=== PATIENT | female | born 1980 | race Caucasian/White ===

== ENCOUNTER 2016-05-09 15:53 | Emergency (ER) | payer SELFPAY ==
[2016-05-09 16:21] VITALS: BP 124/87
--- NOTE | 2016-05-09 16:39 | ER Document Report ---
ED Medical Screen (RME) - General Stated Complaint: SORE THROAT/DIFFICULTY SWALLOWING Notes: thursday throat pain that has progressed to hurting her right ear and neck. Able tolerate by mouth. Denies any fevers, chills, nausea, vomiting. I have greeted and performed a rapid initial assessment of this patient. A comprehensive ED assessment and evaluation of the patient, analysis of test results and completion of the medical decision making process will be conducted by additional ED providers. TRAVEL OUTSIDE OF THE [place] IN LAST 30 DAYS: No - Related Data Allergies/Adverse Reactions: No Known Allergies Allergy (Verified 03/16/16 09:58) Past Medical History Pulmonary Medical History: Reports: Hx Asthma Renal/ Medical History: Reports: Hx Ovarian Cysts Skin Medical History: Reports Hx MRSA Psychiatric Medical History: Reports: Hx Anxiety, Hx Attention Deficit Hyperactivity Disorder, Hx Bipolar Disorder, Hx Depression Past Surgical History: Reports: Hx Section, Hx Gynecologic Surgery - tubal - Immunizations Immunizations up to date: Yes Hx Diphtheria, Pertussis, Tetanus Vaccination: Yes Physical Exam - Vital signs Vitals: Temp Pulse Resp BP Pulse Ox 98.0 F 74 18 124/87 H 97 05/09/16 16:19 05/09/16 16:19 05/09/16 16:19 05/09/16 16:19 05/09/16 16:19 Course - Vital Signs Vital signs: Temp Pulse Resp BP Pulse Ox 98.0 F 74 18 124/87 H 97 05/09/16 16:19 05/09/16 16:19 05/09/16 16:19 05/09/16 16:19 05/09/16 16:19
--- NOTE | 2016-05-09 16:57 | ER Document Report ---
HPI - HPI Patient complains to provider of: sore throat Onset: Other - 2days Onset/Duration: Persistent Quality of pain: Burning Severity: Severe Pain Level: 5 Context: Patient presents to the emergency department with complaints of sore throat hurts to swallow and right ear pain for the past 2 days. She denies fever vomiting reports a little bit of diarrhea. She reports no exposure to strep although she has 2 sons that attend school. Patient reports she's been unable to sleep due to the pain. She reports Tylenol Motrin do not help the pain. Associated Symptoms: None Exacerbated by: Other - hurts to swallow Relieved by: Denies Similar symptoms previously: No Recently seen / treated by doctor: No - REPRODUCTIVE Reproductive: DENIES: : - DERM Skin Color: Normal Past Medical History - General Information source: Patient Last Menstrual Period: 05/05/16 - Social History Smoking Status: Current Every Day Smoker Cigarette use (# per day): Yes Chew tobacco use (# tins/day): No Frequency of alcohol use: None Drug Abuse: None Lives with: Family Family History: Reviewed & Not Pertinent Patient has suicidal ideation: No Patient has homicidal ideation: No Pulmonary Medical History: Reports: Hx Asthma Renal/ Medical History: Reports: Hx Ovarian Cysts. Denies: Hx Peritoneal Dialysis Skin Medical History: Reports Hx MRSA Psychiatric Medical History: Reports: Hx Anxiety, Hx Attention Deficit Hyperactivity Disorder, Hx Bipolar Disorder, Hx Depression Past Surgical History: Reports: Hx Section, Hx Gynecologic Surgery - tubal - Immunizations Immunizations up to date: Yes Hx Diphtheria, Pertussis, Tetanus Vaccination: Yes Vertical Provider Document - CONSTITUTIONAL Agree With Documented VS: Yes Exam Limitations: No Limitations General Appearance: WD/WN, No Apparent Distress - nontoxic looking - INFECTION CONTROL TRAVEL OUTSIDE OF THE [place] IN LAST 30 DAYS: No - HEENT HEENT: Atraumatic, Normocephalic. negative: Pharyngeal Exudate, Pharyngeal Erythema - No peritonsillar abscess good clear voice no trismus opens mouth wide , Tympanic Membrane Red, Tympanic Membrane Bulging - NECK Neck: Normal Inspection, Supple. negative: Lymphadenopathy-Left, Lymphadenopathy-Right - RESPIRATORY Respiratory: Breath Sounds Normal, No Respiratory Distress O2 Sat by Pulse Oximetry: 97 - CARDIOVASCULAR Cardiovascular: Regular Rate, Regular Rhythm - GI/ABDOMEN Gastrointestinal: Abdomen Soft, Abdomen Non-Tender - MUSCULOSKELETAL/EXTREMETIES Musculoskeletal/Extremeties: MAEW, FROM - NEURO Level of Consciousness: Awake, Alert, Appropriate Motor/Sensory: No Motor Deficit - DERM Integumentary: Warm, Dry Course - Re-evaluation Re-evalutation: 05/09/16 17:37 Pt declined motrin/tylenol, reports it doesn't help, requested ultram, reports she did not drive here. - Vital Signs Vital signs: Temp Pulse Resp BP Pulse Ox 98.0 F 74 18 124/87 H 97 05/09/16 16:19 05/09/16 16:19 05/09/16 16:19 05/09/16 16:19 05/09/16 16:19 Discharge - Discharge Clinical Impression: Sore throat, Elevated blood pressure reading Condition: Stable Disposition: HOME, SELF-CARE Instructions: Sore Throat ([facility]) Additional Instructions: *You have been evaluated for a sore throat *The strep test was negative for strep. A Throat culture is pending. This usually takes 2-3 days. You will be contacted should you need antibiotics. *Take tylenol or motrin as indicated for pain *Warm salt water gargles and throat lozenges for comfort *Do not let anyone drink/eat after you *Good hand washing *Follow-up with a primary care provider within one week for recheck *Monitor your blood pressure. Your blood pressure was elevated today. This may be because you were anxious, in pain or because you need medication. It is important to follow up with your primary care provider for full evaluation. *Return to ED for worsening condition change, needs, difficulty swallowing Forms: Elevated Blood Pressure
== END 2016-05-09 18:03 | disposition home or self-care (01) ==
LOC: ER 15:53
DX: J02.9 Acute pharyngitis, unspecified (principal); H92.01 Otalgia, right ear; R19.7 Diarrhea, unspecified; R03.0 Elevated blood-pressure reading, without diagnosis of hypertension; J45.909 Unspecified asthma, uncomplicated; F17.210 Nicotine dependence, cigarettes, uncomplicated; Z86.14 Personal history of Methicillin resistant Staphylococcus aureus infection
CPT/HCPCS: 87070; 87880; 99283

== ENCOUNTER 2016-05-12 11:27 | Emergency (ER) | payer SELFPAY ==
[2016-05-12] MEDS ORDERED: DIPH/PERTUSS(ACELL)/TETANUS VAC/PF 0.5 ML SYR (>=10YO) IM ONE (12:14)
[2016-05-12] MEDS ORDERED: ACETAMINOPHEN 325 MG TABLET PO ONE (12:15)
[2016-05-12] MEDS ORDERED: IBUPROFEN 600 MG TABLET PO ONE (12:17)
--- NOTE | 2016-05-12 12:17 | ER Document Report ---
ED Medical Screen (RME) - General Stated Complaint: FACIAL INJURY Time seen by provider: 12:16 Mode of Arrival: Ambulatory Information source: Patient Notes: 35-year-old female tripped over a baby toy and hit her face on a carpeted floor this morning. She has an abrasion to her forehead and nose. She did have a nosebleed. No headache or neck pain. C-spine is nontender. I have greeted and performed a rapid initial assessment of this patient. A comprehensive ED assessment, evaluation of the patient, analysis of test results , and completion of the medical decision making process will be contacted by additional ED providers. I have consulted with the supervisory physician per [facility] Guidelines., dr byrd for ct order. TRAVEL OUTSIDE OF THE [place] IN LAST 30 DAYS: No - Related Data Allergies/Adverse Reactions: No Known Allergies Allergy (Verified 05/12/16 12:13) Past Medical History Pulmonary Medical History: Reports: Hx Asthma Renal/ Medical History: Reports: Hx Ovarian Cysts. Denies: Hx Peritoneal Dialysis Skin Medical History: Reports Hx MRSA Psychiatric Medical History: Reports: Hx Anxiety, Hx Attention Deficit Hyperactivity Disorder, Hx Bipolar Disorder, Hx Depression Past Surgical History: Reports: Hx Section, Hx Gynecologic Surgery - tubal - Immunizations Immunizations up to date: Yes Hx Diphtheria, Pertussis, Tetanus Vaccination: Yes Physical Exam - Vital signs Vitals: Temp Pulse Resp BP Pulse Ox 98.4 F 84 14 130/78 H 98 05/12/16 11:38 05/12/16 11:38 05/12/16 11:38 05/12/16 11:38 05/12/16 11:38 Course - Vital Signs Vital signs: Temp Pulse Resp BP Pulse Ox 98.4 F 84 14 130/78 H 98 05/12/16 11:38 05/12/16 11:38 05/12/16 11:38 05/12/16 11:38 05/12/16 11:38
--- NOTE | 2016-05-12 14:17 | ER Document Report ---
ED Head/Face/Scalp Injury - General Chief Complaint: Facial Injury Stated Complaint: FACIAL INJURY Time seen by provider: 14:13 Mode of Arrival: Ambulatory Information source: Patient Notes: 35-year-old female presents to ED for pain to her nose and forehead after she tripped over the baby's toy and landed on her face on the carpeted floor this morning. She has abrasion to forehead and nose. TRAVEL OUTSIDE OF THE [place] IN LAST 30 DAYS: No - HPI Patient complains to provider of: Contusion, Injury, Other - Abrasion Injury to: Forehead, Nose Location of problem: Forehead, Nose Occurred: This morning Where: Home, Indoors Timing: Still present Context: Fell Loss consciousness: No loss of consciousness Remembers: Injury, Coming to hospital - Related Data Allergies/Adverse Reactions: No Known Allergies Allergy (Verified 05/12/16 12:13) Past Medical History - General Information source: Patient - Social History Smoking Status: Current Every Day Smoker Cigarette use (# per day): Yes - half pack a day Chew tobacco use (# tins/day): Yes Smoking Education Provided: Yes - acetaminophen Frequency of alcohol use: None Drug Abuse: None Occupation: none Lives with: Spouse/Significant other Family History: Thyroid Disfunction. denies: Arthritis, CAD, COPD, CVA, DM, Hyperlipidemia, Hypertension, Malignancy Patient has suicidal ideation: No Patient has homicidal ideation: No - Past Medical History Cardiac Medical History: Reports: None Pulmonary Medical History: Reports: Hx Asthma EENT Medical History: Reports: None Neurological Medical History: Reports: None Endocrine Medical History: Reports: None Renal/ Medical History: Reports: Hx Ectopic , Hx Ovarian Cysts Malignancy Medical History: Reports: None GI Medical History: Reports: None Musculoskeltal Medical History: Reports None Skin Medical History: Reports Hx MRSA Psychiatric Medical History: Reports: Hx Anxiety, Hx Attention Deficit Hyperactivity Disorder, Hx Bipolar Disorder, Hx Depression Traumatic Medical History: Reports: None Infectious Medical History: Reports: Hx MRSA Past Surgical History: Reports: Hx Section, Hx Gynecologic Surgery - tubal - Immunizations Immunizations up to date: Yes Hx Diphtheria, Pertussis, Tetanus Vaccination: Yes Review of Systems - Review of Systems Constitutional: No symptoms reported EENT: No symptoms reported Cardiovascular: No symptoms reported Respiratory: No symptoms reported Gastrointestinal: No symptoms reported Genitourinary: No symptoms reported Female Genitourinary: No symptoms reported Musculoskeletal: No symptoms reported Skin: Other - Abrasion to forehead and nose, contusion to forehead and nose Hematologic/Lymphatic: No symptoms reported Neurological/Psychological: No symptoms reported -: Yes All other systems reviewed and negative Physical Exam - Vital signs Vitals: Temp Pulse Resp BP Pulse Ox 98.4 F 84 14 130/78 H 98 05/12/16 11:38 05/12/16 11:38 05/12/16 11:38 05/12/16 11:38 05/12/16 11:38 Interpretation: Normal - General General appearance: Appears well, Alert - HEENT Head: Abrasions, Ecchymosis, Tenderness Eyes: Normal Pupils: PERRL Ears: Normal External canal: Normal Tympanic membrane: Normal Sinus: Normal Nasal: Ecchymosis, Swelling, Clear rhinorrhea. No: Bloody discharge, Connor deformity, Epistaxis, Purulent discharge, Septal hematoma Mouth/Lips: Normal Mucous membranes: Normal Pharynx: Normal Neck: Normal - Respiratory Respiratory status: No respiratory distress Chest status: Nontender Breath sounds: Normal Chest palpation: Normal - Cardiovascular Rhythm: Regular Heart sounds: Normal auscultation Murmur: No - Abdominal Inspection: Normal Distension: No distension Bowel sounds: Normal Tenderness: Nontender Organomegaly: No organomegaly - Back Back: Normal, Nontender - Extremities General upper extremity: Normal inspection, Nontender, Normal color, Normal ROM , Normal temperature General lower extremity: Normal inspection, Nontender, Normal color, Normal ROM , Normal temperature, Normal weight bearing. No: Marcos's sign - Neurological Neuro grossly intact: Yes Cognition: Normal Orientation: AAOx4 Ananth Coma Scale Eye Opening: Spontaneous Ananth Coma Scale Verbal: Oriented [place] Coma Scale Motor: Obeys Commands [place] Coma Scale Total: 15 Speech: Normal Motor strength normal: LUE, RUE, LLE, RLE Sensory: Normal - Psychological Associated symptoms: Normal affect, Normal mood - Skin Skin Temperature: Warm Skin Moisture: Dry Skin Color: Normal Location of irregularity: Face - Abrasion and contusion to forehead and nose Course - Re-evaluation Re-evalutation: 05/12/16 14:[address] with patient and family written report given to patient patient discharged home with a prescription for hydrocodone - Vital Signs Vital signs: Temp Pulse Resp BP Pulse Ox 98.0 F 80 16 130/75 H 100 05/12/16 14:26 05/12/16 14:26 05/12/16 14:26 05/12/16 14:26 05/12/16 14:26 - Diagnostic Test Radiology reviewed: Image reviewed, Reports reviewed Discharge - Discharge Clinical Impression: patient abrasions Facial contusion Qualifiers: Encounter type: initial encounter Qualified Code(s): S00.83XA - Contusion of other part of head, initial encounter Condition: Good Disposition: HOME, SELF-CARE Instructions: Family Physicians / Practices Additional Instructions: CONTUSION: Your injury has resulted in a contusion -- a crushing of the deep tissues. No injury to important structures was detected during the physician's exam. Contusions vary in the amount of pain they cause, and in the length of time required for healing. Typically, the area will become bruised, and will remain painful to touch for two or three weeks. However, most patients are back to working and playing within a few days. After the initial period of rest and cold-packs, your symptoms (together with the doctor's recommendations) will determine how rapidly you can get back to full activity. Usually this means "do what feels okay, but don't do things that hurt." If re-examination was recommended, it's important to follow up as instructed. Call the doctor or return any time if pain increases, if swelling becomes severe, if you develop numbness or weakness in an injured extremity, or if any other alarming symptoms occur. ABRASIONS: An abrasion is a scraping injury of the skin. Some scarring may result. The seriousness of an abrasion is not always obvious at first. Hidden tissue damage may be present and infection may occur despite proper care. Complete healing may take from ten days to as long as a month. The healing time depends on the depth of the abrasion, and on the amount of crushing of underlying tissues from the injury. Keep the wound and dressing clean. Do not shower or bathe the area until okayed by the doctor. If the dressing gets wet, remove it and blot the wound dry, then reapply a clean dressing. Dressings should be changed every day. Sunscreen should be used for six months after the skin is healed. If any signs of infection occur (swelling, redness, increasing tenderness, red streaks, profuse purulent drainage from the abrasion, tender lumps in the armpit or groin above the abrasion, or fever), see the doctor immediately. Soap Cleansing Gently wash the wound daily using a mild soap (like Ivory, Phisoderm, Neutrogena). Use warm water, rubbing gently until all debris, ooze, and crusting have been washed from the wound. Allow to dry briefly (about 10 minutes) after cleaning. Repeat this cleansing at least three times a day for the first two days and then once or twice a day. Antibiotic Ointment Protection Your wounds are such that dressing them is not practical or optional. After cleansing, you should apply a thin coating of antibiotic ointment ( Bacitracin, not Neosporin) to the wounds at least three times daily. This lessens infection risk, and may decrease the amount of scarring. Use a q-tip or dull butter knife, not your finger, to apply this ointment. Any debris or ooze which builds up in the ointment should be gently rubbed off with a sterile gauze pad. Harder crusting may need to be gently scrubbed off with a clean wash cloth with soap and warm water, perhaps applying a warm, wet wash cloth to the wound for ten minutes first. Development of redness, severe itching, or blistering may mean allergy to the ointment. See the doctor. Ibuprofen Ibuprofen is an excellent, safe drug for pain control. In addition, it has potent antiinflammatory effects which are beneficial, especially in the treatment of injuries, arthritis, or tendonitis. It's best to take ibuprofen with food. Persons with ulcer disease or allergy to aspirin should notify their physician of this before taking ibuprofen. Take the medication exactly as prescribed. Don't take additional doses unless instructed to do so by your doctor. If you develop wheezing, shortness of breath, hives, faintness, stomach pain, vomiting, or dark black stools, return for re-evaluation at once. USE OF TYLENOL (ACETAMINOPHEN): Acetaminophen may be taken for pain relief or fever control. It's much safer than aspirin, offering a wider range of "safe" dosages. It is safe during . Some brand names are Tylenol, Panadol, Datril, Anacin 3, Tempra, and Liquiprin. Acetaminophen can be repeated every four hours. The following are maximum recommended dosages: WEIGHT Dose Drops Elixir Chewable( 80mg) (LBS.) drprs=droppers tsp=teaspoon 6 40 mg 0.4 ml (1/2) 6-11 80 mg 0.8 ml (full) tsp 1 tab 12-16 120 mg 1 1/2 drprs 3/4 tsp 1 1/2 tabs 17-23 160 mg 2 drprs 1 tsp 2 tabs 24-30 240 mg 3 drprs 1 1/2 tsp 3 tabs 30-35 320 mg 2 tsp 4 tabs 36-41 360 mg 2 1/4 tsp 4 1/2 tabs 42-47 400 mg 2 1/2 tsp 5 tabs 48-53 480 mg 3 tsp 6 tabs 54-59 520 mg 3 1/4 tsp 6 1/2 tabs 60-64 560 mg 3 1/2 tsp 7 tabs 65-70 600 mg 3 3/4 tsp 7 1/2 tabs 71-76 640 mg 4 tsp 8 tabs 77-82 720 mg 4 1/2 tsp 9 tabs 83-88 800 mg 5 tsp 10 tabs >89 pounds or adults 650 mg to 900 mg Acetaminophen can be repeated every four hours. Maximum dose not to exceed 4000 mg a day. These maximum recommended dosages are slightly higher than the dosages written on the product container, but these dosages are very safe and below the toxic dosage for acetaminophen. ICE PACKS: Apply ice packs frequently against the painful area. Many different schedules are recommended, such as "20 minutes on, 20 minutes off" or "one hour ice, two hours rest." If you need to work, you may need to go longer between ice treatments. You should plan to have the area ice packed AT LEAST one fourth of the time. The ice should be applied over the wrap, tape, or splint, or over a layer of cloth -- not directly against the skin. Some ice bags have a built-in cloth and can be put directly on the skin. ORAL NARCOTIC MEDICATION: You have been given a prescription for pain control. This medication is a narcotic. It's best taken with food, as nausea can result if taken on an empty stomach. Don't operate machinery or drive within six hours of taking this medication. Do not combine this medicine with alcohol, or with any medication which can cause sedation (such as cold tablets or sleeping pills) unless you get permission from the physician. Narcotics tend to cause constipation. If possible, drink plenty of fluids and eat a diet high in fiber and fruits. FOLLOW-UP CARE: If you have been referred to a physician for follow-up care, call the physician s office for an appointment as you were instructed or within the next two days. If you experience worsening or a significant change in your symptoms, notify the physician immediately or return to the Emergency Department at any time for re-evaluation. Prescriptions: Hydrocodone/Acetaminophen [[place] 5-325 mg Tablet] 1 tab PO Q6HP PRN #14 tablet PRN Reason: Forms: Elevated Blood Pressure, Smoking Cessation Education
[2016-05-12 14:27] VITALS: BP 130/75
== END 2016-05-12 14:26 | disposition home or self-care (01) ==
LOC: ER 11:27
DX: S00.33XA Contusion of nose, initial encounter (principal); S00.83XA Contusion of other part of head, initial encounter; W01.0XXA Fall on same level from slipping, tripping and stumbling without subsequent striking against object, initial encounter; Y92.009 Unspecified place in unspecified non-institutional (private) residence as the place of occurrence of the external cause; J45.909 Unspecified asthma, uncomplicated; J34.89 Other specified disorders of nose and nasal sinuses; F17.210 Nicotine dependence, cigarettes, uncomplicated; Z71.6 Tobacco abuse counseling; Z86.14 Personal history of Methicillin resistant Staphylococcus aureus infection
CPT/HCPCS: 70486; 90471; 90715; 99283

== ENCOUNTER 2016-05-13 13:58 | Emergency (ER) | payer SELFPAY ==
[2016-05-13 14:23] VITALS: BP 128/88
[2016-05-13] MEDS ORDERED: IBUPROFEN 600 MG TABLET PO ONE (14:27)
--- NOTE | 2016-05-13 14:27 | ER Document Report ---
ED Medical Screen (RME) - General Stated Complaint: FACIAL INJURY Time seen by provider: 14:25 Mode of Arrival: Ambulatory Information source: Patient Notes: 35-year-old female presents to ED for being hit upset the head with the baby's back today and now has pain and ringing in her right ear. Yesterday she was in the emergency room after tripping over a toy with abrasions to her forehead and her nose. As menstrual period 05/12/2016. I have greeted and performed a rapid initial assessment of this patient. A comprehensive ED assessment and evaluation of the patient, analysis of test results and completion of medical decision making process will be conducted by an additional ED providers. TRAVEL OUTSIDE OF THE [place] IN LAST 30 DAYS: No - Related Data Allergies/Adverse Reactions: No Known Allergies Allergy (Verified 05/13/16 14:24) Past Medical History Pulmonary Medical History: Reports: Hx Asthma Renal/ Medical History: Reports: Hx Ectopic , Hx Ovarian Cysts. Denies: Hx Peritoneal Dialysis Skin Medical History: Reports Hx MRSA Psychiatric Medical History: Reports: Hx Anxiety, Hx Attention Deficit Hyperactivity Disorder, Hx Bipolar Disorder, Hx Depression Infectious Medical History: Reports: Hx MRSA Past Surgical History: Reports: Hx Section, Hx Gynecologic Surgery - tubal - Immunizations Immunizations up to date: Yes Hx Diphtheria, Pertussis, Tetanus Vaccination: Yes Physical Exam - Vital signs Vitals: Temp Pulse Resp BP Pulse Ox 98.1 F 109 H 16 128/88 H 98 05/13/16 14:22 05/13/16 14:22 05/13/16 14:22 05/13/16 14:22 05/13/16 14:22 Course - Vital Signs Vital signs: Temp Pulse Resp BP Pulse Ox 98.1 F 109 H 16 128/88 H 98 05/13/16 14:22 05/13/16 14:22 05/13/16 14:22 05/13/16 14:22 05/13/16 14:22
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
== END 2016-05-13 15:30 | disposition home or self-care (01) ==
LOC: ER 13:58
DX: S00.81XA Abrasion of other part of head, initial encounter (principal); S00.31XA Abrasion of nose, initial encounter; W01.0XXA Fall on same level from slipping, tripping and stumbling without subsequent striking against object, initial encounter; H93.19 Tinnitus, unspecified ear; M54.2 Cervicalgia; W21.11XA Struck by baseball bat, initial encounter; R03.0 Elevated blood-pressure reading, without diagnosis of hypertension; F17.200 Nicotine dependence, unspecified, uncomplicated; Z86.14 Personal history of Methicillin resistant Staphylococcus aureus infection
CPT/HCPCS: 99283

== ENCOUNTER 2016-06-12 14:07 | Emergency (ER) | payer SELFPAY ==
[2016-06-12 14:14] VITALS: BP 144/87
[2016-06-12] MEDS ORDERED: ONDANSETRON 4 MG TAB.RAPDIS PO ONE (14:31)
[2016-06-12] MEDS ORDERED: IBUPROFEN 600 MG TABLET PO ONE (14:31)
--- NOTE | 2016-06-12 14:31 | ER Document Report ---
ED Medical Screen (RME) - General Stated Complaint: HEADACHE Time seen by provider: 14:29 Mode of Arrival: Ambulatory Information source: Patient Notes: 35-year-old female presents to ED for severe headache started last night, right ear pain and dental pain on and off for 3 weeks. She states she's been on 2 antibiotics so far. Nausea and vomiting started today. Last menstrual period 05/16/2016. States she threw up with migraines but has not had very many recently. I have greeted and performed a rapid initial assessment of this patient. A comprehensive ED assessment and evaluation of the patient, analysis of test results and completion of medical decision making process will be conducted by an additional ED providers. TRAVEL OUTSIDE OF THE U[place] IN LAST 30 DAYS: No - Related Data Allergies/Adverse Reactions: No Known Allergies Allergy (Verified 06/12/16 14:28) Past Medical History Pulmonary Medical History: Reports: Hx Asthma Renal/ Medical History: Reports: Hx Ectopic , Hx Ovarian Cysts. Denies: Hx Peritoneal Dialysis Skin Medical History: Reports Hx MRSA Psychiatric Medical History: Reports: Hx Anxiety, Hx Attention Deficit Hyperactivity Disorder, Hx Bipolar Disorder, Hx Depression Infectious Medical History: Reports: Hx MRSA Past Surgical History: Reports: Hx Section, Hx Gynecologic Surgery - tubal - Immunizations Immunizations up to date: Yes Hx Diphtheria, Pertussis, Tetanus Vaccination: Yes Physical Exam - Vital signs Vitals: Temp Pulse Resp BP Pulse Ox 99.1 F 74 16 144/87 H 98 06/12/16 14:11 06/12/16 14:11 06/12/16 14:11 06/12/16 14:11 06/12/16 14:11 Course - Vital Signs Vital signs: Temp Pulse Resp BP Pulse Ox 99.1 F 74 16 144/87 H 98 06/12/16 14:11 06/12/16 14:11 06/12/16 14:11 06/12/16 14:11 06/12/16 14:11
--- NOTE | 2016-06-12 15:55 | ER Document Report ---
ED General - General Chief Complaint: Headache Stated Complaint: HEADACHE Mode of Arrival: Ambulatory Information source: Patient Notes: Patient is a 35 yo female who presents with right side upper jaw and tooth pain that radiates to her right ear and is causing a generalized headache. She states this has been going on intermittently for the past 3 weeks. She was started on amoxicillin by a dentist 3 weeks ago that made the pain worse and then was seen at [facility] 2 weeks ago and placed on clindamycin which seemed to temporarily help but the pain continues. She endorses associated nausea and vomiting but no fever, chills, jaw swelling, difficulty breathing or swallowing or abdominal pain. She has tried otc tylenol for pain with no relief. She was given zofran in triage which did help with her nausea. TRAVEL OUTSIDE OF THE [place] IN LAST 30 DAYS: No - Related Data Allergies/Adverse Reactions: Sulfa (Sulfonamide Antibiotics) Allergy (Verified 06/12/16 14:30) Past Medical History - General Information source: Patient - Social History Smoking Status: Current Every Day Smoker Chew tobacco use (# tins/day): No Frequency of alcohol use: None Drug Abuse: None Family History: Thyroid Disfunction. denies: Arthritis, CAD, COPD, CVA, DM, Hyperlipidemia, Hypertension, Malignancy Patient has suicidal ideation: No Patient has homicidal ideation: No Pulmonary Medical History: Reports: Hx Asthma Renal/ Medical History: Reports: Hx Ectopic , Hx Ovarian Cysts. Denies: Hx Peritoneal Dialysis Skin Medical History: Reports Hx MRSA Psychiatric Medical History: Reports: Hx Anxiety, Hx Attention Deficit Hyperactivity Disorder, Hx Bipolar Disorder, Hx Depression Infectious Medical History: Reports: Hx MRSA Past Surgical History: Reports: Hx Section, Hx Gynecologic Surgery - tubal - Immunizations Immunizations up to date: Yes Hx Diphtheria, Pertussis, Tetanus Vaccination: Yes Review of Systems - Review of Systems Constitutional: No symptoms reported EENT: See HPI Cardiovascular: No symptoms reported Respiratory: No symptoms reported Gastrointestinal: See HPI Genitourinary: No symptoms reported Female Genitourinary: No symptoms reported Musculoskeletal: No symptoms reported Skin: No symptoms reported Hematologic/Lymphatic: No symptoms reported Neurological/Psychological: No symptoms reported Physical Exam - Vital signs Vitals: Temp Pulse Resp BP Pulse Ox 99.1 F 74 16 144/87 H 98 06/12/16 14:11 06/12/16 14:11 06/12/16 14:11 06/12/16 14:11 06/12/16 14:11 Interpretation: Hypertensive - Notes Notes: PHYSICAL EXAM: CONSTITUTIONAL: Alert and oriented, well-appearing and in no acute distress. Appears uncomfortable. HENT: Normocephalic, atraumatic. Ear canals without erythema or foreign body, TMs pearly morris with good bony landmarks. Nares clear without erythema, septal hematoma or deviation, airway patent. Oropharynx clear without erythema, tonsilar exudate or malocclusion. Trachea midline. Uvula midline. Moist mucous membranes. Dental decay noted to tooth #1 without gingival swelling or abscess. No facial swelling. NECK: supple without lymphadenopathy. No midline tenderness or paraspinous muscle spasms. No step-offs or deformities. ROM intact. HEART: Regular rate and rhythm without murmurs. LUNGS: CTAB and equal. No wheezes, rales or rhonchi. EXTREMITIES: Normal range of motion, no pitting edema. No cyanosis. Cap Refill < 3 seconds. PSYCH: Normal mood, normal affect. SKIN: Warm and dry. Normal turgor. No rashes or lesions noted. Course - Re-evaluation Re-evalutation: 06/12/16 15:54 Patient seen and examined. No vomiting since in ED. Given zofran in triage which improved her nausea. Dental decay to tooth #1 without evidence of dental abscess. Will give script for abx/pain medication and provide information for free dental clinics. Discharged home in stable condition. - Vital Signs Vital signs: Temp Pulse Resp BP Pulse Ox 99.1 F 74 16 144/87 H 98 06/12/16 14:11 06/12/16 14:11 06/12/16 14:11 06/12/16 14:11 06/12/16 14:11 Discharge - Discharge Clinical Impression: Toothache, Dental decay Condition: Stable Disposition: HOME, SELF-CARE Additional Instructions: Toothache Your pain is due to dental decay. The tooth must be repaired in order for you to feel better. You will, therefore, be referred to a dentist. Severe swelling or drainage around a tooth usually means a deep dental abscess. This also requires evaluation and treatment by the dentist, but antibiotics may be prescribed while awaiting dental treatment. You should be rechecked immediately if you develop major swelling of the face, increasing pain, a lump in the jaw or gums, headache, or fever. Oral Narcotic Medication You have been given a prescription for pain control. This medication is a narcotic. It's best taken with food, as nausea can result if taken on an empty stomach. Don't operate machinery or drive within six hours of taking this medication. Do not combine this medicine with alcohol, or with any medication which can cause sedation (such as cold tablets or sleeping pills) unless you get permission from the physician. Narcotics tend to cause constipation. If possible, drink plenty of fluids and eat a diet high in fiber and fruits. Antibiotic Therapy You have been given an antibiotic prescription. It's important that you take all the medication, unless instructed otherwise by your physician. Failure to complete the entire course can result in relapse of your condition. Common side effects of antibiotics include nausea, intestinal cramping, or diarrhea. Women may develop vaginal yeast infections, and babies can get yeast (thrush) in the mouth following the use of antibiotics. Contact your physician if you develop significant side effects from this medication. Allergy to this antibiotic can result in hives, wheezing, faintness, or itching. If symptoms of allergy occur, stop the medication and call the doctor. Return immediately for any new or worsening symptoms. Follow-up with primary care provider, call tomorrow to make followup appointmen t. Prescriptions: Amox Tr/Potassium Clavulanate [Augmentin 875-125 Tablet] 1 tab PO BID 10 Days Hydrocodone/Acetaminophen [Vicodin 5-300 mg Tablet] 1 tab PO ASDIR PRN #15 tab PRN Reason: Ondansetron [Zofran Odt 4 mg Tablet] 1 - 2 tab PO Q4H PRN #15 tab.rapdis PRN Reason: For Nausea/Vomiting Forms: Elevated Blood Pressure
== END 2016-06-12 16:00 | disposition home or self-care (01) ==
LOC: ER 14:07
DX: K02.9 Dental caries, unspecified (principal); K08.9 Disorder of teeth and supporting structures, unspecified; R51 Headache; F17.200 Nicotine dependence, unspecified, uncomplicated; Z88.2 Allergy status to sulfonamides; Z86.14 Personal history of Methicillin resistant Staphylococcus aureus infection
CPT/HCPCS: 99284; S0119

== ENCOUNTER 2016-06-17 17:53 | Emergency (ER) | payer SELFPAY ==
--- NOTE | 2016-06-17 18:04 | ER Document Report ---
ED Medical Screen (RME) - General Stated Complaint: TOOTH PAIN Notes: dental pain for one month to right upper teeth. States she did not get Augmentin filled from last visit because she couldn't afford it. Pt came in by EMS today. I have greeted and performed a rapid initial assessment of this patient. A comprehensive ED assessment and evaluation of the patient, analysis of test results and completion of the medical decision making process will be conducted by additional ED providers. TRAVEL OUTSIDE OF THE [place] IN LAST 30 DAYS: No - Related Data Allergies/Adverse Reactions: Sulfa (Sulfonamide Antibiotics) Allergy (Verified 06/12/16 14:30) Past Medical History Pulmonary Medical History: Reports: Hx Asthma Renal/ Medical History: Reports: Hx Ectopic , Hx Ovarian Cysts. Denies: Hx Peritoneal Dialysis Skin Medical History: Reports Hx MRSA Psychiatric Medical History: Reports: Hx Anxiety, Hx Attention Deficit Hyperactivity Disorder, Hx Bipolar Disorder, Hx Depression Infectious Medical History: Reports: Hx MRSA Past Surgical History: Reports: Hx Section, Hx Gynecologic Surgery - tubal - Immunizations Immunizations up to date: Yes Hx Diphtheria, Pertussis, Tetanus Vaccination: Yes Physical Exam - Vital signs Vitals: Temp Pulse Resp BP Pulse Ox 98.8 F 92 16 117/88 H 98 06/17/16 17:59 06/17/16 17:59 06/17/16 17:59 06/17/16 17:59 06/17/16 17:59 - HEENT Teeth diagram: 1 - decayed and missing teeth. Course - Vital Signs Vital signs: Temp Pulse Resp BP Pulse Ox 98.8 F 92 16 117/88 H 98 06/17/16 17:59 06/17/16 17:59 06/17/16 17:59 06/17/16 17:59 06/17/16 17:59
--- NOTE | 2016-06-17 19:49 | ER Document Report ---
ED Oral Problem - General Chief Complaint: Toothache Stated Complaint: TOOTH PAIN Notes: Patient says she is having a recurrent abscess of the right upper teeth and adjacent cheek. Patient says that she was treated with a ten-day course of amoxicillin in mid April for an abscess in that same location. After that was completed, patient had a recurrence of the abscess and was treated with clindamycin for 10 days which she finished about a week and a half ago. She has been seen a third time for recurrent abscess and was prescribed Augmentin, but she could not afford that antibiotic so she did not take it. Patient is not aware of any drainage currently. Has not had a fever. Did have some vomiting and says she passed out, but she thinks that was due to anxiety and hyperventilation, which she does have. Has not had a fever. On her menses now. TRAVEL OUTSIDE OF THE [place] IN LAST 30 DAYS: No - Related Data Allergies/Adverse Reactions: Sulfa (Sulfonamide Antibiotics) Allergy (Verified 06/17/16 18:02) Past Medical History - Social History Smoking Status: Current Every Day Smoker Chew tobacco use (# tins/day): No Frequency of alcohol use: None Drug Abuse: None Family History: Reviewed & Not Pertinent, Thyroid Disfunction Patient has suicidal ideation: No Patient has homicidal ideation: No Pulmonary Medical History: Reports: Hx Asthma Renal/ Medical History: Reports: Hx Ectopic , Hx Ovarian Cysts, Other - Endometriosis. Says she needs to have a hysterectomy. Skin Medical History: Reports Hx MRSA Psychiatric Medical History: Reports: Hx Anxiety, Hx Attention Deficit Hyperactivity Disorder, Hx Bipolar Disorder, Hx Depression Infectious Medical History: Reports: Hx MRSA Past Surgical History: Reports: Hx Section, Hx Gynecologic Surgery - tubal - Immunizations Immunizations up to date: Yes Hx Diphtheria, Pertussis, Tetanus Vaccination: Yes Review of Systems - Review of Systems Constitutional: denies: Fever Cardiovascular: denies: Chest pain Respiratory: denies: Cough, Short of breath, Wheezing Gastrointestinal: Vomiting. denies: Abdominal pain Neurological/Psychological: No symptoms reported, Anxiety Physical Exam - Vital signs Vitals: Temp Pulse Resp BP Pulse Ox 98.8 F 92 16 117/88 H 98 06/17/16 17:59 06/17/16 17:59 06/17/16 17:59 06/17/16 17:59 06/17/16 17:59 Interpretation: Normal - Notes Notes: PHYSICAL EXAMINATION: GENERAL: Well-appearing, in no acute distress. Vital signs are all normal. HEAD: Atraumatic, normocephalic. ENT: oropharynx clear without exudates. Moist mucous membranes. Patient has a couple of bad teeth in the upper right posterior area. The adjacent gingiva is tender, but no fluctuance there. No fluctuance of the maxillary region of the face. No real significant swelling or asymmetry noted of the face. Voice normal. No problems swallowing saliva or breathing. NECK: Normal range of motion, supple. LUNGS: Breath sounds clear and equal bilaterally. HEART: Regular rate and rhythm without murmurs. ABDOMEN: Soft, nontender. No guarding or rebound. BACK: No tenderness throughout entire back. EXTREMITIES: Normal range of motion without pain. NEUROLOGICAL: Normal speech, normal gait. Normal sensory, motor, and reflex exams. Awake, alert, and oriented x3. Cranial nerves normal. SKIN: Warm, dry, no rashes. Course - Vital Signs Vital signs: Temp Pulse Resp BP Pulse Ox 98.6 F 57 L 16 148/94 H 98 06/17/16 19:53 06/17/16 19:53 06/17/16 17:59 06/17/16 19:53 06/17/16 19:53 Discharge - Discharge Clinical Impression: Toothache, Dental infection Condition: Stable Disposition: HOME, SELF-CARE Additional Instructions: TOOTHACHE: Your pain is due to dental decay. The tooth must be repaired in order for you to feel better. You will, therefore, be referred to a dentist. We do not have dentists on the staff at [facility]. Severe swelling or drainage around a tooth usually means a dental abscess. This also requires evaluation and treatment by the dentist, but antibiotics may be prescribed while awaiting dental treatment. You should be rechecked immediately if you develop major swelling of the face, increasing pain, a lump in the jaw or gums, headache, difficulty swallowing, or fever. ORAL NARCOTIC MEDICATION: You have been given a prescription for pain control. This medication is a narcotic. It's best taken with food, as nausea can result if taken on an empty stomach. Don't operate machinery or drive within six hours of taking this medication. Do not combine this medicine with alcohol, or with any medication which can cause sedation (such as cold tablets or sleeping pills) unless you get permission from the physician. Narcotics tend to cause constipation. If possible, drink plenty of fluids and eat a diet high in fiber and fruits. PENICILLIN V K: You have been given a prescription for Penicillin VK. Your physician has determined that this is the best antibiotic for your condition. Pen VK can be taken with meals, however more of the antibiotic gets into the bloodstream if it's taken on an empty stomach. Penicillin usually has no side effects. However, allergy to penicillins is common. If you have had an allergic reaction to any drug of the penicillin family, you should never take any other penicillin. Notify your doctor at once if you develop hives, itching, swelling, faintness, or shortness of breath. Antinausea Medication You have been given a medication to suppress nausea and vomiting. This type of medication can be given as a shot, pill, or suppository. It will usually last for many hours. Pills and shots usually last six to eight hours, suppositories last about 12 hours. For the typical illness, only one or two doses of the medication may be necessary. Mild lightheadedness may occur. This type of medicine can cause drowsiness. Do not drive or operate dangerous machinery while under its influence. Do not mix with alcohol. See your doctor at once if you have muscle spasms or tightness, or uncontrollable motions (particularly of the neck, mouth, or jaw). Persistent vomiting or severe lightheadedness should also be evaluated by the physician. FOLLOW-UP CARE: You have been referred for follow-up care to the dentists listed below. Call the dentists office for an appointment as you were instructed or within the next two days. If you experience worsening or a significant change in your symptoms, notify the physician immediately or return to the Emergency Department at any time for re-evaluation. [facility] [address] [place], [place] Thursday mornings, by appointment [facility] [address] [place] [address] [facility] [address] [facility] [address] [facility] [address] [email or web address] [address] [place] [address] Thursday- 8:00am to 5:00 pm Will see patients from other [facility]. Charges based on income and family size and accepts Medicare, Medicaid, and Insurances Will pull molars [facility] Student [facility] [id number] Hours of Operation 8:00 am - 4:30 pm weekdays The following dental offices accept Medicaid: [facility] [address]. Bob [address] Ferris Dr. Luna Dr. Marley Oniel Lamas [place], and [place] oral [facility] Dr. Valle ([place]) Dr. Azevedo ([place]) [facility] Drs. Sam ([place]) Dr. Ramirez ([place]) [facility] Dr. Guthrie ([place]) Drs. Calero and ([place]) Medicaid Care Line Prescriptions: Oxycodone HCl/Acetaminophen [Percocet 5-325 mg Tablet] 1 - 2 tab PO Q4HP PRN # 20 tablet PRN Reason: Promethazine HCl [Phenergan 25 mg Tablet] 1 - 2 tab PO Q6HP PRN #15 tablet PRN Reason: Penicillin V Potassium [Penicillin Vk 250 mg Tablet] 250 mg PO QID #40 tablet
[2016-06-17 19:55] VITALS: BP 148/94
== END 2016-06-17 19:55 | disposition home or self-care (01) ==
LOC: ER 17:53
DX: K04.7 Periapical abscess without sinus (principal); K08.89 Other specified disorders of teeth and supporting structures; F17.200 Nicotine dependence, unspecified, uncomplicated
CPT/HCPCS: 99282

== ENCOUNTER 2016-07-12 12:37 | Emergency (ER) | payer SELFPAY ==
--- NOTE | 2016-07-12 13:24 | ER Document Report ---
HPI - HPI Patient complains to provider of: abscess vaginal area Onset: Last week Onset/Duration: Persistent Quality of pain: Achy Severity: Severe Pain Level: 5 Context: Patient presents to the emergency department with complaints of abscess to her vaginal area for one week. She reports a lot of pain and burning sensation. Reports history of abscesses in this area before. Patient does shave her pubic area. Denies other symptoms such as fever vomiting diarrhea. Unsure of history of MRSA. Associated Symptoms: None Exacerbated by: Denies Relieved by: Denies Similar symptoms previously: Yes Recently seen / treated by doctor: No - REPRODUCTIVE LMP: [id number] Reproductive: DENIES: : - DERM Skin Color: Normal Past Medical History - General Information source: Patient Last Menstrual Period: may - Social History Smoking Status: Current Every Day Smoker Cigarette use (# per day): Yes Frequency of alcohol use: None Drug Abuse: None Occupation: starts at [employer] Lives with: Family Family History: Reviewed & Not Pertinent, Thyroid Disfunction Pulmonary Medical History: Reports: Hx Asthma Renal/ Medical History: Reports: Hx Ectopic , Hx Ovarian Cysts. Denies: Hx Peritoneal Dialysis Skin Medical History: Reports Hx MRSA Psychiatric Medical History: Reports: Hx Anxiety, Hx Attention Deficit Hyperactivity Disorder, Hx Bipolar Disorder, Hx Depression Infectious Medical History: Reports: Hx MRSA Past Surgical History: Reports: Hx Section, Hx Gynecologic Surgery - tubal - Immunizations Immunizations up to date: Yes Hx Diphtheria, Pertussis, Tetanus Vaccination: Yes Vertical Provider Document - CONSTITUTIONAL Agree With Documented VS: Yes Exam Limitations: No Limitations General Appearance: WD/WN, No Apparent Distress - INFECTION CONTROL TRAVEL OUTSIDE OF THE [place] IN LAST 30 DAYS: No - HEENT HEENT: Atraumatic, Normocephalic - NECK Neck: Normal Inspection, Supple. negative: Lymphadenopathy-Right - RESPIRATORY Respiratory: Breath Sounds Normal, No Respiratory Distress O2 Sat by Pulse Oximetry: 100 - CARDIOVASCULAR Cardiovascular: Regular Rate - GI/ABDOMEN Gastrointestinal: Abdomen Soft - REPRODUCTIVE Notes: small soft erythema ~ 1 cm swelling noted to left perineum area , soft, no induration, no pustule - BACK Back: Normal Inspection - MUSCULOSKELETAL/EXTREMETIES Musculoskeletal/Extremeties: MAFORTINO AGUILAR - NEURO Level of Consciousness: Awake, Alert - DERM Integumentary: Warm, Dry Course - Re-evaluation Re-evalutation: 07/12/16 Patient instructed on Bactroban ointment. Patient was also instructed on Keflex and [place]. She was warned of signs and symptoms of increasing infection. She was instructed to return the emergency department for I&D should the abscess become worse. She verbalized understanding to all instructions. - Vital Signs Vital signs: Temp Pulse Resp BP Pulse Ox 98.8 F 101 H 16 139/89 H 100 07/12/16 12:56 07/12/16 12:56 07/12/16 12:56 07/12/16 12:56 07/12/16 12:56 Discharge - Discharge Clinical Impression: Elevated blood pressure reading, abscess Condition: Stable Disposition: HOME, SELF-CARE Instructions: Abscess ([facility]), Bactroban Ointment ([facility]), Cephalexin ([facility]), Oral Narcotic Medication ([facility]) Additional Instructions: *You have been treated for an abscess to your vaginal area *Take medication as prescribed *Monitor the site for signs of increasing infection such as increasing pain, redness, swelling, warmth *Keep the area clean, apply bactroban 3 times a day for 5 days *Follow up with a primary care provider within one week for recheck *Return to ED for signs of increasing infection, worsening condition, changes, needs Monitor your blood pressure. Your blood pressure was elevated today. This may be because you were anxious, in pain or because you need medication. It is important to follow up with your primary care provider for full evaluation. Prescriptions: Cephalexin Monohydrate [Keflex 250 Mg Capsule] 250 mg PO QID #20 capsule Hydrocodone/Acetaminophen [[place] 5-325 Tablet] 1 each PO QID #10 tablet Forms: Elevated Blood Pressure
[2016-07-12] MEDS ORDERED: MUPIROCIN CALCIUM 2% CREAM 15 GM TP ONE (13:50)
[2016-07-12 14:14] LABS: APPEARANCE,URINE CLEAR; BILIRUBIN,URINE NEGATIVE (NEGATIVE); GLUCOSE, URINE NEGATIVE (NEGATIVE); KETONES,URINE NEGATIVE (NEGATIVE); LEUKOCYTE ESTERASE,URINE NEGATIVE (NEGATIVE); NITRITE,URINE NEGATIVE (NEGATIVE); PROTEIN,URINE NEGATIVE (NEGATIVE); URINE SPECIFIC GRAVITY 1.011; UROBILINOGEN,URINE NEGATIVE mg/dL (<2.0)
[2016-07-12 14:47] VITALS: BP 129/86
== END 2016-07-12 14:28 | disposition home or self-care (01) ==
LOC: ER 12:37
DX: R03.0 Elevated blood-pressure reading, without diagnosis of hypertension (principal); N76.0 Acute vaginitis; F17.210 Nicotine dependence, cigarettes, uncomplicated
CPT/HCPCS: 99283; 81025; 81001; J3490

== ENCOUNTER 2016-07-19 17:19 | Emergency (ER) | payer SELFPAY ==
[2016-07-19] MEDS ORDERED: IBUPROFEN 600 MG TABLET PO ONE (20:03)
[2016-07-19] MEDS ORDERED: PROMETHAZINE HCL 25 MG TABLET PO ONE (20:03)
[2016-07-19] MEDS ORDERED: OXYCODONE-ACETAMINOPHEN 5-325 MG TABLET PO ONE ×2 (20:03→23:27)
--- NOTE | 2016-07-19 20:07 | ER Document Report ---
ED Medical Screen (RME) - General Chief Complaint: Abdominal Pain Stated Complaint: ABDOMINAL PAIN Notes: Patient had a LEEP procedure done at the local [facility]. She' s now having lower abdominal pain. She has a history of endometriosis and is supposed to have her uterus removed. Denies fevers. TRAVEL OUTSIDE OF THE [place] IN LAST 30 DAYS: No - Related Data Allergies/Adverse Reactions: Sulfa (Sulfonamide Antibiotics) Allergy (Verified 07/19/16 17:25) Past Medical History Pulmonary Medical History: Reports: Hx Asthma Renal/ Medical History: Reports: Hx Ectopic , Hx Ovarian Cysts. Denies: Hx Peritoneal Dialysis Skin Medical History: Reports Hx MRSA Psychiatric Medical History: Reports: Hx Anxiety, Hx Attention Deficit Hyperactivity Disorder, Hx Bipolar Disorder, Hx Depression Infectious Medical History: Reports: Hx MRSA Past Surgical History: Reports: Hx Section, Hx Gynecologic Surgery - tubal - Immunizations Immunizations up to date: Yes Hx Diphtheria, Pertussis, Tetanus Vaccination: Yes Physical Exam - Vital signs Vitals: Temp Pulse Resp BP Pulse Ox 98.5 F 89 16 137/100 H 99 07/19/16 17:27 07/19/16 17:27 07/19/16 17:27 07/19/16 17:27 07/19/16 17:27 Course - Vital Signs Vital signs: Temp Pulse Resp BP Pulse Ox 98.5 F 89 16 137/100 H 99 07/19/16 17:27 07/19/16 17:27 07/19/16 17:27 07/19/16 17:27 07/19/16 17:27
[2016-07-19 20:24] LABS: ABSOLUTE BASOPHILS # (AUTO) 0.1 10^3/uL (0.0-0.2); ABSOLUTE EOSINOPHILS # (AUTO) 1.3 10^3/uL (0.0-0.6); ABSOLUTE LYMPHOCYTES (AUTO) 3.8 10^3/uL (0.5-4.7); ABSOLUTE MONOCYTES (AUTO) 0.7 10^3/uL (0.1-1.4); ABSOLUTE NEUT (AUTO) 8.8 10^3/uL (1.7-8.2); BASOPHILS % (AUTO) 0.7 % (0-2); HEMATOCRIT 41.5 % (36.0-47.0); HEMOGLOBIN 13.9 g/dL (12.0-15.5); HGB HCT DIFFERENCE 0.2; LYMPHOCYTES % (AUTO) 25.8 % (13-45); MEAN CORPUSCULAR HEMOGLOBIN 31.5 pg (27.0-33.4); MEAN CORPUSCULAR HGB CONC 33.6 g/dL (32.0-36.0); MEAN CORPUSCULAR VOLUME 94 fl (80-97); MONOCYTES % (AUTO) 4.6 % (3-13); RED BLOOD COUNT 4.43 10^6/uL (3.72-5.28); RED CELL DISTRIBUTION WIDTH 14.2 % (11.5-14.0); SEGMENTED NEUTROPHILS % (AUTO) 59.9 % (42-78); WHITE BLOOD COUNT 14.6 10^3/uL (4.0-10.5)
[2016-07-19 20:36] LABS: ALANINE AMINOTRANSFERASE 20 U/L (9-52); ALBUMIN 3.8 g/dL (3.5-5.0); ALKALINE PHOSPHATASE 53 U/L (38-126); ANION GAP 13 (5-19); ASPARTATE AMINO TRANSFERASE 18 U/L (14-36); BILIRUBIN,DIRECT 0.1 mg/dL (0.0-0.4); BILIRUBIN,TOTAL 0.2 mg/dL (0.2-1.3); BLOOD UREA NITROGEN 12 mg/dL (7-20); CALCIUM 9.5 mg/dL (8.4-10.2); CARBON DIOXIDE 27 mmol/L (22-30); CHLORIDE 104 mmol/L (98-107); CREATININE RESULT 0.78 mg/dL (0.52-1.25); GLUCOSE 94 mg/dL (75-110); LIPASE 36.4 U/L (23-300); POTASSIUM 4.1 mmol/L (3.6-5.0); SODIUM 143.6 mmol/L (137-145)
[2016-07-19 20:44] LABS: APPEARANCE,URINE CLEAR; BILIRUBIN,URINE NEGATIVE (NEGATIVE); GLUCOSE, URINE NEGATIVE (NEGATIVE); KETONES,URINE NEGATIVE (NEGATIVE); LEUKOCYTE ESTERASE,URINE TRACE (NEGATIVE); NITRITE,URINE NEGATIVE (NEGATIVE); PROTEIN,URINE NEGATIVE (NEGATIVE); URINE SPECIFIC GRAVITY 1.025; UROBILINOGEN,URINE NEGATIVE mg/dL (<2.0)
--- NOTE | 2016-07-19 21:45 | ER Document Report ---
ED GI/ - General Chief Complaint: Abdominal Pain Stated Complaint: ABDOMINAL PAIN Mode of Arrival: Ambulatory Information source: Patient Notes: Patient states that she had a LEEP procedure done [facility]. Patient states since then she's had some pelvic pain, vaginal discharge and vaginal bleeding off and on. Patient states the bleeding has not been constant. Patient denies any fever. Patient does complain of an odor to the area. TRAVEL OUTSIDE OF THE [place] IN LAST 30 DAYS: No - HPI Patient complains to provider of: Pelvic pain, Vaginal discharge. 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 Denies: Hx Peritoneal Dialysis Skin Medical History: Reports Hx MRSA Psychiatric Medical History: Reports: Hx Anxiety, Hx Attention Deficit Hyperactivity Disorder, Hx Bipolar Disorder, Hx Depression Infectious Medical History: Reports: Hx MRSA Past Surgical History: Reports: Hx Section, Hx Gynecologic Surgery - tubal - Immunizations Immunizations up to date: Yes Hx Diphtheria, Pertussis, Tetanus Vaccination: Yes Review of Systems - Review of Systems Constitutional: No symptoms reported. denies: Fever, Recent illness EENT: No symptoms reported Cardiovascular: No symptoms reported Respiratory: No symptoms reported. denies: Cough, Short of breath Gastrointestinal: Abdominal pain. denies: Diarrhea, Vomiting Genitourinary: No symptoms reported. denies: Dysuria, Flank pain Female Genitourinary: Vaginal discharge, Vaginal bleeding Musculoskeletal: No symptoms reported. denies: Back pain Skin: No symptoms reported Hematologic/Lymphatic: No symptoms reported Neurological/Psychological: No symptoms reported Physical Exam - Vital signs Vitals: Temp Pulse Resp BP Pulse Ox 98.5 F 89 16 137/100 H 99 07/19/16 17:27 07/19/16 17:27 07/19/16 17:27 07/19/16 17:27 07/19/16 17:27 - General General appearance: Appears well, Alert In distress: None - HEENT Head: Normocephalic Nasal: Normal Mouth/Lips: Normal Mucous membranes: Normal Neck: Normal, Supple. No: Lymphadenopathy - Respiratory Respiratory status: No respiratory distress Chest status: Nontender Breath sounds: Normal. No: Rales, Rhonchi, Stridor, Wheezing Chest palpation: Normal - Cardiovascular Rhythm: Regular Heart sounds: S1 appreciated, S2 appreciated - Abdominal Inspection: Normal Distension: No distension Bowel sounds: Normal Tenderness: Tender - suprapubic Organomegaly: No organomegaly - Genitourinary External exam: Normal Speculum exam: Cervix closed, Vaginal discharge Vaginal bleeding: None Bimanuel exam: Other - Cervical tenderness with palpation - Back Back: Normal, Nontender. No: CVA tenderness - Extremities General upper extremity: Normal inspection, Normal strength General lower extremity: Normal inspection, Normal strength - Neurological Neuro grossly intact: Yes Cognition: Normal Ananth Coma Scale Eye Opening: Spontaneous Ananth Coma Scale Verbal: Oriented [place] Coma Scale Motor: Obeys Commands Ananth Coma Scale Total: 15 - Psychological Associated symptoms: Normal affect, Normal mood - Skin Skin Temperature: Warm Skin Moisture: Dry Skin Color: Normal Course - Vital Signs Vital signs: Temp Pulse Resp BP Pulse Ox 98.4 F 66 18 139/84 H 100 07/20/16 02:37 07/20/16 02:37 07/20/16 02:37 07/20/16 02:37 07/20/16 02:37 - Laboratory Result Diagrams: 07/19/16 20:12 07/19/16 20:12 Laboratory results interpreted by me: 07/19/16 07/19/16 07/19/16 20:10 20:12 20:12 WBC 14.6 H RDW 14.2 H Eosinophils % 9.0 H Absolute Neutrophils 8.8 H Absolute Eosinophils 1.3 H Total Protein 6.0 L Ur Leukocyte Esterase TRACE H 07/20/16 00:27 Labs- Entire Visit 07/19/16 07/19/16 07/19/16 20:10 20:12 20:12 WBC 14.6 H RBC 4.43 Hgb 13.9 Hct 41.5 MCV 94 MCH 31.5 MCHC 33.6 RDW 14.2 H Plt Count 339 Seg Neutrophils % 59.9 Lymphocytes % 25.8 Monocytes % 4.6 Eosinophils % 9.0 H Basophils % 0.7 Absolute Neutrophils 8.8 H Absolute Lymphocytes 3.8 Absolute Monocytes 0.7 Absolute Eosinophils 1.3 H Absolute Basophils 0.1 Sodium 143.6 Potassium 4.1 Chloride 104 Carbon Dioxide 27 Anion Gap 13 BUN 12 Creatinine 0.78 Est GFR ( Amer) > 60 Est GFR (Non-Af Amer) > 60 Glucose 94 Calcium 9.5 Total Bilirubin 0.2 Direct Bilirubin 0.1 Indirect Bilirubin Not Reportable Neonat Total Bilirubin Not Reportable AST 18 ALT 20 Alkaline Phosphatase 53 Total Protein 6.0 L Albumin 3.8 Lipase 36.4 Serum HCG, Qual Urine Color YELLOW Urine Appearance CLEAR Urine pH 5.0 Ur Specific [place] 1.025 Urine Protein NEGATIVE Urine Glucose (UA) NEGATIVE Urine Ketones NEGATIVE Urine Blood NEGATIVE Urine Nitrite NEGATIVE Urine Bilirubin NEGATIVE Urine Urobilinogen NEGATIVE Ur Leukocyte Esterase TRACE H Urine WBC (Auto) 1 Urine RBC (Auto) 0 U Hyaline Cast (Auto) 2 Squamous Epi Cells Auto 1 Urine Ascorbic Acid NEGATIVE Trichomonas (Wet Prep) Vaginal WBC Vaginal RBC Vaginal Yeast 07/19/16 07/19/16 20:12 23:20 WBC RBC Hgb Hct MCV MCH MCHC RDW Plt Count Seg Neutrophils % Lymphocytes % Monocytes % Eosinophils % Basophils % Absolute Neutrophils Absolute Lymphocytes Absolute Monocytes Absolute Eosinophils Absolute Basophils Sodium Potassium Chloride Carbon Dioxide Anion Gap BUN Creatinine Est GFR ( Amer) Est GFR (Non-Af Amer) Glucose Calcium Total Bilirubin Direct Bilirubin Indirect Bilirubin Neonat Total Bilirubin AST ALT Alkaline Phosphatase Total Protein Albumin Lipase Serum HCG, Qual NEGATIVE Urine Color Urine Appearance Urine pH Ur Specific [place] Urine Protein Urine Glucose (UA) Urine Ketones Urine Blood Urine Nitrite Urine Bilirubin Urine Urobilinogen Ur Leukocyte Esterase Urine WBC (Auto) Urine RBC (Auto) U Hyaline Cast (Auto) Squamous Epi Cells Auto Urine Ascorbic Acid Trichomonas (Wet Prep) NO TRICHOMONAS SEEN Vaginal WBC 3+ WBCS SEEN Vaginal RBC FEW RBCS SEEN Vaginal Yeast NO YEAST SEEN 07/20/16 07:09 Discharge - Discharge Clinical Impression: History of loop electrical excision procedure (LEEP), Vaginal discharge, Pelvic pain Condition: Stable Disposition: HOME, SELF-CARE Instructions: Pelvic Pain ([facility]), Rocephin ([facility]), Doxycycline ([facility]), Oral Narcotic Medication ([facility]) Additional Instructions: Return immediately for any new or worsening symptoms Followup with your primary care provider, call tomorrow to make a followup appointment Follow up with your consumer lending manager for recheck. Return immediately for any increased pain, fever, vomiting, or any concerning symptoms Prescriptions: Doxycycline Hyclate 100 mg PO BID #28 capsule Referrals: [facility] [Provider Group] - Follow up as needed [facility]NO [facility]AL MD] - 07/21/16
[2016-07-20] MEDS ORDERED: DOXYCYCLINE HYCLATE 100 MG TABLET PO ONE (00:16)
[2016-07-20] MEDS ORDERED: CEFTRIAXONE INJ 1000 MG VIAL IM ONE (00:22)
[2016-07-20] MEDS ORDERED: LIDOCAINE 1% INJ-PF (10 MG/ML) 30 ML SDV INJ ONE (00:23)
[2016-07-20] MEDS ORDERED: CEFTRIAXONE RTU 1 GM/D5W 50 ML IV ONE (00:27)
[2016-07-20] MEDS ORDERED: HYDROCODONE/ACETAMINOPHEN 5-325 MG 6 TAB/DSPK PO PRN (00:30)
[2016-07-20 01:02] LABS: CHLAM PCR NOT DETECTED (NOT DETECT)
[2016-07-20 03:14] VITALS: BP 139/84
== END 2016-07-20 02:43 | disposition home or self-care (01) ==
LOC: ER 17:19
DX: N89.8 Other specified noninflammatory disorders of vagina (principal); R10.2 Pelvic and perineal pain; R10.9 Unspecified abdominal pain; F17.200 Nicotine dependence, unspecified, uncomplicated
CPT/HCPCS: 99284; 96365; 36415; 87210; 83690; 84703; 85025; 80053; 81001; 87491; 87591; J0696

== ENCOUNTER 2016-07-29 05:23 | Emergency (ER) | payer SELFPAY ==
--- NOTE | 2016-07-29 07:47 | ER Document Report ---
ED Skin Rash/Insect Bite/Abscs - General Mode of Arrival: Medic Information source: Patient TRAVEL OUTSIDE OF THE [place] IN LAST 30 DAYS: No - HPI Patient complains to provider of: Tender/swollen area <JUAN REYNA - Last Filed: 07/29/16 09:29> <JUAN CARLOS CARLOS - Last Filed: 07/29/16 09:37> - General Chief Complaint: Abscess Stated Complaint: POSSIBLE ABSCESS Notes: Patient is a 36 year old female who presents to the emergency department complaining of an abscess to her left groin. Patient states she has a history of recurring abscesses to the area, patient was seen here on 07/12 for similar complaints and discharged with Keflex. Patient complains of pain to the area that kept her awake all night and that she has never had an abscess grow this big before. Patient was also seen at this facility on 07/19 after a LEEP procedure complaining of abdominal pain and was prescribed a 14 day regimen of Doxycycline. Patient states that the only medication she is on is Albuterol implying that she did not fill her prescription. Patient's [facility] ended 07/15. ( JUAN REYNA) - Related Data Allergies/Adverse Reactions: Sulfa (Sulfonamide Antibiotics) Allergy (Verified 07/19/16 17:25) Past Medical History - General Information source: Patient - Social History Smoking Status: Current Every Day Smoker Chew tobacco use (# tins/day): No Frequency of alcohol use: None Drug Abuse: None Family History: Reviewed & Not Pertinent, Thyroid Disfunction Patient has suicidal ideation: No Patient has homicidal ideation: No Pulmonary Medical History: Reports: Hx Asthma Renal/ Medical History: Reports: Hx Ectopic , Hx Ovarian Cysts Skin Medical History: Reports Hx MRSA Psychiatric Medical History: Reports: Hx Anxiety, Hx Attention Deficit Hyperactivity Disorder, Hx Bipolar Disorder, Hx Depression Infectious Medical History: Reports: Hx MRSA Past Surgical History: Reports: Hx Section, Hx Gynecologic Surgery - tubal - Immunizations Immunizations up to date: Yes Hx Diphtheria, Pertussis, Tetanus Vaccination: Yes <JUAN REYNA - Last Filed: 07/29/16 09:29> Review of Systems - Review of Systems Constitutional: No symptoms reported EENT: No symptoms reported Cardiovascular: No symptoms reported Respiratory: No symptoms reported Gastrointestinal: No symptoms reported Genitourinary: No symptoms reported Female Genitourinary: See HPI, Last menstrual period - 07/15, Other - possible abscess Musculoskeletal: No symptoms reported Skin: No symptoms reported Hematologic/Lymphatic: No symptoms reported Neurological/Psychological: No symptoms reported -: Yes All other systems reviewed and negative <JUAN REYNA - Last Filed: 07/29/16 09:29> Physical Exam - Vital signs Interpretation: Normal - General General appearance: Appears well, Alert - HEENT Head: Normocephalic, Atraumatic - Respiratory Respiratory status: No respiratory distress - Genitourinary External exam: Other - 3cm long x 1cm wide exquisitely tender and swollen area on her left labia medial to the groin crease. Area is indurated, not fluctuant. Area has scarring evidence of previous I&Ds - Extremities General upper extremity: Normal inspection General lower extremity: Normal inspection - Neurological Neuro grossly intact: Yes Cognition: Normal Orientation: AAOx4 Ananth Coma Scale Eye Opening: Spontaneous Ananth Coma Scale Verbal: Oriented [place] Coma Scale Motor: Obeys Commands [place] Coma Scale Total: 15 Speech: Normal - Psychological Associated symptoms: Normal affect, Normal mood - Skin Skin Temperature: Warm Skin Moisture: Dry Skin Color: Normal <JUAN REYNA - Last Filed: 07/29/16 09:29> Course - Consults Dr. Freeman Time consulted: 07:50 Consulted provider: will come to ER <JUAN CARLOS CARLOS - Last Filed: 07/29/16 09:37> - Vital Signs Vital signs: Temp Pulse Resp BP Pulse Ox 98.6 F 90 16 145/95 H 100 07/29/16 05:35 07/29/16 05:35 07/29/16 05:35 07/29/16 05:35 07/29/16 05:35 Discharge <JUAN REYNA - Last Filed: 07/29/16 09:29> <JUAN CARLOS CARLOS - Last Filed: 07/29/16 09:37> - Discharge Clinical Impression: Hydradenitis supperativa of left labia Condition: Stable Disposition: HOME, SELF-CARE Additional Instructions: Take the antibiotic medication as prescribed. Soak in warm water several times daily. Take the Diflucan if you develop a yeast infection. Follow-up with Dr. Freeman at [facility] in one week. Prescriptions: Cephalexin Monohydrate [Keflex 500 mg Capsule] 500 mg PO QID #56 capsule Fluconazole [Diflucan] 150 mg PO DAILY #2 tablet Oxycodone HCl/Acetaminophen [Percocet 5-325 mg Tablet] 1 tab PO ASDIR PRN #8 tablet PRN Reason: Referrals: DIANA FREEMAN MD [ACTIVE STAFF] - Follow up in 1 week Scribe Attestation: 07/29/16 09:36 I personally performed the services described in the documentation, reviewed and edited the documentation which was dictated to the scribe in my presence, and it accurately records my words and actions. (JUAN CARLOS CARLOS) Scribe Documentation - Scribe Written by Ciara:: ciara Loyd, 07/29/16, 08 acting as scribe for :: Darline <JUAN REYNA - Last Filed: 07/29/16 09:29>
[2016-07-29] MEDS ORDERED: OXYCODONE-ACETAMINOPHEN 5-325 MG TABLET PO ONE (07:57)
[2016-07-29] MEDS ORDERED: LIDOCAINE 1% INJ-PF (10 MG/ML) 30 ML SDV INJ ONE (09:35)
[2016-07-29] MEDS ORDERED: CEFTRIAXONE INJ 1000 MG VIAL IM ONE (09:35)
[2016-07-29 09:59] VITALS: BP 137/90
== END 2016-07-29 09:58 | disposition home or self-care (01) ==
LOC: ER 05:23
DX: L73.2 Hidradenitis suppurativa (principal); J45.909 Unspecified asthma, uncomplicated; F17.200 Nicotine dependence, unspecified, uncomplicated; Z79.899 Other long term (current) drug therapy; Z88.2 Allergy status to sulfonamides; Z86.14 Personal history of Methicillin resistant Staphylococcus aureus infection
CPT/HCPCS: 99283; 96372; J3490; J0696

== ENCOUNTER 2016-09-17 06:59 | Emergency (ER) | payer SELFPAY ==
[2016-09-17] MEDS ORDERED: NORMAL SALINE 1000 ML 1,000 ML IV ONE (07:32)
[2016-09-17] MEDS ORDERED: KETOROLAC TROMETHAMINE INJ/PF 30 MG/1 ML SDV IV ONE (07:32)
[2016-09-17] MEDS ORDERED: PROCHLORPERAZINE EDISYLATE INJ 10 MG/2 ML VIAL IV ONE (07:32)
--- NOTE | 2016-09-17 07:33 | ER Document Report ---
ED Headache - General Chief Complaint: Headache Stated Complaint: HEADACHE Time Seen by Provider: 09/17/16 07:31 Mode of Arrival: Ambulatory Information source: Patient Notes: Patient is a 36-year-old female who presents to the ER today for headache on the right side of her head with some right sided tooth pain. Patient states that it began this morning, she does have a history of migraines. She states she has light and sound sensitive with some nausea but has not vomited. She cannot afford to go to the dentist. He denies any numbness or tingling, dizziness, blurred vision. TRAVEL OUTSIDE OF THE [place] IN LAST 30 DAYS: No - Related Data Allergies/Adverse Reactions: Sulfa (Sulfonamide Antibiotics) Allergy (Verified 07/19/16 17:25) Past Medical History - General Information source: Patient - Social History Smoking Status: Current Every Day Smoker Family History: Reviewed & Not Pertinent, Thyroid Disfunction Patient has suicidal ideation: No Patient has homicidal ideation: No Pulmonary Medical History: Reports: Hx Asthma Renal/ Medical History: Reports: Hx Ectopic , Hx Ovarian Cysts. Denies: Hx Peritoneal Dialysis Skin Medical History: Reports Hx MRSA Psychiatric Medical History: Reports: Hx Anxiety, Hx Attention Deficit Hyperactivity Disorder, Hx Bipolar Disorder, Hx Depression Infectious Medical History: Reports: Hx MRSA Past Surgical History: Reports: Hx Section, Hx Gynecologic Surgery - tubal - Immunizations Immunizations up to date: Yes Hx Diphtheria, Pertussis, Tetanus Vaccination: Yes Review of Systems - Review of Systems Constitutional: No symptoms reported EENT: See HPI Cardiovascular: No symptoms reported Respiratory: No symptoms reported Gastrointestinal: No symptoms reported Genitourinary: No symptoms reported Female Genitourinary: No symptoms reported Musculoskeletal: No symptoms reported Skin: No symptoms reported Hematologic/Lymphatic: No symptoms reported Neurological/Psychological: See HPI Physical Exam - Vital signs Vitals: Temp Pulse Resp BP Pulse Ox 98.3 F 85 20 131/101 H 98 09/17/16 07:08 09/17/16 07:08 09/17/16 07:08 09/17/16 07:08 09/17/16 07:08 - Notes Notes: PHYSICAL EXAMINATION: GENERAL:Uncomfortable, laying in dark room, but multiple dental caries in no acute distress. HEAD: Atraumatic, normocephalic. EYES: Pupils equal round and reactive to light, extraocular movements intact, sclera anicteric, conjunctiva are normal. ENT: Multiple dental caries, tender over right upper teeth, no edema, fluctuance or induration noted NECK: Normal range of motion, supple without lymphadenopathy LUNGS: CTAB and equal. No wheezes rales or rhonchi. HEART: Regular rate and rhythm without murmurs EXTREMITIES: Normal range of motion, no pitting edema. No cyanosis. NEUROLOGICAL: Cranial nerves grossly intact. Normal sensory/motor exams. PSYCH: Normal mood, normal affect. SKIN: Warm, Dry, normal turgor, no rashes or lesions noted Course - Re-evaluation Re-evalutation: 09/17/16 10:58 Patient says headache is gone after IV fluids, Toradol and Compazine but still states that teeth hurt on the right upper side. I have advised patient needs to go to the dentist and will start her on antibiotics. - Vital Signs Vital signs: Temp Pulse Resp BP Pulse Ox 98.3 F 85 20 131/101 H 98 09/17/16 07:08 09/17/16 07:08 09/17/16 07:08 09/17/16 07:08 09/17/16 07:08 Discharge - Discharge Clinical Impression: Tooth pain Migraine Qualifiers: Migraine type: unspecified Status migrainosus presence: without status migrainosus Intractability: not intractable Qualified Code(s): G43.909 - Migraine, unspecified, not intractable, without status migrainosus Condition: Stable Disposition: HOME, SELF-CARE Additional Instructions: Return immediately for any new or worsening symptoms. Follow up with dentist, call tomorrow to make followup appointment. Prescriptions: Ibuprofen [Motrin 800 mg Tablet] 800 mg PO Q8H PRN #30 tab PRN Reason: Penicillin V Potassium 500 mg PO QID #28 tablet Referrals: [facility] [Provider Group] - Follow up as needed
[2016-09-17] MEDS ORDERED: HYDROCODONE/ACETAMINOPHEN 5-325 MG TABLET PO ONE (10:55)
[2016-09-17 11:34] VITALS: BP 138/91
== END 2016-09-17 11:32 | disposition home or self-care (01) ==
LOC: ER 06:59
DX: G43.909 Migraine, unspecified, not intractable, without status migrainosus (principal); K08.9 Disorder of teeth and supporting structures, unspecified; Z88.2 Allergy status to sulfonamides; Z86.14 Personal history of Methicillin resistant Staphylococcus aureus infection
CPT/HCPCS: 99284; 96361; 96374; 96375; J1885; J0780; J7030

== ENCOUNTER 2016-11-26 16:07 | Emergency (ER) | payer SELFPAY ==
--- NOTE | 2016-11-26 18:09 | ER Document Report ---
ED General - General Chief Complaint: Abscess Stated Complaint: ABSCESS Time Seen by Provider: 11/26/16 18:04 Mode of Arrival: Ambulatory Information source: Patient Notes: Patient states she gets frequent abscesses in her inguinal area. She states she has had one now for several days in the right inner thigh. It is red and painful. The pain is constant. It is worse when touched and better when left alone. It does radiate down the right thigh. She denies any fevers or systemic symptoms. TRAVEL OUTSIDE OF THE [place] IN LAST 30 DAYS: No - Related Data Allergies/Adverse Reactions: Sulfa (Sulfonamide Antibiotics) Allergy (Verified 11/26/16 17:04) Past Medical History - General Information source: Patient - Social History Smoking Status: Never Smoker Frequency of alcohol use: None Drug Abuse: None Family History: Reviewed & Not Pertinent, Thyroid Disfunction Patient has suicidal ideation: No Patient has homicidal ideation: No Pulmonary Medical History: Reports: Hx Asthma Renal/ Medical History: Reports: Hx Ectopic , Hx Ovarian Cysts. Denies: Hx Peritoneal Dialysis Skin Medical History: Reports Hx MRSA Psychiatric Medical History: Reports: Hx Anxiety, Hx Attention Deficit Hyperactivity Disorder, Hx Bipolar Disorder, Hx Depression Infectious Medical History: Reports: Hx MRSA Past Surgical History: Reports: Hx Section, Hx Gynecologic Surgery - tubal - Immunizations Immunizations up to date: Yes Hx Diphtheria, Pertussis, Tetanus Vaccination: Yes Review of Systems - Review of Systems Constitutional: denies: Chills, Fever Cardiovascular: denies: Chest pain, Palpitations Respiratory: denies: Cough, Short of breath Physical Exam - Vital signs Vitals: Temp Pulse Resp BP Pulse Ox 99.1 F 85 16 144/106 H 99 11/26/16 17:00 11/26/16 17:00 11/26/16 17:00 11/26/16 17:00 11/26/16 17:00 Interpretation: Hypertensive - General General appearance: Appears well, Alert - HEENT Head: Normocephalic, Atraumatic Eyes: Normal Pupils: PERRL - Respiratory Respiratory status: No respiratory distress Chest status: Nontender Breath sounds: Normal Chest palpation: Normal - Cardiovascular Rhythm: Regular Heart sounds: Normal auscultation Murmur: No - Abdominal Inspection: Normal Distension: No distension Bowel sounds: Normal Tenderness: Nontender Organomegaly: No organomegaly - Genitourinary External exam: Lesions - Patient has 1/4 cm round tender indurated area on the right upper inner thigh consistent with an early abscess. - Back Back: Normal, Nontender - Extremities General upper extremity: Normal inspection, Nontender, Normal color, Normal ROM , Normal temperature General lower extremity: Normal inspection, Nontender, Normal color, Normal ROM , Normal temperature, Normal weight bearing. No: Marcos's sign - Neurological Neuro grossly intact: Yes Cognition: Normal Orientation: AAOx4 [place] Coma Scale Eye Opening: Spontaneous Ananth Coma Scale Verbal: Oriented [place] Coma Scale Motor: Obeys Commands [place] Coma Scale Total: 15 Speech: Normal Motor strength normal: LUE, RUE, LLE, RLE Sensory: Normal - Psychological Associated symptoms: Normal affect, Normal mood - Skin Skin Temperature: Warm Skin Moisture: Dry Skin Color: Normal Course - Vital Signs Vital signs: Temp Pulse Resp BP Pulse Ox 99.1 F 85 16 144/106 H 99 11/26/16 17:00 11/26/16 17:00 11/26/16 17:00 11/26/16 17:00 11/26/16 17:00 Procedures - Incision and Drainage Right Upper Thigh Time completed: 18:06 Type: Simple Blade size: Other - 18g I&D procedure: Sterile dressing applied Incision Method: Incision made with needle Amount/type of drainage: small blood/pus Notes: 11/26/16 18:07 pt did not want I and D and opted to try using needle with abx. informed pt may require deeper incision if this does not work Discharge - Discharge Clinical Impression: Abscess Condition: Stable Disposition: HOME, SELF-CARE Instructions: Oral Narcotic Medication ([facility]), Trimethoprim-Sulfa ([facility]), Cephalexin ([facility]), Abscess ([facility]), Post Incision and Drainage Additional Instructions: Your blood pressure is very elevated. Please have this rechecked within the next 2-3 days by your primary care physician or here at the emergency department. Prescriptions: Cephalexin Monohydrate [Keflex 500 mg Capsule] 500 mg PO Q6H 5 Days capsule Hydrocodone/Acetaminophen [Kendall 5-325 mg Tablet] 1 tab PO Q6 PRN #12 tablet PRN Reason: Sulfamethoxazole/Trimethoprim [Bactrim Ds Tablet] 1 each PO BID #10 tablet Forms: Elevated Blood Pressure, Return to Work Referrals: OJ BOONE MD [ACTIVE STAFF] - Follow up as needed
[2016-11-26 18:29] VITALS: BP 168/98
== END 2016-11-26 18:28 | disposition home or self-care (01) ==
LOC: ER 16:07
PROC: 0H9HXZZ Drainage of Right Upper Leg Skin, External Approach (ICD-10-PCS; principal; 2016-11-26)
DX: L02.214 Cutaneous abscess of groin (principal); M79.651 Pain in right thigh
CPT/HCPCS: 99283

== ENCOUNTER 2016-12-04 15:41 | Emergency (ER) | payer SELFPAY ==
[2016-12-04] MEDS ORDERED: HYDROCODONE/ACETAMINOPHEN 5-325 MG 6 TAB/DSPK PO PRN (16:54)
--- NOTE | 2016-12-04 16:58 | ER Document Report ---
ED Skin Rash/Insect Bite/Abscs - General Chief Complaint: Nausea Stated Complaint: NAUSEA Time Seen by Provider: 12/04/16 16:32 Mode of Arrival: Medic Information source: Patient Notes: 36-year-old female presents to ED via EMS for complaint of nausea and vomiting from taking her antibiotics that she was started on for an abscess to the perirectal area. She was seen at [facility] 3 days ago and they I&D the abscess and packed it with iodoform which the patient states fell out the next day. They started on clindamycin which she states she took for 1 day but it made her nauseated so she did not take it anymore. She complained of nausea and vomiting on EMS and they gave her Zofran and denies nausea vomiting at this time. TRAVEL OUTSIDE OF THE [place] IN LAST 30 DAYS: No - HPI Patient complains to provider of: Tender/swollen area Onset: Last week Onset/Duration: Persistent Quality of pain: Sharp, Throbbing Severity: Severe Pain Level: 5 Skin Character: Abscess Quality of rash: Painful Identify cause: Yes Exacerbated by: Movement, Walking Relieved by: Other - norco Similar symptoms previously: Yes Recently seen / treated by doctor: Yes - Related Data Allergies/Adverse Reactions: Sulfa (Sulfonamide Antibiotics) Allergy (Verified 12/04/16 16:01) Past Medical History - General Information source: Patient - Social History Smoking Status: Never Smoker Cigarette use (# per day): No Chew tobacco use (# tins/day): No Smoking Education Provided: No Frequency of alcohol use: None Drug Abuse: None Family History: Thyroid Disfunction Patient has suicidal ideation: No Patient has homicidal ideation: No - Past Medical History Cardiac Medical History: Reports: None Pulmonary Medical History: Reports: Hx Asthma EENT Medical History: Reports: None Neurological Medical History: Reports: None Endocrine Medical History: Reports: None Renal/ Medical History: Reports: Hx Ectopic , Hx Ovarian Cysts. Denies: Hx Peritoneal Dialysis Malignancy Medical History: Reports: None GI Medical History: Reports: None Musculoskeltal Medical History: Reports None Skin Medical History: Reports Hx MRSA Psychiatric Medical History: Reports: Hx Anxiety, Hx Attention Deficit Hyperactivity Disorder, Hx Bipolar Disorder, Hx Depression Traumatic Medical History: Reports: None Infectious Medical History: Reports: Hx MRSA Past Surgical History: Reports: Hx Section, Hx Gynecologic Surgery - tubal - Immunizations Immunizations up to date: Yes Hx Diphtheria, Pertussis, Tetanus Vaccination: Yes Review of Systems - Review of Systems Constitutional: No symptoms reported EENT: No symptoms reported Cardiovascular: No symptoms reported Respiratory: No symptoms reported Gastrointestinal: Nausea, Vomiting Genitourinary: No symptoms reported Female Genitourinary: No symptoms reported Musculoskeletal: No symptoms reported Skin: Other - Partially healed abscess to perirectal area Hematologic/Lymphatic: No symptoms reported Neurological/Psychological: No symptoms reported -: Yes All other systems reviewed and negative Physical Exam - Vital signs Vitals: Temp Pulse Resp BP Pulse Ox 98.7 F 93 16 139/100 H 99 12/04/16 16:07 12/04/16 16:07 12/04/16 16:07 12/04/16 16:07 12/04/16 16:07 Interpretation: Normal - General General appearance: Appears well, Alert - HEENT Head: Normocephalic, Atraumatic Eyes: Normal Pupils: PERRL - Respiratory Respiratory status: No respiratory distress Chest status: Nontender Breath sounds: Normal Chest palpation: Normal - Cardiovascular Rhythm: Regular Heart sounds: Normal auscultation Murmur: No - Abdominal Inspection: Normal Distension: No distension Bowel sounds: Normal Tenderness: Nontender Organomegaly: No organomegaly - Back Back: Normal, Nontender - Extremities General upper extremity: Normal inspection, Nontender, Normal color, Normal ROM , Normal temperature General lower extremity: Normal inspection, Nontender, Normal color, Normal ROM , Normal temperature, Normal weight bearing. No: Marcos's sign - Neurological Neuro grossly intact: Yes Cognition: Normal Orientation: AAOx4 [place] Coma Scale Eye Opening: Spontaneous Ananth Coma Scale Verbal: Oriented Ananth Coma Scale Motor: Obeys Commands [place] Coma Scale Total: 15 Speech: Normal Motor strength normal: LUE, RUE, LLE, RLE Sensory: Normal - Psychological Associated symptoms: Normal affect, Normal mood - Skin Skin Temperature: Warm Skin Moisture: Dry Skin Color: Normal Skin irregularity: Abscess - Partially healed abscess to perirectal area patient was I&D 3 days ago. She did not take her antibiotics as prescribed due to nausea and vomiting. Location of irregularity: Other - Perirectal area Irregularity with: Swelling, Tenderness Course - Re-evaluation Re-evalutation: 12/04/16 16:57 Patient instructed to take antibiotics as prescribed. Will prescribe Phenergan for the nausea says that she can take her antibiotics. We will also give her a [place] dispense pack for the discomfort until the antibiotics start to falling. Patient also instructed on use of Epsom salt soaks. Patient states she does not want a work note as she really has to work. Patient instructed not to take the [place] or the Phenergan while at work. Patient instructed that the abscess cannot heal if she does not take the antibiotics. She does have a history of MRSA. - Vital Signs Vital signs: Temp Pulse Resp BP Pulse Ox 98.7 F 93 16 139/100 H 99 12/04/16 16:07 12/04/16 16:07 12/04/16 16:07 12/04/16 16:07 12/04/16 16:07 Discharge - Discharge Clinical Impression: Abscess the perirectal area Condition: Stable Disposition: HOME, SELF-CARE Instructions: Family Physicians / Practices Additional Instructions: He was seen today for an abscess to your perirectal area that was I&D by [facility] days ago. You was started on clindamycin which have not been taken as it may to nausea and vomiting. It is very important that you take this antibiotic so that your abscess can heal. I will prescribe you some Phenergan for the nausea and vomiting but please be sure that you take the antibiotic as prescribed with food. We will give your a [place] dispense pack. This is for the pain today if you need any more narcotic pain medicine you will have to follow-up with your primary doctor as we do not continue to prescribe narcotics for chronic problem. Epsom Salt Soaks Soak the wound area in a container of warm epsom salt water. If you can't get the wound area into a bucket or dodge, use a folded towel soaked in the epsom salt solution and apply to the area. Use clean hot tap water (about the temperature of a very warm bath), mixing in about one (1) teaspoon for every pint of water. Two gallon --> 16 teaspoons Epsom Salts One gallon --> 8 teaspoons [place]ps[place] Salts Two quarts --> 4 teaspoons [place]ps[place] Salts One quart --> 2 teaspoons Epsom Salts Soak the wound for about 20 minutes while gently moving it around in the water. Repeat this four (4) times a day. Chronic Pain Control Stress, inactivity, and depression make pain more severe regardless of the cause of the pain. Stress and poor physical condition can cause pain such as headaches and backache. Relaxation: Rest in a quiet place with your eyes closed for 20 minutes twice daily. Concentrate on a pleasant image, or simply "feel" your breathing. Clear your mind. Stress management: Deal with your "stressors." Either take action, or eliminate the stressor from your life. Don't let things hang over you. Accept those things you can't change. Nutrition: Eat small, balanced meals -- don't skip, don't overeat. Meals should be high-carbohydrate, low-sugar, low-fat. Exercise: Exercise helps painful conditions and eases stress. Get 30 minutes of moderate exercise, five days a week. Do an activity that does not flare your pain. Precautions: Pain which continues to disrupt daily activities, or which changes in nature, requires a medical evaluation. Pain Clinic referral is available. We do not manage chronic pain in the Emergency Department. We will try to appropriately help you through an acute flare of your chronic painful condition , but for on-going chronic pain that does not improve, you will need to see your private doctor or paint dipper. We do not provide repeated medication management of chronic painful conditions. If you wish, we can provide the name of local pain management physicians. Antinausea Medication You have been given a medication to suppress nausea and vomiting. This type of medication can be given as a shot, pill, or suppository. It will usually last for many hours. Pills and shots usually last six to eight hours, suppositories last about 12 hours. For the typical illness, only one or two doses of the medication may be necessary. Mild lightheadedness may occur. This type of medicine can cause drowsiness. Do not drive or operate dangerous machinery while under its influence. Do not mix with alcohol. See your doctor at once if you have muscle spasms or tightness, or uncontrollable motions (particularly of the neck, mouth, or jaw). Persistent vomiting or severe lightheadedness should also be evaluated by the physician. Oral Narcotic Medication You have been given a [place] dispense pack for pain control. This medication is a narcotic. It's best taken with food, as nausea can result if taken on an empty stomach. Don't operate machinery or drive within six hours of taking this medication. Do not combine this medicine with alcohol, or with any medication which can cause sedation (such as cold tablets or sleeping pills) unless you get permission from the physician. Narcotics tend to cause constipation. If possible, drink plenty of fluids and eat a diet high in fiber and fruits. FOLLOW-UP CARE: If you have been referred to a physician for follow-up care, call the physician s office for an appointment as you were instructed or within the next two days. If you experience worsening or a significant change in your symptoms, notify the physician immediately or return to the Emergency Department at any time for re-evaluation. Prescriptions: Promethazine HCl [Phenergan 25 mg Tablet] 25 mg PO Q6H PRN #15 tablet PRN Reason:
[2016-12-04 17:21] VITALS: BP 141/94
== END 2016-12-04 17:21 | disposition home or self-care (01) ==
LOC: ER 15:41
DX: K61.1 Rectal abscess (principal); R11.2 Nausea with vomiting, unspecified; Z86.14 Personal history of Methicillin resistant Staphylococcus aureus infection
CPT/HCPCS: 99283

== ENCOUNTER 2016-12-19 00:51 | Emergency (ER) | payer SELFPAY ==
[2016-12-19 00:56] VITALS: BP 149/107
[2016-12-19] MEDS ORDERED: BENZONATATE 100 MG CAPSULE PO ONE (01:03)
[2016-12-19] MEDS ORDERED: IBUPROFEN 600 MG TABLET PO ONE (01:03)
[2016-12-19] MEDS ORDERED: PENICILLIN V POTASSIUM 500 MG TABLET PO ONE (01:03)
--- NOTE | 2016-12-19 01:05 | ER Document Report ---
ED General - General Chief Complaint: Toothache Stated Complaint: TOOTHACHE Time Seen by Provider: 12/19/16 00:59 Notes: Patient is a 36-year-old female who presents complaining of dental pain. Patient states that she bit into something hard several days ago and fractured tooth #4 has been having constant, throbbing, severe pain to the tooth since that time. She has been trying ibuprofen without improvement. She states that she is unable to see a dentist until Thursday. This is what prompted her to come to the emergency department. She denies any difficulty breathing or swallowing. Her pain is worsened by attempting to eat or drink. TRAVEL OUTSIDE OF THE [place] IN LAST 30 DAYS: No - Related Data Allergies/Adverse Reactions: Sulfa (Sulfonamide Antibiotics) Allergy (Verified 12/19/16 00:53) Past Medical History - General Information source: Patient - Social History Smoking Status: Never Smoker Frequency of alcohol use: None Drug Abuse: None Family History: Reviewed & Not Pertinent, Thyroid Disfunction Patient has suicidal ideation: No Patient has homicidal ideation: No Pulmonary Medical History: Reports: Hx Asthma Renal/ Medical History: Reports: Hx Ectopic , Hx Ovarian Cysts. Denies: Hx Peritoneal Dialysis Skin Medical History: Reports Hx MRSA Psychiatric Medical History: Reports: Hx Anxiety, Hx Attention Deficit Hyperactivity Disorder, Hx Bipolar Disorder, Hx Depression Infectious Medical History: Reports: Hx MRSA Past Surgical History: Reports: Hx Section, Hx Gynecologic Surgery - tubal - Immunizations Immunizations up to date: Yes Hx Diphtheria, Pertussis, Tetanus Vaccination: Yes Review of Systems - Review of Systems Notes: Constitutional: Negative for fever. HENT: Positive for dental pain Eyes: Negative for visual changes. Cardiovascular: Negative for chest pain. Respiratory: Negative for shortness of breath. Gastrointestinal: Negative for abdominal pain, vomiting or diarrhea. Genitourinary: Negative for dysuria. Musculoskeletal: Negative for back pain. Skin: Negative for rash. Neurological: Negative for headaches, weakness or numbness. 10 point ROS negative except as marked above and in HPI. Physical Exam - Vital signs Vitals: Temp Pulse Resp BP Pulse Ox 98.6 F 101 H 18 149/107 H 100 12/19/16 00:55 12/19/16 00:55 12/19/16 00:55 12/19/16 00:55 12/19/16 00:55 Interpretation: Hypertensive, Tachycardic Notes: PHYSICAL EXAMINATION: GENERAL: Well-appearing, well-nourished and in no acute distress. HEAD: Atraumatic, normocephalic. EYES: sclera anicteric, conjunctiva are normal. ENT: Moist mucous membranes. Poor dentition throughout. Tooth #4 does have the lateral aspect of the tooth chipped away. No evidence of associated infection. NECK: Normal range of motion LUNGS: Normal work of breathing HEART: 2+ radial pulses bilaterally EXTREMITIES: no pitting or edema. No cyanosis. NEUROLOGICAL: No focal neurological deficits. Moves all extremities spontaneously and on command. PSYCH: Normal mood, normal affect. SKIN: Warm, Dry, normal turgor, no rashes or lesions noted. Course - Re-evaluation Re-evalutation: 12/19/16 01:04 Presentation of dental pain and otherwise well-appearing patient.. Airway is patent. Vitals within normal limits. Patient is able swallow without any difficulty. There is no significant facial swelling. I've instructed to follow-up with dentistry as earliest ability for definitive management. Review of [place] controlled substance database shows a worrisome pattern of receiving narcotics from multiple different providers. I have reviewed these findings with the patient who remained insistent that she receive "at least a dispense pack". I again discussed with her that it is concerning that she even knows that we have a dispense pack as an option here the emergency department. Patient has been encouraged to continue using ibuprofen and I have informed her she will not receive narcotics in this emergency department for dental related complaints. Return precautions and follow-up recommendations have been discussed at length. - Vital Signs Vital signs: Temp Pulse Resp BP Pulse Ox 98.6 F 101 H 18 149/107 H 100 12/19/16 00:55 12/19/16 00:55 12/19/16 00:55 12/19/16 00:55 12/19/16 00:55 Discharge - Discharge Clinical Impression: Pain, dental Condition: Good Disposition: HOME, SELF-CARE Additional Instructions: You have been seen for dental pain. It is very important that you follow-up with a dentist for definitive care. Please return if you develop fever greater than 101, swelling in your face, vomiting, difficulty breathing or swallowing, or any other symptoms that are concerning to you. For pain you should take ibuprofen 600 mg every 6 hours as needed. Prescriptions: Penicillin V Potassium [Penicillin Vk 500 mg Tablet] 500 mg PO BID #20 tablet
[2016-12-19] MEDS ORDERED: MORPHINE SULFATE IR 15 MG TABLET PO ONE (01:12)
== END 2016-12-19 01:33 | disposition home or self-care (01) ==
LOC: ER 00:51
DX: S02.5XXA Fracture of tooth (traumatic), initial encounter for closed fracture (principal); X58.XXXA Exposure to other specified factors, initial encounter; Y93.89 Activity, other specified; K08.89 Other specified disorders of teeth and supporting structures; J45.909 Unspecified asthma, uncomplicated; Z88.2 Allergy status to sulfonamides; Z86.14 Personal history of Methicillin resistant Staphylococcus aureus infection
CPT/HCPCS: 99282

== ENCOUNTER 2016-12-25 06:47 | Emergency (ER) | payer SELFPAY ==
--- NOTE | 2016-12-25 06:55 | ER Document Report ---
ED General - General Chief Complaint: Abdominal Pain Stated Complaint: ABDOMINAL PAIN Time Seen by Provider: 12/25/16 06:53 Mode of Arrival: Medic Information source: Patient Notes: 36-year-old female presents with complaints of abdominal pain. Patient notes the pain started yesterday intermittently is now constant. She admits to 3 episodes of vomiting. Denies any diarrhea. Denies any vaginal bleeding discharge. Patient notes the abdominal pain goes to her back TRAVEL OUTSIDE OF THE U.S. IN LAST 30 DAYS: No - HPI Onset: Yesterday Onset/Duration: Sudden Quality of pain: Cramping Severity: Mild Pain Level: 1 Associated symptoms: Body/muscle aches, Nausea, Vomiting Exacerbated by: Denies Relieved by: Denies Similar symptoms previously: Yes Recently seen / treated by doctor: Yes - Related Data Allergies/Adverse Reactions: Sulfa (Sulfonamide Antibiotics) Allergy (Verified 12/19/16 00:53) Past Medical History - Social History Smoking Status: Current Every Day Smoker Cigarette use (# per day): Yes Chew tobacco use (# tins/day): No Smoking Education Provided: No Family History: Reviewed & Not Pertinent, Thyroid Disfunction Pulmonary Medical History: Reports: Hx Asthma Renal/ Medical History: Reports: Hx Ectopic , Hx Ovarian Cysts. Denies: Hx Peritoneal Dialysis Skin Medical History: Reports Hx MRSA Psychiatric Medical History: Reports: Hx Anxiety, Hx Attention Deficit Hyperactivity Disorder, Hx Bipolar Disorder, Hx Depression Infectious Medical History: Reports: Hx MRSA Past Surgical History: Reports: Hx Section, Hx Gynecologic Surgery - tubal - Immunizations Immunizations up to date: Yes Hx Diphtheria, Pertussis, Tetanus Vaccination: Yes Review of Systems - Review of Systems Notes: REVIEW OF SYSTEMS: CONSTITUTIONAL : Denies fever, chills, or sweats. Denies recent illness. EENT: Denies eye, ear, throat, or mouth pain or symptoms. Denies nasal or sinus congestion or discharge. Denies throat, tongue, or mouth swelling or difficulty swallowing. CARDIOVASCULAR: Denies chest pain. Denies palpitations or racing or irregular heart beat. Denies ankle edema. RESPIRATORY: Denies cough, cold, or chest congestion. Denies shortness of breath, difficulty breathing, or wheezing. GASTROINTESTINAL: Admits to abdominal pain vomiting GENITOURINARY: Denies difficulty urinating, painful urination, burning, frequency, blood in urine, or discharge. FEMALE GENITOURINARY: Denies vaginal bleeding, heavy or abnormal periods, irregular periods. Denies vaginal discharge or odor. MUSCULOSKELETAL: Admits low back pain SKIN: Denies rash, lesions or sores. HEMATOLOGIC : Denies easy bruising or bleeding. LYMPHATIC: Denies swollen, enlarged glands. NEUROLOGICAL: Denies confusion or altered mental status. Denies passing out or loss of consciousness. Denies dizziness or lightheadedness. Denies headache. Denies weakness or paralysis or loss of use of either side. Denies problems with gait or speech. Denies sensory loss, numbness, or tingling. Denies seizures. PSYCHIATRIC: Denies anxiety or stress. Denies depression, suicidal ideation, or homicidal ideation. ALL OTHER SYSTEMS REVIEWED AND NEGATIVE. PHYSICAL EXAMINATION: GENERAL: Well-appearing, well-nourished and in no acute distress. HEAD: Atraumatic, normocephalic. EYES: Pupils equal round and reactive to light, extraocular movements intact, conjunctiva are normal. ENT: Nares patent, oropharynx clear without exudates. Moist mucous membranes. NECK: Normal range of motion, supple without lymphadenopathy LUNGS: Breath sounds clear to auscultation bilaterally and equal. No wheezes rales or rhonchi. HEART: Regular rate and rhythm without murmurs ABDOMEN: Soft, nontender, nondistended abdomen. No guarding, no rebound. No masses appreciated. Physical examination notes no abnormality Female : deferred Musculoskeletal: Normal range of motion, no pitting or edema. No cyanosis. NEUROLOGICAL: Cranial nerves grossly intact. Normal speech, normal gait. Normal sensory, motor exams PSYCH: Normal mood, normal affect. SKIN: Warm, Dry, normal turgor, no rashes or lesions noted. Dictation was performed using [employer] voice recognition software Physical Exam - Vital signs Vitals: Temp Pulse Resp BP Pulse Ox 98.1 F 98 18 136/87 H 98 12/25/16 06:51 12/25/16 06:51 12/25/16 06:51 12/25/16 06:51 12/25/16 06:51 Course - Re-evaluation Re-evalutation: 12/25/16 06:55 It is noted that patient has an extensive history of pain seeking tendencies, upon my arrival to the room patient immediately demands pain medication. Previous visits and evaluation of [place] drug database have been noted 12/25/16 07:00 12/25/16 08:56 Lab work noted absolutely no abnormalities, patient is medically stable and will be discharged home at this time After performing a Medical Screening Examination, I estimate there is LOW risk for ACUTE APPENDICITIS, BOWEL OBSTRUCTION, ACUTE CHOLECYSTITIS, PERFORATED DIVERTICULITIS, INCARCERATED HERNIA, PANCREATITIS, PELVIC INFLAMMATORY DISEASE, PERFORATED ULCER, ECTOPIC , or TUBO-OVARIAN ABSCESS, thus I consider the discharge disposition reasonable. Also, there is no evidence or peritonitis , sepsis, or toxicity. I have reevaluated this patient multiple times and no significant life threatening changes are noted. The patient and I have discussed the diagnosis and risks, and we agree with discharging home with close follow-up with the understanding that symptoms and presentations can change. We also discussed returning to the Emergency Department immediately if new or worsening symptoms occur. We have discussed the symptoms which are most concerning (e.g., bloody stool, fever, changing or worsening pain, vomiting) that necessitate immediate return. - Vital Signs Vital signs: Temp Pulse Resp BP Pulse Ox 98.1 F 98 18 136/87 H 98 12/25/16 06:51 12/25/16 06:51 12/25/16 06:51 12/25/16 06:51 12/25/16 06:51 - Laboratory Result Diagrams: 12/25/16 07:02 12/25/16 07:02 Laboratory results interpreted by me: 12/25/16 12/25/16 12/25/16 07:02 07:02 07:39 Eosinophils % 10.2 H Absolute Eosinophils 1.0 H Chloride 108 H Total Protein 5.6 L Albumin 3.3 L Ur Leukocyte Esterase SMALL H Discharge - Discharge Clinical Impression: Abdominal pain Qualifiers: Abdominal location: lower abdomen, unspecified Qualified Code(s): R10.30 - Lower abdominal pain, unspecified Condition: Stable Disposition: HOME, SELF-CARE Instructions: Abdominal Pain ([facility]) Additional Instructions: Please follow-up with your primary care physician or return immediately if there are any other concerns
[2016-12-25] MEDS ORDERED: KETOROLAC TROMETHAMINE INJ/PF 30 MG/1 ML SDV IV ONE (07:00)
[2016-12-25] MEDS ORDERED: METOCLOPRAMIDE HCL INJ/PF 10 MG/2 ML SDV IV ONE (07:01)
[2016-12-25 07:19] LABS: ABSOLUTE BASOPHILS # (AUTO) 0.1 10^3/uL (0.0-0.2); ABSOLUTE LYMPHOCYTES (AUTO) 1.7 10^3/uL (0.5-4.7); ABSOLUTE MONOCYTES (AUTO) 0.4 10^3/uL (0.1-1.4); ABSOLUTE NEUT (AUTO) 6.3 10^3/uL (1.7-8.2); BASOPHILS % (AUTO) 0.6 % (0-2); EOSINOPHILS % (AUTO) 10.2 % (0-6); HEMATOCRIT 38.3 % (36.0-47.0); HEMOGLOBIN 13.2 g/dL (12.0-15.5); HGB HCT DIFFERENCE 1.3; LYMPHOCYTES % (AUTO) 18.2 % (13-45); MEAN CORPUSCULAR HEMOGLOBIN 32.2 pg (27.0-33.4); MEAN CORPUSCULAR HGB CONC 34.4 g/dL (32.0-36.0); MEAN CORPUSCULAR VOLUME 93 fl (80-97); MONOCYTES % (AUTO) 4.2 % (3-13); RED CELL DISTRIBUTION WIDTH 13.9 % (11.5-14.0); SEGMENTED NEUTROPHILS % (AUTO) 66.8 % (42-78); WHITE BLOOD COUNT 9.4 10^3/uL (4.0-10.5)
[2016-12-25 07:22] LABS: ALANINE AMINOTRANSFERASE 22 U/L (9-52); ALBUMIN 3.3 g/dL (3.5-5.0); ALKALINE PHOSPHATASE 44 U/L (38-126); ANION GAP 7 (5-19); ASPARTATE AMINO TRANSFERASE 19 U/L (14-36); BILIRUBIN,DIRECT 0.3 mg/dL (0.0-0.4); BILIRUBIN,TOTAL 0.3 mg/dL (0.2-1.3); BLOOD UREA NITROGEN 16 mg/dL (7-20); CARBON DIOXIDE 25 mmol/L (22-30); CHLORIDE 108 mmol/L (98-107); CREATININE RESULT 0.65 mg/dL (0.52-1.25); GLUCOSE 94 mg/dL (75-110); LIPASE 36.9 U/L (23-300); POTASSIUM 4.2 mmol/L (3.6-5.0); SODIUM 139.8 mmol/L (137-145); TOTAL PROTEIN 5.6 g/dL (6.3-8.2)
[2016-12-25 08:03] LABS: APPEARANCE,URINE CLEAR; BILIRUBIN,URINE NEGATIVE (NEGATIVE); GLUCOSE, URINE NEGATIVE (NEGATIVE); KETONES,URINE NEGATIVE (NEGATIVE); LEUKOCYTE ESTERASE,URINE SMALL (NEGATIVE); NITRITE,URINE NEGATIVE (NEGATIVE); PROTEIN,URINE NEGATIVE (NEGATIVE); URINE SPECIFIC GRAVITY 1.025; UROBILINOGEN,URINE NEGATIVE mg/dL (<2.0)
[2016-12-25 09:05] VITALS: BP 142/86
== END 2016-12-25 09:01 | disposition home or self-care (01) ==
LOC: ER 06:47
DX: R10.30 Lower abdominal pain, unspecified (principal); R10.9 Unspecified abdominal pain; R11.10 Vomiting, unspecified; F17.210 Nicotine dependence, cigarettes, uncomplicated
CPT/HCPCS: 99284; 96374; 96375; 36415; 83690; 85025; 81025; 80053; 81001; J1885; J2765

== ENCOUNTER 2017-02-10 16:27 | Emergency (ER) | payer SELFPAY ==
[2017-02-10 16:33] VITALS: BP 132/93
[2017-02-10] MEDS ORDERED: HYDROCODONE/ACETAMINOPHEN 5-325 MG 6 TAB/DSPK PO PRN (17:56)
[2017-02-10] MEDS ORDERED: DOXYCYCLINE HYCLATE 100 MG TABLET PO ONE (17:56)
--- NOTE | 2017-02-10 17:59 | ER Document Report ---
HPI - HPI Patient complains to provider of: abscess Onset: Other - 4 days Onset/Duration: Persistent Quality of pain: Sharp Pain Level: 3 Context: Patient complains of abscess to right groin area for the past several days. Patient states she has a history of hidradenitis suppurativa. Patient denies any fever. Patient states that while she was here in the emergency department the area started to spontaneously drain. Associated Symptoms: Other. denies: Fever Exacerbated by: Movement Relieved by: Denies Similar symptoms previously: Yes Recently seen / treated by doctor: No - ROS ROS below otherwise negative: Yes Systems Reviewed and Negative: Yes All other systems reviewed and negative - CONSTITUTIONAL Constitutional: DENIES: Fever, Chills - GASTROINTESTINAL Gastrointestinal: DENIES: Nausea - REPRODUCTIVE Reproductive: DENIES: : - DERM Notes: abscess Past Medical History - General Information source: Patient - Social History Smoking Status: Current Every Day Smoker Chew tobacco use (# tins/day): No Frequency of alcohol use: None Drug Abuse: None Occupation: none Family History: Reviewed & Not Pertinent, Thyroid Disfunction Patient has suicidal ideation: No Patient has homicidal ideation: No Pulmonary Medical History: Reports: Hx Asthma Renal/ Medical History: Reports: Hx Ectopic , Hx Ovarian Cysts. Denies: Hx Peritoneal Dialysis Skin Medical History: Reports Hx MRSA, Reports Other - Hidradenitis Psychiatric Medical History: Reports: Hx Anxiety, Hx Attention Deficit Hyperactivity Disorder, Hx Bipolar Disorder, Hx Depression Infectious Medical History: Reports: Hx MRSA Past Surgical History: Reports: Hx Section, Hx Gynecologic Surgery - tubal - Immunizations Immunizations up to date: Yes Hx Diphtheria, Pertussis, Tetanus Vaccination: Yes Vertical Provider Document - CONSTITUTIONAL Agree With Documented VS: Yes Exam Limitations: No Limitations General Appearance: WD/WN, No Apparent Distress - INFECTION CONTROL TRAVEL OUTSIDE OF THE [place] IN LAST 30 DAYS: No - HEENT HEENT: Atraumatic, Normocephalic - NECK Neck: Normal Inspection, Supple - RESPIRATORY Respiratory: Breath Sounds Normal, No Respiratory Distress O2 Sat by Pulse Oximetry: 100 - CARDIOVASCULAR Cardiovascular: Regular Rate, Regular Rhythm - MUSCULOSKELETAL/EXTREMETIES Musculoskeletal/Extremeties: MAEW - NEURO Level of Consciousness: Awake, Alert, Appropriate Motor/Sensory: No Motor Deficit - DERM Integumentary: Warm, Dry, Abscess - Spontaneously draining abscess to right inguinal area, tender area measures 1 cm diameter, no erythema Course - Vital Signs Vital signs: Temp Pulse Resp BP Pulse Ox 98.5 F 82 16 132/93 H 100 02/10/17 16:32 02/10/17 16:32 02/10/17 16:32 02/10/17 16:32 02/10/17 16:32 Discharge - Discharge Clinical Impression: Abscess Condition: Stable Disposition: HOME, SELF-CARE Instructions: Abscess ([facility]), Doxycycline ([facility]) Additional Instructions: Return immediately for any new or worsening symptoms Followup with your primary care provider, call tomorrow to make a followup appointment Apply warm compresses to the area Prescriptions: Doxycycline Hyclate 100 mg PO BID #20 capsule Naproxen [Naprosyn 250 Nmg Tablet] 1 tab PO BID #14 tablet Referrals: [facility] [Provider Group] - Follow up as needed [facility] [Provider Group] - Follow up as needed
== END 2017-02-10 19:06 | disposition home or self-care (01) ==
LOC: ER 16:27
DX: L02.214 Cutaneous abscess of groin (principal); F17.200 Nicotine dependence, unspecified, uncomplicated
CPT/HCPCS: 99282

== ENCOUNTER 2017-02-12 10:04 | Emergency (ER) | payer SELFPAY ==
[2017-02-12] MEDS ORDERED: LIDOCAINE 1%/EPINEPHRINE INJ 20 ML VIAL INJ ONE (11:27)
--- NOTE | 2017-02-12 11:36 | ER Document Report ---
ED General - General Chief Complaint: Abscess Stated Complaint: VAGINAL DISCHARGE Time Seen by Provider: 02/12/17 11:10 Mode of Arrival: Ambulatory Information source: Patient Notes: Development 5 days ago for right labial "area of pain and swelling". She was seen here Thursday after it started already spontaneously drained and was started on doxycycline with no incision and drainage performed. Patient states that it is "going again". She denies any fevers or vomiting. Patient states that she does not have a history of diabetes but has had multiple abscesses in the past. TRAVEL OUTSIDE OF THE [place] IN LAST 30 DAYS: No - HPI Onset: Other - See above Quality of pain: Achy Severity: Mild Pain Level: 1 Associated symptoms: Other - See above Exacerbated by: Denies Relieved by: Denies Similar symptoms previously: Yes Recently seen / treated by doctor: Yes - Related Data Allergies/Adverse Reactions: Sulfa (Sulfonamide Antibiotics) Allergy (Verified 02/12/17 10:09) Past Medical History - General Information source: Patient - Social History Smoking Status: Current Every Day Smoker Cigarette use (# per day): No Chew tobacco use (# tins/day): No Smoking Education Provided: No Frequency of alcohol use: None Drug Abuse: None Family History: Reviewed & Not Pertinent, Thyroid Disfunction Patient has suicidal ideation: No Patient has homicidal ideation: No Pulmonary Medical History: Reports: Hx Asthma Renal/ Medical History: Reports: Hx Ectopic , Hx Ovarian Cysts. Denies: Hx Peritoneal Dialysis Skin Medical History: Reports Hx MRSA Psychiatric Medical History: Reports: Hx Anxiety, Hx Attention Deficit Hyperactivity Disorder, Hx Bipolar Disorder, Hx Depression Infectious Medical History: Reports: Hx MRSA Past Surgical History: Reports: Hx Section, Hx Gynecologic Surgery - tubal - Immunizations Immunizations up to date: Yes Hx Diphtheria, Pertussis, Tetanus Vaccination: Yes Physical Exam - Vital signs Vitals: Temp Pulse Resp BP Pulse Ox 97.6 F 110 H 16 136/97 H 100 02/12/17 10:07 02/12/17 10:07 02/12/17 10:07 02/12/17 10:07 02/12/17 10:07 Notes: Reviewed vital signs and nursing note as charted by RN. CONSTITUTIONAL: Alert and oriented and responds appropriately to questions. Well -appearing; well-nourished SKIN: Patient has an area of swelling and induration with no obvious fluctuance to the right outer labial region. There are no interlabial lesions present. No other skin lesions present. Course - Re-evaluation Re-evalutation: 02/12/17 11:35 Given the history and physical examination we will perform a simple incision and drainage to this labial region to make sure that all the abscess has been evacuated. 02/12/17 12:47 I performed a bedside incision and drainage of the right lateral labial abscess with minimal drainage. I will change the patient's antibiotics from doxycycline to clindamycin and provide pain medications and a discount prescription. Patient states she has care in community clinic follow-up appointment on Thursday. - Vital Signs Vital signs: Temp Pulse Resp BP Pulse Ox 97.6 F 110 H 16 136/97 H 100 02/12/17 10:07 02/12/17 10:07 02/12/17 10:07 02/12/17 10:07 02/12/17 10:07 Procedures - Incision and Drainage Right Labia Type: Simple Anesthetic type: 1% Lidocaine w/epi Blade size: 11 I&D procedure: Chlorprep applied Incision Method: Incision made by scalpel - Minimal drainage Discharge - Discharge Clinical Impression: Labial abscess Condition: Good Disposition: HOME, SELF-CARE Instructions: Post Incision and Drainage Additional Instructions: Come back immediately for any increased pain, swelling, redness, discharge, or fever. Please make sure you follow-[facility] with [facility] as scheduled. Prescriptions: Clindamycin HCl [Cleocin 300 mg Capsule] 300 mg PO QID #40 capsule Hydrocodone/Acetaminophen [Kegley 5-325 Tablet] 1 each PO Q6 PRN #12 tablet PRN Reason: For Pain
[2017-02-12] MEDS ORDERED: OXYCODONE-ACETAMINOPHEN 5-325 MG TABLET PO ONE (12:46)
[2017-02-12] MEDS ORDERED: CLINDAMYCIN HCL 150 MG CAPSULE PO ONE (12:46)
[2017-02-12 13:25] VITALS: BP 137/101
== END 2017-02-12 13:25 | disposition home or self-care (01) ==
LOC: ER 10:04
DX: N76.4 Abscess of vulva (principal); J45.909 Unspecified asthma, uncomplicated; F17.200 Nicotine dependence, unspecified, uncomplicated; Z88.2 Allergy status to sulfonamides; Z86.14 Personal history of Methicillin resistant Staphylococcus aureus infection
CPT/HCPCS: 99283; 82962; 56405; J3490

== ENCOUNTER 2017-03-10 08:35 | Emergency (ER) | payer SELFPAY ==
[2017-03-10 08:41] VITALS: BP 135/89
[2017-03-10] MEDS ORDERED: PENICILLIN V POTASSIUM 500 MG TABLET PO ONE (09:47)
[2017-03-10] MEDS ORDERED: ACETAMINOPHEN WITH CODEINE #3 TABLET PO ONE (09:47)
--- NOTE | 2017-03-10 09:50 | ER Document Report ---
HPI - HPI Patient complains to provider of: Toothache Pain Level: 5 Context: Patient is a 36-year-old female who presents emergency department with a chief complaint of right upper tooth pain. Patient states that 2 days ago her tooth started to break in for a cough yesterday. States she has been taking 600 mg of Motrin 3 times a day with minimal improvement in her symptoms. She denies any fevers, chills, swelling, foul odor or drainage. Patient is a current smoker. States she does not regularly follow with a dentist but has a dental appointment with [facility] on Thursday - CONSTITUTIONAL Constitutional: REPORTS: Fever - low grad at home - EENT EENT: REPORTS: Ear Pain - teeth pain - REPRODUCTIVE Reproductive: DENIES: : Past Medical History - Social History Smoking Status: Current Every Day Smoker Frequency of alcohol use: None Drug Abuse: None Family History: Reviewed & Not Pertinent, Thyroid Disfunction Patient has suicidal ideation: No Patient has homicidal ideation: No Pulmonary Medical History: Reports: Hx Asthma Renal/ Medical History: Reports: Hx Ectopic , Hx Ovarian Cysts. Denies: Hx Peritoneal Dialysis Skin Medical History: Reports Hx MRSA Psychiatric Medical History: Reports: Hx Anxiety, Hx Attention Deficit Hyperactivity Disorder, Hx Bipolar Disorder, Hx Depression Infectious Medical History: Reports: Hx MRSA Past Surgical History: Reports: Hx Section, Hx Gynecologic Surgery - tubal - Immunizations Immunizations up to date: Yes Hx Diphtheria, Pertussis, Tetanus Vaccination: Yes Vertical Provider Document - CONSTITUTIONAL Agree With Documented VS: Yes Notes: PHYSICAL EXAM GENERAL: Alert, interacts well. ENT: Oral mucosa moist, tongue midline. Fracture of tooth 3 to pulp NECK: Full range of motion. Supple. Trachea midline. LUNGS: Clear to auscultation bilaterally, no wheezes, rales, or rhonchi. No respiratory distress. HEART: Regular rate and rhythm. No murmurs, gallops, or rubs. NEUROLOGICAL: Alert and oriented x4. Normal speech. PSYCH: Normal affect, normal mood. SKIN: Warm, dry, normal turgor. No rashes or lesions noted. - INFECTION CONTROL TRAVEL OUTSIDE OF THE [place] IN LAST 30 DAYS: No - RESPIRATORY O2 Sat by Pulse Oximetry: 100 Course - Re-evaluation Re-evalutation: 03/10/17 09:47 Patient is a 36-year-old female who is hemodynamically stable, no acute distress and afebrilePresentation is most consistent with likely an infected tooth. Airway is patent. Vitals within normal limits. Patient is able swallow without any difficulty. There is no significant facial swelling. Patient will be started on antibiotics. She is declining a dental block at this time. I've instructed keep her appointment with her dentist on Thursday for definitive management. Return precautions and follow-up recommendations have been discussed at length. - Vital Signs Vital signs: Temp Pulse Resp BP Pulse Ox 98.4 F 97 14 135/89 H 100 03/10/17 08:41 03/10/17 08:41 03/10/17 08:41 03/10/17 08:41 03/10/17 08:41 Discharge - Discharge Clinical Impression: Toothache Condition: Good Disposition: HOME, SELF-CARE Additional Instructions: You have been seen for dental pain. It is very important that you follow-up with a dentist for definitive care. Please return if you develop fever greater than 101, swelling in your face, vomiting, difficulty breathing or swallowing, or any other symptoms that are concerning to you. For pain you should take ibuprofen 600 mg every 6 hours as needed. TOOTHACHE: Your pain is due to dental decay. The tooth must be repaired in order for you to feel better. You will, therefore, be referred to a dentist. We do not have dentists on the staff at [facility]. Severe swelling or drainage around a tooth usually means a dental abscess. This also requires evaluation and treatment by the dentist, but antibiotics may be prescribed while awaiting dental treatment. You should be rechecked immediately if you develop major swelling of the face, increasing pain, a lump in the jaw or gums, headache, difficulty swallowing, or fever. PENICILLIN V K: You have been given a prescription for Penicillin VK. Your physician has determined that this is the best antibiotic for your condition. Pen VK can be taken with meals, however more of the antibiotic gets into the bloodstream if it's taken on an empty stomach. Penicillin usually has no side effects. However, allergy to penicillins is common. If you have had an allergic reaction to any drug of the penicillin family, you should never take any other penicillin. Notify your doctor at once if you develop hives, itching, swelling, faintness, or shortness of breath. FOLLOW-UP CARE: You have been referred for follow-up care to the dentists listed below. Call the dentists office for an appointment as you were instructed or within the next two days. If you experience worsening or a significant change in your symptoms, notify the physician immediately or return to the Emergency Department at any time for re-evaluation. [facility] [address] [place], [place] mornings, by appointment [facility] [address] [place] [address] [facility] [address] [facility] [address] [facility] [address] [facility] [address] [facility] [email or web address] [address] [place] [address] Thursday- 8:00am to 5:00 pm Will see patients from other [facility]. Charges based on income and family size and accepts Medicare, Medicaid, and Insurances Will pull molars [facility] [id number] Hours of Operation 8:00 am - 4:30 pm weekdays The following dental offices accept Medicaid: [facility] [address] Dr[address] Luna Dr. Marley Oniel Lamas [place], and [place] oral surgery Dr. Valle ([place]) Dr. Azevedo ([place]) [facility] Drs. Oliveros and Charlie ([place]) Dr. Ramirez ([place]) [facility] Dr. Guthrie ([place]) Drs. Calero and ([place]) Medicaid Care Line Prescriptions: Penicillin V Potassium [Penicillin Vk 500 mg Tablet] 500 mg PO TID 7 Days #21 tablet
== END 2017-03-10 09:57 | disposition home or self-care (01) ==
LOC: ER 08:35
DX: K08.89 Other specified disorders of teeth and supporting structures (principal); J45.909 Unspecified asthma, uncomplicated; F17.200 Nicotine dependence, unspecified, uncomplicated; Z86.14 Personal history of Methicillin resistant Staphylococcus aureus infection
CPT/HCPCS: 99282

== ENCOUNTER 2017-03-14 14:55 | Emergency (ER) | payer SELFPAY ==
[2017-03-14] MEDS ORDERED: IBUPROFEN 800 MG TABLET PO ONE (15:20)
--- NOTE | 2017-03-14 15:27 | ER Document Report ---
HPI - HPI Patient complains to provider of: cough, upper back pain Onset: Last week Onset/Duration: Persistent Quality of pain: Achy Severity: Severe Pain Level: 5 Context: Patient presents emergency department with complaints of severe pain in between her shoulders increased when she coughs and having trouble with her breathing. Denies history of PE denies recent trip. Last menstrual period the beginning of february. patient reports symptoms for the past week with a history of asthma. Has been using her inhaler without relief of symptoms. Denies fever vomiting diarrhea. Reports history of pneumonia. Still smoking but reports decreased smoking this week since she has been hurting. Associated Symptoms: None Exacerbated by: Coughing, Deep breathing Relieved by: Denies Similar symptoms previously: Yes - history of pneumonia Recently seen / treated by doctor: No - REPRODUCTIVE LMP: Begining february Reproductive: DENIES: : Past Medical History - General Information source: Patient Last Menstrual Period: dec - Social History Smoking Status: Current Every Day Smoker Cigarette use (# per day): Yes Smoking Education Provided: Yes Frequency of alcohol use: None Drug Abuse: None Family History: Reviewed & Not Pertinent, Thyroid Disfunction Patient has suicidal ideation: No Patient has homicidal ideation: No Pulmonary Medical History: Reports: Hx Asthma, Hx Pneumonia Renal/ Medical History: Reports: Hx Ectopic , Hx Ovarian Cysts. Denies: Hx Peritoneal Dialysis Skin Medical History: Reports Hx MRSA Psychiatric Medical History: Reports: Hx Anxiety, Hx Attention Deficit Hyperactivity Disorder, Hx Bipolar Disorder, Hx Depression Infectious Medical History: Reports: Hx MRSA Past Surgical History: Reports: Hx Section, Hx Gynecologic Surgery - tubal - Immunizations Immunizations up to date: Yes Hx Diphtheria, Pertussis, Tetanus Vaccination: Yes Vertical Provider Document - CONSTITUTIONAL Agree With Documented VS: Yes Exam Limitations: No Limitations General Appearance: WD/WN, No Apparent Distress - nontoxic looking - INFECTION CONTROL TRAVEL OUTSIDE OF THE [place] IN LAST 30 DAYS: No - HEENT HEENT: Atraumatic, Normocephalic - NECK Neck: Normal Inspection, Supple. negative: Lymphadenopathy-Left, Lymphadenopathy-Right - RESPIRATORY Respiratory: Breath Sounds Normal, No Respiratory Distress - no cough noted during entire interview and assessment. negative: Rhonchi, Wheezing O2 Sat by Pulse Oximetry: 100 - CARDIOVASCULAR Cardiovascular: Regular Rate - GI/ABDOMEN Gastrointestinal: Abdomen Soft, Abdomen Non-Tender - BACK Back: Normal Inspection - c/o pain between shoulders increased with deep breath - MUSCULOSKELETAL/EXTREMETIES Musculoskeletal/Extremeties: FERNANDO, FORTINO - NEURO Level of Consciousness: Awake, Alert, Appropriate Motor/Sensory: No Motor Deficit - DERM Integumentary: Warm, Dry Course - Re-evaluation Re-evalutation: 03/14/17 16:09 chest xray neg, patient has not coughed since arrival, lungs clear. pt denies trauma or recent strain on back, she reports the pain is keeping her up at night. I encourage patient to use ice heat hot showers Tylenol Motrin or Advil. Patient insisting on some type of stronger pain medication. I again discussed and encouraged her to utilize stretches ice or heat- narcotics declined. She verbalized understanding - Vital Signs Vital signs: Temp Pulse Resp BP Pulse Ox 98.6 F 96 18 127/92 H 100 03/14/17 15:00 03/14/17 15:00 03/14/17 15:00 03/14/17 15:00 03/14/17 15:00 - Diagnostic Test Radiology reviewed: Image reviewed, Reports reviewed - EXAM DESCRIPTION: CHEST PA/LAT COMPLETED DATE/TIME: 03/14/2017 3:38 pm REASON FOR STUDY: cough, pain with deep breath COMPARISON: 2015. TECHNIQUE: Frontal and lateral radiographic views of the chest acquired. NUMBER OF VIEWS: Two view. LIMITATIONS: None. FINDINGS: LUNGS AND PLEURA: No opacities, masses or pneumothorax. No pleural effusion. MEDIASTINUM AND HILAR STRUCTURES: No masses or contour abnormalities. HEART AND VASCULAR STRUCTURES: Heart normal size. No evidence for failure. BONES: No acute findings. HARDWARE: None in the chest. OTHER: No other significant finding. IMPRESSION: NO SIGNIFICANT RADIOGRAPHIC FINDING IN THE CHEST Discharge - Discharge Clinical Impression: Cough, Upper back pain Condition: Stable Instructions: Use of Iask-Fnd-Lplwofe Ibuprofen ([facility]), Stop Smoking ([facility]) Additional Instructions: *You have been evaluated for a cough, upper back pain *Quit smoking *Use your inhaler as prescribed *Take ibuprofen as indicated *Increase fluids *Monitor your temperature *Follow up with a primary care provider within one week for recheck *Return to ED for increasing fever, cough, worsening condition, changes, needs, difficulty breathing Monitor your blood pressure. Your blood pressure was elevated today. This may be because you were anxious, in pain or because you need medication. It is important to follow up with your primary care provider for full evaluation. Forms: Smoking Cessation Education, Elevated Blood Pressure
--- NOTE | 2017-03-14 15:59 | RADIOLOGY REPORT (SQ) ---
EXAM DESCRIPTION: CHEST PA/LAT COMPLETED DATE/TIME: 03/14/2017 3:38 pm REASON FOR STUDY: cough, pain with deep breath COMPARISON: 2015. TECHNIQUE: Frontal and lateral radiographic views of the chest acquired. NUMBER OF VIEWS: Two view. LIMITATIONS: None. FINDINGS: LUNGS AND PLEURA: No opacities, masses or pneumothorax. No pleural effusion. MEDIASTINUM AND HILAR STRUCTURES: No masses or contour abnormalities. HEART AND VASCULAR STRUCTURES: Heart normal size. No evidence for failure. BONES: No acute findings. HARDWARE: None in the chest. OTHER: No other significant finding. IMPRESSION: NO SIGNIFICANT RADIOGRAPHIC FINDING IN THE CHEST. TECHNICAL DOCUMENTATION: JOB ID: [id number] Quarterly- All Rights Reserved
[2017-03-14 16:17] VITALS: BP 119/91
== END 2017-03-14 16:15 | disposition home or self-care (01) ==
LOC: ER 14:55
DX: M54.89 Other dorsalgia (principal); R05 Cough; J45.909 Unspecified asthma, uncomplicated; F17.210 Nicotine dependence, cigarettes, uncomplicated; Z87.01 Personal history of pneumonia (recurrent); Z71.6 Tobacco abuse counseling; Z86.14 Personal history of Methicillin resistant Staphylococcus aureus infection
CPT/HCPCS: 71020; 99283

== ENCOUNTER 2017-03-17 09:28 | Emergency (ER) | payer SELFPAY ==
[2017-03-17] MEDS ORDERED: DOXYCYCLINE HYCLATE 100 MG TABLET PO ONE (10:29)
[2017-03-17] MEDS ORDERED: CEPHALEXIN 500 MG CAPSULE PO ONE (10:29)
[2017-03-17] MEDS ORDERED: HYDROCODONE/ACETAMINOPHEN 5-325 MG 6 TAB/DSPK PO PRN (10:32)
--- NOTE | 2017-03-17 10:32 | ER Document Report ---
ED Skin Rash/Insect Bite/Abscs - General Chief Complaint: Abscess Stated Complaint: VAGINAL DISCOMFORT Time Seen by Provider: 03/17/17 09:53 Mode of Arrival: Ambulatory Information source: Patient Notes: 26-year-old female presents to ED for complaint of abscess 2 days to the vaginal area with increased discomfort. She states she has a history of these in the past. Patient denies any fevers. TRAVEL OUTSIDE OF THE [place] IN LAST 30 DAYS: No - HPI Patient complains to provider of: Tender/swollen area Onset: Other - 2 days Quality of pain: Sharp, Throbbing Severity: Severe Pain Level: 5 Skin Character: Abscess - Vaginal area Identify cause: No Exacerbated by: Movement, Walking Relieved by: Denies Similar symptoms previously: Yes Recently seen / treated by doctor: No - Related Data Allergies/Adverse Reactions: Sulfa (Sulfonamide Antibiotics) Allergy (Verified 03/17/17 09:31) Past Medical History - General Information source: Patient - Social History Smoking Status: Current Every Day Smoker Cigarette use (# per day): Yes Chew tobacco use (# tins/day): No Smoking Education Provided: Yes - Less than 2 minutes Frequency of alcohol use: None Drug Abuse: None Lives with: Family Family History: Reviewed & Not Pertinent, Thyroid Disfunction Patient has suicidal ideation: No Patient has homicidal ideation: No - Past Medical History Cardiac Medical History: Reports: None Pulmonary Medical History: Reports: Hx Asthma, Hx Pneumonia EENT Medical History: Reports: None Neurological Medical History: Reports: None Endocrine Medical History: Reports: None Renal/ Medical History: Reports: Hx Ectopic , Hx Ovarian Cysts Malignancy Medical History: Reports: None GI Medical History: Reports: None Musculoskeltal Medical History: Reports None Skin Medical History: Reports Hx MRSA Psychiatric Medical History: Reports: Hx Anxiety, Hx Attention Deficit Hyperactivity Disorder, Hx Bipolar Disorder, Hx Depression Traumatic Medical History: Reports: None Infectious Medical History: Reports: Hx MRSA Past Surgical History: Reports: Hx Section, Hx Gynecologic Surgery - tubal - Immunizations Immunizations up to date: Yes Hx Diphtheria, Pertussis, Tetanus Vaccination: Yes Review of Systems - Review of Systems Constitutional: No symptoms reported EENT: No symptoms reported Cardiovascular: No symptoms reported Respiratory: No symptoms reported Gastrointestinal: No symptoms reported Genitourinary: No symptoms reported Female Genitourinary: No symptoms reported Musculoskeletal: No symptoms reported Skin: Other - Labial abscess Hematologic/Lymphatic: No symptoms reported Neurological/Psychological: No symptoms reported -: Yes All other systems reviewed and negative Physical Exam - Vital signs Vitals: Temp Pulse Resp BP Pulse Ox 98.5 F 98 16 128/91 H 99 03/17/17 09:34 03/17/17 09:34 03/17/17 09:34 03/17/17 09:34 03/17/17 09:34 Interpretation: Normal - General General appearance: Appears well, Alert - HEENT Head: Normocephalic, Atraumatic Eyes: Normal Pupils: PERRL - Respiratory Respiratory status: No respiratory distress Chest status: Nontender Breath sounds: Normal Chest palpation: Normal - Cardiovascular Rhythm: Regular Heart sounds: Normal auscultation Murmur: No - Abdominal Inspection: Normal Distension: No distension Bowel sounds: Normal Tenderness: Nontender Organomegaly: No organomegaly - Back Back: Normal, Nontender - Extremities General upper extremity: Normal inspection, Nontender, Normal color, Normal ROM , Normal temperature General lower extremity: Normal inspection, Nontender, Normal color, Normal ROM , Normal temperature, Normal weight bearing. No: Marcos's sign - Neurological Neuro grossly intact: Yes Cognition: Normal Orientation: AAOx4 Dobson Coma Scale Eye Opening: Spontaneous Ananth Coma Scale Verbal: Oriented Dobson Coma Scale Motor: Obeys Commands Dobson Coma Scale Total: 15 Speech: Normal Motor strength normal: LUE, RUE, LLE, RLE Sensory: Normal - Psychological Associated symptoms: Normal affect, Normal mood - Skin Skin Temperature: Warm Skin Moisture: Dry Skin Color: Normal Skin irregularity: Abscess - Labial Irregularity with: Swelling, Tenderness, Warmth Course - Re-evaluation Re-evalutation: 03/17/17 14:18 Patient treated with Bactrim and Keflex for her labial abscesses. They were not large enough to open it I&D at this time. Patient was instructed to return to the ED or her primary doctor if they do to increase in size. - Vital Signs Vital signs: Temp Pulse Resp BP Pulse Ox 98.3 F 83 18 123/81 100 03/17/17 10:44 03/17/17 10:44 03/17/17 10:44 03/17/17 10:44 03/17/17 10:44 Discharge - Discharge Clinical Impression: Abscess Condition: Stable Disposition: HOME, SELF-CARE Instructions: Family Physicians / Practices Additional Instructions: ABSCESS: You have an abscess (boil). This a pus-forming infection, usually due to staph. Some boils may be left to drain on their own, but most require lancing. From the time the tender lump first appears, it may be three or four days before the abscess is ready to butch. Local heat and rest help at this stage of treatment. An antibiotic may prevent spread of the infection. Once the abscess is opened, packing may be placed into it. This is done so pus is not sealed inside by premature closure of the cavity. The packing will be removed at your follow-up visit or you may be advised to remove it yourself at home. Sometimes this packing must be replaced a few times during healing. The wound will heal with surprisingly little scar. Depending on the size and location of an abscess, healing can take one to four weeks. You may shower and wash the area around the incision site two or three times a day. Antibiotics may be prescribed, but are usually not necessary after an abscess has been drained. If you develop fever, chills, worsening pain, or increasing swelling in the area, call the doctor or return immediately. ORAL NARCOTIC MEDICATION: You have been given a [employer] dispense pack for pain control. This medication is a narcotic. It's best taken with food, as nausea can result if taken on an empty stomach. Don't operate machinery or drive within six hours of taking this medication. Do not combine this medicine with alcohol, or with any medication which can cause sedation (such as cold tablets or sleeping pills) unless you get permission from the physician. Narcotics tend to cause constipation. If possible, drink plenty of fluids and eat a diet high in fiber and fruits. CEPHALEXIN: The antibiotic you've been prescribed is a member of the cephalosporin class. This type of antibiotic covers a wide variety of infections, including those of the skin, lungs, and urinary tract. It's useful for staph infections. This antibiotic is slightly similar to the penicillin family. In rare cases , a person who is allergic to penicillin will also be allergic to this medication. If you have had a severe allergic reaction to penicillin, and have not taken this antibiotic since that time, notify your doctor. Antibiotics which cover many germs ("broad spectrum" antibiotics) are more likely to cause diarrhea or "yeast" infections. Women prone to vaginal yeast problems may suffer an attack after taking this antibiotic. In infants, oral thrush (white spots "stuck" on the cheek) or yeast diaper rash may result. See your doctor if these problems occur. Call at once if you develop itching, hives , shortness of breath, or lightheadedness. DOXYCYCLINE: Doxycycline (Vibramycin, Doryx) is an antibiotic of the tetracycline family. This type of drug is useful for infections of the respiratory tract and genital tract, and is sometimes used for intestinal infections. Unlike most tetracyclines, doxycycline can be taken with food. It is longer acting, and (usually) less prone to side effects than regular tetracycline. Tetracycline antibiotics can stain immature teeth and SHOULD NOT BE TAKEN BY CHILDREN, NURSING MOTHERS, OR WOMEN. Tetracyclines can make you more prone to sunburn. Abdominal cramping, nausea, and diarrhea are occasional side effects. Women may experience vaginal yeast infections. Call the doctor at once if you develop hives, itching, shortness of breath , or lightheadedness. FOLLOW-UP CARE: Most simple abscesses will not require a follow up visit. If you had packing placed in the abscess, remove it as instructed by the physician. If you have been referred to a physician for follow-up care, call the physicians office for an appointment as you were instructed or within the next two days. If you experience worsening or a significant change in your symptoms, return to the Emergency Department at any time for re-evaluation. Prescriptions: Cephalexin Monohydrate [Keflex 500 mg Capsule] 500 mg PO QID #20 capsule Doxycycline Hyclate 100 mg PO BID #20 capsule Mupirocin [Bactroban 2% Ointment 22 gm] 22 applic TP TID #1 tube Forms: Elevated Blood Pressure, Smoking Cessation Education, Return to Work
[2017-03-17 10:45] VITALS: BP 123/81
== END 2017-03-17 10:43 | disposition home or self-care (01) ==
LOC: ER 09:28
DX: N76.4 Abscess of vulva (principal); J45.909 Unspecified asthma, uncomplicated; F17.210 Nicotine dependence, cigarettes, uncomplicated; Z71.6 Tobacco abuse counseling; Z86.14 Personal history of Methicillin resistant Staphylococcus aureus infection; Z88.2 Allergy status to sulfonamides
CPT/HCPCS: 99283

== ENCOUNTER 2017-03-27 09:56 | Emergency (ER) | payer SELFPAY ==
[2017-03-27 10:03] VITALS: BP 142/107
--- NOTE | 2017-03-27 10:14 | ER Document Report ---
ED GI/ - General Chief Complaint: Abscess Stated Complaint: VAGINAL PAIN Time Seen by Provider: 03/27/17 10:13 Mode of Arrival: Ambulatory Information source: Patient Notes: 36-year-old with hidradenitis suppurativa history is complaining of an abscess of her left labia for 4 days. No fever. No swelling. TRAVEL OUTSIDE OF THE [place] IN LAST 30 DAYS: No - Related Data Allergies/Adverse Reactions: Sulfa (Sulfonamide Antibiotics) Allergy (Verified 03/17/17 09:31) Past Medical History - General Information source: Patient - Social History Smoking Status: Unknown if Ever Smoked Frequency of alcohol use: None Drug Abuse: None Lives with: Family Family History: Reviewed & Not Pertinent, Thyroid Disfunction Pulmonary Medical History: Reports: Hx Asthma, Hx Pneumonia Renal/ Medical History: Reports: Hx Ectopic , Hx Ovarian Cysts. Denies: Hx Peritoneal Dialysis Skin Medical History: Reports Hx MRSA Psychiatric Medical History: Reports: Hx Anxiety, Hx Attention Deficit Hyperactivity Disorder, Hx Bipolar Disorder, Hx Depression Infectious Medical History: Reports: Hx MRSA Past Surgical History: Reports: Hx Section, Hx Gynecologic Surgery - tubal - Immunizations Immunizations up to date: Yes Hx Diphtheria, Pertussis, Tetanus Vaccination: Yes Review of Systems - Review of Systems Constitutional: No symptoms reported EENT: No symptoms reported Cardiovascular: No symptoms reported Respiratory: No symptoms reported Gastrointestinal: No symptoms reported Genitourinary: No symptoms reported Female Genitourinary: See HPI Musculoskeletal: No symptoms reported Skin: No symptoms reported Hematologic/Lymphatic: No symptoms reported Neurological/Psychological: No symptoms reported Physical Exam - Vital signs Vitals: Temp Pulse Resp BP Pulse Ox 97.5 F 93 16 142/107 H 100 03/27/17 10:02 03/27/17 10:02 03/27/17 10:02 03/27/17 10:02 03/27/17 10:02 Interpretation: Normal - General General appearance: Appears well, Alert - HEENT Head: Normocephalic, Atraumatic Eyes: Normal Pupils: PERRL Neck: Supple - Cardiovascular Murmur: No - Abdominal Inspection: Normal Distension: No distension Bowel sounds: Normal Tenderness: Nontender Organomegaly: No organomegaly - Genitourinary External exam: Lesions - 4 grouped non red shallow ulcerations left superior labia minora, no abscess, no adenopathy - Back Back: Normal, Nontender - Extremities General upper extremity: Normal inspection, Nontender, Normal color, Normal ROM , Normal temperature General lower extremity: Normal inspection, Nontender, Normal color, Normal ROM , Normal temperature, Normal weight bearing. No: Marcos's sign - Neurological Neuro grossly intact: Yes Cognition: Normal Orientation: AAOx4 [place] Coma Scale Eye Opening: Spontaneous Ananth Coma Scale Verbal: Oriented [place] Coma Scale Motor: Obeys Commands Ananth Coma Scale Total: 15 Speech: Normal Motor strength normal: LUE, RUE, LLE, RLE Sensory: Normal - Psychological Associated symptoms: Normal affect, Normal mood - Skin Skin Temperature: Warm Skin Moisture: Dry Skin Color: Normal Notes: see above Course - Re-evaluation Re-evalutation: 03/27/17 10:05 Patient is requesting to see a male doctor. She said his name starts with a PE. She knew that he was working today. I asked her if she would be okay with me seeing her because she could be seen sooner because he was busy. She agreed that it would be okay for me to see her. 03/27/17 10:26 Carin was the PCT in the room during the exam. I was able to show the patient the area that was tender to her it was several very shallow grouped ulcers that are healing. There is no abscess. She states she has never had herpes. She states that Motrin is not helping with the pain and that she wants something for pain in the emergency department. I told her I will give her some topical numbing agent that will numb it completely and she said she is used lidocaine before and that did not work. I also will give her Motrin and Tylenol but opiates are not indicated for this treatment. Patient states that she has Bactroban at home to use. 03/27/17 10:28 pt took the LET to use at home and told the nurse that motrin and tylenol won't help but she would take it anyway. left without her discharge papers. - Vital Signs Vital signs: Temp Pulse Resp BP Pulse Ox 97.5 F 93 16 142/107 H 100 03/27/17 10:02 03/27/17 10:02 03/27/17 10:02 03/27/17 10:02 03/27/17 10:02 Discharge - Discharge Clinical Impression: left labia minora ulcerations Condition: Good Disposition: HOME, SELF-CARE Instructions: Abrasions ([facility]), Acetaminophen, Use of Tcgi-Cfr-Mrvvkis Ibuprofen ([facility]), Topical Lidocaine ([facility]) Additional Instructions: topical lidocaine to numb the area topical bactrobana three times per day over the counter tylenol and motrin for pain see your provider for follow up to er if worsening symptoms Prescriptions: Lidocaine HCl 1 applic TP QID #1 each
[2017-03-27] MEDS ORDERED: ACETAMINOPHEN 325 MG TABLET PO ONE (10:20)
[2017-03-27] MEDS ORDERED: ONDANSETRON 4 MG TAB.RAPDIS PO ONE (10:21)
[2017-03-27] MEDS ORDERED: LIDOCAINE 4%/TETRACAINE 0.5%/EPI 0.18% 5 ML TOPICAL SOLN TOP ONE (10:21)
[2017-03-27] MEDS ORDERED: IBUPROFEN 800 MG TABLET PO ONE (10:21)
== END 2017-03-27 10:41 | disposition home or self-care (01) ==
LOC: ER 09:56
DX: N76.6 Ulceration of vulva (principal); Z86.14 Personal history of Methicillin resistant Staphylococcus aureus infection; Z88.2 Allergy status to sulfonamides; J45.909 Unspecified asthma, uncomplicated
CPT/HCPCS: 99283; S0119; J3490

== ENCOUNTER 2017-05-12 21:35 | Inpatient (IN) | payer SELFPAY ==
[2017-05-12] MEDS ORDERED: NORMAL SALINE 1000 ML 1,000 ML IV ONE (22:50)
[2017-05-12] MEDS ORDERED: PROMETHAZINE HCL INJ 25 MG/1 ML VIAL IM ONE (22:50)
--- NOTE | 2017-05-12 22:52 | ER Document Report ---
ED General - General Chief Complaint: Epigastric Pain Stated Complaint: ABDOMINAL PAIN Time Seen by Provider: 05/12/17 22:35 Notes: Patient is a 36-year-old female presents with complaint of recurrent abdominal pain. Pain is usually across the upper abdomen. She says it cramps around her abdomen and she starts having diarrhea and vomiting. She says this been intermittent for year. She admits that she has a lot of stress and anxiety. She has not seen a physician about this because she says she does not have any health insurance. She denies any fevers. No blood in her stool or vomit. She is not taking medications for this. No other complaints at this time. No previous history of abdominal surgeries. TRAVEL OUTSIDE OF THE [place] IN LAST 30 DAYS: No - Related Data Allergies/Adverse Reactions: Sulfa (Sulfonamide Antibiotics) Allergy (Verified 03/17/17 09:31) Past Medical History - Social History Smoking Status: Current Every Day Smoker Chew tobacco use (# tins/day): No Frequency of alcohol use: None Drug Abuse: None Family History: Reviewed & Not Pertinent, Thyroid Disfunction Patient has suicidal ideation: No Patient has homicidal ideation: No Pulmonary Medical History: Reports: Hx Asthma, Hx Pneumonia Renal/ Medical History: Reports: Hx Ectopic , Hx Ovarian Cysts. Denies: Hx Peritoneal Dialysis Skin Medical History: Reports Hx MRSA Psychiatric Medical History: Reports: Hx Anxiety, Hx Attention Deficit Hyperactivity Disorder, Hx Bipolar Disorder, Hx Depression Infectious Medical History: Reports: Hx MRSA Past Surgical History: Reports: Hx Section, Hx Gynecologic Surgery - tubal - Immunizations Immunizations up to date: Yes Hx Diphtheria, Pertussis, Tetanus Vaccination: Yes Review of Systems - Review of Systems Notes: My Normal Review Basic REVIEW OF SYSTEMS: CONSTITUTIONAL : Denies fever, chills, or sweats. Denies recent illness. EENT: Denies eye, ear, throat, or mouth pain or symptoms. Denies nasal or sinus congestion. CARDIOVASCULAR: Denies chest pain. RESPIRATORY: Denies cough, cold, or chest congestion. Denies shortness of breath, difficulty breathing, or wheezing. GASTROINTESTINAL: Abdominal pain. Vomiting. Diarrhea. GENITOURINARY: Denies difficulty urinating, painful urination, burning, frequency, or blood in urine. FEMALE GENITOURINARY: Denies vaginal bleeding, abnormal or irregular periods. MUSCULOSKELETAL: Denies neck or back pain or joint pain or swelling. SKIN: Denies rash or skin lesions. NEUROLOGICAL: Denies altered mental status or loss of consciousness. Denies headache. Denies weakness or paralysis or loss of use of either side. Denies problems with gait or speech. Denies sensory or motor loss. PSYCHIATRIC: Stress and anxiety. ALL OTHER SYSTEMS REVIEWED AND NEGATIVE. Physical Exam - Vital signs Vitals: Temp Pulse Resp BP Pulse Ox 98.0 F 105 H 16 139/94 H 98 05/12/17 22:13 05/12/17 22:13 05/12/17 22:13 05/12/17 22:13 05/12/17 22:13 - Notes Notes: General Appearance: Well nourished, alert, cooperative, no acute distress, no obvious discomfort. Very anxious appearing. Vitals: reviewed, See vital signs table. Head: no swelling or tenderness to the head Eyes: PERRL, EOMI, Conjuctiva clear Mouth: No decreasd moisture Lungs: No wheezing, No rales, No rhonci, No accessory muscle use, good air exchange bilaterally. Heart: Normal rate, Regular rythm, No murmur, no rub Abdomen: Normal BS, soft, No rigidity, No reproducible abdominal tenderness to palpation, No guarding, no rebound, no abdominal masses, no organomegaly Extremities: strength 5/5 in all extremities, good pulses in all extremities, no swelling or tenderness in the extremities, no edema. Skin: warm, dry, appropriate color, no rash Neuro: speech clear, oriented x 3, normal affect, responds appropriately to questions. Course - Re-evaluation Re-evalutation: 05/13/17 03:50 Patient's white count was 20,[address] scan was obtained. CT scan shows inflammation from the large bowel all the way up to the jejunum. This suggests the patient most likely has inflammatory bowel disease such as Crohn's disease. I suspect he probably does have Crohn's based on the fact that she has been having intermittent symptoms consistently for a year now. I have given the patient dose of steroids. Her stool has been sent for culture. I did speak with the hospitalist who agreed to accept the patient. Dictation of this chart was performed using voice recognition software; therefore, there may be some unintended grammatical errors. - Vital Signs Vital signs: Temp Pulse Resp BP Pulse Ox 98.0 F 105 H 16 139/94 H 98 05/12/17 22:13 05/12/17 22:13 05/12/17 22:13 05/12/17 22:13 05/12/17 22:13 - Laboratory Result Diagrams: 05/12/17 23:18 05/12/17 23:18 Laboratory results interpreted by me: 05/12/17 05/12/17 23:18 23:18 WBC 20.7 H Seg Neuts % (Manual) 88 H Lymphocytes % (Manual) 8 L Abs Neuts (Manual) 18.2 H Total Bilirubin 0.1 L Discharge - Discharge Clinical Impression: Diarrhea Qualifiers: Diarrhea type: unspecified type Qualified Code(s): R19.7 - Diarrhea, unspecified Abdominal pain Qualifiers: Abdominal location: generalized Qualified Code(s): R10.84 - Generalized abdominal pain Condition: Stable Disposition: ADMITTED OBSERVATION Admitting Provider: Hospitalist Unit Admitted: Medical Floor
[2017-05-12] MEDS ORDERED: ACETAMINOPHEN 325 MG TABLET PO ONE (23:27)
[2017-05-12 23:40] LABS: HEMATOCRIT 44.4 % (36.0-47.0); HEMOGLOBIN 15.1 g/dL (12.0-15.5); MEAN CORPUSCULAR HEMOGLOBIN 31.7 pg (27.0-33.4); MEAN CORPUSCULAR HGB CONC 34.1 g/dL (32.0-36.0); MEAN CORPUSCULAR VOLUME 93 fl (80-97); PLATELET COUNT 376 10^3/uL (150-450); RED BLOOD COUNT 4.77 10^6/uL (3.72-5.28); RED CELL DISTRIBUTION WIDTH 12.8 % (11.5-14.0); WHITE BLOOD COUNT 20.7 10^3/uL (4.0-10.5)
[2017-05-12 23:56] LABS: ALANINE AMINOTRANSFERASE 21 U/L (9-52); ALBUMIN 4.4 g/dL (3.5-5.0); ALKALINE PHOSPHATASE 60 U/L (38-126); ANION GAP 12 (5-19); ASPARTATE AMINO TRANSFERASE 17 U/L (14-36); BILIRUBIN,DIRECT 0.1 mg/dL (0.0-0.4); BILIRUBIN,TOTAL 0.1 mg/dL (0.2-1.3); BLOOD UREA NITROGEN 12 mg/dL (7-20); CALCIUM 9.8 mg/dL (8.4-10.2); CARBON DIOXIDE 24 mmol/L (22-30); CHLORIDE 106 mmol/L (98-107); GLUCOSE 106 mg/dL (75-110); POTASSIUM 4.5 mmol/L (3.6-5.0); SODIUM 141.7 mmol/L (137-145); TOTAL PROTEIN 6.6 g/dL (6.3-8.2)
[2017-05-13 00:02] LABS: ABSOLUTE LYMPHOCYTES# (MANUAL) 1.7 10^3/uL (0.5-4.7); ABSOLUTE MONOCYTES # (MANUAL) 0.8 10^3/uL (0.1-1.4); ABSOLUTE NEUTROPHILS# (MANUAL) 18.2 10^3/uL (1.7-8.2); BASOPHILS % (MANUAL) 0 % (0-2); EOSINOPHILS % (MANUAL) 0 % (0-6); HYPERSEGMENTED NEUTROPHILS PRESENT; LYMPHOCYTES % (MANUAL) 8 % (13-45); MONOCYTES % (MANUAL) 4 % (3-13); SEGMENTED NEUTROPHILS % (MAN) 88 % (42-78); TOTAL CELLS COUNTED 100; TOXIC GRANULATION 1+
[2017-05-13 00:03] LABS: PLATELET CLUMPS PRESENT; PLATELET COMMENT ADEQUATE; RBC MORPHOLOGY COMMENT NORMO-CYTIC/CHROMIC
[2017-05-13] MEDS ORDERED: DICYCLOMINE HCL INJ 20 MG/2 ML AMPULE IM ONE (00:12)
--- NOTE | 2017-05-13 01:16 | RADIOLOGY REPORT (SQ) ---
EXAM DESCRIPTION: CT ABD/PELVIS WITH IV ONLY CLINICAL HISTORY: 36 years Female, abdominal pain, vomiting COMPARISON: None. TECHNIQUE: 79 mL Isovue-370 IV contrast. Coronal and sagittal reformat. This exam was performed according to our departmental dose-optimization program, which includes automated exposure control, adjustment of the mA and/or kV according to patient size and/or use of iterative reconstruction technique. FINDINGS: Moderate diffuse bowel wall thickening of the jejunum. Small retained fluid in the large colon. Small free fluid in the pelvis. Normal appendix. 2 cm umbilical fat only hernia. Inferior thorax, liver, gallbladder, pancreas, spleen, adrenals, renal system, pelvic organs, lymphatics, vasculature, and musculoskeleton appear otherwise unremarkable. IMPRESSION: Nonspecific gastroenteritis/ileus pattern involves the jejunum. Differential diagnosis includes infectious, inflammatory, and neoplastic processes.
[2017-05-13] MEDS ORDERED: METHYLPREDNISOLONE INJ 125 MG/2 ML SDV IV ONE (01:28)
[2017-05-13] MEDS ORDERED: HYDROMORPHONE HCL INJ/PF 2 MG/ML AMPULE IV ONE (01:34)
[2017-05-13] MEDS ORDERED: IPRATROPIUM/ALBUTEROL 0.5-2.5 MG/3 ML AMPUL NEB PRN (01:39)
[2017-05-13] MEDS ORDERED: METRONIDAZOLE 500 MG TABLET PO ONE (02:00)
[2017-05-13] MEDS: NORMAL SALINE 1000 ML 1,000 ML IV SCH ×3 (02:00→12:05)
[2017-05-13 05:08] LABS: ABSOLUTE EOSINOPHILS # (AUTO) 0.1 10^3/uL (0.0-0.6); ABSOLUTE LYMPHOCYTES (AUTO) 0.8 10^3/uL (0.5-4.7); ABSOLUTE MONOCYTES (AUTO) 0.1 10^3/uL (0.1-1.4); ABSOLUTE NEUT (AUTO) 13.4 10^3/uL (1.7-8.2); BASOPHILS % (AUTO) 0.1 % (0-2); EOSINOPHILS % (AUTO) 0.4 % (0-6); HEMATOCRIT 38.9 % (36.0-47.0); HEMOGLOBIN 13.1 g/dL (12.0-15.5); LYMPHOCYTES % (AUTO) 5.5 % (13-45); MEAN CORPUSCULAR HEMOGLOBIN 31.5 pg (27.0-33.4); MEAN CORPUSCULAR HGB CONC 33.7 g/dL (32.0-36.0); MEAN CORPUSCULAR VOLUME 94 fl (80-97); MONOCYTES % (AUTO) 0.7 % (3-13); PLATELET COUNT 335 10^3/uL (150-450); RED BLOOD COUNT 4.17 10^6/uL (3.72-5.28); RED CELL DISTRIBUTION WIDTH 12.7 % (11.5-14.0); SEGMENTED NEUTROPHILS % (AUTO) 93.3 % (42-78); TOTAL CELLS COUNTED % (AUTO) 100 %; WHITE BLOOD COUNT 14.4 10^3/uL (4.0-10.5)
[2017-05-13 05:25] LABS: ANION GAP 8 (5-19); BLOOD UREA NITROGEN 9 mg/dL (7-20); CARBON DIOXIDE 23 mmol/L (22-30); CHLORIDE 108 mmol/L (98-107); GLUCOSE 115 mg/dL (75-110); POTASSIUM 4.5 mmol/L (3.6-5.0); SODIUM 139.3 mmol/L (137-145)
[2017-05-13] MEDS: METRONIDAZOLE 500 MG TABLET PO SCH ×4 (05:45→23:09)
[2017-05-13] MEDS: HEPARIN SOD (PORCINE) 5,000 UNIT/ML 1 ML SYRINGE SUBCUT SCH ×3 (05:46→21:16)
[2017-05-13] MEDS: ONDANSETRON HCL INJ/PF 4 MG/2 ML SDV IV PRN ×2 (05:53→20:07)
--- NOTE | 2017-05-13 05:53 | PDOC H&P ---
History of Present Illness Admission Date/PCP: 05/13/17 01:50 Patient complains of: Abdominal pain History of Present Illness: CECIL GARG is a 36 year old female with a past medical history of anxiety, ADD, recurrent abdominal pain, irritable bowel syndrome, intermittent constipation, diarrhea, and polysubstance abuse. Patient provides a history that is difficult to follow, denying chest pain, shortness of breath or fever. She has had poorly controlled GERD, abdominal pain worsened by food and loose stools for several days she denies vomiting or diarrhea with blood. In the emergency room she is found to have a CT abdomen and pelvis jejunal thickening consistent with gastroenteritis but also leukocytosis of 20,000. She denies any infectious contacts, suspect meals or recent antibiotics. Past Medical History Pulmonary Medical History: Reports: Asthma, Pneumonia Psychiatric Medical History: Reports: Attention Deficit Hyperactivity Disorder, Bipolar Disorder, Depression, General Anxiety Disorder, Tobacco Dependency Infectious Medical History: Reports: Methicillin-Resistant Staph Aureus Past Surgical History Past Surgical History: Reports: Section Social History Information Source: Patient Smoking Status: Current Every Day Smoker Drugs: Cocaine, Marijuana Family History Family History: Reviewed & Not Pertinent, Thyroid Disfunction Parental Family History Reviewed: Yes Children Family History Reviewed: Yes Sibling(s) Family History Reviewed.: Yes Medication/Allergy Home Medications: Albuterol Sulfate [Ventolin Hfa 8 gm Mdi (1 Mdi/ER Disp)] 2 puff IH ASDIR PRN Cephalexin Monohydrate [Keflex 500 mg Capsule] 500 mg PO QID #20 capsule Doxycycline Hyclate 100 mg PO BID #20 capsule 03/17/17 Mupirocin [Bactroban 2% Ointment 22 gm] 22 applic TP TID #1 tube 03/17/17 Lidocaine HCl 1 applic TP QID #1 each 03/27/17 Allergies/Adverse Reactions: Sulfa (Sulfonamide Antibiotics) Allergy (Verified 03/17/17 09:31) Physical Exam Vital Signs: Temp Pulse Resp BP Pulse Ox 98.0 F 77 16 120/82 100 05/13/17 04:02 05/13/17 04:02 05/13/17 04:02 05/13/17 04:02 05/13/17 04:02 Intake & Output 05/11/17 05/12/17 05/13/17 11:59 11:59 11:59 Output Total 350 Balance -350 Results Laboratory Results: 05/13/17 04:35 05/13/17 04:35 05/13/17 05/13/17 04:35 04:35 WBC 14.4 H RBC 4.17 Hgb 13.1 Hct 38.9 MCV 94 MCH 31.5 MCHC 33.7 RDW 12.7 Plt Count 335 Seg Neutrophils % 93.3 H Lymphocytes % 5.5 L Monocytes % 0.7 L Eosinophils % 0.4 Basophils % 0.1 Absolute Neutrophils 13.4 H Absolute Lymphocytes 0.8 Absolute Monocytes 0.1 Absolute Eosinophils 0.1 Absolute Basophils 0.0 Sodium 139.3 Potassium 4.5 Chloride 108 H Carbon Dioxide 23 Anion Gap 8 BUN 9 Creatinine 0.60 Est GFR ( Amer) > 60 Est GFR (Non-Af Amer) > 60 Glucose 115 H Calcium 9.0 Impressions: Abdomen/Pelvis CT 05/13/17 00:08 IMPRESSION: Nonspecific gastroenteritis/ileus pattern involves the jejunum. Differential diagnosis includes infectious, inflammatory, and neoplastic processes. Assessment & Plan - Diagnosis (1) Leukocytosis Is this a current diagnosis for this admission?: Yes Plan: Trial empiric oral Flagyl, follow-up CBC, stool studies (2) Abdominal pain Qualifiers: Abdominal location: generalized Qualified Code(s): R10.84 - Generalized abdominal pain Is this a current diagnosis for this admission?: Yes Plan: Gastroenteritis versus irritable bowel versus inflammatory bowel, trial Solu- Medrol. Follow-up ESR and CBC consider GI consult - Time Time Spent: 30 to 50 Minutes
[2017-05-13] MEDS ORDERED: METHYLPREDNISOLONE INJ 125 MG/2 ML SDV IV SCH (06:00)
[2017-05-13] MEDS: ACETAMINOPHEN 325 MG TABLET PO PRN ×3 (07:58→20:06)
[2017-05-13] MEDS ORDERED: IBUPROFEN 800 MG TABLET ONE (16:54)
[2017-05-13] MEDS ORDERED: IBUPROFEN 800 MG TABLET PO ONE (18:00)
[2017-05-13] MEDS: NORMAL SALINE 1000 ML 1,000 ML IV PRN (19:56)
[2017-05-13 22:49] LABS: HEMATOCRIT 37.4 % (36.0-47.0); HEMOGLOBIN 12.6 g/dL (12.0-15.5); MEAN CORPUSCULAR HEMOGLOBIN 31.4 pg (27.0-33.4); MEAN CORPUSCULAR HGB CONC 33.5 g/dL (32.0-36.0); MEAN CORPUSCULAR VOLUME 94 fl (80-97); PLATELET COUNT 394 10^3/uL (150-450); WHITE BLOOD COUNT 24.9 10^3/uL (4.0-10.5)
[2017-05-13 23:09] LABS: ANION GAP 14 (5-19); BLOOD UREA NITROGEN 4 mg/dL (7-20); CALCIUM 10.1 mg/dL (8.4-10.2); CARBON DIOXIDE 21 mmol/L (22-30); CHLORIDE 109 mmol/L (98-107); GLUCOSE 100 mg/dL (75-110); POTASSIUM 3.7 mmol/L (3.6-5.0); SODIUM 143.6 mmol/L (137-145)
[2017-05-13 23:10] LABS: ABSOLUTE LYMPHOCYTES# (MANUAL) 1.5 10^3/uL (0.5-4.7); ABSOLUTE MONOCYTES # (MANUAL) 0.2 10^3/uL (0.1-1.4); ABSOLUTE NEUTROPHILS# (MANUAL) 23.2 10^3/uL (1.7-8.2); BASOPHILS % (MANUAL) 0 % (0-2); EOSINOPHILS % (MANUAL) 0 % (0-6); LYMPHOCYTES % (MANUAL) 6 % (13-45); MONOCYTES % (MANUAL) 1 % (3-13); SEGMENTED NEUTROPHILS % (MAN) 93 % (42-78); TOTAL CELLS COUNTED 100
[2017-05-13 23:11] LABS: TOXIC GRANULATION 1+
[2017-05-13 23:12] LABS: BURR CELLS SLIGHT; OVALOCYTES 1+; PLATELET COMMENT ADEQUATE; POIKILOCYTOSIS SLIGHT; SCHISTOCYTES SLIGHT; TEAR DROP CELLS SLIGHT
[2017-05-14] MEDS: NORMAL SALINE 1000 ML 1,000 ML IV PRN ×2 (04:47→16:06)
[2017-05-14] MEDS: METRONIDAZOLE 500 MG TABLET PO SCH ×4 (05:26→23:30)
[2017-05-14] MEDS: HEPARIN SOD (PORCINE) 5,000 UNIT/ML 1 ML SYRINGE SUBCUT SCH ×3 (05:27→22:04)
[2017-05-14 08:17] LABS: ABSOLUTE BASOPHILS # (AUTO) 0.1 10^3/uL (0.0-0.2); ABSOLUTE EOSINOPHILS # (AUTO) 0.1 10^3/uL (0.0-0.6); ABSOLUTE LYMPHOCYTES (AUTO) 4.1 10^3/uL (0.5-4.7); ABSOLUTE MONOCYTES (AUTO) 0.8 10^3/uL (0.1-1.4); ABSOLUTE NEUT (AUTO) 12.1 10^3/uL (1.7-8.2); BASOPHILS % (AUTO) 0.3 % (0-2); EOSINOPHILS % (AUTO) 0.5 % (0-6); HEMATOCRIT 33.3 % (36.0-47.0); HEMOGLOBIN 11.3 g/dL (12.0-15.5); LYMPHOCYTES % (AUTO) 23.6 % (13-45); MEAN CORPUSCULAR HEMOGLOBIN 31.4 pg (27.0-33.4); MEAN CORPUSCULAR HGB CONC 33.9 g/dL (32.0-36.0); MEAN CORPUSCULAR VOLUME 93 fl (80-97); MONOCYTES % (AUTO) 4.8 % (3-13); PLATELET COUNT 306 10^3/uL (150-450); RED BLOOD COUNT 3.59 10^6/uL (3.72-5.28); RED CELL DISTRIBUTION WIDTH 12.7 % (11.5-14.0); SEGMENTED NEUTROPHILS % (AUTO) 70.8 % (42-78); TOTAL CELLS COUNTED % (AUTO) 100 %; WHITE BLOOD COUNT 17.2 10^3/uL (4.0-10.5)
[2017-05-14 08:42] LABS: ANION GAP 10 (5-19); BLOOD UREA NITROGEN 4 mg/dL (7-20); CALCIUM 9.2 mg/dL (8.4-10.2); CARBON DIOXIDE 22 mmol/L (22-30); CHLORIDE 111 mmol/L (98-107); GLUCOSE 82 mg/dL (75-110); POTASSIUM 3.5 mmol/L (3.6-5.0); SODIUM 142.5 mmol/L (137-145)
[2017-05-14] MEDS: CIPROFLOXACIN 400 MG/D5W RTU 400 MG/200 ML RTUPB IV SCH ×2 (09:36→21:58)
[2017-05-14] MEDS: NICOTINE 21 MG/24 HR PATCH.TD24 TD SCH (10:57)
--- NOTE | 2017-05-14 17:45 | PDOC PROGRESS REPORT ---
Subjective Progress Note for:: 05/14/17 Reason For Visit: [facility] Physical Exam Vital Signs: Temp Pulse Resp BP Pulse Ox 98.8 F 81 15 144/87 H 97 05/14/17 16:16 05/14/17 16:16 05/14/17 16:16 05/14/17 16:16 05/14/17 16:16 Intake & Output 05/13/17 05/14/17 05/15/17 06:59 06:59 06:59 Output Total 350 Balance -350 Weight 65.6 kg GEN: NAD, well-deloped, well-nourished CV: RRR, NL S1S2 LUNGS: CTA bilaterally ABDOMEN Soft, mild epigastric tenderness, no rebound or guarding, +BS EXTERMITIES: No e/c/c NEURO: Alert, oriented 3, nonfocal Results Laboratory Results: 05/14/17 07:29 05/14/17 07:29 05/13/17 05/13/17 05/14/17 22:30 22:30 07:29 WBC 24.9 H 17.2 H RBC 4.00 3.59 L Hgb 12.6 11.3 L Hct 37.4 33.3 L MCV 94 93 MCH 31.4 31.4 MCHC 33.5 33.9 RDW 13.0 12.7 Plt Count 394 306 Seg Neutrophils % Not Reportable 70.8 Lymphocytes % Not Reportable 23.6 Monocytes % Not Reportable 4.8 Eosinophils % Not Reportable 0.5 Basophils % Not Reportable 0.3 Absolute Neutrophils Not Reportable 12.1 H Absolute Lymphocytes Not Reportable 4.1 Absolute Monocytes Not Reportable 0.8 Absolute Eosinophils Not Reportable 0.1 Absolute Basophils Not Reportable 0.1 Sodium 143.6 Potassium 3.7 Chloride 109 H Carbon Dioxide 21 L Anion Gap 14 BUN 4 L Creatinine 0.54 Est GFR ( Amer) > 60 Est GFR (Non-Af Amer) > 60 Glucose 100 Calcium 10.1 05/14/17 07:29 WBC RBC Hgb Hct MCV MCH MCHC RDW Plt Count Seg Neutrophils % Lymphocytes % Monocytes % Eosinophils % Basophils % Absolute Neutrophils Absolute Lymphocytes Absolute Monocytes Absolute Eosinophils Absolute Basophils Sodium 142.5 Potassium 3.5 L Chloride 111 H Carbon Dioxide 22 Anion Gap 10 BUN 4 L Creatinine 0.53 Est GFR ( Amer) > 60 Est GFR (Non-Af Amer) > 60 Glucose 82 Calcium 9.2 Impressions: Abdomen/Pelvis CT 05/13/17 00:08 IMPRESSION: Nonspecific gastroenteritis/ileus pattern involves the jejunum. Differential diagnosis includes infectious, inflammatory, and neoplastic processes. Assessment & Plan - Diagnosis (1) Abdominal pain Qualifiers: Abdominal location: generalized Qualified Code(s): R10.84 - Generalized abdominal pain Is this a current diagnosis for this admission?: Yes Plan: -This is acute on chronic. Suspect infectious/gastroenteritis exacerbating her chronic problems, especially in light of leukocytosis as well. Continue Flagyl empirically. Cipro also added. -Patient will need to follow-up with GI as outpatient, as normal available occupational health nurse supervisor, and there does not seem to be indication for inpatient consult in any case without force treat him for infection. Diarrhea has resolved, stool studies were not collected. -Patient states abdominal pain not working well enough for her belly pain. Trial of tramadol 50 mg every 8 hours as needed. -Patient not tolerating full liquids. Will advance to regular diet as tolerated. (2) Diarrhea Qualifiers: Diarrhea type: unspecified type Qualified Code(s): R19.7 - Diarrhea, unspecified Plan: Resolved. Antibiotics as an abdominal pain section. (3) Leukocytosis Is this a current diagnosis for this admission?: Yes Plan: Empiric antibiotics. Improving. Follow-up CBC in a.m. (4) Right ovarian cyst Plan: Follow-up with her [facility] outpatient.
[2017-05-14] MEDS: TRAMADOL HCL 50 MG TABLET PO PRN (18:44)
[2017-05-14 18:50] LABS: ABSOLUTE EOSINOPHILS # (AUTO) 0.2 10^3/uL (0.0-0.6); ABSOLUTE LYMPHOCYTES (AUTO) 3.3 10^3/uL (0.5-4.7); ABSOLUTE MONOCYTES (AUTO) 0.5 10^3/uL (0.1-1.4); ABSOLUTE NEUT (AUTO) 8.6 10^3/uL (1.7-8.2); BASOPHILS % (AUTO) 0.3 % (0-2); EOSINOPHILS % (AUTO) 1.8 % (0-6); HEMATOCRIT 38.4 % (36.0-47.0); LYMPHOCYTES % (AUTO) 26.3 % (13-45); MEAN CORPUSCULAR HEMOGLOBIN 31.6 pg (27.0-33.4); MEAN CORPUSCULAR HGB CONC 33.9 g/dL (32.0-36.0); MEAN CORPUSCULAR VOLUME 93 fl (80-97); MONOCYTES % (AUTO) 4.1 % (3-13); PLATELET COUNT 356 10^3/uL (150-450); RED BLOOD COUNT 4.13 10^6/uL (3.72-5.28); RED CELL DISTRIBUTION WIDTH 12.7 % (11.5-14.0); SEGMENTED NEUTROPHILS % (AUTO) 67.5 % (42-78); TOTAL CELLS COUNTED % (AUTO) 100 %; WHITE BLOOD COUNT 12.7 10^3/uL (4.0-10.5)
[2017-05-14 19:04] LABS: ANION GAP 14 (5-19); BLOOD UREA NITROGEN 5 mg/dL (7-20); CALCIUM 9.9 mg/dL (8.4-10.2); CARBON DIOXIDE 26 mmol/L (22-30); CHLORIDE 106 mmol/L (98-107); GLUCOSE 100 mg/dL (75-110); POTASSIUM 4.1 mmol/L (3.6-5.0); SODIUM 145.8 mmol/L (137-145)
[2017-05-14] MEDS: ONDANSETRON HCL INJ/PF 4 MG/2 ML SDV IV PRN (22:04)
[2017-05-15] MEDS: METRONIDAZOLE 500 MG TABLET PO SCH ×2 (05:24→12:00)
[2017-05-15] MEDS: HEPARIN SOD (PORCINE) 5,000 UNIT/ML 1 ML SYRINGE SUBCUT SCH (05:25)
[2017-05-15] MEDS: TRAMADOL HCL 50 MG TABLET PO PRN (08:07)
[2017-05-15] MEDS: NICOTINE 21 MG/24 HR PATCH.TD24 TD SCH (10:10)
[2017-05-15] MEDS: CIPROFLOXACIN 400 MG/D5W RTU 400 MG/200 ML RTUPB IV SCH (10:20)
[2017-05-15] MEDS: ONDANSETRON HCL INJ/PF 4 MG/2 ML SDV IV PRN (10:21)
[2017-05-15 12:04] VITALS: BP 138/89
--- NOTE | 2017-05-15 13:00 | PDOC DISCHARGE SUMMARY ---
General - Admit/Disc Date/PCP Admission Date/Primary Care Provider: 05/13/17 01:50 Discharge Date: 05/15/17 - Discharge Diagnosis (1) Acute gastroenteritis Is this a current diagnosis for this admission?: Yes (2) Leukocytosis Is this a current diagnosis for this admission?: Yes (3) Abdominal pain Is this a current diagnosis for this admission?: Yes - Additional Information Resuscitation Status: Full Code Discharge Diet: As Tolerated, Regular Discharge Activity: Activity As Tolerated Prescriptions: Albuterol Sulfate [Ventolin HFA MDI 18 GM] 2 puff IH Q4HP PRN 30 Days #1 hfa.aer.ad PRN Reason: Shortness Of Breath Ciprofloxacin HCl [Cipro 500 mg Tablet] 500 mg PO BID #12 tablet Metronidazole [Flagyl 500 mg Tablet] 500 mg PO TID #15 tablet Tramadol HCl [Ultram 50 mg Tablet] 50 mg PO Q8HP PRN #20 tablet PRN Reason: Home Medications: Albuterol Sulfate [Ventolin HFA MDI 18 GM] 2 puff IH Q4HP PRN 30 Days #1 hfa.aer.ad 05/15/17 Ciprofloxacin HCl [Cipro 500 mg Tablet] 500 mg PO BID #12 tablet 05/15/17 Metronidazole [Flagyl 500 mg Tablet] 500 mg PO TID #15 tablet 05/15/17 Tramadol HCl [Ultram 50 mg Tablet] 50 mg PO Q8HP PRN #20 tablet 05/15/17 History of Present Illness History of Present Illness: CECIL GARG is a 36 year old female with a past medical history of anxiety, ADD, recurrent abdominal pain, possible irritable bowel syndrome, intermittent constipation, diarrhea, and polysubstance abuse. She presented to the ED with complaints of abdominal pain worsened by food and had loose stools for several days, no vomiting or blood with diarrhea. In the emergency room she was found to have a CT abdomen and pelvis revealing jejunal thickening consistent with gastroenteritis, but cannot rule out inflammatory process versus neoplasm per radiologist's reading. She was also found to have leukocytosis of 20,000. She denied any infectious contacts, suspect meals or recent antibiotics. Hospital Course Hospital Course: Patient was admitted to hospitalist service. She was treated with IV fluids. He also was started on Flagyl. She had persistent leukocytosis and Cipro was added. Leukocytosis has markedly improved. Patient had no further diarrhea, nausea vomiting improved. She was treated with clear liquid diet and advanced as tolerated and she is now tolerating regular diet. For patient received tramadol as needed. She is doing better tomorrow and is being discharged in stable condition. She is to follow with her primary care physician within 1 week. She has no alarm symptoms to suggest cancer. We had no scrub tech available, and there is no indication for inpatient evaluation by scrub tech at this time. Also encouraging is that her white count has improved with antibiotics. PCP to consider referral to GI as outpatient if persistent concern about possible inflammatory process in the jejunal vessels neoplasm. Patient will like to wait to follow-up with a primary care provider and also attempt to obtain a head insurance before trying to see a scrub tech. She is also advised to return to the ED if worsening symptoms. Again, she is doing better better and anxious to go home. States tomorrow is her daughter's birthday. She is being discharged on Flagyl 500 mg milligrams 3 times daily for 5 additional days and Cipro 500 mg twice daily for 6 additional days. These should have her complete 7 days of antibiotics in total. Physical Exam Vital Signs: Temp Pulse Resp BP Pulse Ox 98.2 F 74 18 138/89 H 99 05/15/17 12:03 05/15/17 12:03 05/15/17 12:03 05/15/17 12:03 05/15/17 12:03 Intake & Output 05/14/17 05/15/17 05/16/17 06:59 06:59 06:59 Weight 65.6 kg 74.9 kg GEN: NAD, well-deloped, well-nourished CV: RRR, NL S1S2 LUNGS: CTA bilaterally ABDOMEN Soft, minimal diffuse tenderness, no rebound or guarding, +BS EXTERMITIES: No e/c/c NEURO: Alert, oriented 3, nonfocal Results Laboratory Results: 05/14/17 18:37 05/14/17 18:37 05/14/17 05/14/17 18:37 18:37 WBC 12.7 H RBC 4.13 Hgb 13.0 Hct 38.4 MCV 93 MCH 31.6 MCHC 33.9 RDW 12.7 Plt Count 356 Seg Neutrophils % 67.5 Lymphocytes % 26.3 Monocytes % 4.1 Eosinophils % 1.8 Basophils % 0.3 Absolute Neutrophils 8.6 H Absolute Lymphocytes 3.3 Absolute Monocytes 0.5 Absolute Eosinophils 0.2 Absolute Basophils 0.0 Sodium 145.8 H Potassium 4.1 Chloride 106 Carbon Dioxide 26 Anion Gap 14 BUN 5 L Creatinine 0.57 Est GFR ( Amer) > 60 Est GFR (Non-Af Amer) > 60 Glucose 100 Calcium 9.9 Impressions: Abdomen/Pelvis CT 05/13/17 00:08 IMPRESSION: Nonspecific gastroenteritis/ileus pattern involves the jejunum. Differential diagnosis includes infectious, inflammatory, and neoplastic processes.
[2017-05-15] MEDS ORDERED: CIPROFLOXACIN HCL 500 MG TABLET PO SCH (22:00)
== END 2017-05-15 13:00 | disposition home or self-care (01) | DRG 392 ==
LOC: ER 21:35 → EH 05-13 01:50 → 2N 05-13 14:24
PROVIDERS: ADMIT Internal Medicine; ATTEND Internal Medicine
DX: K52.9 Noninfective gastroenteritis and colitis, unspecified (principal); D72.829 Elevated white blood cell count, unspecified; K21.9 Gastro-esophageal reflux disease without esophagitis; N83.201 Unspecified ovarian cyst, right side; F90.9 Attention-deficit hyperactivity disorder, unspecified type; F41.8 Other specified anxiety disorders; F31.9 Bipolar disorder, unspecified; F17.210 Nicotine dependence, cigarettes, uncomplicated; Z79.51 Long term (current) use of inhaled steroids; Z79.899 Other long term (current) drug therapy; Z86.14 Personal history of Methicillin resistant Staphylococcus aureus infection
CPT/HCPCS: 36415; 74177; 80048; 80053; 83690; 85025; 85652; 96361; 96372; 96374; 96375; 96376; 99285; J0500; J0744; J1170; J1644; J2405; J2550; J2930; J7030

== ENCOUNTER → 2017-05-27 | Outpatient (CLI) | payer OTHER ==
[2017-05-27 17:36] LABS: ABSOLUTE BASOPHILS # (AUTO) 0.1 10^3/uL (0.0-0.2); ABSOLUTE EOSINOPHILS # (AUTO) 0.8 10^3/uL (0.0-0.6); ABSOLUTE MONOCYTES (AUTO) 0.5 10^3/uL (0.1-1.4); ABSOLUTE NEUT (AUTO) 6.6 10^3/uL (1.7-8.2); BASOPHILS % (AUTO) 0.8 % (0-2); HEMATOCRIT 40.4 % (36.0-47.0); HEMOGLOBIN 13.6 g/dL (12.0-15.5); LYMPHOCYTES % (AUTO) 27.1 % (13-45); MEAN CORPUSCULAR HEMOGLOBIN 31.4 pg (27.0-33.4); MEAN CORPUSCULAR HGB CONC 33.6 g/dL (32.0-36.0); MEAN CORPUSCULAR VOLUME 94 fl (80-97); MONOCYTES % (AUTO) 4.3 % (3-13); PLATELET COUNT 467 10^3/uL (150-450); RED BLOOD COUNT 4.32 10^6/uL (3.72-5.28); SEGMENTED NEUTROPHILS % (AUTO) 60.8 % (42-78); TOTAL CELLS COUNTED % (AUTO) 100 %; WHITE BLOOD COUNT 10.9 10^3/uL (4.0-10.5)
== END ==
LOC: CCC 16:54
DX: K52.9 Noninfective gastroenteritis and colitis, unspecified (principal)
CPT/HCPCS: 36415; 85025; 85652; 86140; 87045; 87177; 87205

== ENCOUNTER 2017-08-16 19:07 | Emergency (ER) | payer SELFPAY ==
[2017-08-16] MEDS ORDERED: ONDANSETRON HCL INJ/PF 4 MG/2 ML SDV IV ONE (19:36)
--- NOTE | 2017-08-16 19:36 | ER Document Report ---
ED Medical Screen (RME) - General Chief Complaint: Abdominal Pain Stated Complaint: ABDOMINAL PAIN Time Seen by Provider: 08/16/17 19:35 Mode of Arrival: Ambulatory Information source: Patient Notes: This is a 37-year-old female with suspected Crohn's who presents to the emergency room with nausea, vomiting, diarrhea, not being able to eat for the past day. TRAVEL OUTSIDE OF THE [place] IN LAST 30 DAYS: No - Related Data Allergies/Adverse Reactions: Sulfa (Sulfonamide Antibiotics) Allergy (Verified 08/16/17 19:08) Past Medical History - Social History Chew tobacco use (# tins/day): No Frequency of alcohol use: None Drug Abuse: None Pulmonary Medical History: Reports: Hx Asthma, Hx Pneumonia Renal/ Medical History: Reports: Hx Ectopic , Hx Ovarian Cysts. Denies: Hx Peritoneal Dialysis Skin Medical History: Reports Hx MRSA Psychiatric Medical History: Reports: Hx Anxiety, Hx Attention Deficit Hyperactivity Disorder, Hx Bipolar Disorder, Hx Depression Infectious Medical History: Reports: Hx MRSA Past Surgical History: Reports: Hx Section, Hx Gynecologic Surgery - tubal - Immunizations Immunizations up to date: Yes Hx Diphtheria, Pertussis, Tetanus Vaccination: Yes History of Influenza Vaccine for 12/2016 - 05/2017 Season: No Physical Exam - Vital signs Vitals: Temp Pulse Resp BP Pulse Ox 99.0 F 84 18 125/77 99 08/16/17 19:17 08/16/17 19:17 08/16/17 19:17 08/16/17 19:17 08/16/17 19:17 Course - Vital Signs Vital signs: Temp Pulse Resp BP Pulse Ox 99.0 F 84 18 125/77 99 08/16/17 19:17 08/16/17 19:17 08/16/17 19:17 08/16/17 19:17 08/16/17 19:17
[2017-08-16] MEDS: RINGERS SOLUTION,LACTATED 1,000 ML IV PRN ×2 (19:59→20:53)
[2017-08-16 20:05] LABS: ABSOLUTE BASOPHILS # (AUTO) 0.1 10^3/uL (0.0-0.2); ABSOLUTE EOSINOPHILS # (AUTO) 0.9 10^3/uL (0.0-0.6); ABSOLUTE LYMPHOCYTES (AUTO) 2.7 10^3/uL (0.5-4.7); ABSOLUTE MONOCYTES (AUTO) 0.6 10^3/uL (0.1-1.4); ABSOLUTE NEUT (AUTO) 8.3 10^3/uL (1.7-8.2); BASOPHILS % (AUTO) 0.8 % (0-2); EOSINOPHILS % (AUTO) 7.3 % (0-6); HEMATOCRIT 35.8 % (36.0-47.0); HEMOGLOBIN 12.1 g/dL (12.0-15.5); LYMPHOCYTES % (AUTO) 21.2 % (13-45); MEAN CORPUSCULAR HEMOGLOBIN 31.6 pg (27.0-33.4); MEAN CORPUSCULAR HGB CONC 33.9 g/dL (32.0-36.0); MEAN CORPUSCULAR VOLUME 93 fl (80-97); MONOCYTES % (AUTO) 4.6 % (3-13); PLATELET COUNT 379 10^3/uL (150-450); RED BLOOD COUNT 3.84 10^6/uL (3.72-5.28); RED CELL DISTRIBUTION WIDTH 14.2 % (11.5-14.0); SEGMENTED NEUTROPHILS % (AUTO) 66.1 % (42-78); TOTAL CELLS COUNTED % (AUTO) 100 %; WHITE BLOOD COUNT 12.6 10^3/uL (4.0-10.5)
[2017-08-16] MEDS ORDERED: FENTANYL CITRATE INJ/PF 100 MCG/2 ML AMPUL IV ONE (20:11)
[2017-08-16] MEDS ORDERED: DEXAMETHASONE SOD PHOS INJ 10 MG/1 ML VIAL IV ONE (20:11)
[2017-08-16 20:14] LABS: APPEARANCE,URINE CLEAR; BILIRUBIN,URINE NEGATIVE (NEGATIVE); COLOR,URINE YELLOW; GLUCOSE, URINE NEGATIVE (NEGATIVE); KETONES,URINE NEGATIVE (NEGATIVE); LEUKOCYTE ESTERASE,URINE NEGATIVE (NEGATIVE); NITRITE,URINE NEGATIVE (NEGATIVE); PROTEIN,URINE NEGATIVE (NEGATIVE); URINE SPECIFIC GRAVITY 1.015; UROBILINOGEN,URINE NEGATIVE mg/dL (<2.0)
[2017-08-16 20:21] LABS: ALANINE AMINOTRANSFERASE 20 U/L (9-52); ALBUMIN 4.1 g/dL (3.5-5.0); ALKALINE PHOSPHATASE 47 U/L (38-126); ANION GAP 12 (5-19); ASPARTATE AMINO TRANSFERASE 18 U/L (14-36); BLOOD UREA NITROGEN 12 mg/dL (7-20); CALCIUM 9.5 mg/dL (8.4-10.2); CARBON DIOXIDE 24 mmol/L (22-30); CHLORIDE 109 mmol/L (98-107); GLUCOSE 70 mg/dL (75-110); POTASSIUM 3.8 mmol/L (3.6-5.0); SODIUM 145.4 mmol/L (137-145); TOTAL PROTEIN 6.8 g/dL (6.3-8.2)
[2017-08-16 20:45] LABS: BILIRUBIN,TOTAL < 0.1 mg/dL (0.2-1.3)
[2017-08-16] MEDS ORDERED: CIPROFLOXACIN HCL 500 MG TABLET PO ONE (21:30)
[2017-08-16] MEDS ORDERED: HYDROMORPHONE HCL INJ/PF 2 MG/ML AMPULE IV ONE (21:30)
[2017-08-16] MEDS ORDERED: METRONIDAZOLE 500 MG TABLET PO ONE (21:30)
[2017-08-16] MEDS ORDERED: HYDROCODONE/ACETAMINOPHEN 5-325 MG (6 TAB/ER DISP) PO PRN (21:38)
--- NOTE | 2017-08-16 21:38 | ER Document Report ---
ED GI/ - General Chief Complaint: Abdominal Pain Stated Complaint: ABDOMINAL PAIN Time Seen by Provider: 08/16/17 19:35 Mode of Arrival: Ambulatory Information source: Patient Notes: Patient is a 37 year old female with history of Crohn's disease who presents to the ER today for diffuse abdominal pain 4 days. Patient admits to nausea, vomiting, admits to diarrhea but states that is normal for her after her diagnosis. Patient has not been able to follow-up with a media professional at this time, has an appointment for next month. Patient is on no medications for Crohn's disease. She denies any fevers, chills, history of abscesses or fistulas in the abdomen. TRAVEL OUTSIDE OF THE [place] IN LAST 30 DAYS: No - Related Data Allergies/Adverse Reactions: Sulfa (Sulfonamide Antibiotics) Allergy (Verified 08/16/17 19:08) Past Medical History - General Information source: Patient - Social History Smoking Status: Current Every Day Smoker Chew tobacco use (# tins/day): No Frequency of alcohol use: None Drug Abuse: None Family History: Reviewed & Not Pertinent, Thyroid Disfunction Patient has suicidal ideation: No Patient has homicidal ideation: No Pulmonary Medical History: Reports: Hx Asthma, Hx Pneumonia Renal/ Medical History: Reports: Hx Ectopic , Hx Ovarian Cysts. Denies: Hx Peritoneal Dialysis Skin Medical History: Reports Hx MRSA Psychiatric Medical History: Reports: Hx Anxiety, Hx Attention Deficit Hyperactivity Disorder, Hx Bipolar Disorder, Hx Depression Infectious Medical History: Reports: Hx MRSA Past Surgical History: Reports: Hx Section, Hx Gynecologic Surgery - tubal - Immunizations Immunizations up to date: Yes Hx Diphtheria, Pertussis, Tetanus Vaccination: Yes Review of Systems - Review of Systems Constitutional: No symptoms reported EENT: No symptoms reported Cardiovascular: No symptoms reported Respiratory: No symptoms reported Gastrointestinal: See HPI Genitourinary: No symptoms reported Female Genitourinary: No symptoms reported Musculoskeletal: No symptoms reported Skin: No symptoms reported Hematologic/Lymphatic: No symptoms reported Neurological/Psychological: No symptoms reported Physical Exam - Vital signs Vitals: Temp Pulse Resp BP Pulse Ox 99.0 F 84 18 125/77 99 08/16/17 19:17 08/16/17 19:17 08/16/17 19:17 08/16/17 19:17 08/16/17 19:17 - Notes Notes: PHYSICAL EXAMINATION: GENERAL: Well-appearing and in no acute distress. HEAD: Atraumatic, normocephalic. EYES: Pupils equal round and reactive to light, extraocular movements intact, sclera anicteric, conjunctiva are normal. NECK: Normal range of motion, supple without lymphadenopathy LUNGS: CTAB and equal. No wheezes rales or rhonchi. HEART: Regular rate and rhythm without murmurs ABDOMEN: Soft, mild diffuse tenderness. No guarding, no rebound BACK: no vertebral tenderness, normal ROM GI/: no CVA tenderness EXTREMITIES: Normal range of motion, no pitting edema. No cyanosis. NEUROLOGICAL: Cranial nerves grossly intact. Normal sensory/motor exams. PSYCH: Normal mood, normal affect. SKIN: Warm, Dry, normal turgor, no rashes or lesions noted Course - Re-evaluation Re-evalutation: 08/17/17 02:10 Pt has a mildly elevated WBC of 12.6, mildly diffusely tender to abdomen. Has not vomited at all here in the ER, will be discharged on cipro, flagyl and prednisone. To follow up with GI doctor she has an appt with already. I see no reason for CT scan today as she has no focal tenderness. - Vital Signs Vital signs: Temp Pulse Resp BP Pulse Ox 97.3 F 68 16 152/96 H 99 08/16/17 22:59 08/16/17 22:59 08/16/17 22:59 08/16/17 22:59 08/16/17 22:59 - Laboratory Result Diagrams: 08/16/17 19:54 08/16/17 19:54 Laboratory results interpreted by me: 08/16/17 08/16/17 08/16/17 19:54 19:54 19:54 WBC 12.6 H Hct 35.8 L RDW 14.2 H Eosinophils % 7.3 H Absolute Neutrophils 8.3 H Absolute Eosinophils 0.9 H Sodium 145.4 H Chloride 109 H Glucose 70 L Total Bilirubin < 0.1 L Urine Blood SMALL H Discharge - Discharge Clinical Impression: Crohns disease Qualifiers: Gastrointestinal tract location: unspecified location Digestive disease complication type: without complication Qualified Code(s): K50.90 - Crohn's disease, unspecified, without complications Abdominal pain Qualifiers: Abdominal location: generalized Qualified Code(s): R10.84 - Generalized abdominal pain Condition: Stable Disposition: HOME, SELF-CARE Additional Instructions: Return immediately for any new or worsening symptoms. Follow up with primary care provider, call tomorrow to make followup appointment. Drink plenty of fluids, take antibiotics as prescribed. Prescriptions: Ciprofloxacin HCl [Cipro 500 mg Tablet] 500 mg PO BID #20 tablet Metronidazole [Flagyl 500 mg Tablet] 500 mg PO BID #20 tablet Prednisone 60 mg PO DAILY #53 tablet
[2017-08-16 23:21] VITALS: BP 152/96
== END 2017-08-16 23:00 | disposition home or self-care (01) ==
LOC: ER 19:07
DX: K50.90 Crohn's disease, unspecified, without complications (principal); R10.84 Generalized abdominal pain; R11.2 Nausea with vomiting, unspecified; R19.7 Diarrhea, unspecified; D72.829 Elevated white blood cell count, unspecified; F17.200 Nicotine dependence, unspecified, uncomplicated; J45.909 Unspecified asthma, uncomplicated
CPT/HCPCS: 99284; 96361; 96374; 96375; 36415; 84702; 85025; 80053; 81001; J3010; J1170; J2405; J7120; J1100

== ENCOUNTER 2017-08-24 13:59 | Emergency (ER) | payer SELFPAY ==
[2017-08-24 14:08] VITALS: BP 142/99
--- NOTE | 2017-08-24 14:37 | ER Document Report ---
ED Medical Screen (RME) - General Chief Complaint: Abdominal Pain Stated Complaint: ABDOMINAL PAIN Time Seen by Provider: 08/24/17 14:36 Mode of Arrival: Ambulatory Information source: Patient Notes: 37-year-old female history of Crohn's chronic abdominal pain present for complaints of abdominal pain patient was recently seen here a week ago I have greeted and performed a rapid initial assessment of this patient. A comprehensive ED assessment and evaluation of the patient, analysis of test results and completion of the medical decision making process will be conducted by additional ED providers. PHYSICAL EXAMINATION: GENERAL: Well-appearing, well-nourished and in no acute distress. HEAD: Atraumatic, normocephalic. EYES: Pupils equal round extraocular movements intact, conjunctiva are normal. ENT: Nares patent NECK: Normal range of motion LUNGS: No respiratory distress Musculoskeletal: Normal range of motion NEUROLOGICAL: Normal speech, normal gait. PSYCH: Normal mood, normal affect. SKIN: Warm, Dry, normal turgor, no rashes or lesions noted. TRAVEL OUTSIDE OF THE [place] IN LAST 30 DAYS: No - Related Data Allergies/Adverse Reactions: Sulfa (Sulfonamide Antibiotics) Allergy (Verified 08/24/17 14:00) Past Medical History Pulmonary Medical History: Reports: Hx Asthma, Hx Pneumonia Renal/ Medical History: Reports: Hx Ectopic , Hx Ovarian Cysts. Denies: Hx Peritoneal Dialysis Skin Medical History: Reports Hx MRSA Psychiatric Medical History: Reports: Hx Anxiety, Hx Attention Deficit Hyperactivity Disorder, Hx Bipolar Disorder, Hx Depression Infectious Medical History: Reports: Hx MRSA Past Surgical History: Reports: Hx Section, Hx Gynecologic Surgery - tubal - Immunizations Immunizations up to date: Yes Hx Diphtheria, Pertussis, Tetanus Vaccination: Yes History of Influenza Vaccine for 12/2016 - 05/2017 Season: No Physical Exam - Vital signs Vitals: Temp Pulse Resp BP Pulse Ox 98.8 F 66 14 142/99 H 99 08/24/17 14:06 08/24/17 14:06 08/24/17 14:06 08/24/17 14:06 08/24/17 14:06 Course - Vital Signs Vital signs: Temp Pulse Resp BP Pulse Ox 98.8 F 66 14 142/99 H 99 08/24/17 14:06 08/24/17 14:06 08/24/17 14:06 08/24/17 14:06 08/24/17 14:06
[2017-08-24 15:10] LABS: ABSOLUTE LYMPHOCYTES (AUTO) 0.9 10^3/uL (0.5-4.7); ABSOLUTE MONOCYTES (AUTO) 0.4 10^3/uL (0.1-1.4); ABSOLUTE NEUT (AUTO) 13.7 10^3/uL (1.7-8.2); BASOPHILS % (AUTO) 0.1 % (0-2); HEMATOCRIT 38.3 % (36.0-47.0); HEMOGLOBIN 13.2 g/dL (12.0-15.5); MEAN CORPUSCULAR HGB CONC 34.4 g/dL (32.0-36.0); MEAN CORPUSCULAR VOLUME 93 fl (80-97); MONOCYTES % (AUTO) 2.9 % (3-13); PLATELET COUNT 458 10^3/uL (150-450); RED BLOOD COUNT 4.11 10^6/uL (3.72-5.28); RED CELL DISTRIBUTION WIDTH 14.3 % (11.5-14.0); TOTAL CELLS COUNTED % (AUTO) 100 %
[2017-08-24 15:12] LABS: APPEARANCE,URINE CLEAR; BILIRUBIN,URINE NEGATIVE (NEGATIVE); COLOR,URINE YELLOW; GLUCOSE, URINE 150 mg/dL (NEGATIVE); KETONES,URINE NEGATIVE (NEGATIVE); LEUKOCYTE ESTERASE,URINE NEGATIVE (NEGATIVE); NITRITE,URINE NEGATIVE (NEGATIVE); PROTEIN,URINE NEGATIVE (NEGATIVE); URINE SPECIFIC GRAVITY 1.011; UROBILINOGEN,URINE NEGATIVE mg/dL (<2.0)
[2017-08-24 15:28] LABS: ALANINE AMINOTRANSFERASE 22 U/L (9-52); ALBUMIN 4.3 g/dL (3.5-5.0); ALKALINE PHOSPHATASE 44 U/L (38-126); ANION GAP 14 (5-19); ASPARTATE AMINO TRANSFERASE 15 U/L (14-36); BLOOD UREA NITROGEN 10 mg/dL (7-20); CALCIUM 10.3 mg/dL (8.4-10.2); CARBON DIOXIDE 28 mmol/L (22-30); CHLORIDE 104 mmol/L (98-107); GLUCOSE 124 mg/dL (75-110); POTASSIUM 3.4 mmol/L (3.6-5.0); SODIUM 145.9 mmol/L (137-145); TOTAL PROTEIN 6.9 g/dL (6.3-8.2)
[2017-08-24 15:31] LABS: BILIRUBIN,TOTAL < 0.1 mg/dL (0.2-1.3)
--- NOTE | 2017-08-24 15:39 | ER Document Report ---
ED General - General Mode of Arrival: Ambulatory Information source: Patient TRAVEL OUTSIDE OF THE [place] IN LAST 30 DAYS: No <HARPREET MUELLER - Last Filed: 08/24/17 22:35> <BROCK HERNANDEZ - Last Filed: 08/24/17 22:38> - General Chief Complaint: Abdominal Pain Stated Complaint: ABDOMINAL PAIN Time Seen by Provider: 08/24/17 14:36 Notes: Patient is a 37 year old female with Crohn's disease presents to the emergency department complaining of multiple symptoms including nausea, vomiting, diarrhea , abdominal pain, lower back pain, low grade fevers, and diaphoresis . Patient states she was diagnosed with Crohn's disease in 2017 and states her symptoms have been intermittent ever since and started up again, acutely, approximately 1 week ago. Patient states she may have had blood in her stool , stating she noticed an abnormal color but is unsure if it was blood or not. Patient denies black or tarry stool. Patient was seen and discharged in the emergency department on August 16, 2017 for similar symptoms and was subsequently prescribed Cipro (500 mg 2x daily), Flagyl (500 mg 2x daily) and Prednisone (60 mg daily). Patient states she only takes the Cipro and Flagyl 1x daily instead of the prescribed 2x daily. Patient states she did not receive at CT scan on August 16 but did receive one when she was initially diagnosed in April. Patient states she does not have insurance and is unable to see a provider until August. (HARPREET MUELLER) - Related Data Allergies/Adverse Reactions: Sulfa (Sulfonamide Antibiotics) Allergy (Verified 08/24/17 14:00) Past Medical History - General Information source: Patient - Social History Smoking Status: Never Smoker Chew tobacco use (# tins/day): No Frequency of alcohol use: None Drug Abuse: None Family History: Reviewed & Not Pertinent, Thyroid Disfunction Patient has suicidal ideation: No Patient has homicidal ideation: No Pulmonary Medical History: Reports: Hx Asthma, Hx Pneumonia Renal/ Medical History: Reports: Hx Ectopic , Hx Ovarian Cysts Skin Medical History: Reports Hx MRSA Psychiatric Medical History: Reports: Hx Anxiety, Hx Attention Deficit Hyperactivity Disorder, Hx Bipolar Disorder, Hx Depression Infectious Medical History: Reports: Hx MRSA Past Surgical History: Reports: Hx Section, Hx Gynecologic Surgery - tubal - Immunizations Immunizations up to date: Yes Hx Diphtheria, Pertussis, Tetanus Vaccination: Yes <AMIHARPREET HERNANDEZ - Last Filed: 08/24/17 22:35> Review of Systems - Review of Systems Constitutional: See HPI, Diaphoresis, Fever EENT: No symptoms reported Cardiovascular: No symptoms reported Respiratory: No symptoms reported Gastrointestinal: See HPI, Abdominal pain, Diarrhea, Nausea, Vomiting Genitourinary: No symptoms reported Female Genitourinary: No symptoms reported Musculoskeletal: See HPI, Back pain Skin: No symptoms reported Hematologic/Lymphatic: No symptoms reported Neurological/Psychological: No symptoms reported -: Yes All other systems reviewed and negative <AMIHARPREET - Last Filed: 08/24/17 22:35> Physical Exam <HARPREET MUELLER - Last Filed: 08/24/17 22:35> <BROCK HERNANDEZ - Last Filed: 08/24/17 22:38> - Vital signs Vitals: Temp Pulse Resp BP Pulse Ox 98.8 F 66 14 142/99 H 99 08/24/17 14:06 08/24/17 14:06 08/24/17 14:06 08/24/17 14:06 08/24/17 14:06 - Notes Notes: GENERAL: Alert, interacts well. No acute distress. HEAD: Normocephalic, atraumatic. EYES: Pupils equal, round, and reactive to light. Extraocular movements intact. ENT: Oral mucosa moist, tongue midline. NECK: Full range of motion. Supple. Trachea midline. LUNGS: Clear to auscultation bilaterally, no wheezes, rales, or rhonchi. No respiratory distress. HEART: Regular rate and rhythm. No murmurs, gallops, or rubs. ABDOMEN: Soft, mild diffuse tenderness to palpation, no guarding, rigidity or rebound. Non-distended. Bowel sounds present in all 4 quadrants. EXTREMITIES: Moves all 4 extremities spontaneously. Radial and dorsalis pedis pulses 2/4 bilaterally. NEUROLOGICAL: Alert and oriented x3. Normal speech. PSYCH: Normal affect, normal mood. SKIN: Warm, dry, and normal turgor. BACK: No CVA tenderness. RECTAL: No melena. Soft brown stool. Non tender. (HARPREET MUELLER) Course - Laboratory Result Diagrams: 08/24/17 14:59 08/24/17 14:59 <HARPREET MUELLER - Last Filed: 08/24/17 22:35> - Laboratory Result Diagrams: 08/24/17 14:59 08/24/17 14:59 <BROCK HERNANDEZ - Last Filed: 08/24/17 22:38> - Re-evaluation Re-evalutation: 08/24/17 20:10 CBC shows leukocytosis of 15.0, platelets elevated at 458, otherwise unremarkable, CMP show slightly elevated sodium 145.9, slight low potassium at 3.4, total and direct bilirubin are unknown detectable, lipase normal at 37.6, LFTs normal, urinalysis shows specific gravity of 1.011, negative ketones, there is glucose in the urine. She is not , occult blood is negative. CT scan the abdomen and pelvis was performed as I do not know if the leukocytosis is from steroids or from infection. On the CT scan there is no evidence of a Crohn's flare at this time. I will recommend that the patient stop taking the steroids, stop taking the antibiotics that she was taking them incorrectly anyway. Patient stated that she felt like she was given a very high dose of antibiotics so she was only taking them once a day instead of as prescribed twice a day. Patient's abdomen is not surgical at this time. Patient will be discharged home and recommended to continue to follow-up with GI as an outpatient. Patient states that she has no antiemetics at home, will be given Phenergan. Has tried Bentyl and it has not helped. Patient will be recommended to continue with ibuprofen and acetaminophen. Return to the emergency department for new or concerning symptoms. Narcotics are not appropriate in this patient who has no acute etiology for her pain and these may mask further symptoms. 08/24/17 22:37 When informed that narcotics are not appropriate in this situation the patient became quite angry and told me that she felt like I had wasted her time and that I clearly do not care for her and that she would be filing a report that I was on uncaring individual. Discussed with patient that we had done a thorough workup to rule out surgical or life-threatening etiology for her symptoms and offered her medication to take care of her pain in the form of ketorolac but she had refused that. Patient still quite angry. Discharged to home with recommendation to follow-up with gastroenterology as an outpatient. (BROCK HERNANDEZ) - Vital Signs Vital signs: Temp Pulse Resp BP Pulse Ox 98.8 F 66 14 142/99 H 99 08/24/17 14:06 08/24/17 14:06 08/24/17 14:06 08/24/17 14:06 08/24/17 14:06 - Laboratory Laboratory results interpreted by me: 08/24/17 08/24/17 08/24/17 14:59 14:59 14:59 WBC 15.0 H RDW 14.3 H Plt Count 458 H Seg Neutrophils % 91.0 H Lymphocytes % 6.0 L Monocytes % 2.9 L Absolute Neutrophils 13.7 H Sodium 145.9 H Potassium 3.4 L Glucose 124 H Calcium 10.3 H Total Bilirubin < 0.1 L Urine Glucose (UA) 150 H Discharge <HARPREET MUELLER - Last Filed: 08/24/17 22:35> <BROCK HERNANDEZ - Last Filed: 08/24/17 22:38> - Discharge Clinical Impression: Nausea vomiting and diarrhea Abdominal pain Qualifiers: Abdominal location: generalized Qualified Code(s): R10.84 - Generalized abdominal pain Condition: Stable Disposition: HOME, SELF-CARE Additional Instructions: Abdominal Pain There are many causes of abdominal pain. Pain can mean a serious problem requiring surgery (such as appendicitis). It can also be an innocent problem that goes away on its own (such as a viral infection). Often, time must pass to determine the cause of pain. The physician does not feel that hospitalization is necessary, at present. Things may change within the next 24 hours. Call the doctor or come back for re- examination if any problems occur, such as: (1) Pain that becomes more severe, steady, or becomes concentrated in one specific area. Also, pain that is more severe with movement or coughing. (2) Vomiting that persists or becomes more frequent. (3) Blood in the vomitus, urine, or bowel movements. Blood in the stool may have a tarry or black appearance. (4) Shaking chills or fever greater than 100 degrees F. (5) The abdomen becomes more distended or swollen. (6) Bowel movements cease. (7) Failure to improve as expected. Please stop taking the steroids and the antibiotics. There is no evidence of a continuing Crohn's flare or an acute infection. There are white blood cell count is elevated but I suspect that is from the steroids. I have prescribed Phenergan for your nausea. Please take Imodium as directed [id number] for your diarrhea. Please keep your follow-up appointment with a sausage smoker. Please return to the emergency department for any new or concerning symptoms. Prescriptions: Promethazine HCl [Phenergan 25 mg Tablet] 1 - 2 tab PO Q6HP PRN #15 tablet PRN Reason: For Nausea/Vomiting Scribe Attestation: 08/24/17 22:38 I personally performed the services described in the documentation, reviewed and edited the documentation which was dictated to the scribe in my presence, and it accurately records my words and actions. (BROCK HERNANDEZ) Scribe Documentation - Scribe Written by Rishabh:: Rishabh Castillo, 08/24/2017 16:06 acting as scribe for :: Michelle <HARPREET MUELLER - Last Filed: 08/24/17 22:35>
[2017-08-24] MEDS ORDERED: KETOROLAC TROMETHAMINE 60 MG/2 ML SDV IV ONE (15:40)
[2017-08-24] MEDS ORDERED: ONDANSETRON HCL INJ/PF 4 MG/2 ML SDV IV ONE (15:58)
[2017-08-24 17:48] LABS: LIPASE 37.6 U/L (23-300)
--- NOTE | 2017-08-24 19:46 | RADIOLOGY REPORT (SQ) ---
EXAM DESCRIPTION: CT ABD/PELVIS WITH IV ORAL COMPLETED DATE/TIME: 08/24/2017 7:18 pm REASON FOR STUDY: crohn's flare, vomiting and diarrhea, fevers COMPARISON: 05/13/2017. TECHNIQUE: CT scan of the abdomen and pelvis performed with intravenous and oral contrast using kwesi sparkle scanning technique with dynamic intravenous contrast injection. Images reviewed with lung, soft t issue, and bone windows. Reconstructed coronal and sagittal MPR images reviewed. Delayed images for e valuation of the urinary system also acquired. All images stored on PACS. All CT scanners at this facility use dose modulation, iterative reconstruction, and/or weight based d osing when appropriate to reduce radiation dose to as low as reasonably achievable (ALARA). [facility]: Dose Right [facility]: CareDose [facility]: Dose Right [facility]: Teradose 4D [facility]: [facility] CONTRAST TYPE AND DOSE: contrast/concentration: Isovue 370.00 mg/ml; Total Contrast Delivered: 81.0 ml; Total Saline Delivered: 65.0 ml RENAL FUNCTION: BUN 10 creatinine 0.55. RADIATION DOSE: CT Rad equipment meets quality standard of care and radiation dose reduction techniq ues were employed. CTDIvol: 8.7 - 12.4 mGy. DLP: 1119 mGy-cm.. LIMITATIONS: None. FINDINGS: LOWER CHEST: No significant findings. No nodules or infiltrates. LIVER: Normal size. No masses. No dilated ducts. SPLEEN: Normal size. No focal lesions. PANCREAS: No masses. No significant calcifications. No adjacent inflammation or peripancreatic fluid collections. Pancreatic duct not dilated. GALLBLADDER: No identified stones by CT criteria. No inflammatory changes to suggest cholecystitis. ADRENAL GLANDS: No significant masses or asymmetry. RIGHT KIDNEY AND URETER: No solid masses. No significant calcification. No hydronephrosis or hydroure ter. LEFT KIDNEY AND URETER: No solid masses. No significant calcification. No hydronephrosis or hydrouret er. AORTA AND VESSELS: No aneurysm. No dissection. Renal arteries, SMA, celiac without stenosis. RETROPERITONEUM: No retroperitoneal adenopathy, hemorrhage or masses. BOWEL AND PERITONEAL CAVITY: No obstruction. No visualized masses. No free fluid. No inflammatory ch anges or thickening of bowel wall. APPENDIX: Normal. PELVIS: No significant masses. Normal bladder. No free fluid. ABDOMINAL WALL: No masses. No hernias. BONES: No significant or acute findings. OTHER: No other significant finding. IMPRESSION: NO SIGNIFICANT OR ACUTE FINDINGS IN THE ABDOMEN OR PELVIS. TECHNICAL DOCUMENTATION: JOB ID: [id number] Quality ID # [id number]: Final reports with documentation of one or more dose reduction techniques (e.g., Au tomated exposure control, adjustment of the mA and/or kV according to patient size, use of iterative reconstruction technique) 2010 [employer]- All Rights Reserved Reading location - IP/workstation name: [email or web address]
== END 2017-08-24 20:24 | disposition home or self-care (01) ==
LOC: ER 13:59
DX: R10.84 Generalized abdominal pain (principal); R11.2 Nausea with vomiting, unspecified; R19.7 Diarrhea, unspecified; M54.5 Low back pain; R50.9 Fever, unspecified; R61 Generalized hyperhidrosis; D72.829 Elevated white blood cell count, unspecified; E87.0 Hyperosmolality and hypernatremia; E87.6 Hypokalemia; J45.909 Unspecified asthma, uncomplicated
CPT/HCPCS: 99284; 96374; 36415; 83690; 85025; 82272; 81025; 80053; 81001; 74177; J2405

== ENCOUNTER 2017-11-29 03:07 | Emergency (ER) | payer SELFPAY ==
[2017-11-29 03:15] VITALS: BP 148/95
[2017-11-29] MEDS ORDERED: PENICILLIN V POTASSIUM 500 MG TABLET PO ONE (03:32)
--- NOTE | 2017-11-29 03:34 | ER Document Report ---
ED General - General Chief Complaint: Dental Injury Stated Complaint: TOOTH PAIN Time Seen by Provider: 11/29/17 03:23 Notes: Patient is a 37-year-old female presents with complaint of dental pain that she says has been gradually worsening over the last several days. She has says that she has a tooth right upper side has been decaying and has been slowly chipping away. She is trying make an appointment to see the [facility]. No fevers. No facial swelling. No difficulty breathing or swallowing. Patient initially says only thing she has had today for pain is Tylenol. TRAVEL OUTSIDE OF THE [place] IN LAST 30 DAYS: No - Related Data Allergies/Adverse Reactions: Sulfa (Sulfonamide Antibiotics) Allergy (Verified 11/29/17 03:08) Past Medical History - Social History Smoking Status: Unknown if Ever Smoked Frequency of alcohol use: None Drug Abuse: None Family History: Reviewed & Not Pertinent, Thyroid Disfunction Pulmonary Medical History: Reports: Hx Asthma, Hx Pneumonia Renal/ Medical History: Reports: Hx Ectopic , Hx Ovarian Cysts. Denies: Hx Peritoneal Dialysis Skin Medical History: Reports Hx MRSA Psychiatric Medical History: Reports: Hx Anxiety, Hx Attention Deficit Hyperactivity Disorder, Hx Bipolar Disorder, Hx Depression Infectious Medical History: Reports: Hx MRSA Past Surgical History: Reports: Hx Section, Hx Gynecologic Surgery - tubal - Immunizations Immunizations up to date: Yes Hx Diphtheria, Pertussis, Tetanus Vaccination: Yes Review of Systems - Review of Systems Notes: My Normal Review Basic REVIEW OF SYSTEMS: CONSTITUTIONAL : Denies fever, chills, or sweats. Denies recent illness. EENT: Dental pain CARDIOVASCULAR: Denies chest pain. RESPIRATORY: Denies cough, cold, or chest congestion. Denies shortness of breath, difficulty breathing, or wheezing. NEUROLOGICAL: Denies altered mental status or loss of consciousness. Denies headache. ALL OTHER SYSTEMS REVIEWED AND NEGATIVE. Physical Exam - Vital signs Vitals: Temp Pulse Resp BP Pulse Ox 97.7 F 97 20 148/95 H 100 11/29/17 03:13 11/29/17 03:13 11/29/17 03:13 11/29/17 03:13 11/29/17 03:13 - Notes Notes: General Appearance: Well nourished, alert, cooperative, no acute distress, mild obvious discomfort. Vitals: reviewed, See vital signs table. Head: no swelling or tenderness to the head. No facial swelling. Eyes: PERRL, EOMI, Conjuctiva clear Mouth: Multiple dental caries. No gingival inflammation. Throat: No tonsillar inflammation, No airway obstruction, no lymphadenopathy. Neck: Supple, no neck tenderness, No neck swelling Lungs: No wheezing, No rales, No rhonci, No accessory muscle use, good air exchange bilaterally. Heart: Normal rate, Regular rythm, No murmur, no rub Neuro: speech clear, oriented x 3, normal affect, responds appropriately to questions. Course - Re-evaluation Re-evalutation: 11/29/17 03:41 Patient presents with dental pain. She has large amount of dental caries on exam. They appear chronic. I do not see any acute associated gingival inflammation or swelling. No evidence of facial abscess. Patient: Able to be brought here. She is given Tylenol and once. She initially told me that she is only had [id number] pain medicine today for her pain. I did look up on the left, [place] controlled substance database think that review of her visits to the ER she has been here multiple times for many different pain complaints. Claims [place] controlled substance database she has had 7 different opiate prescriptions since September 06. Most of these are from the from prescribers. Most recent prescription was just 3 days ago. Asked the patient about the recent opiate prescription as she initially told me that she only took [id number] pain medicine. Patient says that she only had a few of those hydrocodone pills left and she took those today. This is contrary to what she told me earlier. I informed her that typically do not treat dental pain with opiate medications unless there is large amount of facial swelling or abscess or concerning signs on physical exam. Also I do not feel comfortable writing her prescription for opiate medications being that she has had multiple opiate medications and last 2.5 months from different prescribers. I informed I be happy to do a dental block and I will place on penicillin and have her take [id number] pain medication and follow-up with a dentist. Patient's was offered dental block several times and she never completely agreed to dental block. She will keep saying "I do not know". I asked her a fourth time if she would like a dental block and she eventually said no. Patient will be discharged home with antibiotic. She is encouraged to return to ER if she develops facial swelling, difficulty breathing or swallowing, fevers, or she feels unwell. Patient to follow-up closely with the dentist. Dictation of this chart was performed using voice recognition software; therefore, there may be some unintended grammatical errors. - Vital Signs Vital signs: Temp Pulse Resp BP Pulse Ox 97.7 F 97 20 148/95 H 100 11/29/17 03:13 11/29/17 03:13 11/29/17 03:13 11/29/17 03:13 11/29/17 03:13 Discharge - Discharge Clinical Impression: Pain, dental Condition: Good Disposition: HOME, SELF-CARE Additional Instructions: Toothache Your pain is due to dental decay. The tooth must be repaired in order for you to feel better. Please follow up with a dentist. Severe swelling or drainage around a tooth usually means a deep dental abscess. This also requires evaluation and treatment by the dentist, but antibiotics may be prescribed while awaiting dental treatment. You should be rechecked immediately if you develop major swelling of the face, increasing pain, a lump in the jaw or gums, headache, or fever. Prescriptions: Penicillin V Potassium [Penicillin Vk 500 mg Tablet] 500 mg PO BID #14 tablet
== END 2017-11-29 04:11 | disposition home or self-care (01) ==
LOC: ER 03:07
DX: K02.9 Dental caries, unspecified (principal); K08.89 Other specified disorders of teeth and supporting structures; J45.909 Unspecified asthma, uncomplicated; Z88.2 Allergy status to sulfonamides
CPT/HCPCS: 99283

== ENCOUNTER 2017-12-22 13:41 | Emergency (ER) | payer SELFPAY ==
[2017-12-22] MEDS ORDERED: NORMAL SALINE 1000 ML 1,000 ML IV ONE ×2 (14:26→16:38)
[2017-12-22] MEDS ORDERED: ONDANSETRON HCL INJ/PF 4 MG/2 ML SDV IV ONE (14:26)
--- NOTE | 2017-12-22 14:28 | ER Document Report ---
ED General - General Mode of Arrival: Ambulatory Information source: Patient TRAVEL OUTSIDE OF THE [place] IN LAST 30 DAYS: No <HARPREET MUELLER - Last Filed: 12/22/17 16:39> <JUAN CARLOS CARLOS - Last Filed: 12/22/17 18:38> - General Chief Complaint: Nausea/Vomiting Stated Complaint: VOMITING Time Seen by Provider: 12/22/17 14:16 Notes: Patient is a 37-year-old female with Crohn's disease presents to the emergency department complaining of nausea, vomiting and diarrhea onset approximately 3 days ago. Patient states that her symptoms have been intermittent for the last 3 days and describes her diarrhea as "like water". Patient states that she is following up with her doctor in [place] but has been unable to get in contact with them regarding her current symptoms. Patient denies any fevers or sick contacts. Patient mentions having a colonoscopy approximately [address] Beverley Nevarez. According to [facility] records patient received a CT scan due to having similar symptoms and was diagnosed with Crohn's disease in 2017. Patient's last menstrual period was mid 2017. (HARPREET MUELLER) - Related Data Allergies/Adverse Reactions: Sulfa (Sulfonamide Antibiotics) Allergy (Verified 11/29/17 03:08) Past Medical History - General Information source: Patient - Social History Smoking Status: Current Every Day Smoker Chew tobacco use (# tins/day): No Frequency of alcohol use: Occasional Drug Abuse: None Family History: Reviewed & Not Pertinent, Thyroid Disfunction Patient has suicidal ideation: No Patient has homicidal ideation: No Pulmonary Medical History: Reports: Hx Asthma, Hx Pneumonia Renal/ Medical History: Reports: Hx Ectopic , Hx Ovarian Cysts Skin Medical History: Reports Hx MRSA Psychiatric Medical History: Reports: Hx Anxiety, Hx Attention Deficit Hyperactivity Disorder, Hx Bipolar Disorder, Hx Depression Infectious Medical History: Reports: Hx MRSA Past Surgical History: Reports: Hx Section, Hx Gynecologic Surgery - tubal - Immunizations Immunizations up to date: Yes Hx Diphtheria, Pertussis, Tetanus Vaccination: Yes <HARPREET MUELLER - Last Filed: 12/22/17 16:39> Review of Systems - Review of Systems Constitutional: No symptoms reported EENT: No symptoms reported Cardiovascular: No symptoms reported Respiratory: No symptoms reported Gastrointestinal: See HPI, Diarrhea, Nausea, Vomiting Genitourinary: No symptoms reported Female Genitourinary: No symptoms reported Musculoskeletal: No symptoms reported Skin: No symptoms reported Hematologic/Lymphatic: No symptoms reported Neurological/Psychological: No symptoms reported -: Yes All other systems reviewed and negative <HARPREET MUELLER - Last Filed: 12/22/17 16:39> Physical Exam <HARPREET MUELLER - Last Filed: 12/22/17 16:39> <JUAN CARLOS CARLOS - Last Filed: 12/22/17 18:38> - Notes Notes: GENERAL: Alert, interacts well. No acute distress. HEAD: Normocephalic, atraumatic. EYES: Pupils equal, round, and reactive to light. Extraocular movements intact. ENT: Oral mucosa moist, tongue midline. NECK: Full range of motion. Supple. Trachea midline. LUNGS: Clear to auscultation bilaterally, no wheezes, rales, or rhonchi. No respiratory distress. HEART: Regular rate and rhythm. No murmurs, gallops, or rubs. ABDOMEN: Soft, obese, diffusely tender to palpation. Non-distended. Bowel sounds present in all 4 quadrants. EXTREMITIES: Moves all 4 extremities spontaneously. NEUROLOGICAL: Alert and oriented x3. Normal speech. PSYCH: Normal affect, normal mood. SKIN: Warm, dry, normal turgor. No rashes or lesions noted. (AMIHARPREET) Course - Laboratory Result Diagrams: 12/22/17 14:30 12/22/17 14:30 <HARPREET MUELLER - Last Filed: 12/22/17 16:39> - Laboratory Result Diagrams: 12/22/17 14:30 12/22/17 14:30 <JUAN CARLOS CARLOS - Last Filed: 12/22/17 18:38> - Re-evaluation Re-evalutation: 12/22/17 16:38 Patient declines Toradol due to it causing her to have anxiety. She was requesting Dilaudid according to the nurse. 12/22/17 18:36 The patient has been up to urinate 3 times so far, has not had any diarrhea. At this time she is conversant, smiling, in no distress whatsoever. I think I have convinced her to keep her arm straight so that the remaining IV fluids can run in quickly. (JUAN CARLOS CARLOS) - Laboratory Laboratory results interpreted by me: 12/22/17 12/22/17 12/22/17 14:30 14:30 15:00 RDW 14.7 H Direct Bilirubin 0.5 H Urine Protein 30 H Urine Urobilinogen 2.0 H Discharge <AMIROSALINDJHOAN - Last Filed: 12/22/17 16:39> <JUAN CARLOS CARLOS - Last Filed: 12/22/17 18:38> - Discharge Clinical Impression: Nausea, vomiting and diarrhea Abdominal pain Qualifiers: Abdominal location: generalized Qualified Code(s): R10.84 - Generalized abdominal pain Additional Instructions: Gastroenteritis You most likely have gastroenteritis. This is an irritation of the stomach and intestinal tract. It's usually caused by a virus, but can also be caused by bacteria, toxins that cause food poisoning, or excessive alcohol intake. Symptoms may include fever, painful abdominal cramps, nausea, vomiting , and diarrhea. Start with small amounts (two to six ounces) of clear liquids (soft drinks , herb teas, broth, etc). Try to take fluids frequently even if you are vomiting, to prevent dehydration. When liquids are being consumed successfully , advance to small amounts of bland food (mashed potato, toast) for 6 - 12 hours. Gastroenteritis rarely requires medication. It goes away by itself. Use good handwashing so you don't spread germs. Wash underwear in very hot water. If symptoms are severe, talk to the doctor. Call your physician if blood appears in your vomitus or stool, if vomiting lasts longer than 24 hours, if the abdominal pain worsens or becomes localized to one area, or if you develop high fever. Take medication for nausea as dispensed. Drink small sips of cool clear liquids today. If you try to eat it will probably cause more diarrhea and abdominal cramping. Follow-up with your primary care provider tomorrow if not improving. RETURN TO THE EMERGENCY ROOM IF ANY NEW OR WORSENING SYMPTOMS. Rishabh Attestation: 12/22/17 15:51 I personally performed the services described in the documentation, reviewed and edited the documentation which was dictated to the scribe in my presence, and it accurately records my words and actions. (JUAN CARLOS CARLOS) Sef[employer] Documentation - Scribe Written by Rishabh:: Rishabh Castillo, 12/22/2017 14:32 acting as scribe for :: Darline <HARPREET MUELLER - Last Filed: 12/22/17 16:39>
[2017-12-22 14:50] LABS: ABSOLUTE BASOPHILS # (AUTO) 0.1 10^3/uL (0.0-0.2); ABSOLUTE EOSINOPHILS # (AUTO) 0.4 10^3/uL (0.0-0.6); ABSOLUTE LYMPHOCYTES (AUTO) 2.5 10^3/uL (0.5-4.7); ABSOLUTE MONOCYTES (AUTO) 0.5 10^3/uL (0.1-1.4); ABSOLUTE NEUT (AUTO) 6.8 10^3/uL (1.7-8.2); BASOPHILS % (AUTO) 0.5 % (0-2); EOSINOPHILS % (AUTO) 4.3 % (0-6); HEMATOCRIT 37.3 % (36.0-47.0); HEMOGLOBIN 12.9 g/dL (12.0-15.5); LYMPHOCYTES % (AUTO) 24.5 % (13-45); MEAN CORPUSCULAR HEMOGLOBIN 31.6 pg (27.0-33.4); MEAN CORPUSCULAR HGB CONC 34.7 g/dL (32.0-36.0); MEAN CORPUSCULAR VOLUME 91 fl (80-97); MONOCYTES % (AUTO) 4.7 % (3-13); PLATELET COUNT 426 10^3/uL (150-450); RED CELL DISTRIBUTION WIDTH 14.7 % (11.5-14.0); TOTAL CELLS COUNTED % (AUTO) 100 %; WHITE BLOOD COUNT 10.3 10^3/uL (4.0-10.5)
[2017-12-22 15:06] LABS: ALANINE AMINOTRANSFERASE 18 U/L (9-52); ALBUMIN 3.7 g/dL (3.5-5.0); ALKALINE PHOSPHATASE 66 U/L (38-126); ANION GAP 6 (5-19); ASPARTATE AMINO TRANSFERASE 18 U/L (14-36); BILIRUBIN,DIRECT 0.5 mg/dL (0.0-0.4); BILIRUBIN,TOTAL 0.5 mg/dL (0.2-1.3); BLOOD UREA NITROGEN 7 mg/dL (7-20); CALCIUM 9.6 mg/dL (8.4-10.2); CARBON DIOXIDE 29 mmol/L (22-30); CHLORIDE 103 mmol/L (98-107); GLUCOSE 95 mg/dL (75-110); POTASSIUM 3.7 mmol/L (3.6-5.0); TOTAL PROTEIN 6.5 g/dL (6.3-8.2)
[2017-12-22] MEDS ORDERED: DEXTROSE 5%-LACTATED RINGERS 1,000 ML IV ONE (15:08)
[2017-12-22] MEDS ORDERED: KETOROLAC TROMETHAMINE INJ/PF 30 MG/1 ML SDV IV ONE (15:08)
[2017-12-22 16:07] LABS: APPEARANCE,URINE CLEAR; BILIRUBIN,URINE NEGATIVE (NEGATIVE); COLOR,URINE AMBER; GLUCOSE, URINE NEGATIVE (NEGATIVE); KETONES,URINE NEGATIVE (NEGATIVE); LEUKOCYTE ESTERASE,URINE NEGATIVE (NEGATIVE); NITRITE,URINE NEGATIVE (NEGATIVE); PROTEIN,URINE 30 mg/dL (NEGATIVE); URINE SPECIFIC GRAVITY 1.025
[2017-12-22] MEDS ORDERED: ONDANSETRON ODT 4 MG TAB (6 TAB/ER DISP) PO PRN (18:38)
[2017-12-22 19:11] VITALS: BP 133/92
== END 2017-12-22 19:20 | disposition home or self-care (01) ==
LOC: ER 13:41
DX: K50.90 Crohn's disease, unspecified, without complications (principal); R11.2 Nausea with vomiting, unspecified; R19.7 Diarrhea, unspecified; R10.84 Generalized abdominal pain; F17.200 Nicotine dependence, unspecified, uncomplicated; J45.909 Unspecified asthma, uncomplicated; Z88.2 Allergy status to sulfonamides
CPT/HCPCS: 99284; 96361; 96374; 36415; 84703; 85025; 80053; 81001; 88305 ×2; J2405; J1885

== ENCOUNTER 2018-01-04 01:45 | Observation (INO) | payer SELFPAY ==
[2018-01-04] MEDS ORDERED: MORPHINE SULFATE 10 MG/ML INJ IV ONE (02:04)
[2018-01-04] MEDS ORDERED: NORMAL SALINE 1000 ML 1,000 ML IV ONE ×2 (02:05→02:27)
[2018-01-04] MEDS ORDERED: ONDANSETRON HCL INJ/PF 4 MG/2 ML SDV IV ONE (02:05)
--- NOTE | 2018-01-04 02:08 | ER Document Report ---
ED GI/ - General Chief Complaint: Abdominal Pain Stated Complaint: ABDOMINAL PAIN Time Seen by Provider: 01/04/18 01:52 Notes: Patient is a 37-year-old female that comes emergency department for chief complaint of 1 day of bilateral lower abdominal/pelvic pain that is sharp with repeated vomiting episodes. She had a normal bowel movement earlier today, nonbloody. She denies fever or chills, flank pain, vaginal bleeding or discharge. She is sexually active with her significant other. LMP within the past month. She states she was diagnosed with probable Crohn's, still is waiting for stool samples for confirmation, is not currently on occasion for Crohn's. Only medication she is on is albuterol, past medical history includes and ectopic . TRAVEL OUTSIDE OF THE [place] IN LAST 30 DAYS: No - Related Data Allergies/Adverse Reactions: Sulfa (Sulfonamide Antibiotics) Allergy (Verified 11/29/17 03:08) Past Medical History - General Information source: Patient - Social History Smoking Status: Current Every Day Smoker Chew tobacco use (# tins/day): No Frequency of alcohol use: None Drug Abuse: None Lives with: Family Family History: Reviewed & Not Pertinent, Thyroid Disfunction Patient has suicidal ideation: No Patient has homicidal ideation: No Pulmonary Medical History: Reports: Hx Asthma, Hx Pneumonia Renal/ Medical History: Reports: Hx Ectopic , Hx Ovarian Cysts. Denies: Hx Peritoneal Dialysis Skin Medical History: Reports Hx MRSA Psychiatric Medical History: Reports: Hx Anxiety, Hx Attention Deficit Hyperactivity Disorder, Hx Bipolar Disorder, Hx Depression Infectious Medical History: Reports: Hx MRSA Past Surgical History: Reports: Hx Section, Hx Gynecologic Surgery - tubal - Immunizations Immunizations up to date: Yes Hx Diphtheria, Pertussis, Tetanus Vaccination: Yes Review of Systems - Review of Systems Constitutional: No symptoms reported EENT: No symptoms reported Cardiovascular: No symptoms reported Respiratory: No symptoms reported Gastrointestinal: See HPI Genitourinary: No symptoms reported Female Genitourinary: No symptoms reported Musculoskeletal: No symptoms reported Skin: No symptoms reported Hematologic/Lymphatic: No symptoms reported Neurological/Psychological: No symptoms reported Physical Exam - Vital signs Vitals: Temp Pulse Resp BP Pulse Ox 97.8 F 85 20 187/123 H 100 01/04/18 02:07 01/04/18 02:07 01/04/18 02:07 01/04/18 02:07 01/04/18 02:07 - Notes Notes: GENERAL: Pale, slightly ill-appearing, appears to be in pain HEAD: Normocephalic, atraumatic. EYES: Pupils equal, round, and reactive to light. Extraocular movements intact. ENT: Oral mucosa very dry, tongue midline. [Nares patent, no nasal septal hematoma, TM's intact.] NECK: Full range of motion. Supple. Trachea midline. LUNGS: Clear to auscultation bilaterally, no wheezes, rales, or rhonchi. No respiratory distress. HEART: Regular rate and rhythm. No murmur ABDOMEN: Tender with significant wincing with gentle palpation of the lower abdomen/pelvis. Upper abdomen is generally unremarkable. No rigidity or rebound tenderness. GENITOURINARY: No external abnormalities noted, no cervical motion tenderness, no significant vaginal discharge noted, no bleeding, normal exam otherwise. Exam performed with Maria Elena PCT at bedside. EXTREMITIES: Moves all 4 extremities spontaneously. No edema, normal radial and dorsalis pedis pulses bilaterally. No cyanosis. BACK: no cervical, thoracic, lumbar midline tenderness. No saddle anesthesia, normal distal neurovascular exam. NEUROLOGICAL: Alert and oriented x3. Normal speech. [cranial nerves II through XII grossly intact]. PSYCH: Patient appears mildly agitated SKIN: Warm, dry, normal turgor. No rashes or lesions noted. Course - Re-evaluation Re-evalutation: Patient is ill-appearing, has general lower abdominal tenderness, very dry in appearance. Pelvic examination is unremarkable, I do not suspect PID to be the source of her symptoms. Urinalysis shows dehydration but is otherwise unremarkable. CBC shows leukocytosis at 26,000 with elevation of neutrophils but no bandemia. Lipase is unremarkable. CAT scan of the abdomen and pelvis performed because of patient's examination, pain, leukocytosis. CAT scan shows possible dilation and inflammation but no overt surgical abnormality, no obstruction, no abscess, no perforation. I discussed with Dr. Johnson. Based on patient's presentation, workup, recommendation is to admit to hospitalist for treatment of possible Crohn's flare versus colitis. I discussed this with patient, she is agreeable to this plan. She states she was made admitted for the same symptoms for 4 days early in the year. I discussed with Dr. Garcia, hospitalist, patient will be admitted to telemetry observation. - Vital Signs Vital signs: Temp Pulse Resp BP Pulse Ox 97.8 F 85 20 187/123 H 100 01/04/18 02:07 01/04/18 02:07 01/04/18 02:07 01/04/18 02:07 01/04/18 02:07 - Laboratory Result Diagrams: 01/04/18 01:53 01/04/18 01:53 Laboratory results interpreted by me: 01/04/18 01/04/18 01/04/18 01:53 01:53 01:53 WBC 26.6 H RDW 15.2 H Seg Neuts % (Manual) 93 H Lymphocytes % (Manual) 2 L Abs Neuts (Manual) 24.7 H Chloride 109 H Carbon Dioxide 19 L Creatinine 0.50 L Glucose 132 H Urine Protein 30 H Urine Ketones TRACE H Urine Bilirubin SMALL H Urine Urobilinogen 4.0 H Ur Leukocyte Esterase TRACE H Discharge - Discharge Clinical Impression: Dehydration Abdominal pain Qualifiers: Abdominal location: lower abdomen, unspecified Qualified Code(s): R10.30 - Lower abdominal pain, unspecified Crohn's colitis Qualifiers: Digestive disease complication type: unspecified complication Qualified Code(s) : K50.119 - Crohn's disease of large intestine with unspecified complications Leukocytosis Qualifiers: Leukocytosis type: unspecified Qualified Code(s): D72.829 - Elevated white blood cell count, unspecified Vomiting Qualifiers: Vomiting type: unspecified Vomiting Intractability: intractable Nausea presence : with nausea Qualified Code(s): R11.2 - Nausea with vomiting, unspecified Condition: Stable Disposition: ADMITTED OBSERVATION Admitting Provider: Hospitalist Unit Admitted: Telemetry
[2018-01-04 02:19] LABS: HEMATOCRIT 41.1 % (36.0-47.0); HEMOGLOBIN 13.7 g/dL (12.0-15.5); MEAN CORPUSCULAR HEMOGLOBIN 30.6 pg (27.0-33.4); MEAN CORPUSCULAR HGB CONC 33.5 g/dL (32.0-36.0); MEAN CORPUSCULAR VOLUME 91 fl (80-97); PLATELET COUNT 391 10^3/uL (150-450); RED CELL DISTRIBUTION WIDTH 15.2 % (11.5-14.0); WHITE BLOOD COUNT 26.6 10^3/uL (4.0-10.5)
[2018-01-04 02:22] LABS: APPEARANCE,URINE SLIGHTLY-CLOUDY; BILIRUBIN,URINE SMALL (NEGATIVE); COLOR,URINE AMBER; GLUCOSE, URINE NEGATIVE (NEGATIVE); KETONES,URINE TRACE mg/dL (NEGATIVE); LEUKOCYTE ESTERASE,URINE TRACE (NEGATIVE); NITRITE,URINE NEGATIVE (NEGATIVE); PROTEIN,URINE 30 mg/dL (NEGATIVE); URINE SPECIFIC GRAVITY 1.028
[2018-01-04 02:23] LABS: ANION GAP 14 (5-19); BLOOD UREA NITROGEN 11 mg/dL (7-20); CALCIUM 9.7 mg/dL (8.4-10.2); CARBON DIOXIDE 19 mmol/L (22-30); CHLORIDE 109 mmol/L (98-107); GLUCOSE 132 mg/dL (75-110); POTASSIUM 4.6 mmol/L (3.6-5.0); SODIUM 141.6 mmol/L (137-145)
[2018-01-04 02:46] LABS: ABSOLUTE LYMPHOCYTES# (MANUAL) 0.8 10^3/uL (0.5-4.7); ABSOLUTE MONOCYTES # (MANUAL) 1.1 10^3/uL (0.1-1.4); ABSOLUTE NEUTROPHILS# (MANUAL) 24.7 10^3/uL (1.7-8.2); BASOPHILS % (MANUAL) 0 % (0-2); EOSINOPHILS % (MANUAL) 0 % (0-6); LYMPHOCYTES % (MANUAL) 2 % (13-45); MONOCYTES % (MANUAL) 4 % (3-13); SEGMENTED NEUTROPHILS % (MAN) 93 % (42-78); TOTAL CELLS COUNTED 100
[2018-01-04 02:50] LABS: T.VAGINALIS (WET MOUNT) NO TRICHOMONAS SEEN
[2018-01-04 02:51] LABS: BACTERIA (WET MOUNT) 3+ BACTERIA SEEN; RBCS (WET MOUNT) 1+ RBCS SEEN; WBCS (WET MOUNT) FEW WBCS SEEN; YEAST (WET MOUNT) YEAST SEEN
[2018-01-04 02:53] LABS: HELMET CELLS SLIGHT; TOXIC GRANULATION SLIGHT
[2018-01-04 02:54] LABS: ANISOCYTOSIS SLIGHT; PLATELET COMMENT ADEQUATE; POIKILOCYTOSIS SLIGHT; TEAR DROP CELLS SLIGHT
[2018-01-04] MEDS ORDERED: HYDROMORPHONE HCL INJ/PF 2 MG/ML AMPULE IV ONE (03:10)
[2018-01-04] MEDS ORDERED: METOCLOPRAMIDE HCL INJ/PF 10 MG/2 ML SDV IV ONE (03:25)
--- NOTE | 2018-01-04 04:22 | RADIOLOGY REPORT (SQ) ---
CLINICAL DATA: 37-year-old female with sharp lower abdominal pain and elevated white count with vomiting and history of Crohn's disease. TECHNICAL DATA: Axial CT imaging of the abdomen and pelvis was performed following the administration of intravenous contrast.. Sagittal and coronal reconstructed images were then performed. The CT study is performed according to ALARA (as low as reasonably achievable) or ALARA/IMAGE GENTLY, with automatic adjustment of mA and/or kV according to patient size. Comparison: None FINDINGS: Lung bases: The lung bases are clear. Liver:The liver is normal in size and configuration. No focal hepatic abnormalities are identified. Liver attenuation is within normal limits. Spleen:The spleen is normal is size, configuration and attenuation. Gallbladder and bile duct: The gallbladder is well distended and unremarkable. There is no biliary ductal dilatation. Pancreas: The pancreas is grossly normal in size and configuration. Adrenal Glands:The adrenal glands are normal in size and configuration. Kidneys:The kidneys are normal in size and configuration. There is no evidence of hydronephrosis. There is no evidence of nephrolithiasis. No definite solid or cystic renal mass lesions are identified. Stomach:The stomach is grossly normal. There is no definite hiatal hernia. Bowel:The bowel gas pattern is non specific and non obstructive. There is a large volume of fecal residue scattered throughout the colon. The transverse colon is dilated to 6.4 cm. There may be a focal area of stenosis and bowel wall thickening in the proximal descending colon versus normal peristalsis. Appendix: The appendix is normal. Free air:There is no evidence of free air. Free fluid: There is no evidence of free fluid. Vasculature: The aorta is normal in caliber and contour. The inferior vena cava is grossly unremarkable. Lymphadenopathy: No pathologic lymphadenopathy is identified. Bladder: The bladder is well distended and smooth in contour. Reproductive: The uterus is grossly within normal limits. There is an approximately 2.8 cm left ovarian cyst which is almost certainly benign and no follow-up imaging is recommended. Bones: No acute osseous abnormalities are identified. Soft tissues: No focal soft tissue abnormalities are identified. IMPRESSION: 1. No evidence of acute intra-abdominal or intrapelvic pathology. 2. There is a large volume of fecal residue scattered throughout the colon with dilatation of the transverse colon as described above. No definite bowel obstruction is identified. There may be a focal area of stenosis and bowel wall thickening in the proximal descending colon versus normal peristalsis.
[2018-01-04 04:26] LABS: CHLAM PCR NOT DETECTED (NOT DETECT); GON PCR NOT DETECTED (NOT DETECT)
[2018-01-04] MEDS ORDERED: METHYLPREDNISOLONE INJ 125 MG/2 ML SDV IV ONE (04:30)
[2018-01-04] MEDS ORDERED: CIPROFLOXACIN 400 MG/D5W RTU 400 MG/200 ML RTUPB IV ONE (04:32)
[2018-01-04] MEDS ORDERED: METRONIDAZOLE 500 MG/NS RTU 500 MG/100 ML RTUPB IV ONE (05:00)
[2018-01-04] MEDS ORDERED: TEMAZEPAM 7.5 MG CAPSULE PO PRN (05:40)
[2018-01-04] MEDS ORDERED: MAG HYDROX/AL HYDROX/SIMETH SUSP 30 ML UDCUP PO PRN (05:40)
[2018-01-04] MEDS ORDERED: PROMETHAZINE HCL INJ 25 MG/1 ML VIAL IV PRN ×2 (05:40→10:00)
--- NOTE | 2018-01-04 06:13 | PDOC H&P ---
History of Present Illness Admission Date/PCP: 01/04/18 05:04 Patient complains of: Abdominal pain History of Present Illness: CECIL GARG is a 37 year old female who comes to the emergency department complaining of abdominal pain, she describes this as supra pubic radiated to the back, sharp in nature, going up to 9/10 intensity. Her last bowel movement was yesterday nonbloody and normal consistency. Denies fever, chills, has been nauseous and had 2 episodes of mild vomiting at home. Denies chest pain, shortness of breath, urinary symptoms. Reviewing prior visit to the emergency department patient was labeled as Crohn's , further conversation with the patient tells me that she never has been diagnosed with Crohn's and that was a diagnosis that was given by an ED attending on April this year. Patient had a colonoscopy done September this by a GI doctor Beverley Nevarez, and she tells me that she was waiting for "stool samples" to make the diagnosis; she does not know any results of the colonoscopy as the doctor is in [place] and she did not go back for follow- up. As per her suprapubic symptomatology vaginal examination with wet prep done. Patient has leukocytosis with white blood cells of 26.6, patient was started on IV Flagyl and IV ciprofloxacin and was given 125 mg of Solu-Medrol IV. Past Medical History Pulmonary Medical History: Reports: Asthma, Pneumonia Skin Medical History: Reports: Other - Vulvar hidradenitis Psychiatric Medical History: Reports: Attention Deficit Hyperactivity Disorder, Bipolar Disorder, Depression Infectious Medical History: Reports: Methicillin-Resistant Staph Aureus Past Surgical History Past Surgical History: Reports: Section Social History Smoking Status: Current Every Day Smoker - Half pack per day Frequency of Alcohol Use: None Hx Recreational Drug Use: Yes Drugs: Cocaine, Marijuana Hx Prescription Drug Abuse: No Family History Family History: Reviewed & Not Pertinent, Thyroid Disfunction Family History: Father with history of back pain, mother with history of IBS and thyroid disease Parental Family History Reviewed: Yes - As above Children Family History Reviewed: NA Sibling(s) Family History Reviewed.: NA Medication/Allergy Home Medications: Albuterol Sulfate [Ventolin Hfa 8 gm Mdi (1 Mdi/ER Disp)] 2 puff IH ASDIR PRN Ciprofloxacin HCl [Cipro 500 mg Tablet] 500 mg PO BID #20 tablet 08/16/17 Diphenhydramine HCl [Benadryl] 25 mg PO Q6 PRN 08/16/17 Metronidazole [Flagyl 500 mg Tablet] 500 mg PO BID #20 tablet 08/16/17 Prednisone 60 mg PO DAILY #53 tablet 08/16/17 Promethazine HCl [Phenergan 25 mg Tablet] 1 - 2 tab PO Q6HP PRN #15 tablet 08/24 Penicillin V Potassium [Penicillin Vk 500 mg Tablet] 500 mg PO BID #14 tablet Allergies/Adverse Reactions: Sulfa (Sulfonamide Antibiotics) Allergy (Verified 11/29/17 03:08) Review of Systems Review of Systems: As outlined above, others negative Physical Exam Vital Signs: Temp Pulse Resp BP Pulse Ox 97.8 F 85 20 187/123 H 100 01/04/18 02:07 01/04/18 02:07 01/04/18 02:07 01/04/18 02:07 01/04/18 02:07 Additional comments: General appearance: Well-developed, well-nourished, alert and cooperative, and appears to be in no acute distress Head: Normocephalic Eyes: PEERL, EOMI, vision is grossly intact. Ears: External auditory canal and tympanic membranes clear, hearing grossly intact. Nose: No nasal discharge. Throat: Oral cavity and pharynx normal. No inflammation, swelling, exudate or lesions. Neck: Neck supple, nontender without lymphadenopathy, masses or thyromegaly. Cardiac: Normal S1 and S2. No S3, S4 or murmurs. Rhythm is regular. There is no peripheral edema, cyanosis or pallor. Extremities are warm and well perfused. Capillary refill is less than 2 seconds. No carotid bruits. Lungs: Clear to auscultation and percussion without rales, rhonchi, wheezing or diminished breath sounds. Not using accessory muscles. Abdomen: Positive bowel sounds. Soft. Nondistended, nontender. No guarding or rebound. No masses. No hepatosplenomegaly during my evaluation Extremities: No significant deformity or joint abnormality. No edema. Peripheral pulses intact. No varicosities. Neurological: Cranial nerves II through XII grossly intact. Strength and sensation symmetric and intact throughout. Reflexes 2+ throughout. Skin: Skin normal color, texture and turgor with no lesions or eruptions, warm and dry. Psychiatric: The mental examination revealed the patient was oriented to person , place, and time. The patient was able to demonstrate good judgment on recent , without hallucinations, abnormal affect or abnormal behaviors. Results Laboratory Results: 01/04/18 01/04/18 01/04/18 01:53 01:53 01:53 WBC 26.6 H RBC 4.50 Hgb 13.7 Hct 41.1 MCV 91 MCH 30.6 MCHC 33.5 RDW 15.2 H Plt Count 391 Total Counted 100 Seg Neuts % (Manual) 93 H Lymphocytes % (Manual) 2 L Atypical Lymphs % 1 Monocytes % (Manual) 4 Eosinophils % (Manual) 0 Basophils % (Manual) 0 Abs Lymphs (Manual) 0.8 Abs Monocytes (Manual) 1.1 Absolute Eos (Manual) 0.0 Abs Basophils (Manual) 0.0 Toxic Granulation SLIGHT Platelet Comment ADEQUATE Anisocytosis SLIGHT Tear Drop Cells SLIGHT Helmet Cells SLIGHT Sodium 141.6 Potassium 4.6 Chloride 109 H Carbon Dioxide 19 L Anion Gap 14 BUN 11 Creatinine 0.50 L Est GFR ( Amer) > 60 Est GFR (Non-Af Amer) > 60 Glucose 132 H Calcium 9.7 Urine Color LUIS DANIEL Urine Appearance SLIGHTLY-CLOUDY Urine pH 5.0 Ur Specific Alexander 1.028 Urine Protein 30 H Urine Glucose (UA) NEGATIVE Urine Ketones TRACE H Urine Blood NEGATIVE Urine Nitrite NEGATIVE Urine Bilirubin SMALL H Urine Urobilinogen 4.0 H Ur Leukocyte Esterase TRACE H Urine WBC (Auto) 8 Urine RBC (Auto) 2 U Hyaline Cast (Auto) 1 Squamous Epi Cells Auto <1 Urine Mucus (Auto) FEW Urine Ascorbic Acid NEGATIVE Urine HCG, Qual NEGATIVE Bacteria (Wet Prep) Trichomonas (Wet Prep) Vaginal WBC Vaginal RBC Vaginal Yeast Chlamydia DNA (PCR) N.gonorrhoeae DNA (PCR) 01/04/18 01/04/18 02:38 02:38 WBC RBC Hgb Hct MCV MCH MCHC RDW Plt Count Total Counted Seg Neuts % (Manual) Lymphocytes % (Manual) Atypical Lymphs % Monocytes % (Manual) Eosinophils % (Manual) Basophils % (Manual) Abs Lymphs (Manual) Abs Monocytes (Manual) Absolute Eos (Manual) Abs Basophils (Manual) Toxic Granulation Platelet Comment Anisocytosis Tear Drop Cells Helmet Cells Sodium Potassium Chloride Carbon Dioxide Anion Gap BUN Creatinine Est GFR ( Amer) Est GFR (Non-Af Amer) Glucose Calcium Urine Color Urine Appearance Urine pH Ur Specific Alexander Urine Protein Urine Glucose (UA) Urine Ketones Urine Blood Urine Nitrite Urine Bilirubin Urine Urobilinogen Ur Leukocyte Esterase Urine WBC (Auto) Urine RBC (Auto) U Hyaline Cast (Auto) Squamous Epi Cells Auto Urine Mucus (Auto) Urine Ascorbic Acid Urine HCG, Qual Bacteria (Wet Prep) 3+ BACTERIA SEEN Trichomonas (Wet Prep) NO TRICHOMONAS SEEN Vaginal WBC FEW WBCS SEEN Vaginal RBC 1+ RBCS SEEN Vaginal Yeast YEAST SEEN Chlamydia DNA (PCR) NOT DETECTED N.gonorrhoeae DNA (PCR) NOT DETECTED Impressions: Abdomen/Pelvis CT 01/04/18 03:11 IMPRESSION: 1. No evidence of acute intra-abdominal or intrapelvic pathology. 2. There is a large volume of fecal residue scattered throughout the colon with dilatation of the transverse colon as described above. No definite bowel obstruction is identified. There may be a focal area of stenosis and bowel wall thickening in the proximal descending colon versus normal peristalsis. Assessment & Plan - Diagnosis (1) Abdominal pain Qualifiers: Abdominal location: lower abdomen, unspecified Qualified Code(s): R10.30 - Lower abdominal pain, unspecified Is this a current diagnosis for this admission?: Yes Plan: Patient with multiple visits to the emergency department with a diagnosis of abdominal pain, patient does not have any formal diagnosis of Crohn's disease and to me she has no typical signs, symptoms or radiological findings of this disease. Has leukocytosis of unclear etiology. CT abdomen and pelvis shows large constipation throughout the colon and some proximal descending colon bowel wall thickening that can be explained as per the constipation versus others. During my evaluation she was complaining of severe abdominal cramping that went away as soon as I started talking to her. She has prior urine drug screen positive for amphetamines, benzodiazepines, cocaine and marijuana she denies history of illicit drugs to me. I do not feel that she will benefits of continue Solu-Medrol, 125 mg IV given in the ED, as per her leukocytosis I will place her on IV ciprofloxacin but my thoughts are that this is no infections in etiology. I am admitting the patient under observation. (2) Habitual drug user Is this a current diagnosis for this admission?: Yes Plan: Patient denies using illicit drugs but has a prior urine drug screen positive for amphetamines, benzodiazepines, cocaine and marijuana. Current urine drug screen pending. (3) Constipation Is this a current diagnosis for this admission?: Yes Plan: CT shows a large constipation throughout the colon. I will give the patient Dulcolax. - Time Time Spent: 30 to 50 Minutes
[2018-01-04] MEDS ORDERED: HYDRALAZINE HCL INJ/PF 20 MG/1 ML SDV IV ONE (06:30)
[2018-01-04] MEDS ORDERED: BISACODYL 5 MG TABEC PO ONE ×2 (06:30→09:00)
[2018-01-04] MEDS: OXYCODONE-ACETAMINOPHEN 5-325 MG TABLET PO PRN ×2 (06:40→10:52)
[2018-01-04] MEDS ORDERED: HYDRALAZINE HCL INJ/PF 20 MG/1 ML SDV IV PRN ×2 (06:52→14:09)
[2018-01-04 07:06] LABS: URINE AMPHETAMINES SCREEN NEGATIVE; URINE BARBITURATES SCREEN NEGATIVE; URINE BENZODIAZEPINES SCREEN NEGATIVE; URINE COCAINE SCREEN NEGATIVE; URINE MARIJUANA (THC) SCREEN UNCONFIRMED POSITIVE; URINE METHADONE SCREEN NEGATIVE; URINE PHENCYCLIDINE SCREEN NEGATIVE
[2018-01-04] MEDS: PROMETHAZINE HCL 25 MG TABLET PO PRN ×3 (10:26→22:25)
[2018-01-04] MEDS ORDERED: POLYETHYLENE GLYCOL 3350 POWDER 17 GM/1 PACKET PO PRN (13:10)
[2018-01-04] MEDS ORDERED: NA PHOS,M-B/NA PHOS,DI-BA (ADULT) 133 ML ENEMA PR ONE (13:30)
[2018-01-04] MEDS: SENNOSIDES/DOCUSATE 8.6-50 MG 1 EACH TABLET PO SCH (15:29)
[2018-01-04] MEDS: HEPARIN SOD (PORCINE) 5,000 UNIT/ML 1 ML SYRINGE SUBCUT SCH (15:33)
[2018-01-04] MEDS: ACETAMINOPHEN 325 MG TABLET PO PRN ×2 (15:36→20:14)
--- NOTE | 2018-01-04 17:04 | Progress Note ---
Provider Note Provider Note: CECIL GARG is a 37 year old female who comes to the emergency department complaining of abdominal pain. CT abdomen reveals a significant amount of retained stool. The patient states she does not know why she would be so constipated. She denies taking an antimotility agent or chronic narcotic use. 1. CONSTIPATION: Unclear etiology. Continue PO docusate. Initiate FLEETS enema and BID senna. PRN Miralax and Milk of Magnesia. At this time, stool culture has yet to be collected. 2. LEUKOCYTOSIS: Likely secondary to significant constipation. Patient stated she has a history of Crohn'd disease but records obtained from [facility] office say otherwise. Progress note and colonoscopy report both state that the patient does not have inflammatory bowel disease. 3. HTN: The patient has been moderately hypertensive since admission, SBP 160- 175. IV hydralazine 10 mg as needed SBP>170. Initiate low-dose metoprolol, may need to continue post discharge. 4. ASTHMA: Endorses PMH of asthma. States she uses her rescue inhaler every 4 hours. Resume ProAir inhaler.
[2018-01-04] MEDS ORDERED: ALBUTEROL SULFATE HFA (90 MCG/PUFF) 200 PUFF/8.5 GM MDI IH PRN (17:05)
[2018-01-04] MEDS: CIPROFLOXACIN 400 MG/D5W RTU 400 MG/200 ML RTUPB IV SCH (17:20)
[2018-01-04] MEDS: METOPROLOL SUCCINATE 25 MG TAB.SR.24H PO SCH (18:10)
[2018-01-04] MEDS ORDERED: OXYCODONE-ACETAMINOPHEN 5-325 MG TABLET ONE (20:03)
[2018-01-05] MEDS: HEPARIN SOD (PORCINE) 5,000 UNIT/ML 1 ML SYRINGE SUBCUT SCH ×4 (01:14→21:07)
[2018-01-05] MEDS: PROMETHAZINE HCL 25 MG TABLET PO PRN ×2 (04:08→12:10)
[2018-01-05] MEDS: ACETAMINOPHEN 325 MG TABLET PO PRN (04:08)
[2018-01-05] MEDS: CIPROFLOXACIN 400 MG/D5W RTU 400 MG/200 ML RTUPB IV SCH (05:54)
[2018-01-05 06:25] LABS: HEMATOCRIT 38.1 % (36.0-47.0); HEMOGLOBIN 13.1 g/dL (12.0-15.5); MEAN CORPUSCULAR HEMOGLOBIN 31.3 pg (27.0-33.4); MEAN CORPUSCULAR HGB CONC 34.5 g/dL (32.0-36.0); MEAN CORPUSCULAR VOLUME 91 fl (80-97); PLATELET COUNT 368 10^3/uL (150-450); RED CELL DISTRIBUTION WIDTH 15.8 % (11.5-14.0)
[2018-01-05 08:44] LABS: ALANINE AMINOTRANSFERASE 23 U/L (9-52); ALBUMIN 3.6 g/dL (3.5-5.0); ALKALINE PHOSPHATASE 73 U/L (38-126); ANION GAP 9 (5-19); ASPARTATE AMINO TRANSFERASE 16 U/L (14-36); BILIRUBIN,DIRECT 0.4 mg/dL (0.0-0.4); BILIRUBIN,TOTAL 0.6 mg/dL (0.2-1.3); BLOOD UREA NITROGEN 6 mg/dL (7-20); CALCIUM 9.2 mg/dL (8.4-10.2); CARBON DIOXIDE 23 mmol/L (22-30); CHLORIDE 106 mmol/L (98-107); GLUCOSE 135 mg/dL (75-110); POTASSIUM 3.7 mmol/L (3.6-5.0); SODIUM 138.2 mmol/L (137-145); TOTAL PROTEIN 6.4 g/dL (6.3-8.2)
[2018-01-05] MEDS: SENNOSIDES/DOCUSATE 8.6-50 MG 1 EACH TABLET PO SCH ×2 (10:43→10:47)
[2018-01-05] MEDS: METOPROLOL SUCCINATE 25 MG TAB.SR.24H PO SCH (10:43)
[2018-01-05] MEDS ORDERED: IBUPROFEN 600 MG TABLET ONE (12:22)
[2018-01-05] MEDS ORDERED: IBUPROFEN 600 MG TABLET PO PRN (12:23)
[2018-01-05] MEDS ORDERED: METOPROLOL SUCCINATE 25 MG TAB.SR.24H PO SCH (12:45)
[2018-01-05] MEDS ORDERED: AMLODIPINE BESYLATE 10 MG TABLET PO ONE (12:57)
[2018-01-05] MEDS: HYDROCODONE/ACETAMINOPHEN 5-325 MG TABLET PO PRN ×2 (13:27→19:47)
--- NOTE | 2018-01-05 15:51 | RADIOLOGY REPORT (SQ) ---
EXAM DESCRIPTION: CT ABD/PELVIS ORAL ONLY COMPLETED DATE/TIME: 01/05/2018 3:38 pm REASON FOR STUDY: abdominal pain COMPARISON: 08/24/2017 TECHNIQUE: CT scan of the abdomen and pelvis performed without intravenous contrast. Oral contrast was given. Images reviewed with lung, soft tissue, and bone windows. Reconstructed coronal and sagitt al MPR images reviewed. All images stored on PACS. All CT scanners at this facility use dose modulation, iterative reconstruction, and/or weight based d osing when appropriate to reduce radiation dose to as low as reasonably achievable (ALARA). [facility]: Dose Right [facility]: CareDose [facility]: Dose Right [facility]: Teradose 4D [facility]: Smart [employer] RADIATION DOSE: CT Rad equipment meets quality standard of care and radiation dose reduction techniq ues were employed. CTDIvol: 7.3 mGy. DLP: 397 mGy-cm.mGy. LIMITATIONS: None. FINDINGS: LOWER CHEST: No significant findings. No nodules or infiltrates. NON-CONTRASTED LIVER, SPLEEN, ADRENALS: Evaluation limited by lack of IV contrast. No identified sign ificant masses. PANCREAS: No masses. No peripancreatic inflammatory changes. GALLBLADDER: There is diffuse increased attenuation in the gallbladder. RIGHT KIDNEY AND URETER: No suspicious masses. Assessment limited by lack of IV contrast. No signif icant calcifications. No hydronephrosis or hydroureter. LEFT KIDNEY AND URETER: No suspicious masses. Assessment limited by lack of IV contrast. No signifi cant calcifications. No hydronephrosis or hydroureter. AORTA AND RETROPERITONEUM: No aneurysm. No retroperitoneal masses or adenopathy. BOWEL AND PERITONEAL CAVITY: No obvious masses or inflammatory changes. No free fluid. APPENDIX: Not identified. PELVIS, BLADDER, AND ABDOMINAL WALL:No abnormal masses. No free fluid. Bladder normal. BONES: No significant findings. OTHER: No other significant finding. IMPRESSION: 1. No acute findings in the abdomen or pelvis. 2. Possible milk of calcium in the gallbladder. COMMENT: Quality ID # [id number]: Final reports with documentation of one or more dose reduction techniques (e.g., Automated exposure control, adjustment of the mA and/or kV according to patient size, use of iterative reconstruction technique) TECHNICAL DOCUMENTATION: JOB ID: [id number] [address]- All Rights Reserved Reading location - IP/workstation name: [email or web address]
--- NOTE | 2018-01-05 16:27 | PDOC PROGRESS REPORT ---
Subjective Progress Note for:: 01/05/18 Subjective:: The patient is a 37-year-old female with a past medical history of asthma, ADHD , bipolar, depression, and continuous tobacco use who was admitted on 01/04/18 for abdominal pain. The patient was seen on afternoon rounds. She was found resting in bed comfortably on room air. She tells me that she tolerated a clear liquid diet well today but did not find the brat diet interesting. She reports continued slight nausea but no emesis today. She complains of persistent right lower and left lower abdominal pain radiating to her left flank. She reports that the pain increases with palpation but otherwise has not noted any aggravating factors. Her pain is not worsened with p.o. intake. She does report that she has had multiple bowel movements and is no longer feeling constipated. She denies specific suprapubic abdominal pain, urinary urgency/frequency, dysuria or hematuria. She does confirm a recent colonoscopy by a provider in [place]; she does not know the results, and asks what is required to "qualify for an upper study [EGD] ." Overall, the patient reports that she is feeling much worse than her time of arrival, but is unable to specify what specific symptoms are troubling her the most at this time. She has no other stated complaints at this time. No concerns per nursing. Reason For Visit: ABDOMINAL PAIN Physical Exam Vital Signs: Temp Pulse Resp BP Pulse Ox 98.4 F 74 17 136/89 H 97 01/05/18 15:30 01/05/18 15:30 01/05/18 15:30 01/05/18 15:30 01/05/18 15:30 Intake & Output 01/04/18 01/05/18 01/06/18 06:59 06:59 06:59 Intake Total 300 2850 200 Output Total 300 Balance 300 2550 200 General appearance: PRESENT: no acute distress, well-developed, well-nourished - Overweight Head exam: PRESENT: atraumatic, normocephalic Eye exam: PRESENT: conjunctiva pink, EOMI, PERRLA. ABSENT: scleral icterus Ear exam: PRESENT: normal external ear exam Mouth exam: PRESENT: moist, tongue midline Neck exam: ABSENT: carotid bruit, JVD, lymphadenopathy, thyromegaly Respiratory exam: PRESENT: clear to auscultation baljinder. ABSENT: rales, rhonchi, wheezes Cardiovascular exam: PRESENT: RRR. ABSENT: diastolic murmur, rubs, systolic murmur Pulses: PRESENT: normal dorsalis pedis pul Vascular exam: PRESENT: normal capillary refill GI/Abdominal exam: PRESENT: normal bowel sounds, soft, tenderness - Mild RLQ/ LLQ tenderness with palpation; the patient does not appear to be in any discomfort on distracted exam (utilizing burton of stethoscope), no CVA tenderness. ABSENT: distended, guarding, mass, organolmegaly, rebound Rectal exam: PRESENT: deferred Extremities exam: PRESENT: full ROM. ABSENT: calf tenderness, clubbing, pedal edema Neurological exam: PRESENT: alert, awake, oriented to person, oriented to place , oriented to time, oriented to situation, CN II-XII grossly intact. ABSENT: motor sensory deficit Psychiatric exam: PRESENT: appropriate affect, normal mood. ABSENT: homicidal ideation, suicidal ideation Skin exam: PRESENT: dry, intact, warm. ABSENT: cyanosis, rash Results Laboratory Results: 01/05/18 06:16 01/05/18 06:16 01/05/18 01/05/18 06:16 06:16 WBC 28.0 H RBC 4.20 Hgb 13.1 Hct 38.1 MCV 91 MCH 31.3 MCHC 34.5 RDW 15.8 H Plt Count 368 Sodium 138.2 Potassium 3.7 Chloride 106 Carbon Dioxide 23 Anion Gap 9 BUN 6 L Creatinine 0.43 L Est GFR ( Amer) > 60 Est GFR (Non-Af Amer) > 60 Glucose 135 H Calcium 9.2 Total Bilirubin 0.6 AST 16 ALT 23 Alkaline Phosphatase 73 Total Protein 6.4 Albumin 3.6 Impressions: Abdomen/Pelvis CT 01/05/18 00:00 IMPRESSION: 1. No acute findings in the abdomen or pelvis. 2. Possible milk of calcium in the gallbladder. Assessment & Plan - Diagnosis (1) Abdominal pain Qualifiers: Abdominal location: lower abdomen, unspecified Qualified Code(s): R10.30 - Lower abdominal pain, unspecified Is this a current diagnosis for this admission?: Yes Plan: The patient complains of bilateral lower abdominal pain radiating to her left flank that is worsened with palpation. She is tolerating p.o. intake today. Likely secondary to severe constipation. Exam is negative for acute abdomen, patient remains afebrile. She continues to have leukocytosis, however, did receive IV Solu-Medrol while in the ED. CT of the abdomen and pelvis with IV contrast revealed a 2.8 cm left ovarian cyst which may also be contributing to her discomfort, otherwise benign. CT of the abdomen and pelvis with oral contrast today demonstrated milk of calcium in the gallbladder. LFTs are nml Pelvic exam by ED provider was benign; GC chlamydia negative, wet prep unremarkable The patient was admitted to the medical floor and supported with IV fluids. She was initially n.p.o.; this has been advanced to a brat diet with adequate tolerance. Diet is advanced to a regular diet per patient request. Oral analgesics and anti-emetics as needed for symptom management. Constipation was aggressively managed; she is now having bowel movements. Will check lipase/amylase with AM labs; consider surgical vs GI evaluation prior to discharge. (2) HTN (hypertension) Qualifiers: Hypertension type: essential hypertension Qualified Code(s): I10 - Essential (primary) hypertension Is this a current diagnosis for this admission?: Yes Plan: Blood pressures are improved; continue amlodipine 10 mg daily. (3) Asthma Qualifiers: Asthma severity: mild Asthma persistence: intermittent Is this a current diagnosis for this admission?: Yes Plan: As needed pro-air HFA. (4) Left ovarian cyst Is this a current diagnosis for this admission?: Yes Plan: [employer] outpatient follow-up. (5) Constipation Is this a current diagnosis for this admission?: Yes Plan: Resolved. Continue twice daily colace and as needed Miralax. (6) Leukocytosis Qualifiers: Leukocytosis type: unspecified Qualified Code(s): D72.829 - Elevated white blood cell count, unspecified Is this a current diagnosis for this admission?: Yes Plan: Secondary to #1 and IV solu-medrol. Stool cultures are pending. The patient did receive IV Cipro and Metronidazole for initial concern for colitis; these have since been discontinued. Patient remains afebrile with unremarkable exam; low suspicion for infectious process. Will continue to monitor. - Time Time Spent with patient: 25-34 minutes Medications reviewed and adjusted accordingly: Yes Anticipated discharge: Home Within: within 24 hours
[2018-01-05] MEDS: DOCUSATE SODIUM 100 MG CAPSULE PO SCH (17:51)
[2018-01-05] MEDS: PROMETHAZINE HCL INJ 25 MG/1 ML VIAL IV PRN (19:48)
[2018-01-06] MEDS: PROMETHAZINE HCL INJ 25 MG/1 ML VIAL IV PRN ×2 (00:11→08:29)
[2018-01-06] MEDS: HEPARIN SOD (PORCINE) 5,000 UNIT/ML 1 ML SYRINGE SUBCUT SCH (05:22)
[2018-01-06 06:58] LABS: HEMATOCRIT 39.1 % (36.0-47.0); HEMOGLOBIN 13.4 g/dL (12.0-15.5); MEAN CORPUSCULAR HEMOGLOBIN 30.9 pg (27.0-33.4); MEAN CORPUSCULAR HGB CONC 34.2 g/dL (32.0-36.0); MEAN CORPUSCULAR VOLUME 90 fl (80-97); PLATELET COUNT 360 10^3/uL (150-450); RED BLOOD COUNT 4.32 10^6/uL (3.72-5.28); RED CELL DISTRIBUTION WIDTH 15.4 % (11.5-14.0); WHITE BLOOD COUNT 17.3 10^3/uL (4.0-10.5)
[2018-01-06 07:12] LABS: ANION GAP 12 (5-19); BLOOD UREA NITROGEN 8 mg/dL (7-20); CALCIUM 9.3 mg/dL (8.4-10.2); CARBON DIOXIDE 24 mmol/L (22-30); CHLORIDE 104 mmol/L (98-107); GLUCOSE 95 mg/dL (75-110); LIPASE 19.4 U/L (23-300); POTASSIUM 3.9 mmol/L (3.6-5.0); SODIUM 139.5 mmol/L (137-145)
[2018-01-06 07:13] LABS: AMYLASE < 30 U/L (30-110)
[2018-01-06] MEDS: HYDROCODONE/ACETAMINOPHEN 5-325 MG TABLET PO PRN (08:29)
[2018-01-06] MEDS ORDERED: AMLODIPINE BESYLATE 10 MG TABLET PO SCH (10:00)
[2018-01-06] MEDS: DOCUSATE SODIUM 100 MG CAPSULE PO SCH (10:03)
[2018-01-06 13:02] VITALS: BP 149/96
--- NOTE | 2018-01-06 17:21 | PDOC DISCHARGE SUMMARY ---
General - Admit/Disc Date/PCP Admission Date/Primary Care Provider: 01/04/18 05:04 Discharge Date: 01/06/18 - Discharge Diagnosis (1) Abdominal pain Is this a current diagnosis for this admission?: Yes Summary: CT of the abdomen and pelvis with IV contrast revealed a 2.8 cm left ovarian cyst which may also be contributing to her discomfort, otherwise benign. CT of the abdomen and pelvis with oral contrast today demonstrated milk of calcium in the gallbladder. LFTs are nml Pelvic exam by ED provider was benign; GC chlamydia negative, wet prep unremarkable. Stool culture is negative. (2) HTN (hypertension) Is this a current diagnosis for this admission?: Yes Summary: Improved following initiation of amlodipine 10 mg daily. (3) Asthma Is this a current diagnosis for this admission?: Yes Summary: Mild intermittent asthma; without exacerbation. (4) Left ovarian cyst Is this a current diagnosis for this admission?: Yes Summary: Noted on CT of the abdomen and pelvis. Recommend as needed [facility] outpatient follow-up. (5) Constipation Is this a current diagnosis for this admission?: Yes Summary: Resolved. (6) Leukocytosis Is this a current diagnosis for this admission?: Yes Summary: Improved; WBCs are trending down. Secondary to #1 and IV solu-medrol. Stool cultures are negative. The patient did receive IV Cipro and Metronidazole for initial concern for colitis; these were discontinued on admission. Patient remains afebrile with unremarkable exam; low suspicion for infectious process. No indications for antibiotics upon discharge. - Additional Information Resuscitation Status: Full Code Discharge Diet: As Tolerated, Other (Comments) Discharge Activity: Activity As Tolerated Prescriptions: Amlodipine Besylate [Norvasc 10 mg Tablet] 10 mg PO DAILY #30 tablet Docusate Sodium [Colace 100 mg Capsule] 100 mg PO DAILY #30 capsule Hydrocodone/Acetaminophen [[place]achella 5-325 mg Tablet] 1 tab PO Q6HP PRN #10 tablet PRN Reason: Ondansetron [Zofran Odt] 4 mg PO Q6HP PRN #10 tab.rapdis PRN Reason: For Nausea/Vomiting Home Medications: Albuterol Sulfate [Proair HFA Inhalation Aerosol 8.5 gm MDI] 2 puff IH Q4HP PRN 01/04/18 Amlodipine Besylate [Norvasc 10 mg Tablet] 10 mg PO DAILY #30 tablet 01/06/18 Docusate Sodium [Colace 100 mg Capsule] 100 mg PO DAILY #30 capsule 01/06/18 Hydrocodone/Acetaminophen [[place] 5-325 mg Tablet] 1 tab PO Q6HP PRN #10 tablet 01/06/18 Ibuprofen [Motrin 600 mg Tablet] 600 mg PO Q8HP PRN tablet 01/06/18 Ondansetron [Zofran Odt] 4 mg PO Q6HP PRN #10 tab.rapdis 01/06/18 Polyethylene Glycol 3350 [Miralax Powder 17 gm/Packet] 17 gm PO DAILYP PRN powd.pack 01/06/18 History of Present Illness History of Present Illness: Per H&P by Dr. Garcia: CECIL GARG is a 37 year old female who comes to the emergency department complaining of abdominal pain, she describes this as supra pubic radiated to the back, sharp in nature, going up to 9/10 intensity. Her last bowel movement was yesterday nonbloody and normal consistency. Denies fever, chills, has been nauseous and had 2 episodes of mild vomiting at home. Denies chest pain, shortness of breath, urinary symptoms. Reviewing prior visit to the emergency department patient was labeled as Crohn's , further conversation with the patient tells me that she never has been diagnosed with Crohn's and that was a diagnosis that was given by an ED attending on April this year. Patient had a colonoscopy done September this year by a GI doctor Beverley Nevarez, and she tells me that she was waiting for "stool samples" to make the diagnosis; she does not know any results of the colonoscopy as the doctor is in [place] and she did not go back for follow- up. As per her suprapubic symptomatology vaginal examination with wet prep done. Patient has leukocytosis with white blood cells of 26.6, patient was started on IV Flagyl and IV ciprofloxacin and was given 125 mg of Solu-Medrol IV. Hospital Course Hospital Course: The patient was admitted with complaints of bilateral lower abdominal pain radiating to her left flank associated with nausea. Her nausea and vomiting improved markedly following resolution of her constipation. She did continue to have a abdominal discomfort. CT imaging was reassuring for infectious process but did incidentally find a 2.8 cm left ovarian cyst and calcium Milk gallbladder which may each have contributed to her abdominal discomfort in addition to her significant stool load. She did receive IV Flagyl and Cipro x1 while in the emergency department; these were discontinued upon admission. She was noted to have leukocytosis on admission with WBCs of 26.6. The patient reported a history of Crohn's disease and so received IV Solu-Medrol on admission. Her WBCs are now trending down. She remains afebrile with an unremarkable abdominal exam. No indications for continued antibiotic therapy. Her constipation resolved with Colace and MiraLAX. She continues to have intermittent mild nausea, without emesis, and is tolerating p.o. fluids without difficulty. She was noted to be hypertensive and so was placed on Norvasc with improvement in blood pressures. Recommend outpatient follow-up and continue titration of medications. The patient is discharged home in stable condition. She is recommended to follow-up with her primary care provider within 1 week. She is also advised to follow-up with the [facility] for evaluation of her gallbladder if she continues to have epigastric discomfort associated with meals. She may also wish to follow-up with [facility] for evaluation of her left ovarian cyst. She was provided a 1 month prescription for amlodipine and Colace; and short prescriptions for Motrin, [place], and Zofran. She was encouraged to return to the emergency department as needed for any concerning symptoms. Physical Exam Vital Signs: Temp Pulse Resp BP Pulse Ox 98.5 F 93 16 149/96 H 97 01/06/18 13:01 01/06/18 13:01 01/06/18 13:01 01/06/18 13:01 01/06/18 13:01 Intake & Output 01/05/18 01/06/18 01/07/18 06:59 06:59 06:59 Intake Total 2850 440 325 Output Total 300 Balance 2550 440 325 General appearance: PRESENT: no acute distress, well-developed, well-nourished - Overweight Head exam: PRESENT: atraumatic, normocephalic Eye exam: PRESENT: conjunctiva pink, EOMI, PERRLA. ABSENT: scleral icterus Ear exam: PRESENT: normal external ear exam Mouth exam: PRESENT: moist, tongue midline Neck exam: ABSENT: carotid bruit, JVD, lymphadenopathy, thyromegaly Respiratory exam: PRESENT: clear to auscultation baljinder, symmetrical, unlabored. ABSENT: rales, rhonchi, wheezes Cardiovascular exam: PRESENT: RRR. ABSENT: diastolic murmur, rubs, systolic murmur Vascular exam: PRESENT: normal capillary refill GI/Abdominal exam: PRESENT: normal bowel sounds, soft, tenderness - Bilateral lower quadrants. ABSENT: distended, guarding, mass, organolmegaly, rebound Rectal exam: PRESENT: deferred Extremities exam: PRESENT: full ROM. ABSENT: calf tenderness, clubbing, pedal edema Musculoskeletal exam: PRESENT: ambulatory Neurological exam: PRESENT: alert, awake, oriented to person, oriented to place , oriented to time, oriented to situation, CN II-XII grossly intact. ABSENT: motor sensory deficit Psychiatric exam: PRESENT: appropriate affect, normal mood. ABSENT: homicidal ideation, suicidal ideation Skin exam: PRESENT: dry, intact, warm. ABSENT: cyanosis, rash Results Laboratory Results: 01/06/18 06:25 01/06/18 06:25 01/06/18 01/06/18 06:25 06:25 WBC 17.3 H RBC 4.32 Hgb 13.4 Hct 39.1 MCV 90 MCH 30.9 MCHC 34.2 RDW 15.4 H Plt Count 360 Sodium 139.5 Potassium 3.9 Chloride 104 Carbon Dioxide 24 Anion Gap 12 BUN 8 Creatinine 0.45 L Est GFR ( Amer) > 60 Est GFR (Non-Af Amer) > 60 Glucose 95 Calcium 9.3 Amylase < 30 L Lipase 19.4 L 01/04/18 16:21 Stool - Stool - Final 01/04/18 16:21 Stool - Stool Stool Culture - Final NO SALMONELLA, SHIGELLA, CAMPYLOBACTER, OR E.COLI 0157 RECOVERED. NEGATIVE FOR SHIGA TOXINS 1&2. Impressions: Abdomen/Pelvis CT 01/05/18 00:00 IMPRESSION: 1. No acute findings in the abdomen or pelvis. 2. Possible milk of calcium in the gallbladder. Qualifiers - * PATIENT BEING DISCHARGED WITH ANY OF THE FOLLOWING DIAGNOSIS: No Plan Discharge Plan: Follow-up with primary care provider within 1 week. Follow-up with the [facility] as needed. Return to the emergency department as needed for concerning symptoms. Time Spent: Less than 30 Minutes
== END 2018-01-06 14:12 | disposition home or self-care (01) ==
LOC: ER 01:45 → INTOOBSV 05:04 → EH 05:04 → 2S 07:00
PROVIDERS: ADMIT Internal Medicine; ATTEND Internal Medicine
DX: R10.31 Right lower quadrant pain (principal); R10.32 Left lower quadrant pain; N83.202 Unspecified ovarian cyst, left side; I10 Essential (primary) hypertension; J45.20 Mild intermittent asthma, uncomplicated; K59.00 Constipation, unspecified; D72.828 Other elevated white blood cell count; R11.2 Nausea with vomiting, unspecified; R10.13 Epigastric pain; F17.210 Nicotine dependence, cigarettes, uncomplicated; E66.3 Overweight; E86.0 Dehydration; F19.90 Other psychoactive substance use, unspecified, uncomplicated; Z79.899 Other long term (current) drug therapy; Z86.14 Personal history of Methicillin resistant Staphylococcus aureus infection; Z83.79 Family history of other diseases of the digestive system; Z98.890 Other specified postprocedural states; Z68.32 Body mass index [BMI] 32.0-32.9, adult
CPT/HCPCS: 99285; 96361; 96375; 96365; 96368; 36415 ×3; 87045; 87205; 87210; 82150; 83690; 85025; 85027 ×2; 81025; 80048 ×2; 80053; 81001; 80307; 87491; 87591; 74176; 74177; G0378 ×4; J3490 ×3; J0360; J2930; J2765; J2270; J1170; J2550 ×2; J2405; J7030; J0744 ×2

== ENCOUNTER 2018-01-08 11:29 | Emergency (ER) | payer SELFPAY ==
[2018-01-08] MEDS ORDERED: NORMAL SALINE 1000 ML 1,000 ML IV ONE (12:10)
[2018-01-08] MEDS ORDERED: MORPHINE SULFATE 10 MG/ML INJ IV ONE ×2 (12:10→15:15)
[2018-01-08] MEDS ORDERED: PROMETHAZINE HCL INJ 25 MG/1 ML VIAL IV ONE ×2 (12:10→13:53)
--- NOTE | 2018-01-08 12:12 | ER Document Report ---
ED Medical Screen (RME) - General Chief Complaint: Abdominal Pain Stated Complaint: ABDOMINAL PAIN Time Seen by Provider: 01/08/18 12:09 Mode of Arrival: Medic Information source: Patient TRAVEL OUTSIDE OF THE U.S. IN LAST 30 DAYS: No - HPI Patient complains to provider of: abd pain Onset: Yesterday - pt recently admitted for gall bladder issues -- called EMS today for severe abd pain with N and vomiting - Related Data Allergies/Adverse Reactions: ketorolac [From Toradol] Allergy (Verified 01/08/18 12:00) Sulfa (Sulfonamide Antibiotics) Allergy (Verified 01/08/18 11:33) Past Medical History - Social History Frequency of alcohol use: None Drug Abuse: None Pulmonary Medical History: Reports: Hx Asthma, Hx Pneumonia - hx of Renal/ Medical History: Reports: Hx Ectopic , Hx Ovarian Cysts. Denies: Hx Peritoneal Dialysis GI Medical History: Reports: Hx Gastroesophageal Reflux Disease Skin Medical History: Reports Hx MRSA Psychiatric Medical History: Reports: Hx Anxiety, Hx Attention Deficit Hyperactivity Disorder, Hx Bipolar Disorder, Hx Depression Infectious Medical History: Reports: Hx MRSA Past Surgical History: Reports: Hx Section, Hx Gynecologic Surgery - tubal - Immunizations Immunizations up to date: Yes Hx Diphtheria, Pertussis, Tetanus Vaccination: Yes History of Influenza Vaccine for 12/2016 - 05/2017 Season: Refused Physical Exam - Vital signs Vitals: Temp Pulse Resp BP Pulse Ox 98.5 F 105 H 20 169/116 H 98 01/08/18 11:49 01/08/18 11:49 01/08/18 11:49 01/08/18 11:49 01/08/18 11:49 Course - Vital Signs Vital signs: Temp Pulse Resp BP Pulse Ox 98.5 F 105 H 20 169/116 H 98 01/08/18 11:49 01/08/18 11:49 01/08/18 11:49 01/08/18 11:49 01/08/18 11:49
[2018-01-08 12:52] LABS: ABSOLUTE BASOPHILS # (AUTO) 0.1 10^3/uL (0.0-0.2); ABSOLUTE EOSINOPHILS # (AUTO) 0.8 10^3/uL (0.0-0.6); ABSOLUTE LYMPHOCYTES (AUTO) 2.5 10^3/uL (0.5-4.7); ABSOLUTE MONOCYTES (AUTO) 0.9 10^3/uL (0.1-1.4); ABSOLUTE NEUT (AUTO) 9.2 10^3/uL (1.7-8.2); BASOPHILS % (AUTO) 0.6 % (0-2); EOSINOPHILS % (AUTO) 5.9 % (0-6); HEMATOCRIT 39.2 % (36.0-47.0); HEMOGLOBIN 13.3 g/dL (12.0-15.5); LYMPHOCYTES % (AUTO) 18.5 % (13-45); MEAN CORPUSCULAR HEMOGLOBIN 30.8 pg (27.0-33.4); MEAN CORPUSCULAR VOLUME 91 fl (80-97); MONOCYTES % (AUTO) 6.6 % (3-13); PLATELET COUNT 475 10^3/uL (150-450); RED BLOOD COUNT 4.33 10^6/uL (3.72-5.28); RED CELL DISTRIBUTION WIDTH 15.1 % (11.5-14.0); SEGMENTED NEUTROPHILS % (AUTO) 68.4 % (42-78); TOTAL CELLS COUNTED % (AUTO) 100 %; WHITE BLOOD COUNT 13.4 10^3/uL (4.0-10.5)
[2018-01-08 12:55] LABS: ALANINE AMINOTRANSFERASE 15 U/L (9-52); ALKALINE PHOSPHATASE 62 U/L (38-126); ANION GAP 12 (5-19); ASPARTATE AMINO TRANSFERASE 20 U/L (14-36); BILIRUBIN,DIRECT 0.4 mg/dL (0.0-0.4); BILIRUBIN,TOTAL 0.7 mg/dL (0.2-1.3); BLOOD UREA NITROGEN 8 mg/dL (7-20); CALCIUM 9.6 mg/dL (8.4-10.2); CARBON DIOXIDE 27 mmol/L (22-30); CHLORIDE 101 mmol/L (98-107); GLUCOSE 90 mg/dL (75-110); LIPASE 33.6 U/L (23-300); POTASSIUM 3.6 mmol/L (3.6-5.0); SODIUM 140.2 mmol/L (137-145); TOTAL PROTEIN 6.8 g/dL (6.3-8.2)
--- NOTE | 2018-01-08 13:35 | RADIOLOGY REPORT (SQ) ---
EXAM DESCRIPTION: ACUTE ABDOMEN SERIES COMPLETED DATE/TIME: 01/08/2018 1:19 pm REASON FOR STUDY: abd pain COMPARISON: Abdominal CT scan dated 01/05/2018 NUMBER OF VIEWS: Three views. TECHNIQUE: Frontal chest, supine abdomen and upright/decubitus abdomen radiographic images acquired. LIMITATIONS: None. FINDINGS: CHEST: Lungs clear of infiltrates. FREE AIR: None. No abnormal gas collections. BOWEL GAS PATTERN: Nonobstructive pattern. No dilated loops or air fluid levels. Small amount residu al oral contrast is identified in the colon. CALCIFICATIONS: No suspicious calcifications. HARDWARE: None in the abdomen. SOFT TISSUES: No gross mass or suggestion of organomegaly. BONES: No acute fracture. No worrisome bone lesions. OTHER: No other significant finding. IMPRESSION: NO RADIOGRAPHIC EVIDENCE FOR ACUTE ABDOMINAL DISEASE. TECHNICAL DOCUMENTATION: JOB ID: [id number] [employer]- All Rights Reserved Reading location - IP/workstation name: [email or web address]
--- NOTE | 2018-01-08 13:54 | ER Document Report ---
ED General - General Chief Complaint: Abdominal Pain Stated Complaint: ABDOMINAL PAIN Time Seen by Provider: 01/08/18 12:09 Mode of Arrival: Medic Information source: Patient Notes: 37-year-old female presents emergency department nausea, vomiting, abdominal pain. Patient states that this is been intermittent over the last year. Patient states that she was just discharged from the hospital for similar symptoms on 01/06/18. Patient's pain is an aching sensation in the epigastric and RUQ area. No radiation of the pain. No alleviating or exacerbating factors. Associated nausea, vomiting. Denies diarrhea, constipation, vaginal discharge, vaginal bleeding. Patient says that she was discharged from the hospital and told to followup out patient with [facility] [employer] [facility] and general surgery. TRAVEL OUTSIDE OF THE [place].S. IN LAST 30 DAYS: No - HPI Onset: Other - 1 year Quality of pain: Achy Associated symptoms: Nausea, Vomiting Exacerbated by: Denies Relieved by: Denies Similar symptoms previously: Yes Recently seen / treated by doctor: Yes - Related Data Allergies/Adverse Reactions: ketorolac [From Toradol] Allergy (Verified 01/08/18 12:00) Sulfa (Sulfonamide Antibiotics) Allergy (Verified 01/08/18 11:33) Past Medical History - General Information source: Patient - Social History Smoking Status: Current Every Day Smoker Frequency of alcohol use: None Drug Abuse: None Family History: Reviewed & Not Pertinent, Thyroid Disfunction Patient has suicidal ideation: No Patient has homicidal ideation: No Pulmonary Medical History: Reports: Hx Asthma, Hx Pneumonia - hx of Renal/ Medical History: Reports: Hx Ectopic , Hx Ovarian Cysts. Denies: Hx Peritoneal Dialysis GI Medical History: Reports: Hx Gastroesophageal Reflux Disease Skin Medical History: Reports Hx MRSA Psychiatric Medical History: Reports: Hx Anxiety, Hx Attention Deficit Hyperactivity Disorder, Hx Bipolar Disorder, Hx Depression Infectious Medical History: Reports: Hx MRSA Past Surgical History: Reports: Hx Section, Hx Gynecologic Surgery - tubal - Immunizations Immunizations up to date: Yes Hx Diphtheria, Pertussis, Tetanus Vaccination: Yes Review of Systems - Review of Systems Constitutional: No symptoms reported EENT: No symptoms reported Cardiovascular: No symptoms reported Respiratory: No symptoms reported Gastrointestinal: Abdominal pain, Nausea, Vomiting Genitourinary: No symptoms reported Female Genitourinary: No symptoms reported Musculoskeletal: No symptoms reported Skin: No symptoms reported Hematologic/Lymphatic: No symptoms reported Neurological/Psychological: No symptoms reported -: Yes All other systems reviewed and negative Physical Exam - Vital signs Vitals: Temp Pulse Resp BP Pulse Ox 98.5 F 105 H 20 169/116 H 98 01/08/18 11:49 01/08/18 11:49 01/08/18 11:49 01/08/18 11:49 01/08/18 11:49 - General Notes: PHYSICAL EXAMINATION: GENERAL: Well-appearing, well-nourished and in no acute distress. HEAD: Atraumatic, normocephalic. EYES: Pupils equal round and reactive to light, extraocular movements intact, conjunctiva are normal. ENT: Nares patent, oropharynx clear without exudates. Moist mucous membranes. NECK: Normal range of motion, supple without lymphadenopathy LUNGS: Breath sounds clear to auscultation bilaterally and equal. No wheezes rales or rhonchi. HEART: Regular rate and rhythm without murmurs ABDOMEN: Soft, Tenderness to palpation in the epigastric and RUQ area. No guarding, no rebound. No masses appreciated. Female : deferred Musculoskeletal: Normal range of motion, no pitting or edema. No cyanosis. NEUROLOGICAL: Cranial nerves grossly intact. Normal speech, normal gait. Normal sensory, motor exams PSYCH: Normal mood, normal affect. SKIN: Warm, Dry, normal turgor, no rashes or lesions noted. Course - Re-evaluation Re-evalutation: 01/08/18 14:00 Patient states that her pain is similar to her previous admission. CT abdomen pelvis was done during her last admission. Ovarian cyst and calcium in the gallbladder was appreciated. During admission she had a white blood cell count of 26.6. She was given Cipro and flagyl. Her white blood cell count has been steadily decreasing. Stool culture was negative. Patient was noted to have constipation and received Colace and MiraLAX. Patient was told to continue taking medication for constipation outpatient. Patient was also told to follow- up with the [facility] for evaluation of her gallbladder if she continued to have epigastric discomfort with meals. Patient states that she does not have insurance and was unable to get an appointment. Patient was given prescriptions for amlodipine, Colace, Motrin, Ellis, Zofran. Patient states that she only filled the norco. 01/08/18 14:03 01/08/18 15:27 Labs and imaging obtained today. WBC is decreasing. Labs are otherwise unremarkable. With the patient having RUQ pain, BG US was ordered. This was negative. I discussed the results with the patient. She still have her rx from previous hospitalization. She understands that she needs to fill her rx and follow up with her primary care physician. Patient requesting additional narcotic rx. I told the patient i would not refill this medication. I told her she needs to follow up with a primary care physician outpatient. I will discharge her home. - Vital Signs Vital signs: Temp Pulse Resp BP Pulse Ox 98.5 F 105 H 20 169/116 H 98 01/08/18 11:49 01/08/18 11:49 01/08/18 11:49 01/08/18 11:49 01/08/18 11:49 - Laboratory Result Diagrams: 01/08/18 11:02 01/08/18 11:02 Laboratory results interpreted by me: 01/08/18 01/08/18 11:02 11:02 WBC 13.4 H RDW 15.1 H Plt Count 475 H Absolute Neutrophils 9.2 H Absolute Eosinophils 0.8 H Creatinine 0.49 L Discharge - Discharge Clinical Impression: Abdominal pain Qualifiers: Abdominal location: epigastric Qualified Code(s): R10.13 - Epigastric pain Condition: Good Disposition: HOME, SELF-CARE Instructions: Abdominal Pain ([facility]) Referrals: KINGA LAW MD [ACTIVE STAFF] - Follow up as needed ELMER KOTHARI MD [[facility]] - Follow up as needed
--- NOTE | 2018-01-08 15:18 | RADIOLOGY REPORT (SQ) ---
EXAM DESCRIPTION: U/S ABDOMEN LIMITED W/O DOP COMPLETED DATE/TIME: 01/08/2018 2:55 pm REASON FOR STUDY: ruq pain COMPARISON: None. TECHNIQUE: Dynamic and static grayscale images acquired of the abdomen and recorded on PACS. Philippo kiesha selected color Doppler and spectral images recorded. LIMITATIONS: None. FINDINGS: PANCREAS: No masses. Visualized pancreatic duct normal caliber. LIVER: The liver measures 15.3 cm in length, normal size. Echotexture normal. LIVER VASCULATURE: Normal directional flow of the main portal vein and hepatic veins. GALLBLADDER: No stones. The gallbladder wall measures 2.5 mm, normal wall thickness. No pericholecys tic fluid. ULTRASOUND-DETECTED SANTOYO'S SIGN: Negative. INTRAHEPATIC DUCTS AND COMMON DUCT: CBD common bile duct measures 4.0 mm in diameter, normal. The i ntrahepatic ducts normal caliber. No filling defects. INFERIOR VENA CAVA: Normal flow. AORTA: No aneurysm. RIGHT KIDNEY: The right kidney measures 9.7 cm in length, normal size. Normal echogenicity. No paxton d or suspicious masses. No hydronephrosis. No calcifications. PERITONEAL AND RIGHT PLEURAL SPACE: No ascites or effusions. OTHER: No other significant findings. IMPRESSION: 1. NORMAL RIGHT UPPER QUADRANT ULTRASOUND. TECHNICAL DOCUMENTATION: JOB ID: [id number] [employer]- All Rights Reserved Reading location - IP/workstation name: [email or web address]
[2018-01-08 16:47] VITALS: BP 180/101
== END 2018-01-08 16:43 | disposition home or self-care (01) ==
LOC: ER 11:29
DX: R10.13 Epigastric pain (principal); R10.11 Right upper quadrant pain; R11.2 Nausea with vomiting, unspecified; F17.200 Nicotine dependence, unspecified, uncomplicated; J45.909 Unspecified asthma, uncomplicated; Z91.14 Patient's other noncompliance with medication regimen; Z87.59 Personal history of other complications of pregnancy, childbirth and the puerperium; Z87.42 Personal history of other diseases of the female genital tract; Z87.19 Personal history of other diseases of the digestive system; Z88.8 Allergy status to other drugs, medicaments and biological substances; Z88.2 Allergy status to sulfonamides
CPT/HCPCS: 96376; 99285; 96361; 96374; 96375; 36415; 83690; 85025; 81025; 80053; 74022; 76705; J2270; J2550; J7030

== ENCOUNTER 2018-04-07 21:35 | Emergency (ER) | payer SELFPAY ==
[2018-04-08] MEDS ORDERED: NAPROXEN 250 MG TABLET PO ONE (00:13)
[2018-04-08] MEDS ORDERED: PENICILLIN V POTASSIUM 500 MG TABLET PO ONE (00:13)
--- NOTE | 2018-04-08 00:18 | ER Document Report ---
HPI - HPI Patient complains to provider of: ear pain Pain Level: 5 Context: Patient is a 37-year-old female presents to the emergency department complaining of bilateral ear pain. Patient states she started with left ear pain about 2 weeks ago and started with right ear pain again 2 days ago. Patient states she has had a minor cough but denies any nasal congestion or fevers. Patient denies any vomiting, diarrhea, chest pain, abdominal pain, dysuria. Past medical history: Asthma Medications: Albuterol Allergies: Sulfa - EENT EENT: REPORTS: Ear Pain - both ears - NEURO Neurology: REPORTS: Headache, Dizzinesss / Vertigo - RESPIRATORY Respiratory: REPORTS: Coughing - REPRODUCTIVE Reproductive: DENIES: : <YOUSIF RICARDO - Last Filed: 04/08/18 01:48> <ALISE RIVERA - Last Filed: 04/10/18 08:34> - HPI Time Seen by Provider: 04/07/18 23:37 Past Medical History - General Information source: Patient - Social History Smoking Status: Current Every Day Smoker Chew tobacco use (# tins/day): No Frequency of alcohol use: None Drug Abuse: None Family History: Reviewed & Not Pertinent, Thyroid Disfunction Patient has suicidal ideation: No Patient has homicidal ideation: No Pulmonary Medical History: Reports: Hx Asthma, Hx Pneumonia - hx of Renal/ Medical History: Reports: Hx Ectopic , Hx Ovarian Cysts. Den ies: Hx Peritoneal Dialysis GI Medical History: Reports: Hx Gastroesophageal Reflux Disease Skin Medical History: Reports Hx MRSA Psychiatric Medical History: Reports: Hx Anxiety, Hx Attention Deficit Hyperactivity Disorder, Hx Bipolar Disorder, Hx Depression Infectious Medical History: Reports: Hx MRSA Past Surgical History: Reports: Hx Section, Hx Gynecologic Surgery - tubal - Immunizations Immunizations up to date: Yes Hx Diphtheria, Pertussis, Tetanus Vaccination: Yes <YOUSIF RICARDO - Last Filed: 04/08/18 01:48> Vertical Provider Document - CONSTITUTIONAL Agree With Documented VS: Yes Notes: GENERAL: Alert, interacts well. No acute distress. HEAD: Normocephalic, atraumatic. EYES: Pupils equal, round, and reactive to light. Extraocular movements intact. ENT: Oral mucosa moist, tongue midline. Nares patent, no swollen turbinates noted, TM's intact, nonerythematous, nonbulging. Negative tragal tenderness bilaterally. No mastoid tenderness or redness . Pharynx within normal limits, no palatal petechiae noted. Patient is noted to have very poor dentition. Upon palpation around tooth 14 and 15 patient states she has increased pain. Gums are erythematous with no areas of fluctuance or induration noted. Obvious dental caries noted multiple teeth. NECK: Full range of motion. Supple. Trachea midline. LUNGS: Clear to auscultation bilaterally, no wheezes, rales, or rhonchi. No respiratory distress. HEART: Regular rate and rhythm. No murmur ABDOMEN: Soft, non-tender. Non-distended. Bowel sounds present in all 4 quadrants. EXTREMITIES: Moves all 4 extremities spontaneously. No edema, normal radial and dorsalis pedis pulses bilaterally. No cyanosis. BACK: no cervical, thoracic, lumbar midline tenderness. No saddle anesthesia, normal distal neurovascular exam. NEUROLOGICAL: Alert and oriented x3. Normal speech. cranial nerves II through X II grossly intact. PSYCH: Normal affect, normal mood. SKIN: Warm, dry, normal turgor. No rashes or lesions noted. - INFECTION CONTROL TRAVEL OUTSIDE OF THE [place] IN LAST 30 DAYS: No <YOUSIF RICARDO - Last Filed: 04/08/18 01:48> Course - Re-evaluation Re-evalutation: 04/08/18 00:16 Discussed with patient that the ear pain is likely due to a dental infection. Discussed need to follow-up with dentist, and primary care provider. Patient states she has been taking Tylenol and Motrin at home. Discussed with her taking naproxen and antibiotics for home use. Patient stable for discharge This medical record was dictated with voice recognizing software. There may be grammatical, syntax errors that are unintended. - Vital Signs Vital signs: Temp Pulse Resp BP Pulse Ox 98.5 F 74 16 133/82 H 98 04/07/18 21:43 04/07/18 21:43 04/07/18 21:43 04/07/18 21:43 04/07/18 21:43 <YOUSIF RICARDO - Last Filed: 04/08/18 01:48> - Vital Signs Vital signs: Temp Pulse Resp BP Pulse Ox 98.7 F 77 18 130/88 H 98 04/08/18 00:41 04/08/18 00:41 04/08/18 00:41 04/08/18 00:41 04/08/18 00:41 <ALISE RIVERA - Last Filed: 04/10/18 08:34> Discharge <DEANNE RICARDOGABRIELMIGUEL - Last Filed: 04/08/18 01:48> <ALISE RIVERA - Last Filed: 04/10/18 08:34> - Discharge Clinical Impression: Tooth decay, Tooth pain, Otalgia of both ears Condition: Stable Disposition: HOME, SELF-CARE Instructions: [facility], Penicillin V K ([facility]), Toothache ([facility]) Additional Instructions: As we discussed you have been seen and treated in the emergency department for your bilateral ear pain. I believe your ear pain is caused by a dental infection. Please take antibiotics as prescribed. Please follow-up with the dentist provided in this paperwork and also your primary care provider please return to the emergency room for any other concerning symptoms. Prescriptions: Penicillin V Potassium [Penicillin Vk 500 mg Tablet] 500 mg PO BID #20 tablet Cosign for MLP Consult
[2018-04-08 00:43] VITALS: BP 130/88
== END 2018-04-08 00:45 | disposition home or self-care (01) ==
LOC: ER 21:35
DX: K02.9 Dental caries, unspecified (principal); H92.03 Otalgia, bilateral; R05 Cough; J45.909 Unspecified asthma, uncomplicated; F17.200 Nicotine dependence, unspecified, uncomplicated; Z79.899 Other long term (current) drug therapy; Z88.2 Allergy status to sulfonamides
CPT/HCPCS: 99282

== ENCOUNTER 2018-04-17 16:50 | Emergency (ER) | payer SELFPAY ==
[2018-04-17 17:01] VITALS: BP 152/113
[2018-04-17] MEDS ORDERED: LIDOCAINE 1% INJ-PF (10 MG/ML) 30 ML SDV INJ ONE (18:32)
--- NOTE | 2018-04-17 18:32 | ER Document Report ---
ED General - General Chief Complaint: Abscess Stated Complaint: POSSIBLE ABSCESS Time Seen by Provider: 04/17/18 17:52 Notes: Patient is a 37 female that presents to the emergency department for chief complaint of right axilla abscess. Patient reports she has a 3-4 days ago started using warm compresses, without much relief of her pain, and continued to get larger in size she has had a history of hidradenitis and multiple abscesses in the past, she denies any fevers, chills, night sweats, chest pain, shortness of breath, nausea, vomiting or any other symptoms at this time. She currently rates her pain as a 6 out of 10 describes as a constant aching sensation, worse with palpating her right armpit. Past Medical History: Hypertension, hidradenitis Past Surgical History: , ectopic surgery Social History: Admits to smoking cigarettes daily, denies alcohol or drug use. Family History: Reviewed and noncontributory for presenting illness Allergies: Reviewed, see documented allergy list. REVIEW OF SYSTEMS: Other than noted above, the 12 point review of systems was reviewed with the patient and were negative, all pertinent findings are included in the HPI. PHYSICAL EXAMINATION: Vital signs reviewed, nursing noted reviewed. GENERAL: Well-appearing, well-nourished and in no acute distress. HEAD: Atraumatic, normocephalic. EYES: Eyes appear normal, sclera anicteric, conjunctiva are normal. ENT: Moist mucous membranes. NECK: Normal range of motion, supple without lymphadenopathy LUNGS: Breath sounds clear to auscultation bilaterally and equal. No wheezes rales or rhonchi. HEART: Regular rate and rhythm without murmurs EXTREMITIES: In the right axilla, there is an abscess measured approximately 2 cmx2cm tender to palpate, no active drainage at this time., No lymphangitis, no palpable lymphadenopathy, otherwise the rest the patient's extremity exam is unremarkable, good range of motion, no pitting or edema. NEUROLOGICAL: No focal neurological deficits. Moves all extremities spontaneo usly Motor and sensory grossly intact on exam. PSYCH: Normal mood, normal affect. SKIN: Warm, Dry, normal turgor, TRAVEL OUTSIDE OF THE [place] IN LAST 30 DAYS: No - Related Data Allergies/Adverse Reactions: ketorolac [From Toradol] Allergy (Verified 04/17/18 16:51) Sulfa (Sulfonamide Antibiotics) Allergy (Verified 04/17/18 16:51) Past Medical History - Social History Smoking Status: Unknown if Ever Smoked Chew tobacco use (# tins/day): No Frequency of alcohol use: None Drug Abuse: None Family History: Reviewed & Not Pertinent, Thyroid Disfunction Patient has suicidal ideation: No Patient has homicidal ideation: No Pulmonary Medical History: Reports: Hx Asthma, Hx Pneumonia - hx of Renal/ Medical History: Reports: Hx Ectopic , Hx Ovarian Cysts. Denies: Hx Peritoneal Dialysis GI Medical History: Reports: Hx Gastroesophageal Reflux Disease Skin Medical History: Reports Hx MRSA Psychiatric Medical History: Reports: Hx Anxiety, Hx Attention Deficit Hyperactivity Disorder, Hx Bipolar Disorder, Hx Depression Infectious Medical History: Reports: Hx MRSA Past Surgical History: Reports: Hx Section, Hx Gynecologic Surgery - tubal - Immunizations Immunizations up to date: Yes Hx Diphtheria, Pertussis, Tetanus Vaccination: Yes Physical Exam - Vital signs Vitals: Temp Pulse Resp BP Pulse Ox 98.3 F 89 18 152/113 H 97 04/17/18 17:00 04/17/18 17:00 04/17/18 17:00 04/17/18 17:00 04/17/18 17:00 Course - Re-evaluation Re-evalutation: Patient seen and examined, vital signs reviewed, patient did not appear systemically ill, and I&D performed as noted, patient tolerated well, placed on doxycycline, she has a history to MRSA, and allergy to sulfa, advised to continue taking the antibiotics as prescribed, and follow-up with wound care. Patient agreeable to plan of care and discharged home. Advised her to continue using warm compresses, and to take NSAIDs as needed for pain, she was given a [place] dispense pack, for acute pain post I&D. - Vital Signs Vital signs: Temp Pulse Resp BP Pulse Ox 98.3 F 89 18 152/113 H 97 04/17/18 17:00 04/17/18 17:00 04/17/18 17:00 04/17/18 17:00 04/17/18 17:00 Procedures - Incision and Drainage Right Arm Type: Simple Anesthetic type: 1% Lidocaine w/epi mL's of anesthetic: 2 Blade size: 11 I&D procedure: Chlorprep applied, Shurclens applied Incision Method: Incision made with needle Amount/type of drainage: 1.5ml Notes: Patient's abscess was visualized under ultrasound, anesthetized as noted, and using 11 blade scalpel, the contents were purulent, and bloody, drained, were expelled, abscess was flushed and irrigated, and sterile dressing applied, patient tolerated well. Discharge - Discharge Clinical Impression: Abscess of axilla, right Condition: Stable Disposition: HOME, SELF-CARE Instructions: Abscess ([facility]), Post Incision and Drainage Additional Instructions: Please monitor for worsening signs or symptoms such as streaking or worsening swelling and redness under your right arm. Please take the antibiotics as prescribed. Prescriptions: RX: Doxycycline Hyclate 100 mg PO BID #14 capsule Referrals: Wound Care [Provider Group] - Follow up in 3-5 days
[2018-04-17] MEDS ORDERED: MORPHINE SULFATE 10 MG/ML INJ IM ONE (19:03)
[2018-04-17] MEDS ORDERED: HYDROCODONE/ACETAMINOPHEN 5-325 MG (6 TAB/ER DISP) PO PRN (20:18)
[2018-04-17] MEDS ORDERED: DOXYCYCLINE HYCLATE 100 MG TABLET PO ONE (20:18)
== END 2018-04-17 21:00 | disposition home or self-care (01) ==
LOC: ER 16:50
DX: L02.411 Cutaneous abscess of right axilla (principal); I10 Essential (primary) hypertension; F17.210 Nicotine dependence, cigarettes, uncomplicated; J45.909 Unspecified asthma, uncomplicated; Z86.14 Personal history of Methicillin resistant Staphylococcus aureus infection; Z88.8 Allergy status to other drugs, medicaments and biological substances; Z88.2 Allergy status to sulfonamides
CPT/HCPCS: 99283; 96372; 10060; J3490; J2270

== ENCOUNTER 2018-07-11 11:33 | Emergency (ER) | payer OTHER ==
[2018-07-11] MEDS ORDERED: ALBUTEROL SULFATE HFA (90 MCG/PUFF) 8 GM MDI (1 MDI/ER DISP) IH PRN (13:09)
[2018-07-11] MEDS ORDERED: DEXAMETHASONE SOD PHOS INJ 10 MG/1 ML VIAL IM ONE (13:09)
[2018-07-11] MEDS ORDERED: ACETAMINOPHEN 325 MG TABLET PO ONE (13:09)
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
[2018-07-11 14:16] VITALS: BP 157/106
== END 2018-07-11 14:15 | disposition home or self-care (01) ==
LOC: ER 11:33
DX: R51 Headache (principal); M54.2 Cervicalgia; V48.6XXA Car passenger injured in noncollision transport accident in traffic accident, initial encounter; J45.909 Unspecified asthma, uncomplicated; F17.200 Nicotine dependence, unspecified, uncomplicated
CPT/HCPCS: 99283; 96372; 72125; J1100; J3490

== ENCOUNTER 2018-12-23 18:47 | Emergency (ER) | payer OTHER ==
--- NOTE | 2018-12-23 19:20 | ER Document Report ---
ED Medical Screen (RME) - General Chief Complaint: Abscess Stated Complaint: POSSSIBLE ABSCESS/NAUSEA Time Seen by Provider: 12/23/18 19:16 Mode of Arrival: Ambulatory Information source: Patient Notes: 38-year-old female presents with history of MRSA and hidradenitis plaints of abscess under her left axilla started within the last 24 hours. Also complains of nausea and diarrhea but not that much. Reports she usually has abscesses in her groin area. Area small erythema no induration no fluctuance. I have greeted and performed a rapid initial assessment of this patient. A comprehensive ED assessment and evaluation of the patient, analysis of test results and completion of the medical decision making process will be conducted by additional ED providers. Dictation of this chart was performed using voice recognition software; therefore, there may be some unintended grammatical errors. TRAVEL OUTSIDE OF THE [place] IN LAST 30 DAYS: No - Related Data Allergies/Adverse Reactions: Sulfa (Sulfonamide Antibiotics) Allergy (Intermediate, Verified 12/23/18 19:16) Rash/Itching ketorolac [From Toradol] Adverse Reaction (Intermediate, Verified 12/23/18 19:16) Anxiety Past Medical History - Social History Chew tobacco use (# tins/day): No Frequency of alcohol use: None Drug Abuse: None Pulmonary Medical History: Reports: Hx Asthma, Hx Pneumonia - hx of Renal/ Medical History: Reports: Hx Ectopic , Hx Ovarian Cysts. Denies: Hx Peritoneal Dialysis GI Medical History: Reports: Hx Gastroesophageal Reflux Disease Skin Medical History: Reports Hx MRSA Psychiatric Medical History: Reports: Hx Anxiety, Hx Attention Deficit Hyperactivity Disorder, Hx Bipolar Disorder, Hx Depression Infectious Medical History: Reports: Hx MRSA Past Surgical History: Reports: Hx Section, Hx Gynecologic Surgery - tubal - Immunizations Immunizations up to date: Yes Hx Diphtheria, Pertussis, Tetanus Vaccination: Yes History of Influenza Vaccine for 12/2016 - 05/2017 Season: Refused Physical Exam - Vital signs Vitals: Temp Pulse Resp BP Pulse Ox 98.0 F 92 20 145/91 H 98 12/23/18 18:58 12/23/18 18:58 12/23/18 18:58 12/23/18 18:58 12/23/18 18:58 Course - Vital Signs Vital signs: Temp Pulse Resp BP Pulse Ox 98.0 F 92 20 145/91 H 98 12/23/18 18:58 12/23/18 18:58 12/23/18 18:58 12/23/18 18:58 12/23/18 18:58
--- NOTE | 2018-12-23 19:39 | ER Document Report ---
HPI - HPI Time Seen by Provider: 12/23/18 19:16 Pain Level: 5 Notes: 38-year-old female presents the ED for evaluation of a cyst she believes is developing under her left axilla, pain is worsening, throbbing achy. Has not tried any [id number] medication, has not tried any heat or icing. Worse with time, nothing makes better. Denies any fevers or chills, chest pain, shortness of breath, nausea vomiting or diarrhea. Pain is 4-10, throbbing achy. - REPRODUCTIVE Reproductive: DENIES: : Past Medical History - General Information source: Patient - Social History Smoking Status: Current Every Day Smoker Chew tobacco use (# tins/day): No Frequency of alcohol use: None Drug Abuse: None Family History: Reviewed & Not Pertinent, Thyroid Disfunction Patient has suicidal ideation: No Patient has homicidal ideation: No Pulmonary Medical History: Reports: Hx Asthma, Hx Pneumonia - hx of Renal/ Medical History: Reports: Hx Ectopic , Hx Ovarian Cysts. Denies: Hx Peritoneal Dialysis GI Medical History: Reports: Hx Gastroesophageal Reflux Disease Skin Medical History: Reports Hx MRSA Psychiatric Medical History: Reports: Hx Anxiety, Hx Attention Deficit Hyperactivity Disorder, Hx Bipolar Disorder, Hx Depression Infectious Medical History: Reports: Hx MRSA Past Surgical History: Reports: Hx Section, Hx Gynecologic Surgery - tubal - Immunizations Immunizations up to date: Yes Hx Diphtheria, Pertussis, Tetanus Vaccination: Yes Vertical Provider Document - CONSTITUTIONAL Agree With Documented VS: Yes Exam Limitations: No Limitations General Appearance: WD/WN Notes: 12/23/18 19:48 PHYSICAL EXAMINATION: GENERAL: Well-appearing, well-nourished and in no acute distress. HEAD: Atraumatic, normocephalic. EYES: Pupils equal round and reactive to light, extraocular movements intact, conjunctiva are normal. ENT: Nares patent, oropharynx clear without exudates. Moist mucous membranes. NECK: Normal range of motion, supple without lymphadenopathy LUNGS: Breath sounds clear to auscultation bilaterally and equal. No wheezes rales or rhonchi. HEART: Regular rate and rhythm without murmurs ABDOMEN: Soft, nontender, nondistended abdomen. No guarding, no rebound. No masses appreciated. Female : deferred Musculoskeletal: Normal range of motion, no pitting or edema. No cyanosis. NEUROLOGICAL: Cranial nerves grossly intact. Normal speech, normal gait. Normal sensory, motor exams PSYCH: Normal mood, normal affect. SKIN: Warm, Dry, normal turgor, no rashes or lesions noted. 1 cm x 0.5 cm area of the erythema, induration warmth to touch, no fluctuance. No surrounding erythema to left axilla, no surrounding lymphadenopathy 12/23/18 19:49 - INFECTION CONTROL TRAVEL OUTSIDE OF THE [place] IN LAST 30 DAYS: No Course - Re-evaluation Re-evalutation: 12/23/18 19:49 Afebrile vital stable no distress. Will start patient on a course of clindamycin, advised apply heat 20 minutes on 20 minutes off several times a day, take [id number] ibuprofen Tylenol for pain control. Heat 20 min on 20 min off several times a day. After performing a Medical Screening Examination, I estimate there is LOW risk for OPEN FRACTURE, COMPARTMENT SYNDROME, TENDON RUPTURE, ACUTE NEUROVASCULAR INJURY, or RETAINED FOREIGN BODY, thus I consider the discharge disposition reasonable. Also, there is no evidence or peritonitis, sepsis, or toxicity. I have reevaluated this patient multiple times and no significant life threatening changes are noted. The patient and I have discussed the diagnosis and risks, and we agree with discharging home with close follow-up with the understanding that symptoms and presentations can change. We also discussed returning to the Emergency Department immediately if new or worsening symptoms occur. We have discussed the symptoms which are most concerning (e.g., changing or worsening pain, fever, numbness, weakness, cool or painful digits) that necessitate immediate return. - Vital Signs Vital signs: Temp Pulse Resp BP Pulse Ox 98.0 F 92 20 145/91 H 98 12/23/18 18:58 12/23/18 18:58 12/23/18 18:58 12/23/18 18:58 12/23/18 18:58 Discharge - Discharge Clinical Impression: Abscess, Cellulitis Condition: Stable Disposition: HOME, SELF-CARE Instructions: Abscess ([facility]) Additional Instructions: Cellulitis You have an infection of your skin and underlying soft tissues called cellulitis. This is due to bacteria, which can enter through any break in the skin, or even through an irritated hair follicle. Untreated, cellulitis will usually worsen. Antibiotics are required. Usually, warm packs or warm soaks, and elevation of the infected area are recommended. You should start getting better within 24 to 36 hours. Most infections respond quickly to the right medication. Follow-up care is important, however, to check for abscess (boil) formation, unsuspected foreign body, or resistant infection. If you develop fever, chills, or if the area of infection is becoming rapidly more swollen or painful, call the doctor at once. Take clindamycin as directed, Take after eating food. apply heat 20 minutes on 20 minutes off several times a day. Alternate between Tylenol and ibuprofen for pain control. Return immediately for any new or worsening symptoms. Follow up with primary care provider, call tomorrow to make followup appointment. Prescriptions: Clindamycin HCl 300 mg PO Q6H #28 capsule Forms: Return to Work Referrals: AMANDA LAW MD [NO LOCAL MD] - Follow up as needed
[2018-12-23 20:27] VITALS: BP 148/99
== END 2018-12-23 20:30 | disposition home or self-care (01) ==
LOC: ER 18:47
DX: L02.91 Cutaneous abscess, unspecified (principal); L03.90 Cellulitis, unspecified; F17.200 Nicotine dependence, unspecified, uncomplicated; J45.909 Unspecified asthma, uncomplicated; Z86.14 Personal history of Methicillin resistant Staphylococcus aureus infection
CPT/HCPCS: 99282

== ENCOUNTER 2018-12-29 06:05 | Emergency (ER) | payer SELFPAY ==
[2018-12-29] MEDS ORDERED: IPRATROPIUM/ALBUTEROL 0.5-2.5 MG/3 ML AMPUL NEB ONE ×2 (06:12→06:13)
[2018-12-29] MEDS: ALBUTEROL SULFATE 0.083% NEB 2.5 MG/3 ML AMPUL NEB SCH ×2 (06:36→06:37)
[2018-12-29] MEDS ORDERED: ALBUTEROL SULFATE 0.083% NEB 2.5 MG/3 ML AMPUL NEB ONE ×2 (06:45→08:22)
--- NOTE | 2018-12-29 06:51 | ER Document Report ---
ED General - General Chief Complaint: Breathing Difficulty Stated Complaint: BREATHING PROBLEMS Time Seen by Provider: 12/29/18 06:25 TRAVEL OUTSIDE OF THE [place] IN LAST 30 DAYS: No - HPI Notes: 38-year-old female who presents with difficulty breathing. Known history of asthma, currently out of her inhalers. Gradual onset of dyspnea cough and wheezing since last night while at work. Moderate intensity, no fever. No other modifying factors, no other associated symptoms, no other provocative or palliative factors. No other modifying factors, no other associated symptoms, no other provocative or palliative factors. No prior history of intubation - Related Data Allergies/Adverse Reactions: Sulfa (Sulfonamide Antibiotics) Allergy (Intermediate, Verified 12/23/18 19:16) Rash/Itching ketorolac [From Toradol] Adverse Reaction (Intermediate, Verified 12/23/18 19:16) Anxiety Past Medical History - Social History Smoking Status: Current Every Day Smoker Family History: Reviewed & Not Pertinent, Thyroid Disfunction Patient has suicidal ideation: No Patient has homicidal ideation: No Pulmonary Medical History: Reports: Hx Asthma, Hx Pneumonia - hx of Renal/ Medical History: Reports: Hx Ectopic , Hx Ovarian Cysts. Denies: Hx Peritoneal Dialysis GI Medical History: Reports: Hx Gastroesophageal Reflux Disease Skin Medical History: Reports Hx MRSA Psychiatric Medical History: Reports: Hx Anxiety, Hx Attention Deficit Hyperactivity Disorder, Hx Bipolar Disorder, Hx Depression Infectious Medical History: Reports: Hx MRSA Past Surgical History: Reports: Hx Section, Hx Gynecologic Surgery - tubal - Immunizations Immunizations up to date: Yes Hx Diphtheria, Pertussis, Tetanus Vaccination: Yes Review of Systems - Review of Systems Notes: Review of systems as in the history of present illness, otherwise negative x 10 systems. Physical Exam - Vital signs Vitals: Resp BP Pulse Ox 14 136/85 H 94 12/29/18 06:11 12/29/18 06:11 12/29/18 06:11 - Notes Notes: General: Well developed . HEENT: Normocephalic, atraumatic. Pupils equal round reactive to light. No JVD. Chest: No trauma. Respiratory: Fair air exchange, end expiratory wheezing, prolonged expiratory phase Cardiac: Regular rhythm. No murmurs or gallops. Abdomen: Soft, benign. Nondistended. Nontender. Back: No asymmetry or gross abnormality. Motor: Grossly normal power and tone. Neurologic: Alert, nonfocal. Cranial nerves II-12 are intact. Sensation intact. Vascular: Well perfused. Normal peripheral pulses. Skin: No petechiae or purpura. Course - Re-evaluation Re-evalutation: 12/29/18 06:52 38-year-old female likely asthma exacerbation, will obtain chest x-ray to exclude pneumonia. Treat with bronchodilators, she received IV Solu-Medrol from EMS. 12/29/18 08:37 Patient had moderate improvement but her peak flows remain low despite aggressive bronchodilator therapy. Labs reviewed, mild leukocytosis noted, chemistry unremarkable. Chest x-ray shows no acute ab normality. I have indicated the patient I think she should be admitted to the hospital for continued evaluation resuscitation. She has declined. She understands the risks including respiratory failure even . She will return immediately if she has any worsening symptoms. We are discharging her with a metered-dose inhaler, prescription for prednisone. - Vital Signs Vital signs: Temp Pulse Resp BP Pulse Ox 17 138/92 H 96 12/29/18 07:01 12/29/18 07:01 12/29/18 07:01 - Laboratory Result Diagrams: 12/29/18 06:12 12/29/18 06:12 Laboratory results interpreted by me: 12/29/18 12/29/18 06:12 06:12 WBC 13.9 H RBC 3.57 L Hgb 11.2 L Hct 33.3 L Absolute Neuts (auto) 10.1 H Absolute Eos (auto) 0.7 H Potassium 3.1 L Discharge - Discharge Clinical Impression: Asthma Qualifiers: Asthma severity: unspecified severity Asthma persistence: unspecified Asthma complication type: with acute exacerbation Qualified Code(s): J45.901 - Unspecified asthma with (acute) exacerbation Condition: Serious Disposition: HOME, SELF-CARE Instructions: Asthma ([facility]) Prescriptions: Prednisone [Deltasone 20 mg Tablet] 3 tab PO DAILY 5 Days tablet Referrals: [facility] [NO LOCAL MD] - Follow up as needed
[2018-12-29] MEDS ORDERED: ACETAMINOPHEN 325 MG TABLET PO ONE (07:00)
[2018-12-29 07:39] LABS: ABSOLUTE BASOPHILS # (AUTO) 0.1 10^3/uL (0.0-0.2); ABSOLUTE EOSINOPHILS # (AUTO) 0.7 10^3/uL (0.0-0.6); ABSOLUTE LYMPHOCYTES (AUTO) 2.4 10^3/uL (0.5-4.7); ABSOLUTE MONOCYTES (AUTO) 0.7 10^3/uL (0.1-1.4); ABSOLUTE NEUT (AUTO) 10.1 10^3/uL (1.7-8.2); BASOPHILS % (AUTO) 0.5 % (0-2); EOSINOPHILS % (AUTO) 5.2 % (0-6); HEMATOCRIT 33.3 % (36.0-47.0); HEMOGLOBIN 11.2 g/dL (12.0-15.5); LYMPHOCYTES % (AUTO) 17.1 % (13-45); MEAN CORPUSCULAR HEMOGLOBIN 31.3 pg (27.0-33.4); MEAN CORPUSCULAR HGB CONC 33.5 g/dL (32.0-36.0); MEAN CORPUSCULAR VOLUME 93 fl (80-97); MONOCYTES % (AUTO) 4.8 % (3-13); PLATELET COUNT 374 10^3/uL (150-450); RED BLOOD COUNT 3.57 10^6/uL (3.72-5.28); RED CELL DISTRIBUTION WIDTH 13.3 % (11.5-14.0); SEGMENTED NEUTROPHILS % (AUTO) 72.4 % (42-78); TOTAL CELLS COUNTED % (AUTO) 100 %; WHITE BLOOD COUNT 13.9 10^3/uL (4.0-10.5)
--- NOTE | 2018-12-29 07:40 | RADIOLOGY REPORT (SQ) ---
EXAM DESCRIPTION: XR CHEST 1 VIEW COMPLETED DATE/TME: 12/29/2018 06:12 CLINICAL HISTORY: difficulty breathing COMPARISON: 03/14/2017 FINDINGS: Single frontal view of the chest. Cardiomediastinal silhouette: Normal size and contour. Lungs: No consolidation, pneumothorax, or pleural effusion. Bones: No acute osseous abnormality. Upper abdomen: No abnormality identified. IMPRESSION: 1. No acute pulmonary process identified.
[2018-12-29 07:43] LABS: ANION GAP 9 (5-19); BLOOD UREA NITROGEN 11 mg/dL (7-20); CALCIUM 9.7 mg/dL (8.4-10.2); CARBON DIOXIDE 28 mmol/L (22-30); CHLORIDE 103 mmol/L (98-107); GLUCOSE 100 mg/dL (75-110)
[2018-12-29 07:44] LABS: POTASSIUM 3.1 mmol/L (3.6-5.0)
--- NOTE | 2018-12-29 08:03 | EKG REPORT ---
SEVERITY:- NORMAL ECG - SINUS RHYTHM : Confirmed by: Clarice Hui MD 29-Dec-2018 08:02:20
[2018-12-29] MEDS ORDERED: ALBUTEROL SULFATE HFA (90 MCG/PUFF) 8 GM MDI (1 MDI/ER DISP) IH ONE (08:21)
[2018-12-29 08:57] VITALS: BP 134/96
== END 2018-12-29 08:57 | disposition home or self-care (01) ==
LOC: ER 06:05
DX: J45.901 Unspecified asthma with (acute) exacerbation (principal); R05 Cough; D72.829 Elevated white blood cell count, unspecified; F17.200 Nicotine dependence, unspecified, uncomplicated; Z88.2 Allergy status to sulfonamides; Z87.01 Personal history of pneumonia (recurrent)
CPT/HCPCS: 93005; 36415; 85025; 81025; 80048; 71045; 93010; J3490; J7620

== ENCOUNTER 2018-12-30 22:43 | Inpatient (IN) | payer SELFPAY ==
[2018-12-30] MEDS ORDERED: IPRATROPIUM/ALBUTEROL 0.5-2.5 MG/3 ML AMPUL NEB ONE (22:52)
--- NOTE | 2018-12-30 22:56 | ER Document Report ---
ED General - General Stated Complaint: DIFFICULTY BREATHING Time Seen by Provider: 12/30/18 22:51 TRAVEL OUTSIDE OF THE [place] IN LAST 30 DAYS: No - HPI Notes: This is a 38-year-old female with a history of asthma who presents today complaining of asthma exacerbation. Patient states that she has had trouble breathing for the past 2 days. She describes nonproductive cough and wheezing. Patient was seen here yesterday with an asthma attack. Patient states that they wanted to admit her but she refused but I suspect she will get better. She has been using her inhalers all day without any improvement. The patient was given 2 DuoNeb's, Solu-Medrol 125 IV, and magnesium 2 g intravenously by EMS. She feels slightly improved. She denies any fever or chills. She denies any chest pain. Describes her symptoms as moderate. Nothing to make changes - Related Data Allergies/Adverse Reactions: Sulfa (Sulfonamide Antibiotics) Allergy (Intermediate, Verified 12/23/18 19:16) Rash/Itching ketorolac [From Toradol] Adverse Reaction (Intermediate, Verified 12/23/18 19:16) Anxiety Past Medical History - Social History Smoking Status: Current Every Day Smoker Frequency of alcohol use: None Drug Abuse: None Family History: Reviewed & Not Pertinent, Thyroid Disfunction Pulmonary Medical History: Reports: Hx Asthma, Hx Pneumonia - hx of Renal/ Medical History: Reports: Hx Ectopic , Hx Ovarian Cysts. Denies: Hx Peritoneal Dialysis GI Medical History: Reports: Hx Gastroesophageal Reflux Disease Skin Medical History: Reports Hx MRSA Psychiatric Medical History: Reports: Hx Anxiety, Hx Attention Deficit Hyperactivity Disorder, Hx Bipolar Disorder, Hx Depression Infectious Medical History: Reports: Hx MRSA Past Surgical History: Reports: Hx Section, Hx Gynecologic Surgery - tubal - Immunizations Immunizations up to date: Yes Hx Diphtheria, Pertussis, Tetanus Vaccination: Yes Review of Systems - Review of Systems Constitutional: denies: Fever Cardiovascular: denies: Chest pain Respiratory: Cough, Short of breath, Wheezing. denies: Sputum Gastrointestinal: denies: Abdominal pain, Nausea - She, Vomiting Neurological/Psychological: denies: Headaches -: Yes All other systems reviewed and negative Physical Exam - Vital signs Vitals: Pulse Resp BP Pulse Ox 111 H 22 H 138/82 H 92 12/30/18 23:02 12/30/18 23:02 12/30/18 23:02 12/30/18 23:02 Interpretation: Other - Vital signs from EMS reviewed. Patient's been triaged now. - HEENT Head: Normocephalic, Atraumatic Eyes: Normal Pupils: PERRL - Respiratory Respiratory status: Respiratory distress Chest status: Nontender Breath sounds: Wheezing - There is some retractions. Diffuse wheezes appreciated. Patient is on a second DuoNeb treatment. Chest palpation: Normal - Cardiovascular Rhythm: Regular Heart sounds: Normal auscultation Murmur: No - Abdominal Inspection: Normal Distension: No distension Bowel sounds: Normal Tenderness: Nontender Organomegaly: No organomegaly - Back Back: Normal, Nontender - Neurological Neuro grossly intact: Yes Cognition: Normal Orientation: AAOx4 Hawthorne Coma Scale Eye Opening: Spontaneous Ananth Coma Scale Verbal: Oriented Ananth Coma Scale Motor: Obeys Commands Hawthorne Coma Scale Total: 15 Speech: Normal Motor strength normal: LUE, RUE, LLE, RLE Sensory: Normal - Psychological Associated symptoms: Normal affect, Normal mood Course - Re-evaluation Re-evalutation: 12/30/18 22:55 Differential diagnosis includes asthma exacerbation versus pneumonia. 12/31/18 01:03 Patient reevaluated. Patient still has wheezing. She drops her sides when she is taken off of oxygen. At this point I think she needs to be admitted. She is on multiple duo nebs VMS plus what we gave her here. She had magnesium and steroids. Leukocytosis is likely secondary to steroid use. Chest x-ray is negative. Patient's care discussed with Dr. Penny. Will admit. - Vital Signs Vital signs: Temp Pulse Resp BP Pulse Ox 98.1 F 111 H 20 136/80 H 95 12/30/18 23:10 12/30/18 23:02 12/31/18 00:31 12/31/18 00:31 12/31/18 00:31 - Laboratory Result Diagrams: 12/30/18 22:30 12/30/18 22:30 Laboratory results interpreted by me: 12/30/18 22:30 WBC 21.0 H Abs Neuts (Manual) 15.1 H Absolute Eos (Manual) 1.1 H Discharge - Discharge Clinical Impression: Acute asthma exacerbation Qualifiers: Asthma severity: moderate Asthma persistence: persistent Qualified Code(s): J45.41 - Moderate persistent asthma with (acute) exacerbation Condition: Stable Disposition: ADMITTED INPATIENT Admitting Provider: Zohaib (Hospitalist) Unit Admitted: Medical Floor
[2018-12-30 23:06] LABS: HEMOGLOBIN 13.2 g/dL (12.0-15.5); MEAN CORPUSCULAR HEMOGLOBIN 31.2 pg (27.0-33.4); MEAN CORPUSCULAR HGB CONC 33.8 g/dL (32.0-36.0); MEAN CORPUSCULAR VOLUME 92 fl (80-97); PLATELET COUNT 434 10^3/uL (150-450); RED BLOOD COUNT 4.23 10^6/uL (3.72-5.28); RED CELL DISTRIBUTION WIDTH 13.5 % (11.5-14.0)
[2018-12-30 23:16] LABS: ANION GAP 11 (5-19); BLOOD UREA NITROGEN 12 mg/dL (7-20); CALCIUM 9.5 mg/dL (8.4-10.2); CARBON DIOXIDE 24 mmol/L (22-30); CHLORIDE 104 mmol/L (98-107); GLUCOSE 106 mg/dL (75-110); POTASSIUM 3.7 mmol/L (3.6-5.0)
[2018-12-30 23:28] LABS: ABSOLUTE LYMPHOCYTES# (MANUAL) 4.2 10^3/uL (0.5-4.7); ABSOLUTE MONOCYTES # (MANUAL) 0.6 10^3/uL (0.1-1.4); BASOPHILS % (MANUAL) 0 % (0-2); EOSINOPHILS % (MANUAL) 5 % (0-6); LYMPHOCYTES % (MANUAL) 20 % (13-45); MONOCYTES % (MANUAL) 3 % (3-13); SEGMENTED NEUTROPHILS % (MAN) 72 % (42-78); TOTAL CELLS COUNTED 100
[2018-12-30 23:29] LABS: PLATELET COMMENT ADEQUATE; RBC MORPHOLOGY COMMENT NORMO-CYTIC/CHROMIC
--- NOTE | 2018-12-30 23:55 | RADIOLOGY REPORT (SQ) ---
EXAM DESCRIPTION: XR CHEST 1 VIEW COMPLETED DATE/TME: 12/30/2018 22:52 CLINICAL HISTORY: dyspnea COMPARISON: December 29, 2018 FINDINGS: Cardiac silhouette is within normal limits. There is no focal parenchymal or pleural disease. There is no acute osseous process visualized. IMPRESSION: No evidence of acute cardiopulmonary disease.
[2018-12-31] MEDS ORDERED: LEVALBUTEROL HCL NEB 0.63 MG/3 ML AMPUL NEB PRN (01:35)
[2018-12-31] MEDS ORDERED: NALBUPHINE HCL INJ 10 MG/1 ML AMPULE IV PRN ×3 (01:35→01:47)
[2018-12-31] MEDS ORDERED: MAGNESIUM HYDROXIDE SUSP 30 ML UDCUP PO PRN (01:35)
[2018-12-31] MEDS ORDERED: MAG HYDROX/AL HYDROX/SIMETH SUSP 30 ML UDCUP PO PRN (01:35)
[2018-12-31] MEDS ORDERED: ACETAMINOPHEN 325 MG TABLET PO PRN (01:35)
[2018-12-31] MEDS ORDERED: ONDANSETRON HCL INJ/PF 4 MG/2 ML SDV IV PRN (01:40)
[2018-12-31] MEDS ORDERED: ACETAMINOPHEN 325 MG TABLET PO ONE (01:42)
[2018-12-31] MEDS ORDERED: GUAIFENESIN SYRP 200 MG/10 ML UDC PO ONE (01:42)
[2018-12-31 02:45] LABS: FREE T3 3.55 pg/mL (2.77-5.27); FREE T4 (FREE THYROXINE) 0.99 ng/dL (0.78-2.19)
--- NOTE | 2018-12-31 04:29 | PDOC H&P ---
History of Present Illness Admission Date/PCP: 12/31/2018 1:06 AM No local PCP Patient complains of: Dyspnea History of Present Illness: CECIL GARG is a 38 year old female who presented to the emergency room with a 3-day history of dyspnea. Patient admits that her dyspnea has been gradually worsening over the last 3 days after abrupt onset with a then mild asthma attack. Her dyspnea has been constant and progressive to the point where it is now severe despite prior care yesterday in the ER with multiple nebulizer treatments, IV steroids and magnesium. She was sent home with inhalers and oral steroids and has consumed all of the medication she was given but is worsening rather than improving. Her dyspnea has been accompanied by a nonproductive cough, mild mid-back muscular pain (worse with coughing) and severe wheezing. She denies other associated or accompanying signs and symptoms. She admits several prior similar episodes with asthma attacks. She has not identified any aggravating or ameliorating factors for her asthma attacks. In the ER she was treated with multiple duo nebs and again administered IV steroids. She was noted to have a elevated white blood count (reflective of her 24-hour history of steroid use), but her chest x-ray was negative for changes other than those associated with asthma. Patient did improve somewhat with treatment but continued to require supplemental oxygen in order to engage in any activity. Patient was subsequently admitted to the hospital for further evaluation treatment. Past Medical History Cardiac Medical History: Denies: Coronary Artery Disease, DVT, Hypertension, Pulmonary Embolism Pulmonary Medical History: Reports: Asthma, Pneumonia - hx of Denies: Chronic Obstructive Pulmonary Disease (COPD) EENT Medical History: Denies: Cataracts, Ears - Hearing aids Neurological Medical History: Denies: Hemorrhagic CVA, Ischemic CVA, Seizures Endocrine Medical History: Denies: Diabetes Mellitus Type 1, Diabetes Mellitus Type 2, Hyperthyroidism, Hypothyroidism Renal/ Medical History: Reports: Other - Vulvar hidradenitis Denies: Chronic Kidney Disease, Nephrolithiasis Malignancy Medical History: Reports: None GI Medical History: Reports: Gastroesophageal Reflux Disease, Other - History of admission for constipation and abdominal pain Denies: Cirrhosis, Hepatitis Musculoskeltal Medical History: Denies: Arthritis, Gout Skin Medical History: Denies: Eczema, Psoriasis Psychiatric Medical History: Reports: Attention Deficit Hyperactivity Disorder, Bipolar Disorder, Depression, Substance Abuse, Tobacco Dependency Denies: Alcohol Dependency Traumatic Medical History: Reports: None Hematology: Denies: Anemia, Bleeding Tendencies Infectious Medical History: Reports: Methicillin-Resistant Staph Aureus Past Surgical History Past Surgical History: Reports: Section Social History Information Source: Patient Lives with: Family Smoking Status: Current Every Day Smoker Electronic Cigarette use?: No Frequency of Alcohol Use: None Hx Recreational Drug Use: No - Patient denies use but prior urine drug screens have demonstrated substance Drugs: Cocaine, Marijuana Hx Prescription Drug Abuse: No - Advance Directive Resuscitation Status: Full Code Surrogate healthcare decision maker:: Bonita Nathan Family History Family History: Arthritis - Chronic back pain, Thyroid Disfunction, Other - Irritable bowel syndrome/colitis Parental Family History Reviewed: Yes Children Family History Reviewed: No Sibling(s) Family History Reviewed.: Yes Medication/Allergy Home Medications: Albuterol Sulfate [Proair HFA Inhalation Aerosol 8.5 gm MDI] 2 puff IH Q4HP PRN 01/04/18 Clindamycin HCl 300 mg PO Q6H #28 capsule 12/23/18 Prednisone [Deltasone 20 mg Tablet] 3 tab PO DAILY 5 Days tablet 12/29/18 Allergies/Adverse Reactions: Sulfa (Sulfonamide Antibiotics) Allergy (Intermediate, Verified 12/23/18 19:16) Rash/Itching ketorolac [From Toradol] Adverse Reaction (Intermediate, Verified 12/23/18 19:16) Anxiety Review of Systems Constitutional: ABSENT: chills, fever(s) Eyes: ABSENT: visual disturbances, other - Eye pain Ears: ABSENT: hearing changes, other - Ear pain Nose, Mouth, and Throat: ABSENT: mouth pain, sore throat Cardiovascular: PRESENT: dyspnea on exertion. ABSENT: chest pain, palpitations Respiratory: PRESENT: cough, dyspnea, other - Wheezing. ABSENT: hemoptysis, sputum Gastrointestinal: ABSENT: abdominal pain, constipation, diarrhea, nausea, vomiting Genitourinary: ABSENT: dysuria, hematuria Musculoskeletal: PRESENT: as per HPI, back pain. ABSENT: joint swelling, muscle weakness Integumentary: ABSENT: pruritus, rash Neurological: ABSENT: confusion, convulsions, focal weakness, memory loss, syncope Psychiatric: ABSENT: anxiety, depression Endocrine: ABSENT: cold intolerance, heat intolerance Hematologic/Lymphatic: ABSENT: easy bleeding, easy bruising Allergic/Immunologic: ABSENT: seasonal rhinorrhea Physical Exam Vital Signs: Temp Pulse Resp BP Pulse Ox 98.1 F 111 H 20 136/80 H 95 12/30/18 23:10 12/30/18 23:02 12/31/18 00:31 12/31/18 00:31 12/31/18 00:31 Intake & Output 12/29/18 12/30/18 12/31/18 23:59 23:59 23:59 Weight 70.307 kg General appearance: PRESENT: cooperative, other - Moderate distress secondary to asthma Head exam: PRESENT: atraumatic, normocephalic Eye exam: PRESENT: conjunctiva pink. ABSENT: conjunctival injection, scleral icterus Ear exam: PRESENT: normal external ear exam. ABSENT: bleeding, drainage Mouth exam: PRESENT: dry mucosa, neck supple Neck exam: ABSENT: thyromegaly, tracheal deviation Respiratory exam: PRESENT: prolonged expiratory phas - Moderately prolonged expiratory phase in all lea, symmetrical, wheezes - Expiratory wheezes present throughout all lea Cardiovascular exam: PRESENT: RRR. ABSENT: clicks, gallop, rubs Pulses: PRESENT: normal radial pulses, normal dorsalis pedis pul Vascular exam: PRESENT: normal capillary refill. ABSENT: pallor GI/Abdominal exam: PRESENT: normal bowel sounds, soft Rectal exam: PRESENT: deferred Extremities exam: ABSENT: joint swelling, pedal edema, tenderness Musculoskeletal exam: PRESENT: full ROM, normal inspection Neurological exam: PRESENT: alert, oriented to person, oriented to place, oriented to time, oriented to situation, CN II-XII grossly intact. ABSENT: motor sensory deficit Psychiatric exam: PRESENT: appropriate affect, normal mood Skin exam: PRESENT: dry, intact, warm. ABSENT: jaundice, rash, urticaria Results Laboratory Results: 12/30/18 22:30 12/30/18 22:30 12/30/18 12/30/18 22:30 22:30 WBC 21.0 H RBC 4.23 Hgb 13.2 Hct 39.0 MCV 92 MCH 31.2 MCHC 33.8 RDW 13.5 Plt Count 434 Seg Neutrophils % Not Reportable Sodium 139.1 Potassium 3.7 Chloride 104 Carbon Dioxide 24 Anion Gap 11 BUN 12 Creatinine 0.61 Est GFR ( Amer) > 60 Glucose 106 Calcium 9.5 Impressions: Chest X-Ray 12/30/18 22:52 IMPRESSION: No evidence of acute cardiopulmonary disease. Assessment and Plan - Diagnosis (1) Asthma Qualifiers: Asthma severity: moderate Asthma persistence: persistent Asthma complication type: with status asthmaticus Qualified Code(s): J45.42 - Moderate persistent asthma with status asthmaticus Is this a current diagnosis for this admission?: Yes (2) Acute respiratory failure with hypoxia Is this a current diagnosis for this admission?: Yes (3) Leukocytosis Qualifiers: Leukocytosis type: unspecified Qualified Code(s): D72.829 - Elevated white blood cell count, unspecified Is this a current diagnosis for this admission?: Yes (4) Tobacco dependence due to cigarettes Is this a current diagnosis for this admission?: Yes - Plan Summary Summary: Patient will be admitted to the medical floor treated with an aggressive pulmonary toilet utilizing Xopenex, Atrovent and Pulmicort. She will receive IV Solu-Medrol via a burst dose protocol. She will receive supplemental oxygen via nasal cannula utilizing a O2 protocol and may receive additional respiratory support utilizing noninvasive airway pressure devices such as BiPAP or CPAP. She will use Nubain 5 to 10 mg IV every 3 hours on a as needed basis for pain using a sliding scale. Daily CBC, magnesium and metabolic profile studies will be obtained. A nicotine replacement patch be available for the patient's use, if desired. - Time Time Spent with patient: 25-34 minutes Smoking Cessation Education: 3 to 10 minutes Medications reviewed and adjusted accordingly: Yes Anticipated discharge: Home - Inpatient Certification Based on my medical assessment, after consideration of the patient's comorbidities, presenting symptoms, or acuity I expect that the services needed warrant INPATIENT care.: Yes I certify that my determination is in accordance with my understanding of Medicare's requirements for reasonable and necessary INPATIENT services [42 CFR 412.3e].: Yes Medical Necessity: Failure to Improve With Outpatient Therapy, Need Close Monitoring Due to Risk of Patient Decompensation, Need for Nebulizer Therapy and Monitoring of Response, Risk of Complication if Not Cared For in Hospital, Risk of Diagnosis Which Will Require Inpatient Eval/Care/Monitoring
[2018-12-31] MEDS ORDERED: METHYLPREDNISOLONE INJ 40 MG/1 ML SDV IV SCH (06:00)
[2018-12-31] MEDS: HEPARIN SOD (PORCINE) 5,000 UNIT/ML 1 ML VIAL SUBCUT SCH ×4 (06:04→21:02)
[2018-12-31] MEDS: BUDESONIDE NEB 0.5 MG/2 ML AMPUL NEB SCH ×2 (08:31→20:37)
[2018-12-31] MEDS: LEVALBUTEROL HCL NEB 1.25 MG/3 ML AMPUL NEB SCH ×2 (08:31→16:17)
[2018-12-31] MEDS: IPRATROPIUM BROMIDE 0.02% NEB 0.5 MG/2.5 ML AMPUL NEB SCH ×2 (08:31→16:17)
--- NOTE | 2018-12-31 09:20 | PDOC PROGRESS REPORT ---
Subjective Progress Note for:: 12/31/18 Subjective:: 38 year old female who presented to the emergency room with a 3-day history of dyspnea. Patient admits that her dyspnea has been gradually worsening over the last 3 days after abrupt onset with a then mild asthma attack. Her dyspnea has been constant and progressive to the point where it is now severe despite prior care yesterday in the ER with multiple nebulizer treatments, IV steroids and magnesium. She was sent home with inhalers and oral steroids and has consumed all of the medication she was given but is worsening rather than improving. Her dyspnea has been accompanied by a nonproductive cough, mild mid-back muscular pain (worse with coughing) and severe wheezing. She denies other associated or accompanying signs and symptoms. She admits several prior similar episodes with asthma attacks. She has not identified any aggravating or ameliorating factors for her asthma attacks. In the ER she was treated with multiple duo nebs and again administered IV steroids. She was noted to have a elevated white blood count (reflective of her 24-hour history of steroid use), but her chest x-ray was negative for changes other than those associated with asthma. Patient did improve somewhat with treatment but continued to require supplemental oxygen in order to engage in any activity. Patient was subsequently admitted to the hospital for further evaluation treatment. 12/31/[id number]-wfuu-old female with history of bronchial asthma admitted with exac erbation of bronchial asthma. Presently she is on a pulmonary toilet with nebulizer treatments scheduled and as needed and also IV Solu-Medrol. Patient is also receiving supplemental oxygen. No acute events since the admission afebrile. WBC count is 21,000 most likely secondary to steroid use. Reason For Visit: ACUTE EXACERBATION OF ASTHMA Physical Exam Vital Signs: Temp Pulse Resp BP Pulse Ox 97.5 F 92 19 133/87 H 97 12/31/18 02:45 12/31/18 02:45 12/31/18 02:45 12/31/18 02:45 12/31/18 02:45 Intake & Output 12/30/18 12/31/18 01/01/19 06:59 06:59 06:59 Intake Total 360 Balance 360 Weight 71.3 kg General appearance: PRESENT: no acute distress, cooperative Head exam: PRESENT: atraumatic Eye exam: PRESENT: PERRLA Ear exam: PRESENT: normal external ear exam Mouth exam: PRESENT: neck supple Teeth exam: PRESENT: poor dentation Neck exam: ABSENT: carotid bruit, JVD, lymphadenopathy, thyromegaly Respiratory exam: PRESENT: decreased breath sounds, wheezes Cardiovascular exam: PRESENT: RRR. ABSENT: diastolic murmur, rubs, systolic murmur GI/Abdominal exam: PRESENT: normal bowel sounds, soft. ABSENT: distended, guarding, mass, organolmegaly, rebound, tenderness Rectal exam: PRESENT: deferred Neurological exam: PRESENT: alert, awake, oriented to person, oriented to place, oriented to time, oriented to situation, CN II-XII grossly intact. ABSENT: motor sensory deficit Psychiatric exam: PRESENT: appropriate affect, normal mood. ABSENT: homicidal ideation, suicidal ideation Results Laboratory Results: 12/30/18 22:30 12/30/18 22:30 12/30/18 12/30/18 12/31/18 22:30 22:30 02:04 WBC 21.0 H RBC 4.23 Hgb 13.2 Hct 39.0 MCV 92 MCH 31.2 MCHC 33.8 RDW 13.5 Plt Count 434 Seg Neutrophils % Not Reportable Sodium 139.1 Potassium 3.7 Chloride 104 Carbon Dioxide 24 Anion Gap 11 BUN 12 Creatinine 0.61 Est GFR ( Amer) > 60 Glucose 106 Lactic Acid 2.5 H Calcium 9.5 Free T4 Free T3 pg/mL 12/31/18 12/31/18 02:04 06:26 WBC RBC Hgb Hct MCV MCH MCHC RDW Plt Count Seg Neutrophils % Sodium Potassium Chloride Carbon Dioxide Anion Gap BUN Creatinine Est GFR ( Amer) Glucose Lactic Acid 2.8 H Calcium Free T4 0.99 Free T3 pg/mL 3.55 Impressions: Chest X-Ray 12/30/18 22:52 IMPRESSION: No evidence of acute cardiopulmonary disease. Assessment and Plan - Diagnosis (1) Acute asthma exacerbation Qualifiers: Asthma severity: moderate Asthma persistence: persistent Qualified Co de(s): J45.41 - Moderate persistent asthma with (acute) exacerbation Is this a current diagnosis for this admission?: Yes (2) Acute respiratory failure with hypoxia Is this a current diagnosis for this admission?: Yes (3) Tobacco dependence due to cigarettes Is this a current diagnosis for this admission?: Yes (4) Leukocytosis Qualifiers: Leukocytosis type: unspecified Qualified Code(s): D72.829 - Elevated white blood cell count, unspecified Is this a current diagnosis for this admission?: Yes - Plan Summary Summary: Patient will be admitted to the medical floor treated with an aggressive pulmonary toilet utilizing Xopenex, Atrovent and Pulmicort. She will receive IV Solu-Medrol via a burst dose protocol. She will receive supplemental oxygen via nasal cannula utilizing a O2 protocol and may receive additional respiratory support utilizing noninvasive airway pressure devices such as BiPAP or CPAP. She will use Nubain 5 to 10 mg IV every 3 hours on a as needed basis for pain using a sliding scale. Daily CBC, magnesium and metabolic profile studies will be obtained. A nicotine replacement patch be available for the patient's use, if desired. 1.acute respiratory failure with hypoxia Patient admitted with acute respiratory failure with hypoxia most likely secondary to asthma exacerbation. Patient is presently receiving IV Solu- Medrol, pulmonary toilet utilizing Xopenex, Atrovent, Pulmicort. And is present ly on oxygen via nasal cannula. Plan is to continue the present management. Pulse ox today 96% on 2 L this morning. Examination chest bilateral entry was decreased to still bilateral extensive wheezing present. 2.leucocytosis patient came in with elevated WBC count of 21,000. Plan is to continue to closely monitor the white cell count. It may be secondary to use of steroids. 3.tobacco abuse Is a chronic daily day smoker smoking counseling was provided , offered nicotine patches. 4.asthma exacerbation Patient has history of bronchial asthma since childhood. No recent hospitalizations. Admitted with increasing shortness of breath for last 3 days associated with wheezing. Patient presently on IV Solu-Medrol, pulmonary toilet. Plan is to continue the present management. Uric acid is elevated to 2.8 to start IV Rocephin 2 g daily.
[2018-12-31] MEDS: DOCUSATE SODIUM 100 MG CAPSULE PO SCH ×2 (10:18→17:25)
[2018-12-31] MEDS: CEFTRIAXONE 2 GM/D5W RTU 2 GM/50 ML RTUPB IV SCH (10:24)
[2018-12-31] MEDS: METHYLPREDNISOLONE INJ 40 MG/1 ML SDV IV SCH ×2 (13:09→21:02)
[2018-12-31] MEDS: GUAIFENESIN SYRP 200 MG/10 ML UDC PO PRN (20:41)
[2018-12-31] MEDS: NALBUPHINE HCL INJ 10 MG/1 ML AMPULE IV PRN (20:42)
[2018-12-31] MEDS: NICOTINE 21 MG/24 HR PATCH.TD24 TD PRN (20:53)
[2019-01-01] MEDS: LEVALBUTEROL HCL NEB 1.25 MG/3 ML AMPUL NEB SCH ×3 (00:46→15:54)
[2019-01-01] MEDS: IPRATROPIUM BROMIDE 0.02% NEB 0.5 MG/2.5 ML AMPUL NEB SCH ×3 (00:46→15:54)
[2019-01-01] MEDS: GUAIFENESIN SYRP 200 MG/10 ML UDC PO PRN ×2 (01:06→08:25)
[2019-01-01] MEDS: DIAZEPAM 5 MG TABLET PO PRN ×4 (01:57→22:35)
[2019-01-01] MEDS ORDERED: ROPINIROLE HCL 1 MG TABLET ONE ×2 (01:58→22:35)
[2019-01-01] MEDS: ROPINIROLE HCL 1 MG TABLET PO PRN ×2 (02:00→22:39)
[2019-01-01] MEDS: HEPARIN SOD (PORCINE) 5,000 UNIT/ML 1 ML VIAL SUBCUT SCH ×3 (05:07→21:58)
[2019-01-01] MEDS: METHYLPREDNISOLONE INJ 40 MG/1 ML SDV IV SCH ×3 (05:50→22:36)
[2019-01-01] MEDS: NALBUPHINE HCL INJ 10 MG/1 ML AMPULE IV PRN ×3 (05:57→22:35)
[2019-01-01 06:20] LABS: HEMATOCRIT 34.2 % (36.0-47.0); HEMOGLOBIN 11.4 g/dL (12.0-15.5); MEAN CORPUSCULAR HEMOGLOBIN 31.1 pg (27.0-33.4); MEAN CORPUSCULAR HGB CONC 33.4 g/dL (32.0-36.0); MEAN CORPUSCULAR VOLUME 93 fl (80-97); PLATELET COUNT 369 10^3/uL (150-450); RED BLOOD COUNT 3.68 10^6/uL (3.72-5.28); RED CELL DISTRIBUTION WIDTH 13.3 % (11.5-14.0); WHITE BLOOD COUNT 23.6 10^3/uL (4.0-10.5)
[2019-01-01 06:33] LABS: ALBUMIN 3.6 g/dL (3.5-5.0); ALKALINE PHOSPHATASE 53 U/L (38-126); ANION GAP 10 (5-19); ASPARTATE AMINO TRANSFERASE 15 U/L (14-36); BILIRUBIN,DIRECT 0.2 mg/dL (0.0-0.4); BILIRUBIN,TOTAL 0.2 mg/dL (0.2-1.3); BLOOD UREA NITROGEN 10 mg/dL (7-20); CALCIUM 9.6 mg/dL (8.4-10.2); CARBON DIOXIDE 26 mmol/L (22-30); CHLORIDE 103 mmol/L (98-107); GLUCOSE 137 mg/dL (75-110); POTASSIUM 4.5 mmol/L (3.6-5.0); TOTAL PROTEIN 6.4 g/dL (6.3-8.2)
[2019-01-01] MEDS: BUDESONIDE NEB 0.5 MG/2 ML AMPUL NEB SCH ×2 (08:01→20:57)
[2019-01-01 08:22] LABS: ABSOLUTE LYMPHOCYTES# (MANUAL) 1.2 10^3/uL (0.5-4.7); ABSOLUTE MONOCYTES # (MANUAL) 0.5 10^3/uL (0.1-1.4); BASOPHILS % (MANUAL) 0 % (0-2); EOSINOPHILS % (MANUAL) 0 % (0-6); LYMPHOCYTES % (MANUAL) 5 % (13-45); MONOCYTES % (MANUAL) 2 % (3-13); SEGMENTED NEUTROPHILS % (MAN) 93 % (42-78); TOTAL CELLS COUNTED 100
[2019-01-01 08:23] LABS: ANISOCYTOSIS SLIGHT; PLATELET COMMENT ADEQUATE
[2019-01-01] MEDS: CEFTRIAXONE 2 GM/D5W RTU 2 GM/50 ML RTUPB IV SCH (10:56)
[2019-01-01] MEDS: DOCUSATE SODIUM 100 MG CAPSULE PO SCH ×2 (10:56→19:33)
--- NOTE | 2019-01-01 11:47 | PDOC PROGRESS REPORT ---
Subjective Progress Note for:: 01/01/19 Subjective:: 38 year old female who presented to the emergency room with a 3-day history of dyspnea. Patient admits that her dyspnea has been gradually worsening over the last 3 days after abrupt onset with a then mild asthma attack. Her dyspnea has been constant and progressive to the point where it is now severe despite prior care yesterday in the ER with multiple nebulizer treatments, IV steroids and magnesium. She was sent home with inhalers and oral steroids and has consumed all of the medication she was given but is worsening rather than improving. Her dyspnea has been accompanied by a nonproductive cough, mild mid-back muscular pain (worse with coughing) and severe wheezing. She denies other associated or accompanying signs and symptoms. She admits several prior similar episodes with asthma attacks. She has not identified any aggravating or ameliorating factors for her asthma attacks. In the ER she was treated with multiple duo nebs and again administered IV steroids. She was noted to have a elevated white blood count (reflective of her 24-hour history of steroid use), but her chest x-ray was negative for changes other than those associated with asthma. Patient did improve somewhat with treatment but continued to require supplemental oxygen in order to engage in any activity. Patient was subsequently admitted to the hospital for further evaluation treatment. 12/31/[id number]-ptkc-old female with history of bronchial asthma admitted with exac erbation of bronchial asthma. Presently she is on a pulmonary toilet with nebulizer treatments scheduled and as needed and also IV Solu-Medrol. Patient is also receiving supplemental oxygen. No acute events since the admission afebrile. WBC count is 21,000 most likely secondary to steroid use. 01/01/[id number]-orjf-old female admitted with history of bronchial asthma is doing much much better today. No acute events in the last 24 hours. Afebrile. Reason For Visit: ACUTE EXACERBATION OF ASTHMA Physical Exam Vital Signs: Temp Pulse Resp BP Pulse Ox 98.3 F 71 18 142/87 H 97 01/01/19 07:29 01/01/19 08:00 01/01/19 08:00 01/01/19 07:29 01/01/19 08:00 Intake & Output 12/31/18 01/01/19 01/02/19 06:59 06:59 06:59 Intake Total 360 1130 Balance 360 1130 Weight 71.3 kg 68.9 kg General appearance: PRESENT: no acute distress Head exam: PRESENT: atraumatic Eye exam: PRESENT: PERRLA Mouth exam: PRESENT: moist, tongue midline Teeth exam: PRESENT: poor dentation Respiratory exam: PRESENT: decreased breath sounds, wheezes Cardiovascular exam: PRESENT: RRR. ABSENT: diastolic murmur, rubs, systolic murmur GI/Abdominal exam: PRESENT: normal bowel sounds, soft. ABSENT: distended, guarding, mass, organolmegaly, rebound, tenderness Rectal exam: PRESENT: deferred Neurological exam: PRESENT: alert, awake, oriented to person, oriented to place, oriented to time, oriented to situation, CN II-XII grossly intact. ABSENT: motor sensory deficit Psychiatric exam: PRESENT: appropriate affect, normal mood. ABSENT: homicidal ideation, suicidal ideation Results Laboratory Results: 01/01/19 05:55 01/01/19 05:55 01/01/19 01/01/19 01/01/19 05:55 05:55 05:55 WBC 23.6 H RBC 3.68 L Hgb 11.4 L Hct 34.2 L MCV 93 MCH 31.1 MCHC 33.4 RDW 13.3 Plt Count 369 Seg Neutrophils % Not Reportable Sodium 139.1 Potassium 4.5 Chloride 103 Carbon Dioxide 26 Anion Gap 10 BUN 10 Creatinine 0.48 L Est GFR ( Amer) > 60 Glucose 137 H Calcium 9.6 Magnesium 2.0 Total Bilirubin 0.2 AST 15 Alkaline Phosphatase 53 Total Protein 6.4 Albumin 3.6 TSH 0.04 L Impressions: Chest X-Ray 12/30/18 22:52 IMPRESSION: No evidence of acute cardiopulmonary disease. Assessment and Plan - Diagnosis (1) Acute asthma exacerbation Qualifiers: Asthma severity: moderate Asthma persistence: persistent Qualified Code(s): J45.41 - Moderate persistent asthma with (acute) exacerbation Is this a current diagnosis for this admission?: Yes (2) Acute respiratory failure with hypoxia Is this a current diagnosis for this admission?: Yes (3) Tobacco dependence due to cigarettes Is this a current diagnosis for this admission?: Yes (4) Leukocytosis Qualifiers: Leukocytosis type: unspecified Qualified Code(s): D72.829 - Elevated white blood cell count, unspecified Is this a current diagnosis for this admission?: Yes - Plan Summary Summary: Patient will be admitted to the medical floor treated with an aggressive pulmonary toilet utilizing Xopenex, Atrovent and Pulmicort. She will receive IV Solu-Medrol via a burst dose protocol. She will receive supplemental oxygen via nasal cannula utilizing a O2 protocol and may receive additional respiratory support utilizing noninvasive airway pressure devices such as BiPAP or CPAP. She will use Nubain 5 to 10 mg IV every 3 hours on a as needed basis for pain using a sliding scale. Daily CBC, magnesium and metabolic profile studies will be obtained. A nicotine replacement patch be available for the patient's use, if desired. 1.acute respiratory failure with hypoxia Patient admitted with acute respiratory failure with hypoxia most likely secondary to asthma exacerbation. Patient is presently receiving IV Solu- Medrol, pulmonary toilet utilizing Xopenex, Atrovent, Pulmicort. And is presently on oxygen via nasal cannula. Plan is to continue the present management. Pulse ox today 96% on 2 L this morning. Examination chest bilateral entry was decreased to still bilateral extensive wheezing present. 01/01/2019-patient's pulse ox is 98% on 2 L. Improved. Plan is to continue present management of pulmonary toilet. Plan to decrease the IV Solu-Medrol to 40 mg every 12 hours. Probably she can go home on triple prednisone tomorrow. 2.leucocytosis patient came in with elevated WBC count of 21,000. Plan is to continue to closely monitor the white cell count. It may be secondary to use of steroids. 01/01/2019-WBC went to 23,000 today most likely secondary to steroid therapy patient is receiving Rocephin 2 g IV daily. 3.tobacco abuse Is a chronic daily day smoker smoking counseling was provided , offered nicotine patches. 4.asthma exacerbation Patient has history of bronchial asthma since childhood. No recent hospit alizations. Admitted with increasing shortness of breath for last 3 days associated with wheezing. Patient presently on IV Solu-Medrol, pulmonary toilet. Plan is to continue the present management. Uric acid is elevated to 2.8 to start IV Rocephin 2 g daily. 01/01/2019-asthma exacerbation is improving. On examination bilateral entry was good and wheezing is much improved compared to yesterday. Plan is to continue pulmonary toilet with the scheduled and as needed nebulizations and continue IV antibiotic therapy.
[2019-01-01] MEDS: NICOTINE 21 MG/24 HR PATCH.TD24 TD PRN (22:35)
[2019-01-02] MEDS: LEVALBUTEROL HCL NEB 1.25 MG/3 ML AMPUL NEB SCH ×3 (00:36→15:34)
[2019-01-02] MEDS: IPRATROPIUM BROMIDE 0.02% NEB 0.5 MG/2.5 ML AMPUL NEB SCH ×3 (00:36→15:34)
[2019-01-02 05:19] LABS: HEMATOCRIT 35.5 % (36.0-47.0); HEMOGLOBIN 11.9 g/dL (12.0-15.5); MEAN CORPUSCULAR HGB CONC 33.5 g/dL (32.0-36.0); MEAN CORPUSCULAR VOLUME 93 fl (80-97); PLATELET COUNT 385 10^3/uL (150-450); RED BLOOD COUNT 3.83 10^6/uL (3.72-5.28); RED CELL DISTRIBUTION WIDTH 13.5 % (11.5-14.0); WHITE BLOOD COUNT 19.1 10^3/uL (4.0-10.5)
[2019-01-02] MEDS: HEPARIN SOD (PORCINE) 5,000 UNIT/ML 1 ML VIAL SUBCUT SCH ×3 (05:19→21:15)
[2019-01-02 05:43] LABS: ANION GAP 10 (5-19); BLOOD UREA NITROGEN 12 mg/dL (7-20); CALCIUM 9.8 mg/dL (8.4-10.2); CARBON DIOXIDE 27 mmol/L (22-30); CHLORIDE 102 mmol/L (98-107); GLUCOSE 139 mg/dL (75-110); POTASSIUM 4.4 mmol/L (3.6-5.0)
[2019-01-02] MEDS ORDERED: THYROID (PORK) 60 MG TABLET ONE (05:50)
[2019-01-02] MEDS: DIAZEPAM 5 MG TABLET PO PRN (06:50)
[2019-01-02] MEDS: NALBUPHINE HCL INJ 10 MG/1 ML AMPULE IV PRN (06:50)
[2019-01-02] MEDS: BUDESONIDE NEB 0.5 MG/2 ML AMPUL NEB SCH ×2 (08:04→19:31)
[2019-01-02] MEDS: CEFTRIAXONE 2 GM/D5W RTU 2 GM/50 ML RTUPB IV SCH (09:41)
[2019-01-02] MEDS: METHYLPREDNISOLONE INJ 40 MG/1 ML SDV IV SCH ×2 (09:41→11:45)
[2019-01-02] MEDS: DOCUSATE SODIUM 100 MG CAPSULE PO SCH ×3 (09:41→17:42)
[2019-01-02] MEDS: GUAIFENESIN SYRP 200 MG/10 ML UDC PO PRN ×2 (09:41→17:42)
--- NOTE | 2019-01-02 11:41 | PDOC PROGRESS REPORT ---
Subjective Progress Note for:: 01/02/19 Subjective:: 38 year old female who presented to the emergency room with a 3-day history of dyspnea. Patient admits that her dyspnea has been gradually worsening over the last 3 days after abrupt onset with a then mild asthma attack. Her dyspnea has been constant and progressive to the point where it is now severe despite prior care yesterday in the ER with multiple nebulizer treatments, IV steroids and magnesium. She was sent home with inhalers and oral steroids and has consumed all of the medication she was given but is worsening rather than improving. Her dyspnea has been accompanied by a nonproductive cough, mild mid-back muscular pain (worse with coughing) and severe wheezing. She denies other associated or accompanying signs and symptoms. She admits several prior similar episodes with asthma attacks. She has not identified any aggravating or ameliorating factors for her asthma attacks. In the ER she was treated with multiple duo nebs and again administered IV steroids. She was noted to have a elevated white blood count (reflective of her 24-hour history of steroid use), but her chest x-ray was negative for changes other than those associated with asthma. Patient did improve somewhat with treatment but continued to require supplemental oxygen in order to engage in any activity. Patient was subsequently admitted to the hospital for further evaluation treatment. 12/31/[id number]-nqus-old female with history of bronchial asthma admitted with exac erbation of bronchial asthma. Presently she is on a pulmonary toilet with nebulizer treatments scheduled and as needed and also IV Solu-Medrol. Patient is also receiving supplemental oxygen. No acute events since the admission afebrile. WBC count is 21,000 most likely secondary to steroid use. 01/01/[id number]-utol-old female admitted with history of bronchial asthma is doing much much better today. No acute events in the last 24 hours. Afebrile. 01/02/[id number]-tfti-old female admitted with exacerbation of bronchial asthma which is resolving. No acute events in the last 24 hours. WBC is coming down. Patient is afebrile. Reason For Visit: ACUTE EXACERBATION OF ASTHMA Physical Exam Vital Signs: Temp Pulse Resp BP Pulse Ox 97.9 F 78 16 140/82 H 98 01/02/19 07:42 01/02/19 08:04 01/02/19 08:04 01/02/19 07:42 01/02/19 08:04 Intake & Output 01/01/19 01/02/19 01/03/19 06:59 06:59 06:59 Intake Total 1130 1302 Balance 1130 1302 Weight 68.9 kg 69.6 kg General appearance: PRESENT: no acute distress, obese Head exam: PRESENT: atraumatic Eye exam: PRESENT: PERRLA Mouth exam: PRESENT: dry mucosa Teeth exam: PRESENT: poor dentation Neck exam: ABSENT: carotid bruit, JVD, lymphadenopathy, thyromegaly Respiratory exam: PRESENT: decreased breath sounds, wheezes Cardiovascular exam: PRESENT: tachycardia GI/Abdominal exam: PRESENT: normal bowel sounds, soft. ABSENT: distended, guarding, mass, organolmegaly, rebound, tenderness Rectal exam: PRESENT: deferred Neurological exam: PRESENT: alert, awake, oriented to person, oriented to place, oriented to time, oriented to situation, CN II-XII grossly intact. ABSENT: motor sensory deficit Psychiatric exam: PRESENT: appropriate affect, normal mood. ABSENT: homicidal ideation, suicidal ideation Results Laboratory Results: 01/02/19 04:32 01/02/19 04:32 01/02/19 01/02/19 04:32 04:32 WBC 19.1 H RBC 3.83 Hgb 11.9 L Hct 35.5 L MCV 93 MCH 31.0 MCHC 33.5 RDW 13.5 Plt Count 385 Sodium 139.0 Potassium 4.4 Chloride 102 Carbon Dioxide 27 Anion Gap 10 BUN 12 Creatinine 0.49 L Est GFR ( Amer) > 60 Glucose 139 H Calcium 9.8 Magnesium 1.8 Impressions: Chest X-Ray 12/30/18 22:52 IMPRESSION: No evidence of acute cardiopulmonary disease. Assessment and Plan - Diagnosis (1) Acute respiratory failure with hypoxia Is this a current diagnosis for this admission?: Yes (2) Tobacco dependence due to cigarettes Is this a current diagnosis for this admission?: Yes (3) Leukocytosis Qualifiers: Leukocytosis type: unspecified Qualified Code(s): D72.829 - Elevated white blood cell count, unspecified Is this a current diagnosis for this admission?: Yes - Plan Summary Summary: Patient will be admitted to the medical floor treated with an aggressive pulmonary toilet utilizing Xopenex, Atrovent and Pulmicort. She will receive IV Solu-Medrol via a burst dose protocol. She will receive supplemental oxygen via nasal cannula utilizing a O2 protocol and may receive additional respiratory support utilizing noninvasive airway pressure devices such as BiPAP or CPAP. She will use Nubain 5 to 10 mg IV every 3 hours on a as needed basis for pain using a sliding scale. Daily CBC, magnesium and metabolic profile studies will be obtained. A nicotine replacement patch be available for the patient's use, if desired. 1.acute respiratory failure with hypoxia Patient admitted with acute respiratory failure with hypoxia most likely secon claudio to asthma exacerbation. Patient is presently receiving IV Solu-Medrol, pulmonary toilet utilizing Xopenex, Atrovent, Pulmicort. And is presently on oxygen via nasal cannula. Plan is to continue the present management. Pulse ox today 96% on 2 L this morning. Examination chest bilateral entry was decreased to still bilateral extensive wheezing present. 01/01/2019-patient's pulse ox is 98% on 2 L. Improved. Plan is to continue present management of pulmonary toilet. Plan to decrease the IV Solu-Medrol to 40 mg every 12 hours. Probably she can go home on triple prednisone tomorrow. 01/02/2019-patient's pulse ox today is 95% on room air. On examination chest bilateral entry was decreased mild wheezing is present. Plan is to decrease the IV Solu-Medrol from 40 mg every 12 hours to once a day. 2.leucocytosis patient came in with elevated WBC count of 21,000. Plan is to continue to closely monitor the white cell count. It may be secondary to use of steroids. 01/01/2019-WBC went to 23,000 today most likely secondary to steroid therapy patient is receiving Rocephin 2 g IV daily. 01/02/2019-WBC count is 19,000 today. Most likely secondary to steroid therapy. 3.tobacco abuse Is a chronic daily day smoker smoking counseling was provided , offered nicotine patches. 4.asthma exacerbation Patient has history of bronchial asthma since childhood. No recent hospitalizations. Admitted with increasing shortness of breath for last 3 days associated with wheezing. Patient presently on IV Solu-Medrol, pulmonary toilet. Plan is to continue the present management. Uric acid is elevated to 2.8 to start IV Rocephin 2 g daily. 01/01/2019-asthma exacerbation is improving. On examination bilateral entry was good and wheezing is much improved compared to yesterday. Plan is to continue pulmonary toilet with the scheduled and as needed nebulizations and continue IV antibiotic therapy. 01/02/2019-on examination chest bilateral it was decreased but wheezing is improving. Plan is to decrease the frequency of IV Solu-Medrol to once a day. And to continue IV antibiotic therapy. Plan to check the labs tomorrow.
[2019-01-02] MEDS: OXYCODONE-ACETAMINOPHEN 5-325 MG TABLET PO PRN ×2 (14:35→21:39)
[2019-01-02] MEDS ORDERED: ROPINIROLE HCL 1 MG TABLET ONE (21:23)
[2019-01-02] MEDS: ROPINIROLE HCL 1 MG TABLET PO PRN (21:39)
[2019-01-03] MEDS: IPRATROPIUM BROMIDE 0.02% NEB 0.5 MG/2.5 ML AMPUL NEB SCH ×2 (00:28→08:25)
[2019-01-03] MEDS: LEVALBUTEROL HCL NEB 1.25 MG/3 ML AMPUL NEB SCH ×2 (00:28→08:25)
[2019-01-03 05:21] LABS: HEMATOCRIT 35.9 % (36.0-47.0); HEMOGLOBIN 12.2 g/dL (12.0-15.5); MEAN CORPUSCULAR HGB CONC 33.8 g/dL (32.0-36.0); MEAN CORPUSCULAR VOLUME 92 fl (80-97); PLATELET COUNT 357 10^3/uL (150-450); RED BLOOD COUNT 3.91 10^6/uL (3.72-5.28); RED CELL DISTRIBUTION WIDTH 13.1 % (11.5-14.0)
[2019-01-03] MEDS: HEPARIN SOD (PORCINE) 5,000 UNIT/ML 1 ML VIAL SUBCUT SCH (05:32)
[2019-01-03 05:41] LABS: ANION GAP 7 (5-19); BLOOD UREA NITROGEN 12 mg/dL (7-20); CALCIUM 9.4 mg/dL (8.4-10.2); CARBON DIOXIDE 30 mmol/L (22-30); CHLORIDE 101 mmol/L (98-107); GLUCOSE 93 mg/dL (75-110); POTASSIUM 3.8 mmol/L (3.6-5.0)
[2019-01-03] MEDS: BUDESONIDE NEB 0.5 MG/2 ML AMPUL NEB SCH (08:25)
[2019-01-03] MEDS: DOCUSATE SODIUM 100 MG CAPSULE PO SCH (09:34)
[2019-01-03] MEDS: OXYCODONE-ACETAMINOPHEN 5-325 MG TABLET PO PRN (09:34)
[2019-01-03] MEDS: METHYLPREDNISOLONE INJ 40 MG/1 ML SDV IV SCH (09:35)
[2019-01-03] MEDS: CEFTRIAXONE 2 GM/D5W RTU 2 GM/50 ML RTUPB IV SCH (09:35)
--- NOTE | 2019-01-03 11:14 | PDOC DISCHARGE SUMMARY ---
Impression - Admit/DC Date/PCP Admission Date/Primary Care Provider: 12/31/18 01:13 Discharge Date: 01/03/19 - Discharge Diagnosis (1) Acute respiratory failure with hypoxia Is this a current diagnosis for this admission?: Yes (2) Tobacco dependence due to cigarettes Is this a current diagnosis for this admission?: Yes (3) Leukocytosis Is this a current diagnosis for this admission?: Yes - Assessment Summary: Patient will be admitted to the medical floor treated with an aggressive pulmonary toilet utilizing Xopenex, Atrovent and Pulmicort. She will receive IV Solu-Medrol via a burst dose protocol. She will receive supplemental oxygen via nasal cannula utilizing a O2 protocol and may receive additional respiratory support utilizing noninvasive airway pressure devices such as BiPAP or CPAP. She will use Nubain 5 to 10 mg IV every 3 hours on a as needed basis for pain using a sliding scale. Daily CBC, magnesium and metabolic profile studies will be obtained. A nicotine replacement patch be available for the patient's use, if desired. 1.acute respiratory failure with hypoxia Patient admitted with acute respiratory failure with hypoxia most likely secondary to asthma exacerbation. Patient is presently receiving IV Solu- Medrol, pulmonary toilet utilizing Xopenex, Atrovent, Pulmicort. And is presently on oxygen via nasal cannula. Plan is to continue the present management. Pulse ox today 96% on 2 L this morning. Examination chest bilateral entry was decreased to still bilateral extensive wheezing present. 01/01/2019-patient's pulse ox is 98% on 2 L. Improved. Plan is to continue present management of pulmonary toilet. Plan to decrease the IV Solu-Medrol to 40 mg every 12 hours. Probably she can go home on triple prednisone tomorrow. 01/02/2019-patient's pulse ox today is 95% on room air. On examination chest bilateral entry was decreased mild wheezing is present. Plan is to decrease the IV Solu-Medrol from 40 mg every 12 hours to once a day. 2.leucocytosis patient came in with elevated WBC count of 21,000. Plan is to continue to closely monitor the white cell count. It may be secondary to use of steroids. 01/01/2019-WBC went to 23,000 today most likely secondary to steroid therapy patient is receiving Rocephin 2 g IV daily. 01/02/2019-WBC count is 19,000 today. Most likely secondary to steroid therapy. 01/03/2019-WBC came down to 14,000 today improved from 19,000. Afebrile. Most likely secondary to steroid therapy. Patient is going home on tapering dose of prednisone. 3.tobacco abuse Is a chronic daily day smoker smoking counseling was provided , offered nicotine patches. 4.asthma exacerbation Patient has history of bronchial asthma since childhood. No recent hospitalizations. Admitted with increasing shortness of breath for last 3 days associated with wheezing. Patient presently on IV Solu-Medrol, pulmonary toilet. Plan is to continue the present management. Uric acid is elevated to 2.8 to start IV Rocephin 2 g daily. 01/01/2019-asthma exacerbation is improving. On examination bilateral entry was good and wheezing is much improved compared to yesterday. Plan is to continue pulmonary toilet with the scheduled and as needed nebulizations and continue IV antibiotic therapy. 01/02/2019-on examination chest bilateral it was decreased but wheezing is improving. Plan is to decrease the frequency of IV Solu-Medrol to once a day. And to continue IV antibiotic therapy. Plan to check the labs tomorrow. 01/03/2019-patient's pulse ox today is 99% on room air. Comfortable in the bed communicating well. Still with mild bilateral wheezing present in both lung lae. To give a prescription for albuterol rescue inhaler and also tapering dose of prednisone for her to take home. Patient is strongly advised to come back to the emergency room if the symptoms are getting worse. - Additional Information Resuscitation Status: Full Code Discharge Diet: Regular Discharge Activity: Activity As Tolerated Referrals: [facility] [Outside] - 01/06/19 11:30 am (WITH DR. WILEY) Prescriptions: Prednisone 10 mg PO BID 5 Days #10 tablet Albuterol Sulfate [Proair Respiclick] 90 mcg IH 6XD PRN 30 Days vial PRN Reason: Home Medications: Albuterol Sulfate [Proair Respiclick] 90 mcg IH 6XD PRN 30 Days vial 01/03/19 Prednisone 10 mg PO BID 5 Days #10 tablet 01/03/19 History of Present Illiness History of Present Illness: CECIL GARG is a 38 year old female 38 year old female who presented to the emergency room with a 3-day history of dyspnea. Patient admits that her dyspnea has been gradually worsening over the last 3 days after abrupt onset with a then mild asthma attack. Her dyspnea has been constant and progressive to the point where it is now severe despite prior care yesterday in the ER with multiple nebulizer treatments, IV steroids and magnesium. She was sent home with inhalers and oral steroids and has consumed all of the medication she was given but is worsening rather than improving. Her dyspnea has been accompanied by a nonproductive cough, mild mid-back muscular pain (worse with coughing) and severe wheezing. She denies other associated or accompanying signs and symptoms. She admits several prior similar episodes with asthma attacks. She has not identified any aggravating or ameliorating factors for her asthma attacks. In the ER she was treated with multiple duo nebs and again administered IV steroids. She was noted to have a elevated white blood count (reflective of her 24-hour history of steroid use), but her chest x-ray was negative for changes other than those associated with asthma. Patient did improve somewhat with treatment but continued to require supplemental oxygen in order to engage in any activity. Patient was subsequently admitted to the hospital for further evaluation treatment. Hospital Course Hospital Course: 38 year old female who presented to the emergency room with a 3-day history of dyspnea. Patient admits that her dyspnea has been gradually worsening over the last 3 days after abrupt onset with a then mild asthma attack. Her dyspnea has been constant and progressive to the point where it is now severe despite prior care yesterday in the ER with multiple nebulizer treatments, IV steroids and magnesium. She was sent home with inhalers and oral steroids and has consumed all of the medication she was given but is worsening rather than improving. Her dyspnea has been accompanied by a nonproductive cough, mild mid-back muscular pain (worse with coughing) and severe wheezing. She denies other associated or accompanying signs and symptoms. She admits several prior similar episodes with asthma attacks. She has not identified any aggravating or ameliorating factors for her asthma attacks. In the ER she was treated with multiple duo nebs and again administered IV steroids. She was noted to have a elevated white blood count (reflective of her 24-hour history of steroid use), but her chest x-ray was negative for changes other than those associated with asthma. Patient did improve somewhat with treatment but continued to require supplemental oxygen in order to engage in any activity. Patient was subsequently admitted to the hospital for further evaluation treatment. 12/31/[id number]-scgl-old female with history of bronchial asthma admitted with e xacerbation of bronchial asthma. Presently she is on a pulmonary toilet with nebulizer treatments scheduled and as needed and also IV Solu-Medrol. Patient is also receiving supplemental oxygen. No acute events since the admission afebrile. WBC count is 21,000 most likely secondary to steroid use. 01/01/[id number]-jdrp-old female admitted with history of bronchial asthma is doing much much better today. No acute events in the last 24 hours. Afebrile. 01/02/[id number]-zosf-old female admitted with exacerbation of bronchial asthma which is resolving. No acute events in the last 24 hours. WBC is coming down. Patient is afebrile. 01/03/[id number]-arvp-old female admitted with exacerbation of bronchial asthma which was resolving. Pulse oxes are stable. Patient prefers to go home and rescue inhaler and prednisone tapering dose. Physical Exam Vital Signs: Temp Pulse Resp BP Pulse Ox 97.9 F 67 16 153/90 H 97 01/03/19 08:00 01/03/19 08:25 01/03/19 08:25 01/03/19 08:00 01/03/19 08:25 Intake & Output 01/02/19 01/03/19 01/04/19 06:59 06:59 06:59 Intake Total 1302 1172 Balance 1302 1172 Weight 69.6 kg 71.2 kg General appearance: PRESENT: no acute distress, obese Head exam: PRESENT: atraumatic Eye exam: PRESENT: PERRLA Mouth exam: PRESENT: neck supple Teeth exam: PRESENT: poor dentation Neck exam: ABSENT: carotid bruit, JVD, lymphadenopathy, thyromegaly Respiratory exam: PRESENT: decreased breath sounds, wheezes Cardiovascular exam: PRESENT: RRR. ABSENT: diastolic murmur, rubs, systolic murmur GI/Abdominal exam: PRESENT: normal bowel sounds, soft. ABSENT: distended, guarding, mass, organolmegaly, rebound, tenderness Rectal exam: PRESENT: deferred Neurological exam: PRESENT: alert, awake, oriented to person, oriented to place, oriented to time, oriented to situation, CN II-XII grossly intact. ABSENT: motor sensory deficit Psychiatric exam: PRESENT: appropriate affect, normal mood. ABSENT: homicidal ideation, suicidal ideation Results Laboratory Results: WBC 14.0 10^3/uL (4.0-10.5) H 01/03/19 04:43 RBC 3.91 10^6/uL (3.72-5.28) 01/03/19 04:43 Hgb 12.2 g/dL (12.0-15.5) 01/03/19 04:43 Hct 35.9 % (36.0-47.0) L 01/03/19 04:43 MCV 92 fl (80-97) 01/03/19 04:43 MCH 31.0 pg (27.0-33.4) 01/03/19 04:43 MCHC 33.8 g/dL (32.0-36.0) 01/03/19 04:43 RDW 13.1 % (11.5-14.0) 01/03/19 04:43 Plt Count 357 10^3/uL (150-450) 01/03/19 04:43 Lymph % (Auto) Not Reportable 01/01/19 05:55 [place] % (Auto) Not Reportable 01/01/19 05:55 Eos % (Auto) Not Reportable 01/01/19 05:55 Baso % (Auto) Not Reportable 01/01/19 05:55 Absolute Neuts (auto) Not Reportable 01/01/19 05:55 Absolute Lymphs (auto) Not Reportable 01/01/19 05:55 Absolute Monos (auto) Not Reportable 01/01/19 05:55 Absolute Eos (auto) Not Reportable 01/01/19 05:55 Absolute Basos (auto) Not Reportable 01/01/19 05:55 Total Counted 100 01/01/19 05:55 Seg Neutrophils % Not Reportable 01/01/19 05:55 Seg Neuts % (Manual) 93 % (42-78) H 01/01/19 05:55 Lymphocytes % (Manual) 5 % (13-45) L 01/01/19 05:55 Monocytes % (Manual) 2 % (3-13) L 01/01/19 05:55 Eosinophils % (Manual) 0 % (0-6) 01/01/19 05:55 Basophils % (Manual) 0 % (0-2) 01/01/19 05:55 Abs Neuts (Manual) 21.9 10^3/uL (1.7-8.2) H 01/01/19 05:55 Abs Lymphs (Manual) 1.2 10^3/uL (0.5-4.7) 01/01/19 05:55 Abs Monocytes (Manual) 0.5 10^3/uL (0.1-1.4) 01/01/19 05:55 Absolute Eos (Manual) 0.0 10^3/uL (0.0-0.6) 01/01/19 05:55 Abs Basophils (Manual) 0.0 10^3/uL (0.0-0.2) 01/01/19 05:55 Platelet Comment ADEQUATE 01/01/19 05:55 Anisocytosis SLIGHT 01/01/19 05:55 RBC Morph Comment NORMO-CYTIC/CHROMIC 12/30/18 22:30 Sodium 137.6 mmol/L (137-145) 01/03/19 04:43 Potassium 3.8 mmol/L (3.6-5.0) 01/03/19 04:43 Chloride 101 mmol/L (98-107) 01/03/19 04:43 Carbon Dioxide 30 mmol/L (22-30) 01/03/19 04:43 Anion Gap 7 (5-19) 01/03/19 04:43 BUN 12 mg/dL (7-20) 01/03/19 04:43 Creatinine 0.54 mg/dL (0.52-1.25) 01/03/19 04:43 Est GFR ( Amer) > 60 (>60) 01/03/19 04:43 Est GFR (MDRD) Non-Af > 60 (>60) 01/03/19 04:43 Glucose 93 mg/dL (75-110) 01/03/19 04:43 Lactic Acid 2.2 mmol/L (0.7-2.1) H 12/31/18 10:16 Calcium 9.4 mg/dL (8.4-10.2) 01/03/19 04:43 Magnesium 1.7 mg/dL (1.6-2.3) 01/03/19 04:43 Total Bilirubin 0.2 mg/dL (0.2-1.3) 01/01/19 05:55 Direct Bilirubin 0.2 mg/dL (0.0-0.4) 01/01/19 05:55 Neonat Total Bilirubin Not Reportable 01/01/19 05:55 Neonat Direct Bilirubin Not Reportable 01/01/19 05:55 Neonat Indirect Bili Not Reportable 01/01/19 05:55 AST 15 U/L (14-36) 01/01/19 05:55 ALT 13 U/L (<35) 01/01/19 05:55 Alkaline Phosphatase 53 U/L (38-126) 01/01/19 05:55 Total Protein 6.4 g/dL (6.3-8.2) 01/01/19 05:55 Albumin 3.6 g/dL (3.5-5.0) 01/01/19 05:55 TSH 0.04 uIU/mL (0.47-4.68) L 01/01/19 05:55 Free T4 0.99 ng/dL (0.78-2.19) 12/31/18 02:04 Free T3 pg/mL 3.55 pg/mL (2.77-5.27) 12/31/18 02:04 Impressions: Chest X-Ray 12/30/18 22:52 IMPRESSION: No evidence of acute cardiopulmonary disease. Plan Time Spent: Greater than 30 Minutes Stroke Is this a Stroke Patient?: No Acute Heart Failure - Is this a Heart Failure Patient?: No
[2019-01-03 13:32] VITALS: BP 143/98
== END 2019-01-03 15:00 | disposition home or self-care (01) | DRG 202 ==
LOC: ER 22:43 → EH 12-31 01:13 → 4S 12-31 02:42 → 5 01-01 18:53
PROVIDERS: ADMIT Emergency Medicine; ATTEND Emergency Medicine
PROC: 5A09357 Assistance with Respiratory Ventilation, Less than 24 Consecutive Hours, Continuous Positive Airway Pressure (ICD-10-PCS; principal; 2018-12-31)
DX: J45.41 Moderate persistent asthma with (acute) exacerbation (principal); J96.01 Acute respiratory failure with hypoxia; K21.9 Gastro-esophageal reflux disease without esophagitis; F90.9 Attention-deficit hyperactivity disorder, unspecified type; D72.829 Elevated white blood cell count, unspecified; F17.210 Nicotine dependence, cigarettes, uncomplicated; F41.9 Anxiety disorder, unspecified; F32.9 Major depressive disorder, single episode, unspecified; Z86.14 Personal history of Methicillin resistant Staphylococcus aureus infection; Z79.899 Other long term (current) drug therapy; Z79.52 Long term (current) use of systemic steroids; Z88.2 Allergy status to sulfonamides; Z88.8 Allergy status to other drugs, medicaments and biological substances
CPT/HCPCS: 36415; 71045; 80048; 80053; 83605; 83735; 84439; 84443; 84481; 85025; 85027; J0696; J1644; J2300; J2920; J3490; J7620

== ENCOUNTER 2019-03-31 02:05 | Observation (INO) | payer SELFPAY ==
[2019-03-31] MEDS ORDERED: IPRATROPIUM/ALBUTEROL 0.5-2.5 MG/3 ML AMPUL NEB ONE ×2 (02:47→04:53)
--- NOTE | 2019-03-31 02:58 | ER Document Report ---
ED Respiratory Problem - General Chief Complaint: Shortness Of Breath Stated Complaint: SHORTNESS OF BREATH Time Seen by Provider: 03/31/19 02:33 Mode of Arrival: Medic Information source: Patient Notes: 38-year-old female presented to ED for complaint of cough congestion shortness of breath for the last 3 days. She does have a history of asthma with frequent exacerbation. She came to the ED via EMS. She did receive 2 albuterol treatments in the emesis was well is on 25 mg of Solu-Medrol and Zofran ODT and magnesium. Patient continues to have wheezes throughout all lung zones. TRAVEL OUTSIDE OF THE [place] IN LAST 30 DAYS: No - HPI Patient complains to provider of: Asthma, Cough, Short of breath Onset: Other - 3 days Initiating Event: URI Quality of pain: Achy Severity: Moderate Pain Level: 3 Context: Hx asthma, Smoker Chest pain/discomfort: Tightness Cough: Nonproductive At home treatment: Bronchodilators EMS treatments: Bronchodilators, Solumedrol Associated symptoms: Congestion, Cough, PND, Runny nose, Sinus pain/pressure, Short of breath, Wheezing Similar symptoms previously: Yes Recently seen / treated by doctor: Yes - Related Data Allergies/Adverse Reactions: Sulfa (Sulfonamide Antibiotics) Allergy (Intermediate, Verified 12/23/18 19:16) Rash/Itching ketorolac [From Toradol] Adverse Reaction (Intermediate, Verified 12/23/18 19:16) Anxiety Home Medications: albuterol inhaler Past Medical History - General Information source: Patient - Social History Smoking Status: Current Every Day Smoker Cigarette use (# per day): Yes - 10 cigarettes a day Smoking Education Provided: Yes - 4 minutes Frequency of alcohol use: None Drug Abuse: None Family History: Arthritis - Chronic back pain, Thyroid Disfunction, Other - Irritable bowel syndrome/colitis Patient has suicidal ideation: No Patient has homicidal ideation: No - Past Medical History Cardiac Medical History: Reports: None Pulmonary Medical History: Reports: Hx Asthma, Hx Pneumonia - hx of EENT Medical History: Reports: None Neurological Medical History: Reports: None Endocrine Medical History: Reports: None Renal/ Medical History: Reports: Hx Ectopic , Hx Ovarian Cysts Malignancy Medical History: Reports: None GI Medical History: Reports: Hx Gastroesophageal Reflux Disease, Other - Colitis Musculoskeletal Medical History: Reports None Skin Medical History: Reports Hx MRSA, Reports Other - Hydradenitis Psychiatric Medical History: Reports: Hx Anxiety, Hx Attention Deficit Hyperactivity Disorder, Hx Bipolar Disorder, Hx Depression Traumatic Medical History: Reports: None Infectious Medical History: Reports: Hx MRSA Past Surgical History: Reports: Hx Section, Hx Gynecologic Surgery - tubal - Immunizations Immunizations up to date: Yes Hx Diphtheria, Pertussis, Tetanus Vaccination: Yes Review of Systems - Review of Systems Constitutional: Recent illness EENT: Nose discharge, Sinus discharge Cardiovascular: No symptoms reported Respiratory: Cough, Short of breath, Wheezing Gastrointestinal: No symptoms reported Genitourinary: No symptoms reported Female Genitourinary: No symptoms reported Musculoskeletal: No symptoms reported Skin: No symptoms reported Hematologic/Lymphatic: No symptoms reported Neurological/Psychological: No symptoms reported -: Yes All other systems reviewed and negative Physical Exam - Vital signs Vitals: Resp Pulse Ox 17 100 03/31/19 02:10 03/31/19 02:10 Interpretation: Normal - General General appearance: Appears well, Alert - HEENT Head: Normocephalic, Atraumatic Eyes: Normal Pupils: PERRL Ears: Normal External canal: Normal Tympanic membrane: Normal Sinus: Normal Nasal: Purulent discharge, Swelling Mucous membranes: Normal Pharynx: Post nasal drainage Neck: Normal - Respiratory Respiratory status: No respiratory distress Chest status: Nontender Breath sounds: Nonproductive cough, Wheezing Chest palpation: Normal - Cardiovascular Rhythm: Regular Heart sounds: Normal auscultation Murmur: No - Abdominal Inspection: Normal Distension: No distension Bowel sounds: Normal Tenderness: Nontender Organomegaly: No organomegaly - Back Back: Normal, Nontender - Extremities General upper extremity: Normal inspection, Nontender, Normal color, Normal ROM, Normal temperature General lower extremity: Normal inspection, Nontender, Normal color, Normal ROM, Normal temperature, Normal weight bearing. No: Marcos's sign - Neurological Neuro grossly intact: Yes Cognition: Normal Orientation: AAOx4 Ananth Coma Scale Eye Opening: Spontaneous [place] Coma Scale Verbal: Oriented Ananth Coma Scale Motor: Obeys Commands Ananth Coma Scale Total: 15 Speech: Normal Motor strength normal: LUE, RUE, LLE, RLE Sensory: Normal - Psychological Associated symptoms: Normal affect, Normal mood - Skin Skin Temperature: Warm Skin Moisture: Dry Skin Color: Normal Course - Re-evaluation Re-evalutation: 03/31/19 08:33 Discussed labs and x-rays with Dr. Dunbar the hospitalist. Patient continues to have wheezing and shortness of breath. She was treated with a inhaled nebs x2 and Solu-Medrol in EMS and then I treated her with 2 duo nebs and 1 Xopenex neb and she has continued to have wheezing and shortness of breath. She will be admitted for exacerbation of asthma and treated by the hospitalist. She states she does not have a primary doctor. - Vital Signs Vital signs: Temp Pulse Resp BP Pulse Ox 98.9 F 109 H 19 103/78 92 03/31/19 06:01 03/31/19 02:20 03/31/19 06:01 03/31/19 06:01 03/31/19 06:01 - Laboratory Result Diagrams: 03/31/19 02:55 03/31/19 02:55 Laboratory results interpreted by me: 03/31/19 03/31/19 03/31/19 02:55 02:55 05:24 WBC 16.3 H RDW 15.3 H Lymph % (Auto) 5.2 L [place] % (Auto) 2.3 L Absolute Neuts (auto) 14.3 H Seg Neutrophils % 87.9 H Glucose 119 H Urine Ascorbic Acid 40 H - Diagnostic Test Radiology reviewed: Image reviewed, Reports reviewed Discharge - Discharge Clinical Impression: Asthma exacerbation Qualifiers: Asthma severity: moderate Asthma persistence: persistent Qualified Code(s): J45.41 - Moderate persistent asthma with (acute) exacerbation Disposition: ADMITTED INPATIENT Admitting Provider: Rae (Hospitalist) Unit Admitted: Medical Floor
[2019-03-31 03:04] LABS: ABSOLUTE BASOPHILS # (AUTO) 0.1 10^3/uL (0.0-0.2); ABSOLUTE EOSINOPHILS # (AUTO) 0.6 10^3/uL (0.0-0.6); ABSOLUTE LYMPHOCYTES (AUTO) 0.9 10^3/uL (0.5-4.7); ABSOLUTE MONOCYTES (AUTO) 0.4 10^3/uL (0.1-1.4); ABSOLUTE NEUT (AUTO) 14.3 10^3/uL (1.7-8.2); BASOPHILS % (AUTO) 0.6 % (0-2); HEMATOCRIT 36.3 % (36.0-47.0); LYMPHOCYTES % (AUTO) 5.2 % (13-45); MEAN CORPUSCULAR VOLUME 88 fl (80-97); MONOCYTES % (AUTO) 2.3 % (3-13); PLATELET COUNT 406 10^3/uL (150-450); RED BLOOD COUNT 4.13 10^6/uL (3.72-5.28); RED CELL DISTRIBUTION WIDTH 15.3 % (11.5-14.0); SEGMENTED NEUTROPHILS % (AUTO) 87.9 % (42-78); TOTAL CELLS COUNTED % (AUTO) 100 %; WHITE BLOOD COUNT 16.3 10^3/uL (4.0-10.5)
[2019-03-31 03:21] LABS: ALBUMIN 3.8 g/dL (3.5-5.0); ALKALINE PHOSPHATASE 58 U/L (38-126); ANION GAP 14 (5-19); ASPARTATE AMINO TRANSFERASE 34 U/L (14-36); BILIRUBIN,DIRECT 0.2 mg/dL (0.0-0.4); BILIRUBIN,TOTAL 0.3 mg/dL (0.2-1.3); BLOOD UREA NITROGEN 14 mg/dL (7-20); CARBON DIOXIDE 25 mmol/L (22-30); CHLORIDE 101 mmol/L (98-107); GLUCOSE 119 mg/dL (75-110); POTASSIUM 4.3 mmol/L (3.6-5.0); TOTAL PROTEIN 6.5 g/dL (6.3-8.2)
--- NOTE | 2019-03-31 04:38 | RADIOLOGY REPORT (SQ) ---
EXAM DESCRIPTION: XR CHEST 2 VIEWS COMPLETED DATE/TME: 03/31/2019 02:46 CLINICAL HISTORY: 38 years, Female, Cough congestion short of breath COMPARISON: 12/30/2018 NUMBER OF VIEWS: Two TECHNIQUE: Two views of the chest LIMITATIONS: None. FINDINGS: Lungs are clear. The heart is normal in size. There is no pneumothorax or pleural effusion. The bones are unremarkable. IMPRESSION: No acute cardiopulmonary abnormality copyright 2010 [employer]- All Rights Reserved
[2019-03-31 06:19] LABS: APPEARANCE,URINE CLEAR; BILIRUBIN,URINE NEGATIVE (NEGATIVE); COLOR,URINE YELLOW; GLUCOSE, URINE NEGATIVE (NEGATIVE); KETONES,URINE NEGATIVE (NEGATIVE); PROTEIN,URINE NEGATIVE (NEGATIVE); URINE SPECIFIC GRAVITY 1.014; UROBILINOGEN,URINE NEGATIVE mg/dL (<2.0)
[2019-03-31] MEDS ORDERED: LEVALBUTEROL HCL NEB 1.25 MG/3 ML AMPUL NEB ONE (06:45)
--- NOTE | 2019-03-31 07:36 | EKG REPORT ---
SEVERITY:- ABNORMAL ECG - SINUS TACHYCARDIA LEFT ATRIAL ABNORMALITY BORDERLINE T ABNORMALITIES, ANT-LAT LEADS : Confirmed by: Samy Coreas MD 31-Mar-2019 07:35:13
[2019-03-31] MEDS ORDERED: ALBUTEROL SULFATE 0.083% NEB 2.5 MG/3 ML AMPUL NEB PRN (08:18)
[2019-03-31] MEDS: HEPARIN SOD (PORCINE) 5,000 UNIT/ML 1 ML VIAL SUBCUT SCH ×2 (10:31→21:35)
--- NOTE | 2019-03-31 11:43 | PDOC H&P ---
History of Present Illness Admission Date/PCP: 03/31/19 07:35 Patient complains of: SOB History of Present Illness: CECIL GARG is a 38 year old female with a past medical history of asthma not compliant on her asthma inhalers due to insurance issues, history of depression, anxiety, hypertension and Crohn's Presented with wheezing and increasing shortness of breath. Patient reports that she has been having progressively worsening short of loss of breath shortness of breath associated with wheezing over the past 2 to 3 days. This is associated with nonproductive cough. She denies fever or chills. Denies chest pain. In the ER, she was noted to have bilateral wheezing and was initially tachypneic. She was given IV steroids and multiple breathing treatments. She only reported partial relief and continued to report shortness of breath. She did have persistent wheezing on examination. Past Medical History Cardiac Medical History: Reports: None Denies: Hypertension Pulmonary Medical History: Reports: Asthma, Pneumonia - hx of Denies: Chronic Obstructive Pulmonary Disease (COPD) EENT Medical History: Reports: None Neurological Medical History: Reports: None Denies: Seizures Endocrine Medical History: Reports: None Denies: Diabetes Mellitus Type 1, Diabetes Mellitus Type 2 Malignancy Medical History: Reports: None GI Medical History: Reports: Gastroesophageal Reflux Disease, Other - Colitis Denies: Cirrhosis, Hepatitis Musculoskeltal Medical History: Reports: None Denies: Arthritis, Gout Skin Medical History: Reports: Other - Hydradenitis Denies: Eczema, Psoriasis Psychiatric Medical History: Reports: Attention Deficit Hyperactivity Disorder, Bipolar Disorder, Depression Traumatic Medical History: Reports: None Hematology: Denies: Anemia, Bleeding Tendencies Infectious Medical History: Reports: Methicillin-Resistant Staph Aureus Past Surgical History Past Surgical History: Reports: Section Social History Smoking Status: Current Every Day Smoker Frequency of Alcohol Use: None Hx Recreational Drug Use: No - Patient denies use but prior urine drug screens have demonstrated substance Drugs: Cocaine, Marijuana Hx Prescription Drug Abuse: No Family History Family History: Arthritis - Chronic back pain, Thyroid Disfunction, Other - Irritable bowel syndrome/colitis Parental Family History Reviewed: Yes - no premature CAD Children Family History Reviewed: No Sibling(s) Family History Reviewed.: No Medication/Allergy Home Medications: Albuterol Sulfate [Proair Respiclick] 2 puff IH Q4HP PRN 03/31/19 Allergies/Adverse Reactions: Sulfa (Sulfonamide Antibiotics) Allergy (Intermediate, Verified 12/23/18 19:16) Rash/Itching ketorolac [From Toradol] Adverse Reaction (Intermediate, Verified 12/23/18 19:16) Anxiety Review of Systems All systems: reviewed and no additional remarkable complaints except as stated - as mentioned in HPI Physical Exam Vital Signs: Temp Pulse Resp BP Pulse Ox 98.9 F 109 H 19 103/78 92 03/31/19 06:01 03/31/19 02:20 03/31/19 06:01 03/31/19 06:01 03/31/19 06:01 Intake & Output 03/30/19 03/31/19 04/01/19 06:59 06:59 06:59 Weight 157 lb General appearance: PRESENT: no acute distress, well-developed, well-nourished Head exam: PRESENT: atraumatic, normocephalic Eye exam: PRESENT: conjunctiva pink, EOMI, PERRLA. ABSENT: scleral icterus Ear exam: PRESENT: normal external ear exam Mouth exam: PRESENT: moist, tongue midline Neck exam: ABSENT: carotid bruit, JVD, lymphadenopathy, thyromegaly Respiratory exam: PRESENT: rhonchi, wheezes. ABSENT: rales Cardiovascular exam: PRESENT: RRR. ABSENT: diastolic murmur, rubs, systolic murmur GI/Abdominal exam: PRESENT: normal bowel sounds, soft. ABSENT: distended, guarding, mass, organolmegaly, rebound, tenderness Rectal exam: PRESENT: deferred Extremities exam: PRESENT: full ROM. ABSENT: calf tenderness, clubbing, pedal edema Neurological exam: PRESENT: alert, awake, oriented to person, oriented to place, oriented to time, oriented to situation, CN II-XII grossly intact. ABSENT: motor sensory deficit Results Laboratory Results: 03/31/19 02:55 03/31/19 02:55 03/31/19 03/31/19 03/31/19 02:55 02:55 02:55 WBC 16.3 H RBC 4.13 Hgb 12.0 Hct 36.3 MCV 88 MCH 29.0 MCHC 33.0 RDW 15.3 H Plt Count 406 Seg Neutrophils % 87.9 H Sodium 139.6 Potassium 4.3 Chloride 101 Carbon Dioxide 25 Anion Gap 14 BUN 14 Creatinine 0.73 Est GFR ( Amer) > 60 Glucose 119 H Calcium 9.0 Total Bilirubin 0.3 AST 34 Alkaline Phosphatase 58 Total Protein 6.5 Albumin 3.8 Serum HCG, Qual NEGATIVE Urine Color Urine Appearance Urine pH Ur Specific [place] Urine Protein Urine Glucose (UA) Urine Ketones Urine Blood 03/31/19 05:24 WBC RBC Hgb Hct MCV MCH MCHC RDW Plt Count Seg Neutrophils % Sodium Potassium Chloride Carbon Dioxide Anion Gap BUN Creatinine Est GFR ( Amer) Glucose Calcium Total Bilirubin AST Alkaline Phosphatase Total Protein Albumin Serum HCG, Qual Urine Color YELLOW Urine Appearance CLEAR Urine pH 5.0 Ur Specific [place] 1.014 Urine Protein NEGATIVE Urine Glucose (UA) NEGATIVE Urine Ketones NEGATIVE Urine Blood NEGATIVE Impressions: Chest X-Ray 03/31/19 02:46 IMPRESSION: No acute cardiopulmonary abnormality copyright 2011 [employer]- All Rights Reserved Assessment and Plan - Diagnosis (1) Asthma exacerbation Qualifiers: Asthma severity: moderate Asthma persistence: persistent Qualified Code(s): J45.41 - Moderate persistent asthma with (acute) exacerbation Is this a current diagnosis for this admission?: Yes Plan: Start solumedrol and scheduled breathing treatments. (2) HTN (hypertension) Is this a current diagnosis for this admission?: Yes Plan: Diet-controlled. (3) Crohn's colitis Qualifiers: Digestive disease complication type: unspecified complication Qualified Code(s): K50.119 - Crohn's disease of large intestine with unspecified complications Is this a current diagnosis for this admission?: Yes Plan: Appears to be in remission. - Time Time Spent with patient: 25-34 minutes
[2019-03-31] MEDS: IPRATROPIUM/ALBUTEROL 0.5-2.5 MG/3 ML AMPUL NEB SCH ×2 (13:27→20:14)
[2019-03-31] MEDS: METHYLPREDNISOLONE INJ 40 MG/1 ML SDV IV SCH ×2 (13:43→21:42)
[2019-04-01] MEDS: IPRATROPIUM/ALBUTEROL 0.5-2.5 MG/3 ML AMPUL NEB SCH ×4 (02:54→20:16)
[2019-04-01] MEDS: METHYLPREDNISOLONE INJ 40 MG/1 ML SDV IV SCH ×3 (05:21→22:30)
[2019-04-01] MEDS: HEPARIN SOD (PORCINE) 5,000 UNIT/ML 1 ML VIAL SUBCUT SCH ×2 (09:18→22:31)
[2019-04-01 09:55] LABS: HEMOGLOBIN 11.8 g/dL (12.0-15.5); MEAN CORPUSCULAR HEMOGLOBIN 28.8 pg (27.0-33.4); MEAN CORPUSCULAR HGB CONC 32.8 g/dL (32.0-36.0); MEAN CORPUSCULAR VOLUME 88 fl (80-97); PLATELET COUNT 436 10^3/uL (150-450); RED CELL DISTRIBUTION WIDTH 15.9 % (11.5-14.0); WHITE BLOOD COUNT 24.2 10^3/uL (4.0-10.5)
[2019-04-01] MEDS: GABAPENTIN 100 MG CAPSULE PO PRN ×2 (14:19→22:30)
[2019-04-01] MEDS: ROPINIROLE HCL 0.25 MG TABLET PO PRN (14:19)
--- NOTE | 2019-04-01 16:55 | PDOC PROGRESS REPORT ---
Subjective Progress Note for:: 04/01/19 Subjective:: This is a 38-year-old female who presented with shortness of breath and wheezing. She was admitted due to asthma exacerbation. No acute event overnight. She still complains of shortness of breath upon encounter this morning. Denies chest pain. She still has bilateral wheezes and rhonchi albeit slightly improved from yesterday. Reason For Visit: ASTHMA EXACERBATION Physical Exam Vital Signs: Temp Pulse Resp BP Pulse Ox 97.9 F 92 18 124/84 96 04/01/19 11:16 04/01/19 13:38 04/01/19 13:38 04/01/19 11:16 04/01/19 13:38 Intake & Output 03/31/19 04/01/19 04/02/19 06:59 06:59 06:59 Intake Total 1124 480 Output Total 900 Balance 224 480 Weight 157 lb 161 lb 2.526 oz General appearance: PRESENT: no acute distress, well-developed, well-nourished Head exam: PRESENT: atraumatic, normocephalic Eye exam: PRESENT: conjunctiva pink, EOMI, PERRLA. ABSENT: scleral icterus Ear exam: PRESENT: normal external ear exam Mouth exam: PRESENT: moist, tongue midline Neck exam: ABSENT: carotid bruit, JVD, lymphadenopathy, thyromegaly Respiratory exam: PRESENT: rhonchi, wheezes. ABSENT: rales Cardiovascular exam: PRESENT: RRR. ABSENT: diastolic murmur, rubs, systolic murmur Pulses: PRESENT: normal dorsalis pedis pul GI/Abdominal exam: PRESENT: normal bowel sounds, soft. ABSENT: distended, guarding, mass, organolmegaly, rebound, tenderness Rectal exam: PRESENT: deferred Extremities exam: PRESENT: full ROM. ABSENT: calf tenderness, clubbing, pedal edema Neurological exam: PRESENT: alert, awake, oriented to person, oriented to place, oriented to time, oriented to situation, CN II-XII grossly intact. ABSENT: motor sensory deficit Results Laboratory Results: 04/01/19 09:15 03/31/19 02:55 04/01/19 09:15 WBC 24.2 H RBC 4.10 Hgb 11.8 L Hct 36.0 MCV 88 MCH 28.8 MCHC 32.8 RDW 15.9 H Plt Count 436 Impressions: Chest X-Ray 03/31/19 02:46 IMPRESSION: No acute cardiopulmonary abnormality copyright 2011 [employer]- All Rights Reserved Assessment and Plan - Diagnosis (1) Asthma exacerbation Qualifiers: Asthma severity: moderate Asthma persistence: persistent Qualified Code(s): J45.41 - Moderate persistent asthma with (acute) exacerbation Is this a current diagnosis for this admission?: Yes Plan: Continue IV Solu-Medrol and breathing treatments for now. (2) HTN (hypertension) Is this a current diagnosis for this admission?: Yes Plan: Diet-controlled. (3) Crohn's disease Is this a current diagnosis for this admission?: Yes Plan: In remission. - Time Time Spent with patient: 15-24 minutes
[2019-04-02] MEDS: IPRATROPIUM/ALBUTEROL 0.5-2.5 MG/3 ML AMPUL NEB SCH ×3 (01:46→14:32)
[2019-04-02] MEDS: METHYLPREDNISOLONE INJ 40 MG/1 ML SDV IV SCH ×2 (06:03→13:49)
[2019-04-02] MEDS: HEPARIN SOD (PORCINE) 5,000 UNIT/ML 1 ML VIAL SUBCUT SCH (09:24)
[2019-04-02] MEDS: GABAPENTIN 100 MG CAPSULE PO PRN (09:27)
[2019-04-02] MEDS: ROPINIROLE HCL 0.25 MG TABLET PO PRN (09:27)
[2019-04-02 09:31] LABS: HEMATOCRIT 35.6 % (36.0-47.0); HEMOGLOBIN 11.9 g/dL (12.0-15.5); MEAN CORPUSCULAR HEMOGLOBIN 29.6 pg (27.0-33.4); MEAN CORPUSCULAR HGB CONC 33.4 g/dL (32.0-36.0); MEAN CORPUSCULAR VOLUME 89 fl (80-97); PLATELET COUNT 439 10^3/uL (150-450); RED BLOOD COUNT 4.01 10^6/uL (3.72-5.28); WHITE BLOOD COUNT 23.1 10^3/uL (4.0-10.5)
[2019-04-02 10:59] LABS: ABSOLUTE LYMPHOCYTES# (MANUAL) 1.6 10^3/uL (0.5-4.7); ABSOLUTE MONOCYTES # (MANUAL) 0.2 10^3/uL (0.1-1.4); BASOPHILS % (MANUAL) 0 % (0-2); EOSINOPHILS % (MANUAL) 0 % (0-6); LYMPHOCYTES % (MANUAL) 7 % (13-45); MONOCYTES % (MANUAL) 1 % (3-13); SEGMENTED NEUTROPHILS % (MAN) 92 % (42-78); TOTAL CELLS COUNTED 100
[2019-04-02 11:01] LABS: ANISOCYTOSIS 1+; BURR CELLS SLIGHT; PLATELET COMMENT ADEQUATE
[2019-04-02 14:36] VITALS: BP 124/75
--- NOTE | 2019-04-02 19:08 | PDOC DISCHARGE SUMMARY ---
Impression - Admit/DC Date/PCP Admission Date/Primary Care Provider: 03/31/19 07:35 Discharge Date: 04/02/19 - Discharge Diagnosis (1) Asthma exacerbation Is this a current diagnosis for this admission?: Yes (2) HTN (hypertension) Is this a current diagnosis for this admission?: Yes (3) Crohn's disease Is this a current diagnosis for this admission?: Yes - Additional Information Resuscitation Status: Full Code Discharge Diet: As Tolerated Discharge Activity: Activity As Tolerated Referrals: [facility] [Outside] Prescriptions: Duloxetine HCl [Cymbalta] 30 mg PO DAILY #30 capsule. Prednisone [Deltasone 20 mg Tablet] 20 mg PO BID 5 Days #10 tablet Ipratropium/Albuterol Sulfate [Duoneb 3 ml Ampul] 3 ml NEB RTQ6 PRN #20 vial.neb PRN Reason: Albuterol Sulfate [Proair Respiclick] 2 puff IH Q4HP PRN #1 PRN Reason: FOR WHEEZING AND SOB Ropinirole HCl [Requip 0.25 mg Tablet] 0.25 mg PO DAILYP PRN #20 tablet PRN Reason: Budesonide/Formoterol Fumarate [Symbicort Hfa 160-4.5 Mcg Inhaler 6 gm] 1 puff IH Q12 #1 inhaler Home Medications: Albuterol Sulfate [Proair Respiclick] 2 puff IH Q4HP PRN #1 04/02/19 Budesonide/Formoterol Fumarate [Symbicort Hfa 160-4.5 Mcg Inhaler 6 gm] 1 puff IH Q12 #1 inhaler 04/02/19 Duloxetine HCl [Cymbalta] 30 mg PO DAILY #30 capsule. 04/02/19 Ipratropium/Albuterol Sulfate [Duoneb 3 ml Ampul] 3 ml NEB RTQ6 PRN #20 vial.neb 04/02/19 Prednisone [Deltasone 20 mg Tablet] 20 mg PO BID 5 Days #10 tablet 04/02/19 Ropinirole HCl [Requip 0.25 mg Tablet] 0.25 mg PO DAILYP PRN #20 tablet 04/02/19 History of Present Illiness History of Present Illness: CECIL GARG is a 38 year old female with a past medical history of asthma not compliant on her asthma inhalers due to insurance issues, history of depression, anxiety, hypertension and Crohn's Presented with wheezing and increasing shortness of breath. Patient reports that she has been having progressively worsening short of loss of breath shortness of breath associated with wheezing over the past 2 to 3 days. This is associated with nonproductive cough. She denies fever or chills. Denies chest pain. In the ER, she was noted to have bilateral wheezing and was initially tachypneic. She was given IV steroids and multiple breathing treatments. She only reported partial relief and continued to report shortness of breath. She did have persistent wheezing on examination. Hospital Course Hospital Course: This is a 38-year-old female with a known bronchial asthma and current cigarette smoker who does not use any inhalers at home due to having no insurance coverage. She does not also see a PCP. Who presented with shortness of breath and wheezing and was found to be in asthma exacerbation. She was started on IV steroids and breathing treatments. She was easily weaned off O2 in the ER upon admission but was admitted as she had persistent wheezing and shortness of breath. She did improve and returned to a baseline. She was able to ambulate the hallways on room air without any desaturation or acute issues. pressed or blown glass worker was also consulted to assist with medications. Patient continues to smoke cigarettes. Counseled in length about smoking cessation. She will be started on Symbicort. She says that her mother is willing to pay for her inhalers she will also be discharged on 5 more days of prednisone.. Physical Exam Vital Signs: Temp Pulse Resp BP Pulse Ox 98.0 F 94 14 124/75 95 04/02/19 14:40 04/02/19 14:40 04/02/19 14:40 04/02/19 14:40 04/02/19 14:40 Intake & Output 04/01/19 04/02/19 04/03/19 06:59 06:59 06:59 Intake Total 1124 780 480 Output Total 900 500 Balance 224 280 480 Weight 161 lb 2.526 oz 161 lb 2.526 oz General appearance: PRESENT: no acute distress, well-developed, well-nourished Head exam: PRESENT: atraumatic, normocephalic Eye exam: PRESENT: conjunctiva pink, EOMI, PERRLA. ABSENT: scleral icterus Ear exam: PRESENT: normal external ear exam Mouth exam: PRESENT: moist, tongue midline Neck exam: ABSENT: carotid bruit, JVD, lymphadenopathy, thyromegaly Respiratory exam: PRESENT: rhonchi. ABSENT: rales, wheezes Cardiovascular exam: PRESENT: RRR. ABSENT: diastolic murmur, rubs, systolic murmur Pulses: PRESENT: normal dorsalis pedis pul GI/Abdominal exam: PRESENT: normal bowel sounds, soft. ABSENT: distended, guarding, mass, organolmegaly, rebound, tenderness Rectal exam: PRESENT: deferred Neurological exam: PRESENT: alert, awake, oriented to person, oriented to place, oriented to time, oriented to situation, CN II-XII grossly intact. ABSENT: motor sensory deficit Results Laboratory Results: WBC 23.1 10^3/uL (4.0-10.5) H 04/02/19 08:30 RBC 4.01 10^6/uL (3.72-5.28) 04/02/19 08:30 Hgb 11.9 g/dL (12.0-15.5) L 04/02/19 08:30 Hct 35.6 % (36.0-47.0) L 04/02/19 08:30 MCV 89 fl (80-97) 04/02/19 08:30 MCH 29.6 pg (27.0-33.4) 04/02/19 08:30 MCHC 33.4 g/dL (32.0-36.0) 04/02/19 08:30 RDW 16.0 % (11.5-14.0) H 04/02/19 08:30 Plt Count 439 10^3/uL (150-450) 04/02/19 08:30 Lymph % (Auto) Not Reportable 04/02/19 08:30 [place] % (Auto) Not Reportable 04/02/19 08:30 Eos % (Auto) Not Reportable 04/02/19 08:30 Baso % (Auto) Not Reportable 04/02/19 08:30 Absolute Neuts (auto) Not Reportable 04/02/19 08:30 Absolute Lymphs (auto) Not Reportable 04/02/19 08:30 Absolute Monos (auto) Not Reportable 04/02/19 08:30 Absolute Eos (auto) Not Reportable 04/02/19 08:30 Absolute Basos (auto) Not Reportable 04/02/19 08:30 Total Counted 100 04/02/19 08:30 Seg Neutrophils % Not Reportable 04/02/19 08:30 Seg Neuts % (Manual) 92 % (42-78) H 04/02/19 08:30 Lymphocytes % (Manual) 7 % (13-45) L 04/02/19 08:30 Monocytes % (Manual) 1 % (3-13) L 04/02/19 08:30 Eosinophils % (Manual) 0 % (0-6) 04/02/19 08:30 Basophils % (Manual) 0 % (0-2) 04/02/19 08:30 Abs Neuts (Manual) 21.3 10^3/uL (1.7-8.2) H 04/02/19 08:30 Abs Lymphs (Manual) 1.6 10^3/uL (0.5-4.7) 04/02/19 08:30 Abs Monocytes (Manual) 0.2 10^3/uL (0.1-1.4) 04/02/19 08:30 Absolute Eos (Manual) 0.0 10^3/uL (0.0-0.6) 04/02/19 08:30 Abs Basophils (Manual) 0.0 10^3/uL (0.0-0.2) 04/02/19 08:30 WBC Morphology Comment + 04/02/19 08:30 Platelet Comment ADEQUATE 04/02/19 08:30 Anisocytosis 1+ 04/02/19 08:30 Flushing Cells SLIGHT 04/02/19 08:30 Sodium 139.6 mmol/L (137-145) 03/31/19 02:55 Potassium 4.3 mmol/L (3.6-5.0) 03/31/19 02:55 Chloride 101 mmol/L (98-107) 03/31/19 02:55 Carbon Dioxide 25 mmol/L (22-30) 03/31/19 02:55 Anion Gap 14 (5-19) 03/31/19 02:55 BUN 14 mg/dL (7-20) 03/31/19 02:55 Creatinine 0.73 mg/dL (0.52-1.25) 03/31/19 02:55 Est GFR ( Amer) > 60 (>60) 03/31/19 02:55 Est GFR (MDRD) Non-Af > 60 (>60) 03/31/19 02:55 Glucose 119 mg/dL (75-110) H 03/31/19 02:55 Calcium 9.0 mg/dL (8.4-10.2) 03/31/19 02:55 Total Bilirubin 0.3 mg/dL (0.2-1.3) 03/31/19 02:55 Direct Bilirubin 0.2 mg/dL (0.0-0.4) 03/31/19 02:55 Neonat Total Bilirubin Not Reportable 03/31/19 02:55 Neonat Direct Bilirubin Not Reportable 03/31/19 02:55 Neonat Indirect Bili Not Reportable 03/31/19 02:55 AST 34 U/L (14-36) 03/31/19 02:55 ALT 12 U/L (<35) 03/31/19 02:55 Alkaline Phosphatase 58 U/L (38-126) 03/31/19 02:55 Total Protein 6.5 g/dL (6.3-8.2) 03/31/19 02:55 Albumin 3.8 g/dL (3.5-5.0) 03/31/19 02:55 Serum HCG, Qual NEGATIVE (NEGATIVE) 03/31/19 02:55 Urine Color YELLOW 03/31/19 05:24 Urine Appearance CLEAR 03/31/19 05:24 Urine pH 5.0 (5.0-9.0) 03/31/19 05:24 Ur Specific [place] 1.014 03/31/19 05:24 Urine Protein NEGATIVE mg/dL (NEGATIVE) 03/31/19 05:24 Urine Glucose (UA) NEGATIVE mg/dL (NEGATIVE) 03/31/19 05:24 Urine Ketones NEGATIVE mg/dL (NEGATIVE) 03/31/19 05:24 Urine Blood NEGATIVE (NEGATIVE) 03/31/19 05:24 Urine Nitrite (Reflex) NEGATIVE (NEGATIVE) 03/31/19 05:24 Urine Bilirubin NEGATIVE (NEGATIVE) 03/31/19 05:24 Urine Urobilinogen NEGATIVE mg/dL (<2.0) 03/31/19 05:24 Leukocyte Esterase Rfl NEGATIVE (NEGATIVE) 03/31/19 05:24 Urine WBC (Reflex) 1 /HPF 03/31/19 05:24 Squamous Epi Cells Auto <1 /HPF 03/31/19 05:24 Urine Mucus (Auto) RARE /LPF 03/31/19 05:24 Urine Ascorbic Acid 40 (NEGATIVE) H 03/31/19 05:24 Impressions: Chest X-Ray 03/31/19 02:46 IMPRESSION: No acute cardiopulmonary abnormality copyright 2010 [employer]- All Rights Reserved Stroke Is this a Stroke Patient?: No Acute Heart Failure - Is this a Heart Failure Patient?: No
== END 2019-04-02 15:46 | disposition home or self-care (01) ==
LOC: ER 02:05 → INTOOBSV 07:35 → EH 07:35 → 4W 10:16
PROVIDERS: ADMIT Internal Medicine; ATTEND Internal Medicine
DX: J45.41 Moderate persistent asthma with (acute) exacerbation (principal); I10 Essential (primary) hypertension; K50.119 Crohn's disease of large intestine with unspecified complications; F32.9 Major depressive disorder, single episode, unspecified; R06.82 Tachypnea, not elsewhere classified; F17.210 Nicotine dependence, cigarettes, uncomplicated; Z91.14 Patient's other noncompliance with medication regimen; Z59.7 Insufficient social insurance and welfare support; Z87.01 Personal history of pneumonia (recurrent)
CPT/HCPCS: 93005; 99406; 94640 ×6; 99285; 36415 ×3; 84703; 85025 ×2; 85027; 80053; 81001; 71046; 93010; G0378 ×4; J2920 ×3; J3490 ×4; J7620 ×3

== ENCOUNTER 2019-06-02 17:10 | Observation (INO) | payer SELFPAY ==
--- NOTE | 2019-06-02 17:39 | RADIOLOGY REPORT (SQ) ---
EXAM DESCRIPTION: CHEST SINGLE VIEW COMPLETED DATE/TIME: 06/02/2019 5:31 pm REASON FOR STUDY: asthma exacerbation COMPARISON: 03/31/2019. EXAM PARAMETERS: NUMBER OF VIEWS: One view. TECHNIQUE: Single frontal radiographic view of the chest acquired. RADIATION DOSE: NA LIMITATIONS: None. FINDINGS: LUNGS AND PLEURA: No opacities, masses or pneumothorax. No pleural effusion. MEDIASTINUM AND HILAR STRUCTURES: No masses. Contour normal. HEART AND VASCULAR STRUCTURES: Heart normal in size. Normal vasculature. BONES: No acute findings. HARDWARE: None in the chest. OTHER: No other significant finding. IMPRESSION: NO ACUTE RADIOGRAPHIC FINDING IN THE CHEST. TECHNICAL DOCUMENTATION: JOB ID: [id number] 2010 [employer]- All Rights Reserved Reading location - IP/workstation name: [email or web address]
[2019-06-02 17:59] LABS: ABSOLUTE BASOPHILS # (AUTO) 0.1 10^3/uL (0.0-0.2); ABSOLUTE EOSINOPHILS # (AUTO) 0.9 10^3/uL (0.0-0.6); ABSOLUTE LYMPHOCYTES (AUTO) 1.3 10^3/uL (0.5-4.7); ABSOLUTE MONOCYTES (AUTO) 0.5 10^3/uL (0.1-1.4); ABSOLUTE NEUT (AUTO) 12.2 10^3/uL (1.7-8.2); BASOPHILS % (AUTO) 0.5 % (0-2); EOSINOPHILS % (AUTO) 5.7 % (0-6); HEMATOCRIT 35.1 % (36.0-47.0); LYMPHOCYTES % (AUTO) 8.6 % (13-45); MEAN CORPUSCULAR HGB CONC 34.2 g/dL (32.0-36.0); MEAN CORPUSCULAR VOLUME 88 fl (80-97); MONOCYTES % (AUTO) 3.5 % (3-13); PLATELET COUNT 471 10^3/uL (150-450); RED CELL DISTRIBUTION WIDTH 16.4 % (11.5-14.0); SEGMENTED NEUTROPHILS % (AUTO) 81.7 % (42-78); TOTAL CELLS COUNTED % (AUTO) 100 %
[2019-06-02 18:08] LABS: ALBUMIN 2.8 g/dL (3.5-5.0); ALKALINE PHOSPHATASE 87 U/L (38-126); ANION GAP 9 (5-19); ASPARTATE AMINO TRANSFERASE 30 U/L (14-36); BILIRUBIN,DIRECT 0.3 mg/dL (0.0-0.4); BILIRUBIN,TOTAL 0.4 mg/dL (0.2-1.3); BLOOD UREA NITROGEN 5 mg/dL (7-20); CALCIUM 7.7 mg/dL (8.4-10.2); CARBON DIOXIDE 24 mmol/L (22-30); CHLORIDE 103 mmol/L (98-107); GLUCOSE 112 mg/dL (75-110); POTASSIUM 3.7 mmol/L (3.6-5.0); TOTAL PROTEIN 5.5 g/dL (6.3-8.2)
[2019-06-02] MEDS ORDERED: IPRATROPIUM/ALBUTEROL 0.5-2.5 MG/3 ML AMPUL NEB ONE (19:02)
--- NOTE | 2019-06-02 19:13 | ER Document Report ---
ED General - General Chief Complaint: Asthma Exacerbation Stated Complaint: DIFFICULTY BREATHING Time Seen by Provider: 06/02/19 18:49 TRAVEL OUTSIDE OF THE [place] IN LAST 30 DAYS: No - HPI Notes: 38-year-old female with longstanding history of severe asthma presents now with asthma exacerbation. Patient was hospitalized here back in March and prior to this was smoking heavily but says she is now stop smoking. She has been hoarse for the last 5 days and reports intermittent low-grade temperature. No sputum production. No vomiting. Patient received 3 nebulizer treatments during transport and IV steroids administered by EMS. She continues to wheeze. Last menses 1 week ago described as normal. Patient denies any travel outside the area. She denies any known exposure to anyone diagnosed with Covid-19. - Related Data Allergies/Adverse Reactions: Sulfa (Sulfonamide Antibiotics) Allergy (Intermediate, Verified 12/23/18 19:16) Rash/Itching ketorolac [From Toradol] Adverse Reaction (Intermediate, Verified 12/23/18 19:16) Anxiety Past Medical History - General Information source: Patient - Social History Smoking Status: Former Smoker Drug Abuse: None Family History: Arthritis - Chronic back pain, Thyroid Disfunction, Other - Irritable bowel syndrome/colitis Patient has suicidal ideation: No Patient has homicidal ideation: No - Past Medical History Cardiac Medical History: Denies: Hx Hypertension Pulmonary Medical History: Reports: Hx Asthma, Hx Pneumonia - hx of Denies: Hx COPD Neurological Medical History: Denies: Hx Seizures Endocrine Medical History: Denies: Hx Diabetes Mellitus Type 1, Hx Diabetes Mellitus Type 2 Renal/ Medical History: Reports: Hx Ectopic , Hx Ovarian Cysts GI Medical History: Reports: Hx Gastroesophageal Reflux Disease. Denies: Hx Cirrhosis, Hx Hepatitis Musculoskeletal Medical History: Denies Hx Arthritis, Denies Hx Gout Skin Medical History: Denies Hx Eczema, Reports Hx MRSA, Denies Hx Psoriasis Psychiatric Medical History: Reports: Hx Anxiety, Hx Attention Deficit Hyperactivity Disorder, Hx Bipolar Disorder, Hx Depression Infectious Medical History: Reports: Hx MRSA. Denies: Hx Hepatitis Past Surgical History: Reports: Hx Section, Hx Gynecologic Surgery - tubal - Immunizations Immunizations up to date: Yes Hx Diphtheria, Pertussis, Tetanus Vaccination: Yes Review of Systems - Review of Systems Notes: Constitutional: As per HPI. HENT: Negative for sore throat. Eyes: Negative for visual changes. Cardiovascular: Negative for chest pain. Respiratory: As per HPI. Gastrointestinal: Negative for abdominal pain, vomiting or diarrhea. Genitourinary: Negative for dysuria. Musculoskeletal: Negative for back pain. Skin: Negative for rash. Neurological: Negative for headaches, weakness or numbness. 10 point ROS negative except as marked above and in HPI. Physical Exam - Vital signs Vitals: Pulse Ox 91 L 06/02/19 17:19 - Notes Notes: GENERAL: Well-developed well-nourished appearing in no acute distress. SKIN: Good turgor no rashes. HEAD: Normocephalic atraumatic. EYES: PERRLA. EOMI. Conjunctivae and sclerae clear. EARS: CANALS AND TMS CLEAR. NOSE: CLEAR. MOUTH: Moist mucosa. Good dentition. No stridor or edema. No drooling. Throat: Injected without exudate. Patient is hoarse. NECK: Supple. No masses or thyromegaly. No adenopathy. Carotids 2+ without bruits. No JVD. BACK: Symmetrical without tenderness. CHEST: Mildly tachypneic. Diffuse wheezes and scattered rhonchi bilaterally. HEART: Regular rhythm. No murmur gallop or rub. ABDOMEN: Soft nontender without masses, organomegaly or rebound. Bowel sounds normally active. No bruits. GENITALIA: Deferred. EXTREMITIES: No edema. No calf tenderness. Cap refill less than 1.5 seconds. Dorsalis pedis and posterior tibial pulses 3+ and symmetrical. NEUROLOGICAL: GCS 15. Alert and oriented x3. Fluent speech. Cranial nerves II through XII intact. Sensorimotor and cerebellar normal. Normal tone. PSYCHIATRIC: Appropriate affect. Course - Re-evaluation Re-evalutation: 06/02/19 20:25 96% saturation on 2 L nasal O2. Patient still has difficulty completing a sentence without becoming dyspneic. She is refused a blood gas. She has had IV steroids, IV normal saline and multiple nebulizer treatments. I will present patient to the hospitalist for admission. - Vital Signs Vital signs: Temp Pulse Resp BP Pulse Ox 98 F 123 H 16 122/79 94 06/02/19 17:20 06/02/19 17:20 06/02/19 21:14 06/02/19 21:14 06/02/19 21:14 - Laboratory Result Diagrams: 06/02/19 17:31 06/02/19 17:31 Laboratory results interpreted by me: 06/02/19 06/02/19 06/02/19 17:31 17:31 19:15 WBC 15.0 H Hct 35.1 L RDW 16.4 H Plt Count 471 H Lymph % (Auto) 8.6 L Absolute Neuts (auto) 12.2 H Absolute Eos (auto) 0.9 H Seg Neutrophils % 81.7 H Sodium 136.4 L BUN 5 L Creatinine 0.44 L Glucose 112 H Calcium 7.7 L Total Protein 5.5 L Albumin 2.8 L Urine Ascorbic Acid 40 H - Diagnostic Test Radiology reviewed: Reports reviewed - No active disease per radiologist - EKG Interpretation by Me Additional EKG results interpreted by me: 06/02/19 19:14 Twelve-lead EKG from 1733 hrs. reviewed by me contemporaneously demonstrating sinus tachycardia with a rate of 17. Normal intervals. QRS axis is [address]/T wave changes. Discharge - Discharge Clinical Impression: Asthma Asthma exacerbation Qualifiers: Asthma severity: moderate Asthma persistence: unspecified Qualified Code(s): J45.901 - Unspecified asthma with (acute) exacerbation Condition: Good Disposition: ADMITTED INPATIENT Admitting Provider: Abhijit Unit Admitted: Medical Floor
[2019-06-02 19:41] LABS: A TYPE INFLUENZA AG NEGATIVE (NEGATIVE); B INFLUENZA AG NEGATIVE (NEGATIVE)
[2019-06-02 19:44] LABS: APPEARANCE,URINE CLEAR; BILIRUBIN,URINE NEGATIVE (NEGATIVE); COLOR,URINE YELLOW; GLUCOSE, URINE NEGATIVE (NEGATIVE); KETONES,URINE NEGATIVE (NEGATIVE); LEUKOCYTE ESTERASE,URINE NEGATIVE (NEGATIVE); NITRITE,URINE NEGATIVE (NEGATIVE); PROTEIN,URINE NEGATIVE (NEGATIVE); URINE SPECIFIC GRAVITY 1.012; UROBILINOGEN,URINE NEGATIVE mg/dL (<2.0)
[2019-06-02] MEDS ORDERED: ONDANSETRON 4 MG TAB.RAPDIS PO PRN (23:34)
[2019-06-02] MEDS ORDERED: LEVALBUTEROL HCL NEB 0.63 MG/3 ML AMPUL NEB PRN (23:34)
[2019-06-02] MEDS ORDERED: ACETAMINOPHEN 325 MG TABLET PO PRN (23:34)
--- NOTE | 2019-06-02 23:59 | ADVANCED CARE ---
- Diagnosis (1) Asthma exacerbation Diagnosis Current: Yes (2) Acute respiratory failure with hypoxia Diagnosis Current: Yes (3) Anxiety Diagnosis Current: Yes (4) Depression Diagnosis Current: Yes (5) Hidradenitis suppurativa Diagnosis Current: Yes (6) Crohn's disease Diagnosis Current: Yes (7) HTN (hypertension) Diagnosis Current: Yes (8) Tobacco dependence due to cigarettes Diagnosis Current: Yes Attendance: Patient Resuscitation Status: Full Code Discussion: All aspects of CODE STATUS discussed including chest compressions, cardioversion, intubation and patient states she would like to be full code. She states her medical power of workers compensation attorney is her mother Wilda Nathan [phone] Time Spent: 17 minutes
--- NOTE | 2019-06-02 23:59 | PDOC H&P ---
History of Present Illness Admission Date/PCP: 06/02/19 22:34 History of Present Illness: CECIL GARG is a 38 year old female with past medical history significant for chronic asthma, anxiety/depression, hidradenitis, Crohn's disease, tobacco abuse who presents with 3-day history of progressive shortness of breath/GARCIA/dry cough/intermittent fever consistent with her previous asthma exacerbations. She does admit that she continues to smoke cigarettes but states she wants to quit. She states she was in the ER in March for the same symptoms and was given prescriptions for inhalers and other medications unfortunately she cannot afford any of these medications as some of them cost up to $400 or more. On admission she is hypoxic and requiring supplemental oxygen at 2 L nasal cannula to maintain adequate saturation. She was given steroids and nebulizer treatments with some degree of improvement. Past Medical History Cardiac Medical History: Denies: Hypertension Pulmonary Medical History: Reports: Asthma, Pneumonia - hx of Denies: Chronic Obstructive Pulmonary Disease (COPD) Neurological Medical History: Denies: Seizures Endocrine Medical History: Denies: Diabetes Mellitus Type 1, Diabetes Mellitus Type 2 GI Medical History: Reports: Crohn's Disease, Gastroesophageal Reflux Disease Denies: Cirrhosis, Hepatitis Musculoskeltal Medical History: Denies: Arthritis, Gout Skin Medical History: Denies: Eczema, Psoriasis Psychiatric Medical History: Reports: Attention Deficit Hyperactivity Disorder, Bipolar Disorder, Depression Hematology: Denies: Anemia, Bleeding Tendencies Infectious Medical History: Reports: Methicillin-Resistant Staph Aureus Past Surgical History Past Surgical History: Reports: Section Social History Information Source: Patient Lives with: Family Smoking Status: Current Every Day Smoker Cigarettes Packs Per Day: 1 Frequency of Alcohol Use: None Hx Recreational Drug Use: No - Patient denies use but prior urine drug screens have demonstrated substance Drugs: Cocaine, Marijuana Hx Prescription Drug Abuse: No - Advance Directive Resuscitation Status: Full Code Surrogate healthcare decision maker:: Mother Family History Family History: Reviewed & Not Pertinent, Arthritis - Chronic back pain, Thyroid Disfunction, Other - Irritable bowel syndrome/colitis Parental Family History Reviewed: Yes Children Family History Reviewed: Yes Sibling(s) Family History Reviewed.: Yes Medication/Allergy Home Medications: Albuterol Sulfate [Proair Respiclick] 2 puff IH Q4HP PRN #1 04/02/19 Budesonide/Formoterol Fumarate [Symbicort Hfa 160-4.5 Mcg Inhaler 6 gm] 1 puff IH Q12 #1 inhaler 04/02/19 Duloxetine HCl [Cymbalta] 30 mg PO DAILY #30 capsule. 04/02/19 Ipratropium/Albuterol Sulfate [Duoneb 3 ml Ampul] 3 ml NEB RTQ6 PRN #20 vial.neb 04/02/19 Prednisone [Deltasone 20 mg Tablet] 20 mg PO BID 5 Days #10 tablet 04/02/19 Ropinirole HCl [Requip 0.25 mg Tablet] 0.25 mg PO DAILYP PRN #20 tablet 04/02/19 Allergies/Adverse Reactions: Sulfa (Sulfonamide Antibiotics) Allergy (Intermediate, Verified 12/23/18 19:16) Rash/Itching ketorolac [From Toradol] Adverse Reaction (Intermediate, Verified 12/23/18 19:16) Anxiety Review of Systems All systems: reviewed and no additional remarkable complaints except as stated - See HPI for full ROS, otherwise negative Respiratory: PRESENT: cough, dyspnea Physical Exam Vital Signs: Temp Pulse Resp BP Pulse Ox 98 F 123 H 13 134/88 H 95 06/02/19 17:20 06/02/19 17:20 06/02/19 23:01 06/02/19 23:01 06/02/19 23:01 Intake & Output 06/01/19 06/02/19 06/03/19 06:59 06:59 06:59 Weight 68.039 kg General appearance: PRESENT: no acute distress, cooperative Head exam: PRESENT: atraumatic, normocephalic Eye exam: PRESENT: conjunctiva pink Mouth exam: PRESENT: moist Respiratory exam: PRESENT: tachypnea, wheezes. ABSENT: accessory muscle use, crackles, decreased breath sounds Cardiovascular exam: PRESENT: RRR. ABSENT: diastolic murmur, rubs, systolic murmur GI/Abdominal exam: PRESENT: normal bowel sounds, soft. ABSENT: distended, guarding, mass, organolmegaly, rebound, tenderness Rectal exam: PRESENT: deferred Musculoskeletal exam: PRESENT: ambulatory Neurological exam: PRESENT: alert, awake, oriented to person, oriented to place, oriented to time, oriented to situation Psychiatric exam: PRESENT: appropriate affect, normal mood Skin exam: PRESENT: dry, intact, warm Results Laboratory Results: 06/02/19 17:31 06/02/19 17:31 06/02/19 06/02/19 06/02/19 17:31 17:31 17:31 WBC 15.0 H RBC 4.00 Hgb 12.0 Hct 35.1 L MCV 88 MCH 30.0 MCHC 34.2 RDW 16.4 H Plt Count 471 H Seg Neutrophils % 81.7 H Sodium 136.4 L Potassium 3.7 Chloride 103 Carbon Dioxide 24 Anion Gap 9 BUN 5 L Creatinine 0.44 L Est GFR ( Amer) > 60 Glucose 112 H Lactic Acid 1.3 Calcium 7.7 L Total Bilirubin 0.4 AST 30 Alkaline Phosphatase 87 Total Protein 5.5 L Albumin 2.8 L Urine Color Urine Appearance Urine pH Ur Specific [place] Urine Protein Urine Glucose (UA) Urine Ketones Urine Blood Urine Nitrite Ur Leukocyte Esterase Urine WBC (Auto) Urine RBC (Auto) 06/02/19 19:15 WBC RBC Hgb Hct MCV MCH MCHC RDW Plt Count Seg Neutrophils % Sodium Potassium Chloride Carbon Dioxide Anion Gap BUN Creatinine Est GFR ( Amer) Glucose Lactic Acid Calcium Total Bilirubin AST Alkaline Phosphatase Total Protein Albumin Urine Color YELLOW Urine Appearance CLEAR Urine pH 5.0 Ur Specific [place] 1.012 Urine Protein NEGATIVE Urine Glucose (UA) NEGATIVE Urine Ketones NEGATIVE Urine Blood NEGATIVE Urine Nitrite NEGATIVE Ur Leukocyte Esterase NEGATIVE Urine WBC (Auto) 0 Urine RBC (Auto) 0 06/02/19 17:31 Troponin I < 0.012 Impressions: Chest X-Ray 06/02/19 17:18 IMPRESSION: NO ACUTE RADIOGRAPHIC FINDING IN THE CHEST. Assessment and Plan - Diagnosis (1) Asthma exacerbation Qualifiers: Asthma severity: moderate Asthma persistence: unspecified Qualified Code(s): J45.901 - Unspecified asthma with (acute) exacerbation Is this a current diagnosis for this admission?: Yes Plan: Possible due to viral illness versus continued tobacco abuse Had 1 isolated temperature over 100 in ambulance per patient but has not had any fevers in previous days or today other than that Nebulizer treatments IV steroids Consider pulmonology consult if she does not improve Started Jorge A Must have medication assistance prior to discharge as she cannot afford any medications and has no insurance (2) Acute respiratory failure with hypoxia Is this a current diagnosis for this admission?: Yes Plan: Due to asthma exacerbation Interventions as above Maintain oxygen saturation above 94% (3) Anxiety Is this a current diagnosis for this admission?: Yes Plan: Not on any medications (4) Depression Qualifiers: Depression Type: unspecified Qualified Code(s): F32.9 - Major depressive disorder, single episode, unspecified Is this a current diagnosis for this admission?: Yes Plan: Not on any medications (5) Hidradenitis suppurativa Is this a current diagnosis for this admission?: Yes (6) Crohn's disease Is this a current diagnosis for this admission?: Yes (7) HTN (hypertension) Is this a current diagnosis for this admission?: Yes Plan: Continue home medications (8) Tobacco dependence due to cigarettes Is this a current diagnosis for this admission?: Yes Plan: Counseled on cessation - Time Time Spent with patient: 35 or more minutes Smoking Cessation Education: 3 to 10 minutes Medications reviewed and adjusted accordingly: Yes Anticipated discharge: Home Within: within 48 hours
[2019-06-03] MEDS: IPRATROPIUM/ALBUTEROL 0.5-2.5 MG/3 ML AMPUL NEB SCH ×7 (00:01→23:47)
[2019-06-03] MEDS: METHYLPREDNISOLONE INJ 40 MG/1 ML SDV IV SCH ×3 (05:28→21:33)
[2019-06-03 06:11] LABS: ANION GAP 8 (5-19); BLOOD UREA NITROGEN 8 mg/dL (7-20); CALCIUM 8.9 mg/dL (8.4-10.2); CARBON DIOXIDE 29 mmol/L (22-30); CHLORIDE 100 mmol/L (98-107); GLUCOSE 165 mg/dL (75-110); PHOSPHORUS 4.2 mg/dL (2.5-4.5); POTASSIUM 4.3 mmol/L (3.6-5.0)
[2019-06-03 06:19] LABS: HEMATOCRIT 33.6 % (36.0-47.0); HEMOGLOBIN 11.3 g/dL (12.0-15.5); MEAN CORPUSCULAR HEMOGLOBIN 29.1 pg (27.0-33.4); MEAN CORPUSCULAR HGB CONC 33.5 g/dL (32.0-36.0); MEAN CORPUSCULAR VOLUME 87 fl (80-97); PLATELET COUNT 466 10^3/uL (150-450); RED BLOOD COUNT 3.87 10^6/uL (3.72-5.28); RED CELL DISTRIBUTION WIDTH 16.3 % (11.5-14.0); WHITE BLOOD COUNT 16.1 10^3/uL (4.0-10.5)
[2019-06-03 06:55] LABS: ABSOLUTE LYMPHOCYTES# (MANUAL) 0.6 10^3/uL (0.5-4.7); ABSOLUTE MONOCYTES # (MANUAL) 0.2 10^3/uL (0.1-1.4); BASOPHILS % (MANUAL) 0 % (0-2); EOSINOPHILS % (MANUAL) 0 % (0-6); LYMPHOCYTES % (MANUAL) 2 % (13-45); MONOCYTES % (MANUAL) 1 % (3-13); SEGMENTED NEUTROPHILS % (MAN) 95 % (42-78); TOTAL CELLS COUNTED 100
[2019-06-03 06:56] LABS: PLATELET COMMENT INCREASED
--- NOTE | 2019-06-03 07:38 | EKG REPORT ---
SEVERITY:- OTHERWISE NORMAL ECG - SINUS TACHYCARDIA : Confirmed by: Samy Coreas MD 03-Jun-2019 07:37:36
[2019-06-03] MEDS: ENOXAPARIN SODIUM INJ 40 MG/0.4 ML DISP.SYRIN SUBCUT SCH (09:34)
--- NOTE | 2019-06-03 11:39 | PDOC PROGRESS REPORT ---
Subjective Progress Note for:: 06/03/19 Reason For Visit: ASTHMA EXACERBATION, ACUTE HYPOXEMIC RESPIRATORY 06/03/2019 Patient admitted for acute asthma exacerbation, patient noncompliance Physical Exam Vital Signs: Temp Pulse Resp BP Pulse Ox 98.6 F 98 15 130/81 H 93 06/03/19 07:29 06/03/19 08:02 06/03/19 08:02 06/03/19 07:29 06/03/19 08:02 Intake & Output 06/02/19 06/03/19 06/04/19 06:59 06:59 06:59 Weight 68.039 kg General appearance: PRESENT: mild distress Respiratory exam: PRESENT: rhonchi, wheezes Cardiovascular exam: PRESENT: RRR. ABSENT: diastolic murmur, rubs, systolic murmur Neurological exam: PRESENT: alert, awake, oriented to person, oriented to place, oriented to time, oriented to situation, CN II-XII grossly intact. ABSENT: motor sensory deficit Psychiatric exam: PRESENT: appropriate affect, normal mood. ABSENT: homicidal ideation, suicidal ideation Results Laboratory Results: 06/03/19 04:51 06/03/19 04:51 06/02/19 06/02/19 06/02/19 17:31 17:31 17:31 WBC 15.0 H RBC 4.00 Hgb 12.0 Hct 35.1 L MCV 88 MCH 30.0 MCHC 34.2 RDW 16.4 H Plt Count 471 H Seg Neutrophils % 81.7 H Sodium 136.4 L Potassium 3.7 Chloride 103 Carbon Dioxide 24 Anion Gap 9 BUN 5 L Creatinine 0.44 L Est GFR ( Amer) > 60 Glucose 112 H Lactic Acid 1.3 Calcium 7.7 L Phosphorus Magnesium Total Bilirubin 0.4 AST 30 Alkaline Phosphatase 87 Total Protein 5.5 L Albumin 2.8 L Urine Color Urine Appearance Urine pH Ur Specific [place] Urine Protein Urine Glucose (UA) Urine Ketones Urine Blood Urine Nitrite Ur Leukocyte Esterase Urine WBC (Auto) Urine RBC (Auto) 06/02/19 06/03/19 06/03/19 19:15 04:51 04:51 WBC 16.1 H RBC 3.87 Hgb 11.3 L Hct 33.6 L MCV 87 MCH 29.1 MCHC 33.5 RDW 16.3 H Plt Count 466 H Seg Neutrophils % Not Reportable Sodium 137.1 Potassium 4.3 Chloride 100 Carbon Dioxide 29 Anion Gap 8 BUN 8 Creatinine 0.49 L Est GFR ( Amer) > 60 Glucose 165 H Lactic Acid Calcium 8.9 Phosphorus 4.2 Magnesium 2.3 Total Bilirubin AST Alkaline Phosphatase Total Protein Albumin Urine Color YELLOW Urine Appearance CLEAR Urine pH 5.0 Ur Specific [place] 1.012 Urine Protein NEGATIVE Urine Glucose (UA) NEGATIVE Urine Ketones NEGATIVE Urine Blood NEGATIVE Urine Nitrite NEGATIVE Ur Leukocyte Esterase NEGATIVE Urine WBC (Auto) 0 Urine RBC (Auto) 0 06/02/19 17:31 Troponin I < 0.012 Impressions: Chest X-Ray 06/02/19 17:18 IMPRESSION: NO ACUTE RADIOGRAPHIC FINDING IN THE CHEST. Assessment and Plan - Diagnosis (1) Anxiety Is this a current diagnosis for this admission?: Yes (2) Asthma exacerbation Qualifiers: Asthma severity: moderate Asthma persistence: unspecified Qualified Code(s): J45.901 - Unspecified asthma with (acute) exacerbation Is this a current diagnosis for this admission?: Yes (3) Crohn's disease Is this a current diagnosis for this admission?: Yes (4) Leukocytosis Qualifiers: Leukocytosis type: unspecified Qualified Code(s): D72.829 - Elevated white blood cell count, unspecified Is this a current diagnosis for this admission?: Yes - Plan Summary Summary: 06/03/2019 Pulse is between 94 and 100, pressure 134/88 O2 sat between 91 and 93% on room air Patient states she does not have a job and cannot afford her medications [facility] White count is still elevated at 16,100 glucose is going between 112 and 165 chest x-ray on admission was negative for acute disease, flu swab negative, lactic acid 1.3 [place] medications include Solu-Medrol 40 mg IV every 8 hours, nebulizers, however no antibiotics Consult discharge planning for possible financial assistance for medications - Time Time Spent with patient: 15-24 minutes
[2019-06-03] MEDS: OXYCODONE-ACETAMINOPHEN 5-325 MG TABLET PO PRN (19:49)
[2019-06-04] MEDS: IPRATROPIUM/ALBUTEROL 0.5-2.5 MG/3 ML AMPUL NEB SCH ×3 (04:01→12:27)
[2019-06-04] MEDS: METHYLPREDNISOLONE INJ 40 MG/1 ML SDV IV SCH (05:47)
[2019-06-04] MEDS: OXYCODONE-ACETAMINOPHEN 5-325 MG TABLET PO PRN ×3 (07:51→22:20)
[2019-06-04] MEDS: ENOXAPARIN SODIUM INJ 40 MG/0.4 ML DISP.SYRIN SUBCUT SCH (10:10)
--- NOTE | 2019-06-04 13:47 | PDOC PROGRESS REPORT ---
Subjective Progress Note for:: 06/04/19 Reason For Visit: ASTHMA EXACERBATION, ACUTE HYPOXEMIC RESPIRATORY 06/04/2019 acute asthma exacerbation, patient noncompliance Physical Exam Vital Signs: Temp Pulse Resp BP Pulse Ox 97.9 F 107 H 16 140/84 H 100 06/04/19 11:15 06/04/19 11:15 06/04/19 11:15 06/04/19 11:15 06/04/19 11:15 Intake & Output 06/03/19 06/04/19 06/05/19 06:59 06:59 07:59 Intake Total 2003 342 Balance 2003 342 Weight 68.039 kg General appearance: PRESENT: no acute distress Respiratory exam: PRESENT: wheezes - Patient's breath sounds are improved from yesterday Cardiovascular exam: PRESENT: RRR. ABSENT: diastolic murmur, rubs, systolic murmur Neurological exam: PRESENT: alert, awake, oriented to person, oriented to place, oriented to time, oriented to situation, CN II-XII grossly intact. ABSENT: motor sensory deficit Psychiatric exam: PRESENT: appropriate affect, normal mood. ABSENT: homicidal ideation, suicidal ideation Results Laboratory Results: 06/03/19 04:51 06/03/19 04:51 06/02/19 17:31 Troponin I < 0.012 Impressions: Chest X-Ray 06/02/19 17:18 IMPRESSION: NO ACUTE RADIOGRAPHIC FINDING IN THE CHEST. Assessment and Plan - Diagnosis (1) Anxiety Is this a current diagnosis for this admission?: Yes (2) Asthma exacerbation Qualifiers: Asthma severity: moderate Asthma persistence: unspecified Qualified Code(s): J45.901 - Unspecified asthma with (acute) exacerbation Is this a current diagnosis for this admission?: Yes (3) Crohn's disease Is this a current diagnosis for this admission?: Yes (4) Leukocytosis Qualifiers: Leukocytosis type: unspecified Qualified Code(s): D72.829 - Elevated white blood cell count, unspecified Is this a current diagnosis for this admission?: Yes - Plan Summary Summary: 06/03/2019 Pulse is between 94 and 100, pressure 134/88 O2 sat between 91 and 93% on room air Patient states she does not have a job and cannot afford her medications Patient has been to the [facility] in the past White count is still elevated at 16,100 glucose is going between 112 and 165 chest x-ray on admission was negative for acute disease, flu swab negative, lactic acid 1.3 Significant medications include Solu-Medrol 40 mg IV every 8 hours, nebulizers, however no antibiotics Consult discharge planning for possible financial assistance for medications 06/04/2019 Patient remains slightly tachycardic, although I am not surprised considering her nebulizers Patient is 100% on room air Patient is up and ambulatory in the hallway Patient's white count is up but she is on Solu-Medrol I am going to DC her duo nebs and switch her to Xopenex Change her to p.o. prednisone Plan to discharge her home tomorrow - Time Time Spent with patient: 25-34 minutes
[2019-06-04] MEDS: PREDNISONE 20 MG TABLET PO SCH (17:52)
[2019-06-04] MEDS: LEVALBUTEROL HCL NEB 1.25 MG/3 ML AMPUL NEB PRN (19:59)
[2019-06-05] MEDS: LEVALBUTEROL HCL NEB 1.25 MG/3 ML AMPUL NEB PRN (08:03)
[2019-06-05] MEDS: ENOXAPARIN SODIUM INJ 40 MG/0.4 ML DISP.SYRIN SUBCUT SCH (09:00)
[2019-06-05] MEDS: PREDNISONE 20 MG TABLET PO SCH (09:03)
[2019-06-05] MEDS: OXYCODONE-ACETAMINOPHEN 5-325 MG TABLET PO PRN (09:03)
[2019-06-05 12:51] VITALS: BP 149/92
== END 2019-06-05 13:26 | disposition home or self-care (01) ==
LOC: ER 17:10 → EH 22:34 → INTOOBSV 22:34 → 4S 06-03 01:20
PROVIDERS: ADMIT Internal Medicine; ATTEND Internal Medicine
DX: J45.901 Unspecified asthma with (acute) exacerbation (principal); J96.01 Acute respiratory failure with hypoxia; F41.9 Anxiety disorder, unspecified; F32.9 Major depressive disorder, single episode, unspecified; Z59.7 Insufficient social insurance and welfare support; Z59.6 Low income; L73.2 Hidradenitis suppurativa; K50.90 Crohn's disease, unspecified, without complications; I10 Essential (primary) hypertension; F17.210 Nicotine dependence, cigarettes, uncomplicated; D72.829 Elevated white blood cell count, unspecified; R00.0 Tachycardia, unspecified; R49.0 Dysphonia; Z91.19 Patient's noncompliance with other medical treatment and regimen; Z87.01 Personal history of pneumonia (recurrent); Z86.14 Personal history of Methicillin resistant Staphylococcus aureus infection
CPT/HCPCS: 93005; 94640 ×5; 99285; 36415 ×2; 83605; 83735; 84100; 85025 ×2; 80048; 80053; 81001; 84484; 87804; 71045; 93010; 99406; G0378 ×4; J2920 ×2; J7512 ×2; J3490 ×2; J7620 ×3

== ENCOUNTER 2020-02-06 15:24 | Emergency (ER) | payer OTHER ==
[2020-02-06] MEDS ORDERED: BUTALB/ACETAMINOPHEN/CAFFEINE 1 TAB EACH PO ONE (17:27)
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
[2020-02-06] MEDS ORDERED: IBUPROFEN 800 MG TABLET PO ONE (17:28)
[2020-02-06] MEDS ORDERED: CYCLOBENZAPRINE HCL 10 MG TABLET PO ONE (17:28)
[2020-02-06 17:35] VITALS: BP 147/95
== END 2020-02-06 18:23 | disposition home or self-care (01) ==
LOC: ER 15:24
DX: R51.9 Headache, unspecified (principal); M54.6 Pain in thoracic spine; M54.5 Low back pain; V87.7XXA Person injured in collision between other specified motor vehicles (traffic), initial encounter; F17.200 Nicotine dependence, unspecified, uncomplicated; J45.909 Unspecified asthma, uncomplicated
CPT/HCPCS: 99283; J3490